=== PATIENT | male | born 1945 | race Two or more races ===

== ENCOUNTER → 2022-03-04 13:08 | Outpatient (BNV) | payer MEDICARE, MEDICAID, SELFPAY | PROVIDERS: PCP Nurse Practitioner; Visit Provider Internal Medicine | DX: C61 Malignant neoplasm of prostate (principal); C78.6 Secondary malignant neoplasm of retroperitoneum and peritoneum; D64.9 Anemia, unspecified | CPT/HCPCS: 99205; 99213; 99214; G2211 ==

== ENCOUNTER 2022-03-04 15:21 | Inpatient (IN) | payer MEDICARE, MEDICAID, SELFPAY ==
--- NOTE | 2022-03-04 | ECG_ITS ---
Test Reason : high potassium Blood Pressure : / mmHG Vent. Rate : 067 BPM Atrial Rate : 067 BPM P-R Int : 186 ms QRS Dur : 078 ms QT Int : 380 ms P-R-T Axes : 009 003 006 degrees QTc Int : 401 ms Normal sinus rhythm Cannot rule out Inferior infarct , age undetermined Abnormal ECG No previous ECGs available Referred By: Generic ED Physician Electronically Signed By:HILDA NEWMAN
--- NOTE | ~2022-03-04 | XR_ITS ---
EXAMINATION: XR CHEST CLINICAL INFORMATION: Shortness of breath COMPARISON: None TECHNIQUE: Frontal view of the chest was obtained. FINDINGS: No significant abnormality is noted involving the heart, lungs, mediastinum, bony thorax or soft tissues. XR/XR chest 1V IMPRESSION: Unremarkable examination.
--- NOTE | ~2022-03-04 | CT_ITS ---
EXAMINATION: CT ABDOMEN AND PELVIS WITHOUT CONTRAST CLINICAL INFORMATION: New acute kidney injury. History of prostate carcinoma. COMPARISON: None TECHNIQUE: Multidetector volumetric imaging was performed from the superior aspect of the liver through the pubic symphysis. Sagittal and coronal reformatted images were obtained on the technologist's workstation. This CT examination was performed using dose optimization techniques as appropriate, variously including the following: *Automated exposure control *Adjustment of mA and/or kV according to patient size (this includes techniques or standardized protocols for targeted exams where dose is matched to indication/reason for exam; i.e. extremities or head) *Use of iterative reconstruction technique DLP: 486 mGy-cm FINDINGS: LUNG BASES: The visualized lung bases are unremarkable aside from the presence of coronary artery calcifications. LIVER, GALLBLADDER, AND BILIARY TREE: The liver is normal in size, shape, and attenuation. No focal hepatic lesion or biliary ductal dilatation is present. The gallbladder is contracted but otherwise unremarkable with no evidence of radiopaque gallstones, gallbladder wall thickening, or obvious pericholecystic inflammatory changes. PANCREAS: Unremarkable. SPLEEN: Unremarkable. ADRENAL GLANDS: Unremarkable. KIDNEYS AND URETERS: There is a subtle nodularity to the kidneys along with perinephric stranding. No hydronephrosis is present. No significant discrete renal mass is seen. BLADDER: Unremarkable. GASTROINTESTINAL TRACT: Diverticular changes present in the colon without diverticulitis The small and large bowel are otherwise unremarkable. The appendix is unremarkable. ABDOMINAL WALL: No significant hernia is appreciated. Small left inguinal hernia contains only fat. LYMPH NODES: Extensive retroperitoneal lymphadenopathy is present with para-aortic nodes, retrocaval nodes, aortocaval nodes without significant adenopathy in the pelvis. Small inguinal nodes are seen. One of the largest nodes is left para-aortic measuring 3.6 x 2.9 x 6.4 cm VASCULAR: Calcific aorta iliofemoral femoral plaque without aneurysm. PELVIC VISCERA: There is BPH with a mildly prominent median lobe protruding into the bladder. OSSEOUS STRUCTURES: Degenerative changes present throughout the lumbar spine most marked from L2 through L5. Grade 1 anterolisthesis of L4 upon L5. No bony destructive lesions. CT/CT abdomen pelvis wo con IMPRESSION: 1. Extensive retroperitoneal lymphadenopathy suggesting a lymphoproliferative disorder. 2. No hydronephrosis is seen. Infiltrative diseases from such a disorder could be involving the kidneys. Such a diagnosis would be hard to make without IV contrast but obviously this cannot be used in this patient with HUSSAIN. The large left para-aortic node would be easily amenable to CT-guided biopsy. 3. Incidental note made of coronary calcifications, colonic diverticulosis, BPH and degenerative changes in the spine among others findings described above. Fleischner guidelines were followed.
[2022-03-04 15:42] VITALS: BP 133/60; PULSE 69; RESP 18; TEMP 36.8; O2SAT 99; BMI 24.3
[2022-03-04 16:01] LABS: MANUAL DIFF FLAG NO
[2022-03-04 16:02] LABS: Basophils Absolute Auto 0.1 X10*3/uL (0.0-0.2); Basophils Percent Auto 0.8 % (0-2); Eosinophils Absolute Auto 0.8 X10*3/uL (0.0-0.4); Eosinophils Percent Auto 10.6 % (0-4); Hematocrit 34.4 % (42.0-52.0); Hemoglobin 10.9 g/dl (14.0-18.0); Imm Gran Abs Auto 0.03 X10*3/uL (0.00-0.03); Imm Gran Pct Auto 0.4 % (0.0-0.4); Lymphocytes Absolute Auto 1.4 X10*3/uL (1.2-4.9); Lymphocytes Percent Auto 19.4 % (20-40); Mean Corpuscular HGB Conc 31.7 g/dl (31.0-36.0); Mean Corpuscular Hemoglobin 26.3 pg (27.0-33.0); Mean Corpuscular Volume 82.9 fL (80.0-98.0); Mean Platelet Volume 9.9 fL (9.4-12.4); Monocytes Absolute Auto 0.7 X10*3/uL (0.1-1.2); Monocytes Percent Auto 9.7 % (2-11); Neutrophils Absolute Auto 4.3 x10*3/uL (2.0-8.3); Neutrophils Percent Auto 59.1 % (45-73); Platelet Count 216 X10*3/uL (160-400); Red Blood Count 4.15 X10*6/uL (4.60-5.80); Red Cell Distribution Width 16.1 % (11.0-16.0); White Blood Count 7.3 X10*3/uL (4.8-10.8)
[2022-03-04 16:28] LABS: Anion Gap 17 (12-20); Blood Urea Nitrogen 43 mg/dL (9-16); Calcium 9.4 mg/dL (8.4-10.2); Carbon Dioxide 21 mmol/L (22-29); Chloride 110 mmol/L (96-108); Creatinine Clr Calc Pharmacy 29.8; Estimated Glomerular Filt Rate 33; Glucose Random 131 mg/dL (60-115); Potassium 6.7 mmol/L (3.3-5.1); Sodium 141 mmol/L (135-145)
--- NOTE | 2022-03-04 16:48 | ED_ITS ---
HPI - Recheck/Abnormal Lab/Rx General Chief Complaint: Recheck/Abnormal Lab/Rx Stated Complaint: abnormal labs Time Seen by Provider: 03/04/22 16:29 Source: patient and family (Daughter ) Mode of arrival: ambulatory Limitations: no limitations History of Present Illness HPI narrative: 76-year-old male past medical history significant for diabetes, hypertension, metastatic prostate cancer currently on daily bicalutamide 50 mg (Dx in November 2021 in [place]) presenting to the emergency department with concerns of high potassium based off of out patient labs done today by his oncologist and complaints of urinary hesitancy and tingling to bilateral upper extremities X a few weeks worsening. Patient and patients daughter tell me he has never had issues with his kidney or his potassium. Daughter tells me he is on medication for his urinary hesitancy which he has been taking per usual. Patient denies chest pain, shortness of breath, headache, vision changes, dizziness, nausea, vomiting, abdominal pain, fevers, chills. Related Data Home Medications Medication Instructions Recorded Confirmed aspirin 81 mg chewable tablet 1 tab PO DAILY 03/04/22 03/04/22 atorvastatin 40 mg tablet 1 tab PO BEDTIME 03/04/22 03/04/22 clopidogrel 75 mg tablet 1 tab PO DAILY 03/04/22 03/04/22 enalapril maleate 20 mg tablet 1 tab PO DAILY 03/04/22 03/04/22 gabapentin 300 mg capsule 1 cap PO TID PRN Pain 03/04/22 03/04/22 hydralazine 25 mg tablet 1 tab PO BID 03/04/22 03/04/22 insulin glargine 100 unit/mL 25 unit subcut BEDTIME 03/04/22 03/04/22 subcutaneous solution (Lantus U-100 Insulin) metformin 1,000 mg tablet 1 tab PO BIDWM 03/04/22 03/04/22 metoprolol tartrate 100 mg tablet 1 tab PO BID 03/04/22 03/04/22 nifedipine 30 mg tablet,extended 1 tab PO DAILY 03/04/22 03/04/22 release 24 hr pen needle, diabetic 31 gauge x 03/04/22 03/04/22 3/16 (Sure Comfort Pen Needle) spironolactone 25 mg tablet 1 tab PO DAILY 03/04/22 03/04/22 tamsulosin 0.4 mg capsule 1 cap PO DAILY 03/04/22 03/04/22 Previous Rx's Medication Instructions Recorded bicalutamide 50 mg tablet 50 mg PO DAILY #60 tabs 03/04/22 Allergies Allergy/AdvReac Type Severity Reaction Status Date / Time No Known Allergies Allergy Verified 03/04/22 15:41 Review of Systems Review of Systems: Constitutional : No Weight loss, No Fever, No Chills, No Fatigue, No Malaise ENT/Mouth : No sore throat, No Rhinorrhea Eyes: No Eye Pain, No Swelling, No Redness Cardiovascular : No Chest Pain, No SOB, No Dyspnea on Exertion, No Orthopnea, No Edema, No Palpitations Respiratory : No Cough, No Sputum, No Wheezing Gastrointestinal : No Nausea, No Vomiting, No Diarrhea, No Constipation, No abdominal Pain, No Hematochezia, No Melena Genitourinary : No Dysuria, No Urinary Frequency, No Hematuria, +urinary hesitance Musculoskeletal : No joint pain, No Myalgias, No Joint Swelling Skin : No Skin Lesions, No rash Neuro : No Weakness, No Numbness, No Dizziness, No Headache, + paresthesias All other systems reviewed and are negative Yes all other systems are reviewed and are negative [facility] Past Medical History Attestation statement: The following information was validated with the patient. Source: old records reviewed and nursing notes reviewed Medical History Diabetes mellitus, type II Essential hypertension History of amputation of left great toe Polyneuropathy Prostate CA Surgical History History of amputation of lesser toe of left foot Family History Family History Father Alcoholic Social History Social History Housing: House Alcohol intake: current Alcohol intake frequency: a few times a month Patient Tobacco Use Status: Former Tobacco user Use of substances other than those prescribed or required for medical reasons: No Advance Directives: No Advance Directives Information Provided: Yes service: No Current occupational status: retired Physical Exam Vital Signs: Vital Signs: Last Vital Signs Temp 97.9 F 03/04/22 16:52 Pulse 76 03/04/22 19:19 Resp 14 03/04/22 19:19 BP 118/62 03/04/22 19:19 Pulse Ox 99 03/04/22 19:19 O2 Del Method 03/04/22 19:19 BMI result Body Mass Index 24.3 VSS Appearance: Alert.? Oriented X3.? No acute distress.? Head: Normocephalic, atraumatic, no step-offs or deformities Eyes: Pupils equal, round and reactive to light.? ENT: Pharynx normal.? Neck: Normal inspection.? Neck supple.? CVS: Normal heart rate and rhythm.? Pulses normal.? Respiratory: No respiratory distress.? Breath sounds normal.? Abdomen: Soft and nontender , slightly distended Skin: Skin warm and dry.? Normal skin color.? Normal skin turgor.? Extremities: No lower extremity edema.? No calf ttp. 5/5 strength to bilateral upper and lower extremities Back: No midline tenderness, no C-spine tenderness, full range of motion, no CVA tenderness bilaterally Neuro: Oriented X 3.? No motor deficit.? No sensory deficit. CN 2-12 intact Course Reevaluation(s) Reevaluation #1: CBC appears to be around patient's baseline, chemistry within acute renal insufficiency (Bun 43, Creatinine 1.97), and hyperkalemia (6.7). I will give bicarb, D50, regular insulin and Lokelma to lower potassium. Due to this new onset acute renal insufficiency and patient's history of prostate cancer I do have concerns for obstructive uropathy therefore a CT of the abdomen and pelvis will be obtained. Time: 17:13 Reevaluation #2: CT of the abdomen and pelvis with extensive retroperitoneal lymphadenopathy, no hydronephrosis, coronary calcifications can colonic diverticulosis as well as BPH and degenerative changes in the spine. BMP with improvement. Patient will be admitted to the hospitalist team for further evaluation and treatment of hyperkalemia. Time: 20:36 MDM - Recheck/Abnormal Lab/Rx MDM Narrative Medical decision making narrative: 76-year-old male history of metastatic prostate cancer presenting with an abnormal potassium, paresthesias stopper extremities and urinary hesitancy times a few weeks Physical examination with a regular rate and rhythm, lungs clear, abdomen soft, nontender however slightly distended, neuro exam nonfocal. 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 Plan at this time is to repeat laboratory studies to rule out hemolysis a infante, obtain an EKG, chest x-ray, bladder scan, it CT of the abdomen and pelvis. Medical Records Attestation: I reviewed the patient's medical records. Lab Data Attestation: I reviewed the patient's lab results. Result diagrams: 03/04/22 15:53 03/04/22 19:40 Labs: Lab Results 03/04/22 03/04/22 03/04/22 Range/Units 15:53 15:53 19:40 WBC 7.3 (4.8-10.8) X10*3/uL RBC 4.15 L (4.60-5.80) X10*6/uL Hgb 10.9 L (14.0-18.0) g/dl Hct 34.4 L (42.0-52.0) % MCV 82.9 (80.0-98.0) fL MCH 26.3 L (27.0-33.0) pg MCHC 31.7 (31.0-36.0) g/dl RDW 16.1 H (11.0-16.0) % Plt Count 216 (160-400) X10*3/uL MPV 9.9 (9.4-12.4) fL Immature Gran % (Auto) 0.4 (0.0-0.4) % Neut % (Auto) 59.1 (45-73) % Lymph % (Auto) 19.4 L (20-40) % [place] % (Auto) 9.7 (2-11) % Eos % (Auto) 10.6 H (0-4) % Baso % (Auto) 0.8 (0-2) % Lymph # (Auto) 1.4 (1.2-4.9) X10*3/uL [place] # (Auto) 0.7 (0.1-1.2) X10*3/uL Eos # (Auto) 0.8 H (0.0-0.4) X10*3/uL Baso # (Auto) 0.1 (0.0-0.2) X10*3/uL Abs Immat Gran (auto) 0.03 (0.00-0.03) X10*3/uL Absolute Neuts (auto) 4.3 (2.0-8.3) x10*3/uL Absolute Nucleated RBC 0.000 (0.0-0.012) X10*3/uL Nucleated RBC % (auto) 0.0 (0.0-0.2) /100WBC Sodium 141 142 (135-145) mmol/L Potassium 6.7 H* 5.5 H (3.3-5.1) mmol/L Chloride 110 H 110 H (96-108) mmol/L Carbon Dioxide 21 L 21 L (22-29) mmol/L Anion Gap 17 17 (12-20) BUN 43 H 45 H (9-16) mg/dL Creatinine 1.97 H 1.85 H (0.5-1.4) mg/dL Estim Creat Clear Calc 29.8 31.8 Estimated GFR 33 36 Random Glucose 131 H 85 D (60-115) mg/dL Calcium 9.4 9.0 (8.4-10.2) mg/dL ECG Data Attestation: I personally reviewed and interpreted this ECG as follows: ECG interpretation date: 03/04/22 ECG interpretation time: 17:47 Prior ECG tracings: available for review Interpretation: Ventricular rate of 67, HI normal, QRS normal, QT/QTC normal. EKG with normal sinus rhythm, no ST elevations or inversions concerning for ischemia. Previous EKGs to compare with Critical Care Time Critical Care Time Critical Care Time: No Attestation: I attest to this time spent taking care of the patient, obtaining history, physical, reviewing labs, imaging, speaking to my attending Discharge Plan Discharge Clinical Impression: Acute hyperkalemia, HUSSAIN (acute kidney injury), Acute on chronic urinary retention Patient Disposition: Admitted As Inpatient Prescriptions: No Action nifedipine 30 mg tablet extended release 24hr 1 tab PO DAILY atorvastatin 40 mg tablet 1 tab PO BEDTIME metoprolol tartrate 100 mg tablet 1 tab PO BID enalapril maleate 20 mg tablet 1 tab PO DAILY hydralazine 25 mg tablet 1 tab PO BID clopidogrel 75 mg tablet 1 tab PO DAILY spironolactone 25 mg tablet 1 tab PO DAILY tamsulosin 0.4 mg capsule 1 cap PO DAILY metformin 1,000 mg tablet 1 tab PO BIDWM gabapentin 300 mg capsule 1 cap PO TID PRN (Reason: Pain) (DME) pen needle, diabetic [Sure Comfort Pen Needle] 31 gauge x 3/16 needle MISCELLANEOUS bicalutamide 50 mg Tablet 50 mg PO DAILY Qty: 60 3RF insulin glargine [Lantus U-100 Insulin] 100 unit/mL Solution 25 unit SUBCUT BEDTIME aspirin 81 mg tablet,chewable 1 tab PO DAILY
[2022-03-04 16:52] VITALS: BP 138/75; PULSE 72; RESP 15; TEMP 36.6; O2SAT 98
[2022-03-04] MEDS: Sodium Bicarbonate 8.4% 50 MEQ/50 ML SYRINGE IVPUSH (17:13)
[2022-03-04] MEDS: Sodium Zirconium Cyclosilicate 10 GM POWD.PACK PO (17:13)
[2022-03-04] MEDS: Insulin Regular, Human 100 UNIT/ML 3 ML VIAL 10 UNIT IVPUSH (17:13)
[2022-03-04] MEDS: Dextrose 50 % 25 GM/50 ML SYRINGE IVPUSH (17:13)
--- NOTE | 2022-03-04 17:31 | PC.NURSE ---
Medicated as charted for elevated k+, pt denies any associated sx. NSR on tele. Bladder scan 510, able to void 150ml. Denies pain or discomfort. VSS.
--- NOTE | 2022-03-04 18:23 | PHA.MEDREC ---
Pharmacy Consult ? Medication Reconciliation Pharmacy has completed the medication reconciliation. Per pt's daughter pt has not started tresiba has been taking lantus instead, also taking enalapril daily not bid
[2022-03-04 19:19] VITALS: BP 118/62; PULSE 76; RESP 14; O2SAT 99
[2022-03-04 20:03] LABS: Anion Gap 17 (12-20); Blood Urea Nitrogen 45 mg/dL (9-16); Carbon Dioxide 21 mmol/L (22-29); Chloride 110 mmol/L (96-108); Creatinine Clr Calc Pharmacy 31.8; Estimated Glomerular Filt Rate 36; Glucose Random 85 mg/dL (60-115); Potassium 5.5 mmol/L (3.3-5.1); Sodium 142 mmol/L (135-145)
[2022-03-04] MEDS: 0.9 % Sodium Chloride 1,000 ML 999 ML IV (20:17)
[2022-03-04 21:56] LABS: COVID-19 Test Negative (Negative)
--- NOTE | 2022-03-04 22:05 | PC.NURSE ---
Pt requested at home night meds. This RN reached out to hospitalist to order pt's home meds.
--- NOTE | 2022-03-04 22:17 | P.HPHOSP_ITS ---
History of Present Illness Date of Service: 03/04/22 Chief Complaint: abnormal labs Trin[place]-speaking only, history is obtained with the help of an official court interpreter this Is a 76-year-old male with past medical history of diabetes, HTN, prostate cancer currently undergoing chemotherapy who presents to the hospital with abnormal labs. 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 He was asked by his oncologist to present himself to the ED. Patient reports no chest pain, no palpitations, no dizziness, no headache, reports no change in appetite, no abdominal pain nausea or vomiting, no diarrhea constipation, no urinary symptoms except for chronic hesitancy that has been going on for months, no dysuria. He has chronic frequency that has not changed. No lower extremity edema. on arrival to the ED patient found to be hemodynamically stable no significant abnormal vitals labs are significant for potassium of 6.7, creatinine of 1.97 with a baseline around 1 from December 2021, abdomen pelvic CT shows extensive retroperitoneal lymphadenopathy suggesting a lymphoproliferative disorder, no hydronephrosis is seen. Infiltrative disease from such a disordered could be involving the kidneys patient given glucose, fluids, insulin, as well as Lokelma with improvement in his potassium, patient will be admitted for further management Review of Systems Review of Systems: Yes all other systems are reviewed and are negative [facility] Medical History Diabetes mellitus, type II Essential hypertension History of amputation of left great toe Polyneuropathy Prostate CA Family History Father Alcoholic Surgical History History of amputation of lesser toe of left foot Social History Housing: House Alcohol intake: current Alcohol intake frequency: a few times a month Patient Tobacco Use Status: Former Tobacco user Use of substances other than those prescribed or required for medical reasons: No Advance Directives: No Advance Directives Information Provided: Yes service: No Current occupational status: retired Meds Allergies Allergy/AdvReac Type Severity Reaction Status Date / Time No Known Allergies Allergy Verified 03/04/22 15:41 Active Medications: Current Medications Acetaminophen (Acetaminophen 325 Mg Tablet) 650 mg PO Q6H PRN PRN Reason: Pain, Mild (Pain Scale 1-3) Aspirin (Aspirin 81 Mg Tab.Chew) 81 mg PO DAILY [facility] Atorvastatin Calcium (Atorvastatin Calcium 40 Mg Tablet) 40 mg PO BEDTIME [facility] Bicalutamide (Bicalutamide 50 Mg Tablet) 50 mg PO DAILY [facility] Clopidogrel Bisulfate (Clopidogrel Bisulfate 75 Mg Tablet) 75 mg PO DAILY [facility] Dextrose (Dextrose 50 % 25 Gm/50 Ml Syringe) 25 gm IVPUSH Q15M PRN; Protocol PRN Reason: per Hypoglycemia Standing Ord. Docusate Sodium (Docusate Sodium 100 Mg Capsule) 100 mg PO DAILY PRN PRN Reason: Constipation Gabapentin (Gabapentin 300 Mg Capsule) 300 mg PO TID PRN PRN Reason: Pain, Severe (Pain Scale 7-10) Glucose (Glucose Gel 15 Gm Gel..Gram.) 15 gm PO Q15M PRN; Protocol PRN Reason: per Hypoglycemia Standing Ord. Heparin Sodium (Porcine) (Heparin Sodium,Porcine 5,000 Unit/Ml Vial) 5,000 unit SUBCUT Q12H [facility] Hydralazine HCl (Hydralazine Hcl 25 Mg Tablet) 25 mg PO BID [facility]; Protocol Lactated Ringer's (Lr) 1,000 mls @ 100 mls/hr IVCONT .Q10H [facility] Insulin Glargine (Insulin Glargine,Hum.Rec.Anlog 100 Unit/Ml 10 Ml Vial) 25 unit SUBCUT BEDTIME [facility] Insulin Human Lispro (Insulin Lispro 100 Unit/Ml 3 Ml Vial) 0 unit SUBCUT QIDACHS [facility]; Protocol Metoprolol Tartrate (Metoprolol Tartrate 100 Mg Tablet) 100 mg PO BID [facility]; Protocol Nifedipine (Nifedipine Er 30 Mg Tab.Er.24) 30 mg PO DAILY [facility]; Protocol Ondansetron HCl (Ondansetron Hcl 4 Mg/2 Ml Vial) 4 mg IVPUSH Q8H PRN PRN Reason: Nausea and Vomiting Pharmacy Consult (Consult Rx Perform Med Rec) 1 each MISCELLANE ONCE PRN PRN Reason: Consult order Tamsulosin HCl (Tamsulosin Hcl 0.4 Mg Capsule) 0.4 mg PO DAILY [facility] Home Medications Medication Instructions Recorded Confirmed Last Taken Type aspirin 81 mg chewable tablet 1 tab PO DAILY 03/04/22 03/04/22 03/04/22 History atorvastatin 40 mg tablet 1 tab PO BEDTIME 03/04/22 03/04/22 03/03/22 History clopidogrel 75 mg tablet 1 tab PO DAILY 03/04/22 03/04/22 03/04/22 History enalapril maleate 20 mg tablet 1 tab PO DAILY 03/04/22 03/04/22 03/04/22 History gabapentin 300 mg capsule 1 cap PO TID PRN Pain 03/04/22 03/04/22 03/04/22 History hydralazine 25 mg tablet 1 tab PO BID 03/04/22 03/04/22 03/04/22 History insulin glargine 100 unit/mL 25 unit subcut BEDTIME 03/04/22 03/04/22 03/03/22 History subcutaneous solution (Lantus U-100 Insulin) metformin 1,000 mg tablet 1 tab PO BIDWM 03/04/22 03/04/22 03/04/22 History metoprolol tartrate 100 mg tablet 1 tab PO BID 03/04/22 03/04/22 03/04/22 History nifedipine 30 mg tablet,extended 1 tab PO DAILY 03/04/22 03/04/22 03/04/22 History release 24 hr pen needle, diabetic 31 gauge x 03/04/22 03/04/22 Unknown History 10/01 (Sure Comfort Pen Needle) spironolactone 25 mg tablet 1 tab PO DAILY 03/04/22 03/04/22 03/04/22 History tamsulosin 0.4 mg capsule 1 cap PO DAILY 03/04/22 03/04/22 03/04/22 History Physical Exam Vital Signs and Narrative: Vital Signs: Last Vital Signs Temp 97.9 F 03/04/22 16:52 Pulse 76 03/04/22 19:19 Resp 14 03/04/22 19:19 BP 118/62 03/04/22 19:19 Pulse Ox 99 03/04/22 19:19 O2 Del Method 03/04/22 19:19 BMI result Body Mass Index 24.3 Const: General: cooperative and no acute distress [place] ation/consciousness: patient oriented x3 Eyes: General: appearance normal, both eyes and all related structures Resp: Effort & Inspection: normal respiratory effort Auscultation: clear to auscultation bilaterally Cardio: Rate: regular rate Rhythm: regular rhythm GI: Palpation (GI): Soft to palpation Auscultation: normal bowel sounds Skin: General skin exam: no rashes or lesions noted Neuro: General: patient oriented x3 Cognition (Neuro): normal cognition Extrem: General: Yes normal to inspection and Yes no pedal edema Results Labs CBC and Chem 7: 03/04/22 15:53 03/04/22 19:40 Labs: Laboratory Results - last 24 hr 03/04/22 03/04/22 03/04/22 15:53 15:53 19:40 MCV 82.9 MCH 26.3 L MCHC 31.7 RDW 16.1 H Plt Count 216 MPV 9.9 Immature Gran % (Auto) 0.4 Neut % (Auto) 59.1 Lymph % (Auto) 19.4 L [place] % (Auto) 9.7 Eos % (Auto) 10.6 H Baso % (Auto) 0.8 Lymph # (Auto) 1.4 [place] # (Auto) 0.7 Eos # (Auto) 0.8 H Baso # (Auto) 0.1 Abs Immat Gran (auto) 0.03 Absolute Neuts (auto) 4.3 Absolute Nucleated RBC 0.000 Nucleated RBC % (auto) 0.0 Anion Gap 17 17 Estim Creat Clear Calc 29.8 31.8 Estimated GFR 33 36 Random Glucose 131 H 85 D Calcium 9.4 9.0 COVID-19 (PATRICE) COVID-19 Clin Com 03/04/22 21:33 MCV MCH MCHC RDW Plt Count MPV Immature Gran % (Auto) Neut % (Auto) Lymph % (Auto) [place] % (Auto) Eos % (Auto) Baso % (Auto) Lymph # (Auto) [place] # (Auto) Eos # (Auto) Baso # (Auto) Abs Immat Gran (auto) Absolute Neuts (auto) Absolute Nucleated RBC Nucleated RBC % (auto) Anion Gap Estim Creat Clear Calc Estimated GFR Random Glucose Calcium COVID-19 (PATRICE) Negative COVID-19 Clin Com See Note Imaging Radiologist's Impressions: Impressions Chest X-Ray 03/04/22 17:42 IMPRESSION: Unremarkable examination. Abdomen/Pelvis CT 03/04/22 17:57 IMPRESSION: 1. Extensive retroperitoneal lymphadenopathy suggesting a lymphoproliferative disorder. 2. No hydronephrosis is seen. Infiltrative diseases from such a disorder could be involving the kidneys. Such a diagnosis would be hard to make without IV contrast but obviously this cannot be used in this patient with HUSSAIN. The large left para-aortic node would be easily amenable to CT-guided biopsy. 3. Incidental note made of coronary calcifications, colonic diverticulosis, BPH and degenerative changes in the spine among others findings described above. Fleischner guidelines were followed. Assessment and Plan (1) Acute hyperkalemia: Status: Acute (2) HUSSAIN (acute kidney injury): Status: Acute (3) Lymphoproliferative disorder: Status: Acute (4) Prostate cancer: Status: Acute Plan 76-year-old male with past medical history of prostate cancer presents to the hospital with abnormal labs found to have hyperkalemia as well as HUSSAIN # acute hyperkalemia - likely secondary to HUSSAIN - improved with glucose, insulin, Lokelma - no EKG changes, , shortened PA interval on no peaked T-waves - continue IV fluid - follow BMP closely - admit to telemetry # HUSSAIN - likely secondary to underlying lymphoproliferative disorder, no evidence of obstruction on CT abdomen, no Hydronephrosis - will start patient on fluid - follow BMP - will hold nephrotoxic medications # lymphoproliferative disorder - patient with history of prostate cancer, no known other cancers at this time? - consult Hematology-Oncology for further evaluation # diabetes - low-dose sliding scale insulin - continue home glargine - diabetic diet - POC q.i.d. achs # hypertension - stable - will hold antihypertensive at this time as they are nephrotoxic - resume wounds HUSSAIN results DVT prophylaxis: Heparin subQ given need for IV fluids and hyperkalemia patient will require minimal 2 night t hospitals admission for further management and monitoring Quality Stroke Does the patient have a stroke diagnosis?: No VTE Prior VTE?: No VTE Risk Level:: Medical - moderate - high VTE Device Contraindication: Treatment Not Indicated VTE Drug Contraindication: N/A - Med Ordered
[2022-03-04 22:25] LABS: Glucose, Whole Blood 129 mg/dL (60-115)
[2022-03-04 22:35] VITALS: BP 131/68; PULSE 75; RESP 14; O2SAT 97
[2022-03-04 22:35] LABS: Anion Gap 13 (12-20); Blood Urea Nitrogen 42 mg/dL (9-16); Calcium 8.6 mg/dL (8.4-10.2); Carbon Dioxide 22 mmol/L (22-29); Chloride 109 mmol/L (96-108); Creatinine Clr Calc Pharmacy 33.2; Estimated Glomerular Filt Rate 37; Glucose Random 163 mg/dL (60-115); Sodium 139 mmol/L (135-145)
[2022-03-04] MEDS: Insulin Glargine,Hum.rec.anlog 100 UNIT/ML 10 ML VIAL 25 UNIT SUBCUT (22:37)
[2022-03-04] MEDS: Heparin Sodium,Porcine 5,000 UNIT/ML VIAL 5000 UNIT SUBCUT (22:37)
[2022-03-04] MEDS: Metoprolol Tartrate 100 MG TABLET PO (22:38)
[2022-03-04] MEDS: Lactated Ringers 1,000 ML 100 ML IVCONT (22:38)
[2022-03-05 00:13] LABS: Appearance Urine Clear; Color Urine Yellow; Glucose Urine UA Negative (Negative); Leukocyte Esterase Urine Negative (Negative); Nitrite Urine Negative (Negative); PH 5.5 (5.0-8.0); Urine Blood Negative (Negative); Urine Ketones Negative (Negative); Urine Protein Negative (Neg-Trace)
[2022-03-05 04:19] VITALS: BP 125/68; PULSE 64; RESP 14; O2SAT 95
[2022-03-05 06:42] LABS: MANUAL DIFF FLAG NO
[2022-03-05 06:44] LABS: Basophils Percent Auto 0.7 % (0-2); Eosinophils Absolute Auto 0.7 X10*3/uL (0.0-0.4); Eosinophils Percent Auto 10.8 % (0-4); Hematocrit 32.6 % (42.0-52.0); Hemoglobin 10.6 g/dl (14.0-18.0); Imm Gran Abs Auto 0.01 X10*3/uL (0.00-0.03); Imm Gran Pct Auto 0.2 % (0.0-0.4); Lymphocytes Absolute Auto 1.4 X10*3/uL (1.2-4.9); Lymphocytes Percent Auto 22.3 % (20-40); Mean Corpuscular HGB Conc 32.5 g/dl (31.0-36.0); Mean Corpuscular Hemoglobin 26.6 pg (27.0-33.0); Mean Corpuscular Volume 81.9 fL (80.0-98.0); Monocytes Absolute Auto 0.7 X10*3/uL (0.1-1.2); Monocytes Percent Auto 10.7 % (2-11); Neutrophils Absolute Auto 3.4 x10*3/uL (2.0-8.3); Neutrophils Percent Auto 55.3 % (45-73); Platelet Count 200 X10*3/uL (160-400); Red Blood Count 3.98 X10*6/uL (4.60-5.80); Red Cell Distribution Width 15.9 % (11.0-16.0); White Blood Count 6.1 X10*3/uL (4.8-10.8)
[2022-03-05 06:57] LABS: Anion Gap 12 (12-20); Blood Urea Nitrogen 34 mg/dL (9-16); Calcium 8.9 mg/dL (8.4-10.2); Carbon Dioxide 23 mmol/L (22-29); Chloride 111 mmol/L (96-108); Estimated Glomerular Filt Rate 45; Glucose Random 66 mg/dL (60-115); Sodium 141 mmol/L (135-145)
[2022-03-05 07:05] VITALS: BP 134/63; PULSE 60; RESP 16; TEMP 36.6; O2SAT 98
[2022-03-05 07:11] LABS: Glucose, Whole Blood 55 mg/dL (60-115)
[2022-03-05 07:46] LABS: Glucose, Whole Blood 93 mg/dL (60-115)
[2022-03-05 08:20] LABS: Lactate Dehydrogenase 136 U/L (118-273); Uric Acid 8.5 mg/dL (3.4-7.0)
[2022-03-05] MEDS: Heparin Sodium,Porcine 5,000 UNIT/ML VIAL 5000 UNIT SUBCUT ×2 (08:34→21:28)
[2022-03-05] MEDS: Clopidogrel Bisulfate 75 MG TABLET PO (08:34)
[2022-03-05] MEDS: NIFEdipine ER 30 MG TAB.ER.24 PO (08:34)
[2022-03-05] MEDS: Tamsulosin HCL 0.4 MG CAPSULE PO (08:34)
[2022-03-05] MEDS: hydrALAZINE HCl 25 MG TABLET PO ×2 (08:35→21:26)
[2022-03-05] MEDS: Aspirin 81 MG TAB.CHEW PO (08:35)
[2022-03-05] MEDS: Metoprolol Tartrate 100 MG TABLET PO ×2 (08:35→21:26)
[2022-03-05] MEDS: Bicalutamide 50 MG TABLET PO (08:36)
[2022-03-05] MEDS: Lactated Ringers 1,000 ML 100 ML IVCONT (09:50)
--- NOTE | 2022-03-05 10:54 | P.PNIM_ITS ---
Subjective Subjective Date of Service: 03/05/22 Interval History: seen and examined this morning Follow-up for HUSSAIN, hyperkalemia. History obtained with the assistance of a mercury purifier denies abdominal pain, nausea, vomiting. Overall feeling well Review of Systems Review of Systems: Yes all other systems are reviewed and are negative Constitutional Constitutional: Denies chills and Denies fever(s) ENT Ears, Nose, Mouth, and Throat: Denies dizziness Cardiovascular Cardiovascular: Denies chest pain, Denies palpitations and Denies dyspnea Respiratory Respiratory: Denies cough and Denies dyspnea Gastrointestinal Gastrointestinal: Denies abdominal pain, Denies diarrhea, Denies nausea and Denies vomiting Neurologic Neurologic: Denies dizziness Endocrine Endocrine: Denies palpitations Physical Exam Vital Signs: Vital Signs: Last Vital Signs Temp 97.9 F 03/05/22 07:05 Pulse 60 03/05/22 07:05 Resp 16 03/05/22 07:05 BP 134/63 03/05/22 07:05 Pulse Ox 98 03/05/22 07:05 O2 Del Method 03/05/22 07:05 BMI result Body Mass Index 24.3 Const: General: cooperative, comfortable, no acute distress, alert and awake Nutritional Appearance: average body habitus Orientation/consciousness: patient oriented x3 Resp: Effort & Inspection: normal respiratory effort and able to speak in complete sentences Auscultation: clear to auscultation bilaterally Cardio: Rate: regular rate Heart sounds: S1 normal heart sound present and S2 normal heart sound present GI: Inspection: No distended Palpation (GI): Soft to palpation and nontender Neuro: General: patient oriented x3 and CN's II-XI intact bilaterally Extrem: General: Yes no pedal edema Objective Data Active Medications Acetaminophen (Acetaminophen 325 Mg Tablet) 650 mg PO Q6H PRN PRN Reason: Pain, Mild (Pain Scale 1-3) Aspirin (Aspirin 81 Mg Tab.Chew) 81 mg PO DAILY COUNTS INCLUDE 234 BEDS AT THE [facility] Last Admin: 03/05/22 08:35 Dose: 81 mg Documented By: JESSA Atorvastatin Calcium (Atorvastatin Calcium 40 Mg Tablet) 40 mg PO BEDTIME COUNTS INCLUDE 234 BEDS AT THE [facility] Bicalutamide (Bicalutamide 50 Mg Tablet) 50 mg PO DAILY COUNTS INCLUDE 234 BEDS AT THE [facility] Last Admin: 03/05/22 08:36 Dose: 50 mg Documented By: JESSA Clopidogrel Bisulfate (Clopidogrel Bisulfate 75 Mg Tablet) 75 mg PO DAILY COUNTS INCLUDE 234 BEDS AT THE [facility] Last Admin: 03/05/22 08:34 Dose: 75 mg Documented By: JESSA Dextrose (Dextrose 50 % 25 Gm/50 Ml Syringe) 25 gm IVPUSH Q15M PRN; Protocol PRN Reason: per Hypoglycemia Standing Ord. Docusate Sodium (Docusate Sodium 100 Mg Capsule) 100 mg PO DAILY PRN PRN Reason: Constipation Gabapentin (Gabapentin 300 Mg Capsule) 300 mg PO TID PRN PRN Reason: Pain, Severe (Pain Scale 7-10) Glucose (Glucose Gel 15 Gm Gel..Gram.) 15 gm PO Q15M PRN; Protocol PRN Reason: per Hypoglycemia Standing Ord. Heparin Sodium (Porcine) (Heparin Sodium,Porcine 5,000 Unit/Ml Vial) 5,000 unit SUBCUT Q12H COUNTS INCLUDE 234 BEDS AT THE [facility] Last Admin: 03/05/22 08:34 Dose: 5,000 unit Documented By: JESSA Hydralazine HCl (Hydralazine Hcl 25 Mg Tablet) 25 mg PO BID COUNTS INCLUDE 234 BEDS AT THE [facility]; Protocol Last Admin: 03/05/22 08:35 Dose: 25 mg Documented By: JESSA Lactated Ringer's (Lr) 1,000 mls @ 100 mls/hr IVCONT .Q10H COUNTS INCLUDE 234 BEDS AT THE [facility] Last Admin: 03/05/22 09:50 Dose: 100 mls/hr Documented By: JESSA Insulin Glargine (Insulin Glargine,Hum.Rec.Anlog 100 Unit/Ml 10 Ml Vial) 25 unit SUBCUT BEDTIME COUNTS INCLUDE 234 BEDS AT THE [facility] Last Admin: 03/04/22 22:37 Dose: 25 unit Documented By: BAO Insulin Human Lispro (Insulin Lispro 100 Unit/Ml 3 Ml Vial) 0 unit SUBCUT QIDACHS COUNTS INCLUDE 234 BEDS AT THE [facility]; Protocol Last Admin: 03/05/22 07:25 Dose: Not Given Documented By: JESSA Non-Admin Reason: No Insulin Coverage Metoprolol Tartrate (Metoprolol Tartrate 100 Mg Tablet) 100 mg PO BID COUNTS INCLUDE 234 BEDS AT THE [facility]; Protocol Last Admin: 03/05/22 08:35 Dose: 100 mg Documented By: JESSA Nifedipine (Nifedipine Er 30 Mg Tab.Er.24) 30 mg PO DAILY COUNTS INCLUDE 234 BEDS AT THE [facility]; Protocol Last Admin: 03/05/22 08:34 Dose: 30 mg Documented By: JESSA Ondansetron HCl (Ondansetron Hcl 4 Mg/2 Ml Vial) 4 mg IVPUSH Q8H PRN PRN Reason: Nausea and Vomiting Pharmacy Consult (Consult Rx Perform Med Rec) 1 each MISCELLANE ONCE PRN PRN Reason: Consult order Tamsulosin HCl (Tamsulosin Hcl 0.4 Mg Capsule) 0.4 mg PO DAILY TRIP Last Admin: 03/05/22 08:34 Dose: 0.4 mg Documented By: JESSA Labs CBC & Chem 7: 03/05/22 06:23 03/05/22 06:23 Labs: Laboratory Results - last 24 hr 03/04/22 03/04/22 03/04/22 15:53 15:53 19:40 MCV 82.9 MCH 26.3 L MCHC 31.7 RDW 16.1 H Plt Count 216 MPV 9.9 Immature Gran % (Auto) 0.4 Neut % (Auto) 59.1 Lymph % (Auto) 19.4 L [place] % (Auto) 9.7 Eos % (Auto) 10.6 H Baso % (Auto) 0.8 Lymph # (Auto) 1.4 [place] # (Auto) 0.7 Eos # (Auto) 0.8 H Baso # (Auto) 0.1 Abs Immat Gran (auto) 0.03 Absolute Neuts (auto) 4.3 Absolute Nucleated RBC 0.000 Nucleated RBC % (auto) 0.0 Anion Gap 17 17 Estim Creat Clear Calc 29.8 31.8 Estimated GFR 33 36 POC Glucose Random Glucose 131 H 85 D Uric Acid Calcium 9.4 9.0 Lactate Dehydrogenase Urine Color Urine Appearance Urine pH Ur Specific [place] Urine Protein Urine Glucose (UA) Urine Ketones Urine Blood Urine Nitrite Ur Leukocyte Esterase COVID-19 (PATRICE) COVID-19 Clin Com 03/04/22 03/04/22 03/04/22 21:33 22:08 22:22 MCV MCH MCHC RDW Plt Count MPV Immature Gran % (Auto) Neut % (Auto) Lymph % (Auto) [place] % (Auto) Eos % (Auto) Baso % (Auto) Lymph # (Auto) [place] # (Auto) Eos # (Auto) Baso # (Auto) Abs Immat Gran (auto) Absolute Neuts (auto) Absolute Nucleated RBC Nucleated RBC % (auto) Anion Gap 13 Estim Creat Clear Calc 33.2 Estimated GFR 37 POC Glucose 129 H Random Glucose 163 H D Uric Acid Calcium 8.6 Lactate Dehydrogenase Urine Color Urine Appearance Urine pH Ur Specific [place] Urine Protein Urine Glucose (UA) Urine Ketones Urine Blood Urine Nitrite Ur Leukocyte Esterase COVID-19 (PATRCIE) Negative [email or web address] Com See Note 03/04/22 03/05/22 03/05/22 23:59 06:23 06:23 MCV 81.9 MCH 26.6 L MCHC 32.5 RDW 15.9 Plt Count 200 MPV 10.0 Immature Gran % (Auto) 0.2 Neut % (Auto) 55.3 Lymph % (Auto) 22.3 [place] % (Auto) 10.7 Eos % (Auto) 10.8 H Baso % (Auto) 0.7 Lymph # (Auto) 1.4 [place] # (Auto) 0.7 Eos # (Auto) 0.7 H Baso # (Auto) 0.0 Abs Immat Gran (auto) 0.01 Absolute Neuts (auto) 3.4 Absolute Nucleated RBC 0.000 Nucleated RBC % (auto) 0.0 Anion Gap 12 Estim Creat Clear Calc 39.0 Estimated GFR 45 POC Glucose Random Glucose 66 D Uric Acid 8.5 H Calcium 8.9 Lactate Dehydrogenase 136 Urine Color Yellow Urine Appearance Clear Urine pH 5.5 Ur Specific [place] 1.010 Urine Protein Negative Urine Glucose (UA) Negative Urine Ketones Negative Urine Blood Negative Urine Nitrite Negative Ur Leukocyte Esterase Negative COVID-19 (PATRICE) [employer] 03/05/22 03/05/22 07:07 07:42 MCV MCH MCHC RDW Plt Count MPV Immature Gran % (Auto) Neut % (Auto) Lymph % (Auto) [place] % (Auto) Eos % (Auto) Baso % (Auto) Lymph # (Auto) [place] # (Auto) Eos # (Auto) Baso # (Auto) Abs Immat Gran (auto) Absolute Neuts (auto) Absolute Nucleated RBC Nucleated RBC % (auto) Anion Gap Estim Creat Clear Calc Estimated GFR POC Glucose 55 L* 93 Random Glucose Uric Acid Calcium Lactate Dehydrogenase Urine Color Urine Appearance Urine pH Ur Specific [place] Urine Protein Urine Glucose (UA) Urine Ketones Urine Blood Urine Nitrite Ur Leukocyte Esterase COVID-19 (PATRICE) COVID-19 [employer] Com Assessment and Plan (1) Prostate cancer: Status: Acute (2) HUSSAIN (acute kidney injury): Status: Acute Plan 76-year-old male with past medical history of prostate cancer presents to the hospital with abnormal labs found to have hyperkalemia as well as HUSSAIN # acute hyperkalemia likely secondary to HUSSAIN resolved with glucose, insulin, Lokelma no EKG changes - continue IV fluid - follow BMP closely - hold Aldactone, enalapril # HUSSAIN - likely secondary to underlying lymphoproliferative disorder, no evidence of obstruction on CT abdomen, no Hydronephrosis - continue IV fluid - follow BMP - will hold nephrotoxic medications - Aldactone, enalapril # lymphoproliferative disorder - patient with history of prostate cancer, no known other cancers at this time? - consult Hematology-Oncology for further evaluation # diabetes POC low this morning at 53, reports he is always low in the morning - low-dose sliding scale insulin - continue home glargine - diabetic diet - POC q.i.d. achs # hypertension - stable - hold Aldactone, enalapril -continue nifedipine, Lopressor - resume wounds HUSSAIN results DVT prophylaxis: Heparin subQ attending-Dr. Mayfield patient requires ongoing inpatient hospitalization due to HUSSAIN and need for IV fluid as well as oncology evaluation Quality Stroke Does the patient have a stroke diagnosis?: No VTE Prior VTE?: No VTE Risk Level:: Medical - moderate - high VTE Device Contraindication: Treatment Not Indicated VTE Drug Contraindication: N/A - Med Ordered
[2022-03-05 12:46] LABS: Appearance Urine Clear; Color Urine Colorless; Glucose Urine UA 250 mg/dL (Negative); Leukocyte Esterase Urine Negative (Negative); Nitrite Urine Negative (Negative); PH 5.5 (5.0-8.0); Specific Gravity - Urine <= 1.005 (1.005-1.025); Urine Blood Negative (Negative); Urine Ketones Negative (Negative); Urine Protein Negative (Neg-Trace)
[2022-03-05 12:59] LABS: Glucose, Whole Blood 96 mg/dL (60-115)
[2022-03-05 16:00] VITALS: BP 133/71; PULSE 66; RESP 16; TEMP 36.7; O2SAT 98
[2022-03-05 17:01] LABS: Glucose, Whole Blood 173 mg/dL (60-115)
[2022-03-05] MEDS: Insulin Lispro 100 UNIT/ML 3 ML VIAL SUBCUT ×2 (18:44→21:27)
--- NOTE | 2022-03-05 19:22 | PC.NURSE ---
THIS NURSE HAS NOW ASSUMED CARE OF THIS PT
[2022-03-05 20:00] VITALS: BP 154/71; PULSE 66; RESP 16; TEMP 36.6; O2SAT 99
--- NOTE | 2022-03-05 20:19 | PC.NURSE ---
pt placed into hospital bed
--- NOTE | 2022-03-05 20:24 | PC.NURSE ---
PATIENT WAS MOVED INTO A HOSPITAL BED.
[2022-03-05 20:32] LABS: Glucose, Whole Blood 167 mg/dL (60-115)
[2022-03-05] MEDS: Atorvastatin Calcium 40 MG TABLET PO (21:26)
[2022-03-05] MEDS: Insulin Glargine,Hum.rec.anlog 100 UNIT/ML 10 ML VIAL 25 UNIT SUBCUT (21:26)
--- NOTE | 2022-03-05 22:00 | PC.NURSE ---
offered pt HS snack and he declined
--- NOTE | 2022-03-05 22:16 | MHC.CM.PN ---
Attempted to meet with admitted patient for d/c planning. Pt is sound asleep. Did not rouse to knock or name. Will try to meet with pt when awake. CM to follow for d/c needs.
[2022-03-05] MEDS: 0.9 % Sodium Chloride 1,000 ML 50 ML IVCONT (23:46)
--- NOTE | 2022-03-05 23:47 | PC.NURSE ---
patient started on new order for IVFs, pt resting quietly, resp effort unlabored reg no use of accessory muscles present, pt has bed locked in lowest position, call light within reach, will continue to monitor pt
[2022-03-06 00:29] VITALS: BP 108/50; PULSE 66; RESP 16; O2SAT 97
--- NOTE | 2022-03-06 02:42 | PC.NURSE ---
Patient awoke, offered PO apple juice, pt drank PO with no issues. Will continue to monitor pt at this time
[2022-03-06 07:07] LABS: Glucose, Whole Blood 68 mg/dL (60-115)
--- NOTE | 2022-03-06 07:31 | PC.NURSE ---
Assumed care of pt at this time. Pt is A&Ox4, sitting at side of bed eating breakfast at this time. Call schmitz within reach. Will continue to monitor.
--- NOTE | 2022-03-06 08:00 | P.CNHO_ITS ---
Subjective - Subjective Primary Care Provider: Emma Sullivan HPI - Consult Narrative Narrative: Shaquille Caicedo is a 76 year old male Review of Systems - Neurologic Denies dizziness [facility] Medical History: Medical History (Last Reviewed 03/04/22 @ 22:56 by Jose Austin MD) Diabetes mellitus, type II Essential hypertension History of amputation of left great toe Polyneuropathy Prostate CA Family History: Family History (Last Reviewed 03/04/22 @ 22:56 by Jose Austin MD) Father Alcoholic Surgical History: Surgical History (Last Reviewed 03/04/22 @ 22:56 by Jose Austin MD) History of amputation of lesser toe of left foot Social History: Social History (Last Reviewed 03/04/22 @ 22:56 by Jose Austin MD) Living Situation History: Housing: House Tobacco History: Patient Tobacco Use Status: Former Tobacco user Substance Use History: Use of substances other than those prescribed or required for medical reasons : No Advance Directives: Advance Directives: No Advance Directives Information Provided: Yes Occupation Assessmet: service: No Current occupational status: retired Home Medications and Allergies Current Medications: Current Medications Acetaminophen (Acetaminophen 325 Mg Tablet) 650 mg PO Q6H PRN PRN Reason: Pain, Mild (Pain Scale 1-3) Aspirin (Aspirin 81 Mg Tab.Chew) 81 mg PO DAILY [facility] Last Admin: 03/05/22 08:35 Dose: 81 mg Atorvastatin Calcium (Atorvastatin Calcium 40 Mg Tablet) 40 mg PO BEDTIME [facility] Last Admin: 03/05/22 21:26 Dose: 40 mg Bicalutamide (Bicalutamide 50 Mg Tablet) 50 mg PO DAILY [facility] Last Admin: 03/05/22 08:36 Dose: 50 mg Clopidogrel Bisulfate (Clopidogrel Bisulfate 75 Mg Tablet) 75 mg PO DAILY [facility] Last Admin: 03/05/22 08:34 Dose: 75 mg Dextrose (Dextrose 50 % 25 Gm/50 Ml Syringe) 25 gm IVPUSH Q15M PRN; Protocol PRN Reason: per Hypoglycemia Standing Ord. Docusate Sodium (Docusate Sodium 100 Mg Capsule) 100 mg PO DAILY PRN PRN Reason: Constipation Gabapentin (Gabapentin 300 Mg Capsule) 300 mg PO TID PRN PRN Reason: Pain, Severe (Pain Scale 7-10) Glucose (Glucose Gel 15 Gm Gel..Gram.) 15 gm PO Q15M PRN; Protocol PRN Reason: per Hypoglycemia Standing Ord. Heparin Sodium (Porcine) (Heparin Sodium,Porcine 5,000 Unit/Ml Vial) 5,000 unit SUBCUT Q12H [facility] Last Admin: 03/05/22 21:28 Dose: 5,000 unit Hydralazine HCl (Hydralazine Hcl 25 Mg Tablet) 25 mg PO BID [facility]; Protocol Last Admin: 03/05/22 21:26 Dose: 25 mg Lactated Ringer's (Lr) 1,000 mls @ 100 mls/hr IVCONT .Q10H [facility] Last Admin: 03/06/22 07:30 Dose: Not Given Sodium Chloride (Ns) 1,000 mls @ 50 mls/hr IVCONT .Q20H [facility] Last Admin: 03/05/22 23:46 Dose: 50 mls/hr Insulin Glargine (Insulin Glargine,Hum.Rec.Anlog 100 Unit/Ml 10 Ml Vial) 25 unit SUBCUT BEDTIME [facility] Last Admin: 03/05/22 21:26 Dose: 25 unit Insulin Human Lispro (Insulin Lispro 100 Unit/Ml 3 Ml Vial) 0 unit SUBCUT QIDACHS [facility]; Protocol Last Admin: 03/06/22 07:30 Dose: Not Given Metoprolol Tartrate (Metoprolol Tartrate 100 Mg Tablet) 100 mg PO BID [facility]; Protocol Last Admin: 03/05/22 21:26 Dose: 100 mg Nifedipine (Nifedipine Er 30 Mg Tab.Er.24) 30 mg PO DAILY [facility]; Protocol Last Admin: 03/05/22 08:34 Dose: 30 mg Ondansetron HCl (Ondansetron Hcl 4 Mg/2 Ml Vial) 4 mg IVPUSH Q8H PRN PRN Reason: Nausea and Vomiting Pharmacy Consult (Consult Rx Perform Med Rec) 1 each MISCELLANE ONCE PRN PRN Reason: Consult order Tamsulosin HCl (Tamsulosin Hcl 0.4 Mg Capsule) 0.4 mg PO DAILY [facility] Last Admin: 03/05/22 08:34 Dose: 0.4 mg Home Medications Medication Instructions Recorded Confirmed Type aspirin 81 mg chewable tablet 1 tab PO DAILY 03/04/22 03/04/22 History atorvastatin 40 mg tablet 1 tab PO BEDTIME 03/04/22 03/04/22 History clopidogrel 75 mg tablet 1 tab PO DAILY 03/04/22 03/04/22 History enalapril maleate 20 mg tablet 1 tab PO DAILY 03/04/22 03/04/22 History gabapentin 300 mg capsule 1 cap PO TID PRN Pain 03/04/22 03/04/22 History hydralazine 25 mg tablet 1 tab PO BID 03/04/22 03/04/22 History insulin glargine 100 unit/mL 25 unit subcut BEDTIME 03/04/22 03/04/22 History subcutaneous solution (Lantus U-100 Insulin) metformin 1,000 mg tablet 1 tab PO BIDWM 03/04/22 03/04/22 History metoprolol tartrate 100 mg tablet 1 tab PO BID 03/04/22 03/04/22 History nifedipine 30 mg tablet,extended 1 tab PO DAILY 03/04/22 03/04/22 History release 24 hr pen needle, diabetic 31 gauge x 03/04/22 03/04/22 History 3/16 (Sure Comfort Pen Needle) spironolactone 25 mg tablet 1 tab PO DAILY 03/04/22 03/04/22 History tamsulosin 0.4 mg capsule 1 cap PO DAILY 03/04/22 03/04/22 History Allergies Allergy/AdvReac Type Severity Reaction Status Date / Time No Known Allergies Allergy Verified 03/04/22 15:41 Physical Exam Vital signs: Vital Signs Temp 97.8 F 03/05/22 20:00 Pulse 66 03/06/22 00:29 Resp 16 03/06/22 00:29 BP 108/50 L 03/06/22 00:29 Pulse Ox 97 03/06/22 00:29 O2 Del Method 03/06/22 00:29 Intake & Output 03/05/22 03/06/22 03/06/22 18:59 06:59 18:59 Intake Total 1000 / 2480 1480 / 2480 Output Total 400 / 1800 1400 / 1800 Balance 600 / 680 80 / 680 Urine Output (Average ml/kg/hr) 0.46 1.61 Intake: Intake, Oral Amount 480 / 480 Intake, IV Amount 1000 / 2000 1000 / 2000 Lactated Ringers 1,000 ml @ 100 1000 / 2000 1000 / 2000 mls/hr IVCONT .Q10H [facility] Rx#: [id number] Output: Output, Urine Amount 400 / 1800 1400 / 1800 Other: Dinner % Eaten 100% Urine Urinal Urinal Urine Color Yellow Weight 72.575 kg Hem/Onc Consult Result - Labs CBC & Chem 7: 03/05/22 06:23 03/05/22 06:23 Labs: Urine 03/05/22 Range/Units 12:29 Urine Color Colorless Urine Appearance Clear Urine pH 5.5 (5.0-8.0) Ur Specific [place] <= 1.005 (1.005-1.025) Urine Protein Negative (Neg-Trace) mg/dL Urine Glucose (UA) 250 H (Negative) mg/dL
[2022-03-06] MEDS: Clopidogrel Bisulfate 75 MG TABLET PO (08:47)
[2022-03-06] MEDS: NIFEdipine ER 30 MG TAB.ER.24 PO (08:47)
[2022-03-06] MEDS: Tamsulosin HCL 0.4 MG CAPSULE PO (08:47)
[2022-03-06] MEDS: Metoprolol Tartrate 100 MG TABLET PO (08:47)
[2022-03-06] MEDS: Heparin Sodium,Porcine 5,000 UNIT/ML VIAL 5000 UNIT SUBCUT (08:47)
[2022-03-06] MEDS: hydrALAZINE HCl 25 MG TABLET PO (08:47)
[2022-03-06] MEDS: Aspirin 81 MG TAB.CHEW PO (08:47)
[2022-03-06 08:49] VITALS: BP 144/74; PULSE 71; RESP 18; O2SAT 96
[2022-03-06 09:43] LABS: Anion Gap 12 (12-20); Blood Urea Nitrogen 21 mg/dL (9-16); Calcium 8.9 mg/dL (8.4-10.2); Carbon Dioxide 25 mmol/L (22-29); Chloride 107 mmol/L (96-108); Creatinine Clr Calc Pharmacy 39.2; Estimated Glomerular Filt Rate 45; Glucose Random 146 mg/dL (60-115); Potassium 5.1 mmol/L (3.3-5.1); Sodium 139 mmol/L (135-145)
--- NOTE | 2022-03-06 10:32 | P.DS_ITS ---
DS: Providers Provider Date of Service: 03/06/22 Date of admission: 03/04/22 21:51 Date of discharge: 03/06/22 Primary care physician: Emma Sullivan Consults: 03/04/22 21:49 Consult to Hematology / Oncology Routine Consulting Provider: Desire Sam Reason for consultation: lymphoproliferative disorder Has provider been notified: No Attending physician on discharge: Jose Alfredo Mayfield Discharging clinician: Delma Dale DS: Diagnosis Discharge Diagnosis (1) Prostate cancer: Status: Acute (2) HUSSAIN (acute kidney injury): Status: Acute (3) Acute hyperkalemia: Status: Acute (4) Lymphoproliferative disorder: Status: Acute DS: Summary Hospital Course Hospital Course: from H&P on day of admission Romanian-speaking only, history is obtained with the help of an graduate school dean ?this Is a 76-year-old male with past medical history of diabetes, HTN, prostate cancer currently undergoing chemotherapy who presents to the hospital with abnormal labs.? Patient reports that he was at his [facility] oncologist office, did routine labs which showed elevated potassium and kidney failure.? He was asked by his oncologist to present himself to the ED.? Patient reports no chest pain, no palpitations, no dizziness, no headache, reports no change in appetite, no abdominal pain nausea or vomiting, no diarrhea constipation, no urinary symptoms except for chronic hesitancy that has been going on for months, no dysuria.? He has chronic frequency that has not changed.? No lower extremity edema. ?on arrival to the ED patient found to be hemodynamically stable no significant abnormal vitals labs are significant for potassium of 6.7, creatinine of 1.97 with a baseline around 1 from December 2021, ?abdomen pelvic CT shows extensive retroperitoneal lymphadenopathy suggesting a lymphoproliferative disorder, no hydronephrosis is seen.? Infiltrative disease from such a disordered could be involving the kidneys ?patient given? glucose, fluids, insulin, as well as Lokelma with improvement in his potassium, patient will be admitted for further management final diagnoses: Hyperkalemia HUSSAIN Retroperitoneal lymphadenopathy prostate cancer acute kidney injury/ Hyperkalemia. Baseline creatinine documented in oncology notes was 1.1 in [place]. his creatinine on day of admission was 1.97. He was treated with IV fluid and spironolactone and enalapril were placed on hold. His creatinine decreased to 1.5. He was seen by Oncology due to retroperitoneal lymphadenopathy and concern over lymphoproliferative disorder. Dr. Sam recommended biopsy however patient prefers to have this done as an outpatient as he has a urology appointment scheduled for this afternoon. This was discussed with Dr. Sam who was in agreement with this plan. Basic metabolic profile should be repeated early next week. enalapril and spironolactone have been placed on hold until follow-up with PCP. Blood pressure has been controlled with his remaining antihypertensives. this plan was discussed with the patient and his daughter and they are both in agreement with above plan. Aspirin and plavix will be placed on hold in preparation for biopsy Time Spent with Patient Time attestation: Total time spent providing and/or coordinating discharge services: Discharge coordination time: Greater than 30 minutes Quality: Safe Use of Opioids Does Pt have an Active Cancer Diagnosis on the Problem List?: Yes Opioid Measure Date for [facility] Report: 02/04/22 Opioid Measure Time for [facility] Report: 16:10 Quality: Stroke Does the patient have a stroke diagnosis?: No Physical Exam Vital Signs: Vital Signs: Last Vital Signs Temp 97.8 F 03/05/22 20:00 Pulse 71 03/06/22 08:49 Resp 18 03/06/22 08:49 BP 144/74 H 03/06/22 08:49 Pulse Ox 96 03/06/22 08:49 O2 Del Method 03/06/22 08:49 BMI result Body Mass Index 24.3 Const: General: cooperative, comfortable, no acute distress, alert and awake Nutritional Appearance: average body habitus Orientation/consciousness: p atient oriented x3 Resp: Effort & Inspection: normal respiratory effort and able to speak in complete sentences Auscultation: clear to auscultation bilaterally Cardio: Rate: regular rate Heart sounds: S1 normal heart sound present and S2 normal heart sound present GI: Inspection: No distended Palpation (GI): Soft to palpation and nontender Neuro: General: patient oriented x3 and CN's II-XI intact bilaterally Extrem: General: Yes no pedal edema DS: Data Data Completed and Pending Labs on day of discharge: Laboratory Results - last 24 hr 03/05/22 03/05/22 03/05/22 12:29 12:56 16:56 Sodium Potassium Chloride Carbon Dioxide Anion Gap BUN Creatinine Estim Creat Clear Calc Estimated GFR POC Glucose 96 173 H Random Glucose Calcium Urine Color Colorless Urine Appearance Clear Urine pH 5.5 Ur Specific [place] <= 1.005 Urine Protein Negative Urine Glucose (UA) 250 H Urine Ketones Negative Urine Blood Negative Urine Nitrite Negative Ur Leukocyte Esterase Negative 03/05/22 03/06/22 03/06/22 20:24 06:59 09:09 Sodium 139 Potassium 5.1 Chloride 107 Carbon Dioxide 25 Anion Gap 12 BUN 21 H Creatinine 1.50 H Estim Creat Clear Calc 39.2 Estimated GFR 45 POC Glucose 167 H 68 Random Glucose 146 H D Calcium 8.9 Urine Color Urine Appearance Urine pH Ur Specific [place] Urine Protein Urine Glucose (UA) Urine Ketones Urine Blood Urine Nitrite Ur Leukocyte Esterase Discharge Plan Discharge Patient Disposition: Home, Self-Care Discharge Diagnosis: HUSSAIN hyperkalemia retroperitoneal lymphadenopathy Referrals: Emma Sullivan [Primary Care Provider] - 1 Week Desire Sam MD [Physician] - 1 Week Discharge Medications: Continued nifedipine 30 mg tablet extended release 24hr 1 tab PO DAILY atorvastatin 40 mg tablet 1 tab PO BEDTIME metoprolol tartrate 100 mg tablet 1 tab PO BID hydralazine 25 mg tablet 1 tab PO BID tamsulosin 0.4 mg capsule 1 cap PO DAILY metformin 1,000 mg tablet 1 tab PO BIDWM gabapentin 300 mg capsule 1 cap PO TID PRN (Reason: Pain) bicalutamide 50 mg Tablet 50 mg PO DAILY Qty: 60 3RF insulin glargine [Lantus U-100 Insulin] 100 unit/mL Solution 25 unit SUBCUT BEDTIME Held enalapril maleate 20 mg tablet 1 tab PO DAILY Hold Instructions: Call to follow up with PCP for blood pressure monitoring clopidogrel 75 mg tablet 1 tab PO DAILY Hold Instructions: hold until biopsy spironolactone 25 mg tablet 1 tab PO DAILY Hold Instructions: call to schedule follow up with PCP for blood pressure monitoring aspirin 81 mg tablet,chewable 1 tab PO DAILY Hold Instructions: hold until biopsy No Action (DME) pen needle, diabetic [Sure Comfort Pen Needle] 31 gauge x 3/16 needle MISCELLANEOUS Discharge Orders: Discharge Order (Routine); Ordered 03/06/22 Ordered By: Delma Dale Activity on Discharge: As tolerated Stand Alone Forms: Patient Portal Discharge page Other Ambulatory Orders: Basic Metabolic Panel (Routine) Timeframe: [id number] Facility: [facility] - Location: Laboratory Ordered By: Delma Dale Care Plan Goals: see below Health Concerns: elevated potassium levels Elevated kidney function levels enlarged lymph nodes in the abdomen Plan of Treatment: your potassium levels have improved back to normal range. Your kidney function is still elevated above your reported baseline. do not take spironolactone, enalapril until you follow-up with your primary care doctor do not take aspirin and plavix until biopsy Please call your primary care provider to schedule a follow-up appointment for close monitoring of your pressure call to schedule a follow-up appointment with Dr. Sam - you will need to have biopsy of enlarged lymph nodes scheduled as an outpatient as you opted not to have it done during your hospitalization have your kidney function repeated next week Assessment: see discharge summary Discharge Date/Time: 03/06/22 16:06
[2022-03-06] MEDS: Bicalutamide 50 MG TABLET PO (10:39)
--- NOTE | 2022-03-06 12:31 | PM.EVENT ---
Patient with probable metastatic prostate cancer. He was seen in oncology consultation he 03/04/2022. Plan was to proceed with PET-CT and start treatment for prostate cancer. He was referred to emergency department because of hyperkalemia and acute renal insufficiency. Imaging shows extensive retroperitoneal lymphadenopathy. PSA elevated at 122.1 NG/mL. He will need biopsy of retroperitoneal lymphadenopathy. This can be arranged as outpatient. He should stop taking aspirin and plavix. Thanks.
== END 2022-03-06 16:06 | disposition home or self-care (01) | DRG 683 ==
LOC: HO.ED 20:36 → HO.EDOVER 22:03
PROVIDERS: Internal Medicine; Physician Assistant; Admitting Provider Internal Medicine; Emergency Provider Emergency Medicine Emergency Medical Services; PCP Nurse Practitioner; Visit Provider Physician Assistant Medical
DX: N17.9 Acute kidney failure, unspecified (principal); D47.9 Neoplasm of uncertain behavior of lymphoid, hematopoietic and related tissue, unspecified; E11.42 Type 2 diabetes mellitus with diabetic polyneuropathy; C61 Malignant neoplasm of prostate; E87.5 Hyperkalemia; R33.9 Retention of urine, unspecified; I10 Essential (primary) hypertension; Z20.822 Contact with and (suspected) exposure to COVID-19; Z87.891 Personal history of nicotine dependence; Z79.02 Long term (current) use of antithrombotics/antiplatelets; Z79.82 Long term (current) use of aspirin; Z79.4 Long term (current) use of insulin; Z79.84 Long term (current) use of oral hypoglycemic drugs; Z79.899 Other long term (current) drug therapy
CPT/HCPCS: 36415; 71045; 74176; 80048; 81003; 82947; 83615; 84550; 85025; 87635; 93005; 96361; 96374; 96375; 99285

== ENCOUNTER 2022-03-18 23:14 | Emergency (ER) | payer MEDICARE, OTHER, MEDICAID, SELFPAY ==
[2022-03-18 23:41] VITALS: BP 188/82; PULSE 85; RESP 20; TEMP 37.7; O2SAT 97; BMI 25.1
--- NOTE | 2022-03-18 23:44 | ECG_ITS ---
Test Reason : WEAKNESS Blood Pressure : / mmHG Vent. Rate : 084 BPM Atrial Rate : 084 BPM P-R Int : 174 ms QRS Dur : 076 ms QT Int : 362 ms P-R-T Axes : 045 031 027 degrees QTc Int : 427 ms Normal sinus rhythm Normal ECG When compared with ECG of 04-MAR-2022 15:38, Minimal criteria for Inferior infarct are no longer Present Referred By: Generic ED Physician Electronically Signed By:HILDA NEWMAN
--- NOTE | 2022-03-19 00:38 | ED_ITS ---
HPI - General Adult General Chief complaint: Weakness Stated complaint: lethargic Time Seen by Provider: 03/19/22 00:30 Source: patient and family Mode of arrival: ambulatory Limitations: no limitations History of Present Illness HPI narrative: Patient comes to the emergency room complaining of chills that started couple of hours after receiving his for dose of COVID immunization. Patient denies any chest pain or shortness of breath, no fever, no body aches. Patient is currently undergoing cancer treatment for prostate cancer. Patient was recently discharged on 03/06/2020, patient was admitted with a diagnosis hyperkalemia, HUSSAIN, retroperitoneal lymphadenopathy and prostate cancer. Patient has currently been taken off his Plavix and aspirin since he has a prostate biopsy pending for tomorrow. Related Data Home Medications Medication Instructions Recorded Confirmed aspirin 81 mg chewable tablet 1 tab PO DAILY 03/04/22 03/04/22 atorvastatin 40 mg tablet 1 tab PO BEDTIME 03/04/22 03/04/22 clopidogrel 75 mg tablet 1 tab PO DAILY 03/04/22 03/04/22 enalapril maleate 20 mg tablet 1 tab PO DAILY 03/04/22 03/04/22 gabapentin 300 mg capsule 1 cap PO TID PRN Pain 03/04/22 03/04/22 hydralazine 25 mg tablet 1 tab PO BID 03/04/22 03/04/22 insulin glargine 100 unit/mL 25 unit subcut BEDTIME 03/04/22 03/04/22 subcutaneous solution (Lantus U-100 Insulin) metformin 1,000 mg tablet 1 tab PO BIDWM 03/04/22 03/04/22 metoprolol tartrate 100 mg tablet 1 tab PO BID 03/04/22 03/04/22 nifedipine 30 mg tablet,extended 1 tab PO DAILY 03/04/22 03/04/22 release 24 hr pen needle, diabetic 31 gauge x 03/04/22 03/04/22/16 (Sure Comfort Pen Needle) spironolactone 25 mg tablet 1 tab PO DAILY 03/04/22 03/04/22 tamsulosin 0.4 mg capsule 1 cap PO DAILY 03/04/22 03/04/22 Previous Rx's Medication Instructions Recorded bicalutamide 50 mg tablet 50 mg PO DAILY #60 tabs 03/04/22 acetaminophen 500 mg capsule 500 mg PO Q6H PRN fever or pain 03/19/22 #30 caps Allergies Allergy/AdvReac Type Severity Reaction Status Date / Time No Known Allergies Allergy Verified 03/18/22 23:40 Review of Systems Review of Systems: Constitutional : No Weight loss, No Fever, complaining of Chills, No Night Sweats, No Fatigue, No Malaise ENT/Mouth : No Hearing loss, No Ear Pain, No Nasal Congestion, No Sinus Pain, No Hoarseness, No sore throat, No Rhinorrhea, No Swallowing Difficulty Eyes: No Eye Pain, No Swelling, No Redness, No Foreign Body, No Discharge, No Vi colten Changes Cardiovascular : No Chest Pain, No SOB, No Dyspnea on Exertion, No Orthopnea, No Edema, No Palpitations Respiratory : No Cough, No Sputum, No Wheezing, No Smoke Exposure, No Dyspnea Gastrointestinal : No Nausea, No Vomiting, No Diarrhea, No Constipation, No abdominal Pain, No Hematochezia, No Melena Genitourinary : no irregular bleeding, No Dysuria, No Urinary Frequency, No Hematuria, No Urinary Incontinence, No Urgency, No Flank Pain, No Urinary Flow Changes, No Hesitancy Musculoskeletal : No joint pain, No Myalgias, No Joint Swelling Skin : No Skin Lesions, No rash Neuro : No Weakness, No Numbness, No Paresthesias, No Loss of Consciousness, No Dizziness, No Headache Psych : No Anxiety/Panic, No Depression, No SI/HI/AH/VH, No Social Issues, Heme/Lymph: No Bruising, No Bleeding,No Lymphadenopathy Endocrine : No Polyuria, No Polydipsia, No Temperature Intolerance [facility] Past Medical History Medical History Diabetes mellitus, type II Essential hypertension History of amputation of left great toe Polyneuropathy Prostate CA Surgical History History of amputation of lesser toe of left foot Family History Family History Father Alcoholic Social History Social History Housing: House Alcohol intake: current Alcohol intake frequency: a few times a month Patient Tobacco Use Status: Former Tobacco user Advance Directives: No Advance Directives Information Provided: Yes service: No Current occupational status: retired Physical Exam ED Vital Signs: Vital Signs - 24 hr 03/18/22 23:41 Temperature 99.9 F Pulse Rate 85 Respiratory Rate 20 Blood Pressure 188/82 H Pulse Oximetry 97 Oxygen Delivery Method Room Air BMI result Body Mass Index 25.1 Const Other: Appearance: Alert. Oriented X3. No acute distress. Eyes: Pupils equal, round and reactive to light. ENT: Pharynx normal. Neck: Normal inspection. Neck supple. No lymph nodes noted. No crepitus CVS: Normal heart rate and rhythm. Pulses normal. Normal S1 and S2 Respiratory: No respiratory distress. Breath sounds normal. No Wheezing. No rales Abdomen: Soft and nontender. No rigidity. No distention. Skin: Skin warm and dry. Normal skin color. Normal skin turgor. Extremities: No lower extremity edema. No Lacerations. No Rash Neuro: Oriented X 3. No motor deficit. No sensory deficit. Moving all extremities. No slurred speech. CN 2 through 12 grossly intact Psych: calm, cooperative, normal affect Course Course Course Narrative: Patient's symptoms are likely secondary to the COVID immunization. Patient has significant past medical history of prostate cancer and is being worked up by Oncology. We will go ahead and obtain basic labs. Patient received 1 dose of p.o. acetaminophen. Patient has no respiratory distress, oxygen saturation 97% on room air. Given the patient's comorbidities, patient would benefit from monoclonal antibody treatment. Referral has been sent to [facility]. Medical Decision Making Lab Data Result diagrams: 03/19/22 00:46 03/19/22 00:46 Labs: Lab Results 03/19/22 03/19/22 03/19/22 Range/Units 00:46 00:46 00:46 WBC 7.4 (4.8-10.8) X10*3/uL RBC 3.74 L (4.60-5.80) X10*6/uL Hgb 9.9 L (14.0-18.0) g/dl Hct 30.8 L (42.0-52.0) % MCV 82.4 (80.0-98.0) fL MCH 26.5 L (27.0-33.0) pg MCHC 32.1 (31.0-36.0) g/dl RDW 15.1 (11.0-16.0) % Plt Count 176 (160-400) X10*3/uL MPV 9.7 (9.4-12.4) fL Immature Gran % (Auto) 0.3 (0.0-0.4) % Neut % (Auto) 72.9 (45-73) % Lymph % (Auto) 4.7 L (20-40) % Mcdowell % (Auto) 14.9 H (2-11) % Eos % (Auto) 6.8 H (0-4) % Baso % (Auto) 0.4 (0-2) % Lymph # (Auto) 0.4 L (1.2-4.9) X10*3/uL Mcdowell # (Auto) 1.1 (0.1-1.2) X10*3/uL Eos # (Auto) 0.5 H (0.0-0.4) X10*3/uL Baso # (Auto) 0.0 (0.0-0.2) X10*3/uL Abs Immat Gran (auto) 0.02 (0.00-0.03) X10*3/uL Absolute Neuts (auto) 5.4 (2.0-8.3) x10*3/uL Absolute Nucleated RBC 0.000 (0.0-0.012) X10*3/uL Nucleated RBC % (auto) 0.0 (0.0-0.2) /100WBC Sodium 141 (135-145) mmol/L Potassium 4.7 (3.3-5.1) mmol/L Chloride 106 (96-108) mmol/L Carbon Dioxide 24 (22-29) mmol/L Anion Gap 16 (12-20) BUN 24 H (9-16) mg/dL Creatinine 1.43 H (0.5-1.4) mg/dL Estim Creat Clear Calc 41.1 Estimated GFR 48 Random Glucose 71 D (60-115) mg/dL Calcium 9.2 (8.4-10.2) mg/dL Total Bilirubin 0.3 (0.0-1.0) mg/dL AST 14 (5-37) U/L ALT 12 (0-40) U/L Alkaline Phosphatase 50 (39-117) U/L Total Protein 6.7 (6.5-8.0) g/dL Albumin 4.0 (3.5-5.0) g/dL Urine Color Urine Appearance Urine pH (5.0-9.0) Ur Specific [place] (1.005-1.025) Urine Protein (Neg-Trace) mg/dL Urine Glucose (UA) (Negative) mg/dL Urine Ketones (Negative) mg/dL Urine Blood (Negative) Urine Nitrite (Negative) Ur Leukocyte Esterase (Negative) COVID-19 (PATRICE) Positive A (Negative) COVID-19 Clin Com See Note 03/19/22 Range/Units 02:01 WBC (4.8-10.8) X10*3/uL RBC (4.60-5.80) X10*6/uL Hgb (14.0-18.0) g/dl Hct (42.0-52.0) % MCV (80.0-98.0) fL MCH (27.0-33.0) pg MCHC (31.0-36.0) g/dl RDW (11.0-16.0) % Plt Count (160-400) X10*3/uL MPV (9.4-12.4) fL Immature Gran % (Auto) (0.0-0.4) % Neut % (Auto) (45-73) % Lymph % (Auto) (20-40) % Mcdowell % (Auto) (2-11) % Eos % (Auto) (0-4) % Baso % (Auto) (0-2) % Lymph # (Auto) (1.2-4.9) X10*3/uL Mcdowell # (Auto) (0.1-1.2) X10*3/uL Eos # (Auto) (0.0-0.4) X10*3/uL Baso # (Auto) (0.0-0.2) X10*3/uL Abs Immat Gran (auto) (0.00-0.03) X10*3/uL Absolute Neuts (auto) (2.0-8.3) x10*3/uL Absolute Nucleated RBC (0.0-0.012) X10*3/uL Nucleated RBC % (auto) (0.0-0.2) /100WBC Sodium (135-145) mmol/L Potassium (3.3-5.1) mmol/L Chloride (96-108) mmol/L Carbon Dioxide (22-29) mmol/L Anion Gap (12-20) BUN (9-16) mg/dL Creatinine (0.5-1.4) mg/dL Estim Creat Clear Calc Estimated GFR Random Glucose (60-115) mg/dL Calcium (8.4-10.2) mg/dL Total Bilirubin (0.0-1.0) mg/dL AST (5-37) U/L ALT (0-40) U/L Alkaline Phosphatase (39-117) U/L Total Protein (6.5-8.0) g/dL Albumin (3.5-5.0) g/dL Urine Color Yellow Urine Appearance Clear Urine pH 6.0 (5.0-9.0) Ur Specific [place] 1.010 (1.005-1.025) Urine Protein Trace (Neg-Trace) mg/dL Urine Glucose (UA) Negative (Negative) mg/dL Urine Ketones Negative (Negative) mg/dL Urine Blood Negative (Negative) Urine Nitrite Negative (Negative) Ur Leukocyte Esterase Negative (Negative) COVID-19 (PATRICE) (Negative) COVID-19 Clin Com Discharge Plan Discharge Clinical Impression: Immunization reaction, COVID-19 Patient Disposition: Home, Self-Care Instructions: COVID-19 (Coronavirus Disease 2019) (ED) Additional Instructions: You will receive a phone call from [facility]. You have been referred to the monoclonal antibody treatment center. They will call you with your appointment date and time. Please follow-up with your primary care physician tomorrow. If you have any worsening or new symptoms, please return to the emergency room or call 911 Prescriptions: New acetaminophen 500 mg capsule 500 mg PO Q6H PRN (Reason: fever or pain) Qty: 30 0RF No Action nifedipine 30 mg tablet extended release 24hr 1 tab PO DAILY atorvastatin 40 mg tablet 1 tab PO BEDTIME metoprolol tartrate 100 mg tablet 1 tab PO BID enalapril maleate 20 mg tablet 1 tab PO DAILY Hold Instructions: Call to follow up with PCP for blood pressure monitoring hydralazine 25 mg tablet 1 tab PO BID clopidogrel 75 mg tablet 1 tab PO DAILY Hold Instructions: hold until biopsy spironolactone 25 mg tablet 1 tab PO DAILY Hold Instructions: call to schedule follow up with PCP for blood pressure monitoring tamsulosin 0.4 mg capsule 1 cap PO DAILY metformin 1,000 mg tablet 1 tab PO BIDWM gabapentin 300 mg capsule 1 cap PO TID PRN (Reason: Pain) (DME) pen needle, diabetic [Sure Comfort Pen Needle] 31 gauge x 3/16 needle MISCELLANEOUS bicalutamide 50 mg Tablet 50 mg PO DAILY Qty: 60 3RF insulin glargine [Lantus U-100 Insulin] 100 unit/mL Solution 25 unit SUBCUT BEDTIME aspirin 81 mg tablet,chewable 1 tab PO DAILY Hold Instructions: hold until biopsy
[2022-03-19 00:51] LABS: MANUAL DIFF FLAG NO
[2022-03-19 00:54] LABS: Basophils Percent Auto 0.4 % (0-2); Eosinophils Absolute Auto 0.5 X10*3/uL (0.0-0.4); Eosinophils Percent Auto 6.8 % (0-4); Hematocrit 30.8 % (42.0-52.0); Hemoglobin 9.9 g/dl (14.0-18.0); Imm Gran Abs Auto 0.02 X10*3/uL (0.00-0.03); Imm Gran Pct Auto 0.3 % (0.0-0.4); Lymphocytes Absolute Auto 0.4 X10*3/uL (1.2-4.9); Lymphocytes Percent Auto 4.7 % (20-40); Mean Corpuscular HGB Conc 32.1 g/dl (31.0-36.0); Mean Corpuscular Hemoglobin 26.5 pg (27.0-33.0); Mean Corpuscular Volume 82.4 fL (80.0-98.0); Mean Platelet Volume 9.7 fL (9.4-12.4); Monocytes Absolute Auto 1.1 X10*3/uL (0.1-1.2); Monocytes Percent Auto 14.9 % (2-11); Neutrophils Absolute Auto 5.4 x10*3/uL (2.0-8.3); Neutrophils Percent Auto 72.9 % (45-73); Platelet Count 176 X10*3/uL (160-400); Red Blood Count 3.74 X10*6/uL (4.60-5.80); Red Cell Distribution Width 15.1 % (11.0-16.0); White Blood Count 7.4 X10*3/uL (4.8-10.8)
[2022-03-19 01:01] LABS: COVID-19 Test Positive (Negative)
[2022-03-19 01:15] LABS: Alanine Aminotransferase 12 U/L (0-40); Alkaline Phosphatase 50 U/L (39-117); Anion Gap 16 (12-20); Aspartate Amino Transferase 14 U/L (5-37); Bilirubin Total 0.3 mg/dL (0.0-1.0); Blood Urea Nitrogen 24 mg/dL (9-16); Calcium 9.2 mg/dL (8.4-10.2); Carbon Dioxide 24 mmol/L (22-29); Chloride 106 mmol/L (96-108); Creatinine Clr Calc Pharmacy 41.1; Estimated Glomerular Filt Rate 48; Glucose Random 71 mg/dL (60-115); Potassium 4.7 mmol/L (3.3-5.1); Sodium 141 mmol/L (135-145); Total Protein 6.7 g/dL (6.5-8.0)
[2022-03-19] MEDS: Acetaminophen 325 MG TABLET 975 MG PO (01:21)
[2022-03-19 02:08] LABS: Appearance Urine Clear; Color Urine Yellow; Glucose Urine UA Negative (Negative); Leukocyte Esterase Urine Negative (Negative); Nitrite Urine Negative (Negative); Urine Blood Negative (Negative); Urine Ketones Negative (Negative); Urine Protein Trace mg/dL (Neg-Trace)
--- NOTE | 2022-03-19 02:27 | PC.NURSE ---
pt resting comfortably in stretcher without distress noted. pt relocated to ed bed 13 with call schmitz in reach. pt did not wake during this transition between 13H and 13. Rn will continue to monitor.
--- NOTE | 2022-03-19 02:30 | PC.NURSE ---
Addendum entered by Roopa Hartman 03/19/22 02:38: daughter returned to bedside, updated with disposition plan. Daughter educated that PT eval is not appropriate if the family is not looking for the pt to go to a skilled rehab and/or SNF. Daughter aware of and agreeable to plan Original Note: MD Faith to bedside for results and disposition. Pt aware of and agreeable to plan for dc home with referral to outpatient COVID clinic. RN to attempt to reach family regarding pending dc and transportation needs.
[2022-03-19 02:57] VITALS: BP 172/82; PULSE 88; RESP 20; TEMP 36.8; O2SAT 97
== END 2022-03-19 03:00 | disposition home or self-care (01) ==
PROVIDERS: Emergency Provider Emergency Medicine
DX: U07.1 COVID-19 (principal); Z87.891 Personal history of nicotine dependence; Z79.82 Long term (current) use of aspirin; Z79.899 Other long term (current) drug therapy
CPT/HCPCS: 36415; 80053; 81003; 85025; 87635; 93005; 99283; 99284

== ENCOUNTER 2022-03-31 11:23 | Outpatient (REF) | payer MEDICARE, MEDICAID, SELFPAY ==
--- NOTE | ~2022-03-31 | PE_ITS ---
EXAMINATION: NM FLUORINE-18 FDG PET/CT SCAN CLINICAL INDICATION: Initial treatment management. Prostate cancer with metastatic disease. PROCEDURE: 50 minutes following the intravenous administration of 13.2 mCi of fluorine 18 FDG, images from the base of the skull to the mid thighs were obtained using a combined PET/CT scanner with CT scan based attenuation correction. No intravenous contrast was administered. Transverse, coronal, sagittal, and volume reconstruction projections were obtained. The patient's blood glucose as determined by a finger stick was 191 mg/dL immediately prior to injection. This examination was performed using dose optimization techniques as appropriate, variously including the following: *Automated exposure control *Adjustment of mA and/or kV according to patient size (this includes techniques or standardized protocols for targeted exams where dose is matched to indication/reason for exam; i.e. extremities or head) *Use of iterative reconstruction technique DLP: 485 mGy-cm COMPARISON: CT abdomen/pelvis 03/04/2022. FINDINGS: There is altered biodistribution of the radiotracer with diffuse increased muscular activity and decreased uptake in the brain, liver and blood pool. This could altered evaluation of FDG-avid abnormalities. NECK AND VISUALIZED HEAD: Opacification of the left maxillary sinus with hyperattenuating debris, possibly representing dehydrated mucous secretions or fungal hyphae. Mild mucosal thickening of several ethmoid air cells. No FDG-avid cervical lymphadenopathy. THORAX: Lung: Evaluation of parenchymal details and pulmonary nodules is very limited due to respiratory motion. Accounting for these limitations, a few sub-4 mm pulmonary nodules are identified, for instance a sales representative advertising 4 mm nodule in the right upper lobe on image 193, series 2. These are too small to characterize by PET. No focal consolidation. No abnormal FDG uptake. Mediastinum: Cardiomegaly. Triple vessel coronary calcifications with atherosclerotic disease of the thoracic aorta which is of normal diameter. Mediastinal lymphadenopathy noted, for instance a 1.2 cm short axis aortopulmonary lymph node (2:192). The FDG uptake in these lymph nodes is equal to lesser than the blood pool. No abnormal FDG activity in the thyroid gland. Pericardium/Pleura: No pericardial effusion or pleural effusion. No abnormal FDG uptake. Chest Wall/Axilla: No FDG-avid lymphadenopathy. Symmetric gynecomastia. ABDOMEN AND PELVIS: Peritoneal Space: No abnormal FDG uptake. Liver, Gallbladder, Biliary Tree: No FDG-avid lesion. The liver is enlarged measuring 19 cm craniocaudally, but is otherwise normal in shape and attenuation. Normal appearance of the gallbladder. No biliary ductal dilatation. Pancreas: No abnormal FDG uptake. Spleen: No abnormal FDG activity. The spleen measures 10.4 cm craniocaudally. Adrenal Glands: No FDG-avid lesion. Kidneys and Ureters: No nephrolithiasis or hydronephrosis. No focal FDG-avid lesions. Bladder: Decompressed and suboptimally assessed. Physiologic excretory uptake limits evaluation of focal FDG-avid lesions. Gastrointestinal Tract: Nonspecific FDG uptake in the cecum, SUVmax 5.4 (160/267) with some equivocal wall thickening but no significant associated inflammatory changes. There is also focal increased FDG uptake in the sigmoid, SUVmax 3.6 (185/267) within a background of diverticulosis but with no significant inflammatory changes to suspect acute diverticulitis. No evidence of bowel obstruction. Abdominal Wall: No abnormal FDG uptake. Lymphovascular Structures: Retroperitoneal lymphadenopathy is similar to slightly decreased in size, for instance a 2 cm short axis left periaortic lymph node (2:118) previously 2.2 cm, and a 1.5 cm short axis retrocaval lymph node (2:125) previously 1.8 cm. The FDG uptake associated to this nodule is lesser than the mediastinal blood pool. No new lymphadenopathy. Pelvic Viscera: No abnormal FDG uptake. MUSCULOSKELETAL: Degenerative changes of the spine. Stable anterolisthesis of L4 on L5, No destructive FDG-avid lesions. Redemonstration of a few sclerotic lesions, for instance in the right ischium (102:139) and right lower sacrum (102:178), overall too small to characterize by PET. VASCULAR: Aortoiliac atherosclerosis. The abdominal aorta is of normal diameter. PET/PET CT fusion skull to thigh IMPRESSION: Mediastinal and retroperitoneal lymphadenopathy with FDG uptake similar to lesser than the blood pool; the retroperitoneal lymphadenopathy is slightly decreased in size when compared to 03/04/2022. It is important to note that the examination is limited due to altered biodistribution of the radiotracer with increased uptake in the skeletal musculature, and decreased physiologic uptake in areas such as the brain and blood pool. Therefore, accurate measurement of the FDG uptake associated with the lymphadenopathy and evaluation of FDG-avid metastatic disease is suboptimal, and if clinically deemed appropriate correlation with a PSMA could be obtained. The alteration of the biodistribution might be explained by patient's glucose levels and several medications such as insulin, correlate clinically. Sub-4 mm pulmonary nodules are too small to characterize by PET, recommend correlation with a diagnostic chest CT. Nonaggressive-appearing sclerotic bony lesions, favored to represent bone islands, although these are too small to characterize by PET. If indicated, correlation with a bone scan or PSMA could be obtained. Alternatively, this could be follow-up in subsequent examinations. Nonspecific hepatomegaly. Increased focal FDG uptake in the cecum and sigmoid colon, for which correlation with a colonoscopy is recommended if not already recently obtained.
== END 2022-03-31 11:24 | disposition home or self-care (01) ==
LOC: HO.PET 11:23
PROVIDERS: Visit Provider Internal Medicine
DX: Z13.89 Encounter for screening for other disorder (principal)

== ENCOUNTER 2022-04-07 11:55 | Day surgery (SDC) | payer OTHER, SELFPAY ==
[2022-04-07] VITALS (7 sets, daily range): BP systolic 108–162; BP diastolic 66–81; PULSE 56–60; RESP 17–20; TEMP 36.1–36.3; O2SAT 98–99; BMI 24.3
--- NOTE | ~2022-04-07 | CT_ITS ---
PROCEDURE: CT-GUIDED BIOPSY, ABDOMINAL MASS CLINICAL INFORMATION: Malignant neoplasm of prostate. Enlarged retroperitoneal lymph nodes. COMPARISON: CT abdomen 03/04/[address]/PET study 03/31/2022. TECHNIQUE: Following explaining CT fluoroscopy-guided left retroperitoneal lymph node biopsy procedure, benefits and risk, a written consent was obtained. Patient was placed prone and preliminary CT imaging was obtained. An optimal axial slice was selected by placing lead markers. The selected slice was marked on the skin and the area cleaned and draped in the usual sterile manner with 2% chlorhexidine solution. 1% lidocaine was injected at puncture site. A 20-gauge guide needle was advanced to the level of left retroperitoneal lymph node border and coaxially a 4-pass core biopsy of the lymph node was performed. Postprocedure, the guide needle was removed and complete hemostasis achieved at the puncture site. Sterile dressing applied at the puncture site. Patient tolerated the procedure extremely well. This CT examination was performed using dose optimization techniques as appropriate, variously including the following: *Automated exposure control *Adjustment of mA and/or kV according to patient size (this includes techniques or standardized protocols for targeted exams where dose is matched to indication/reason for exam; i.e. extremities or head) *Use of iterative reconstruction technique Conscious sedation was administered and patient monitored by IR nurse and performing radiologist for 30 minutes. DLP: 661 mGy-cm FINDINGS: On preliminary CT imaging, there is a moderate-sized left retroperitoneal lymph node. There are smaller shotty lymph nodes in the aortocaval region, as well. Approximately 4 core biopsies were performed through the largest left retroperitoneal lymph node adjacent to the left kidney. Preliminary results revealed lymph node material within. Definite results are pending. CT/CT biopsy abdomen percutaneous IMPRESSION: Successful CT fluoroscopy-guided left retroperitoneal lymph node biopsy performed without immediate complications.
[2022-04-07 13:19] LABS: Basophils Absolute Auto 0.1 X10*3/uL (0.0-0.2); Eosinophils Absolute Auto 0.5 X10*3/uL (0.0-0.4); Eosinophils Percent Auto 8.4 % (0-4); Hematocrit 30.3 % (42.0-52.0); Hemoglobin 9.8 g/dl (14.0-18.0); Imm Gran Abs Auto 0.02 X10*3/uL (0.00-0.03); Imm Gran Pct Auto 0.3 % (0.0-0.4); Lymphocytes Absolute Auto 1.3 X10*3/uL (1.2-4.9); MANUAL DIFF FLAG NO; Mean Corpuscular HGB Conc 32.3 g/dl (31.0-36.0); Mean Corpuscular Hemoglobin 26.5 pg (27.0-33.0); Mean Corpuscular Volume 81.9 fL (80.0-98.0); Mean Platelet Volume 9.9 fL (9.4-12.4); Monocytes Absolute Auto 0.6 X10*3/uL (0.1-1.2); Monocytes Percent Auto 10.8 % (2-11); Neutrophils Absolute Auto 3.5 x10*3/uL (2.0-8.3); Neutrophils Percent Auto 58.5 % (45-73); Platelet Count 187 X10*3/uL (160-400); Red Cell Distribution Width 14.6 % (11.0-16.0); White Blood Count 5.9 X10*3/uL (4.8-10.8)
[2022-04-07 13:25] LABS: Prothrombin Time 10.9 SEC (10.0-13.1)
[2022-04-07 13:28] LABS: Partial Thromboplastin Time 30.7 SEC (26.0-36.4)
[2022-04-07 14:12] LABS: Glucose, Whole Blood 61 mg/dL (60-115)
[2022-04-07 14:12] LABS: Glucose, Whole Blood 60 mg/dL (60-115)
[2022-04-07 14:27] LABS: Glucose, Whole Blood 90 mg/dL (60-115)
[2022-04-07 16:44] LABS: Glucose, Whole Blood 63 mg/dL (60-115)
[2022-04-07 17:52] LABS: Glucose, Whole Blood 99 mg/dL (60-115)
== END 2022-04-07 17:48 | disposition home or self-care (01) ==
PROVIDERS: Radiology Diagnostic Radiology; PCP Nurse Practitioner; Visit Provider Internal Medicine
DX: C61 Malignant neoplasm of prostate (principal); C78.6 Secondary malignant neoplasm of retroperitoneum and peritoneum; R59.0 Localized enlarged lymph nodes; E11.22 Type 2 diabetes mellitus with diabetic chronic kidney disease; I12.9 Hypertensive chronic kidney disease with stage 1 through stage 4 chronic kidney disease, or unspecified chronic kidney disease; N18.9 Chronic kidney disease, unspecified; G62.9 Polyneuropathy, unspecified; Z89.412 Acquired absence of left great toe; Z79.4 Long term (current) use of insulin; Z79.899 Other long term (current) drug therapy; Z87.891 Personal history of nicotine dependence
CPT/HCPCS: 36415; 49180; 77012; 82947; 85025; 85610; 85730; 88184; 88185; 88300; 88305; 88333; 88341; 88342; 88344; 88360; 99152; 99153; J2250; J3010

== ENCOUNTER 2022-04-10 10:18 | Day surgery (SDC) | payer OTHER, SELFPAY ==
[2022-04-07 11:43] VITALS: BMI 24.9
--- NOTE | 2022-04-09 09:59 | HO.ANESPROP2 ---
Documented by User: Fani Pedro NP 04/09/22 10:01 HPI - Anesthesia Eval Consult details Narrative: 76yo M for Upper Endoscopy and Colonoscopy [facility] Active Problems Active Problems: All Active Problems (Updated 04/09/22 @ 08:04 by Mary Maria RN) Prostate cancer (Acute) Acute hyperkalemia (Acute) HUSSAIN (acute kidney injury) (Acute) COVID-19 (Acute) Past Medical History Medical History Chronic kidney disease History of amputation of left great toe Polyneuropathy Essential hypertension Diabetes mellitus, type II Prostate CA Family History Family History Father Alcoholic Surgical History Surgical History Hx of colonoscopy Hx of amputation History of amputation of lesser toe of left foot Social History Household Members: Spouse Housing: House Do you presently have visiting nurse or other home services: No Alcohol intake: current Alcohol intake frequency: holidays/special occasions only Patient Tobacco Use Status: Former Tobacco user Advance Directives Date on File: 04/29/23 service: No Current occupational status: retired 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 Meds Allergies Allergy/AdvReac Type Severity Reaction Status Date / Time No Known Allergies Allergy Verified 04/13/23 12:34 Home Medications Medication Instructions Recorded Confirmed Last Taken Type gabapentin 300 mg capsule 1 cap PO TID Pain 03/04/22 04/29/23 03/04/22 History metformin 1,000 mg tablet 1 tab PO BIDWM 03/04/22 04/29/23 03/04/22 History metoprolol tartrate 100 mg tablet 1 tab PO BID 03/04/22 04/29/23 04/10/22 History pen needle, diabetic 31 gauge x 03/04/22 04/29/23 Unknown History 10/01 (Sure Comfort Pen Needle) tamsulosin 0.4 mg capsule 1 cap PO DAILY 03/04/22 04/29/23 03/04/22 History omeprazole 20 mg capsule,delayed 1 cap PO DAILY 05/19/22 04/29/23 Unknown History release hydralazine 50 mg tablet 50 mg PO BID 09/22/22 04/29/23 Unknown History abiraterone 250 mg tablet 1,000 mg PO DAILY@0600 04/29/23 04/29/23 Unknown History aspirin 81 mg chewable tablet 81 mg PO DAILY 04/29/23 04/29/23 Unknown History atorvastatin 40 mg tablet 40 mg PO QPM 04/29/23 04/29/23 Unknown History prednisone 5 mg tablet 5 mg PO DAILY 04/29/23 04/29/23 Unknown History rivaroxaban 2.5 mg tablet (Xarelto) 2.5 mg PO BID 04/29/23 04/29/23 Unknown History zolpidem 5 mg tablet 5 mg PO BEDTIME insomnia 04/29/23 04/29/23 Unknown History Exam Exam Date and Time: April 09, 2022 0959 Height,Weight and Vital Signs: Height 5 ft 8 in Weight 74.389 kg Pertinent Lab Results Pertinent Lab Results: Laboratory Tests 03/19/22 04/07/22 00:46 13:11 WBC 5.9 Hgb 9.8 L Hct 30.3 L Sodium 141 Potassium 4.7 Chloride 106 Carbon Dioxide 24 BUN 24 H Creatinine 1.43 H Narrative Narrative: EKG 02/2022 Vent. Rate : 084 BPM ? ? Atrial Rate : 084 BPM ?? P-R Int : 174 ms? QRS Dur : 076 ms ? ? QT Int : 362 ms ? ? ? P-R-T Axes : 045 031 027 degrees ?? QTc Int : 427 ms ? Normal sinus rhythm Normal ECG When compared with ECG of 04-MAR-2022 15:38, Minimal criteria for Inferior infarct are no longer Present Assessment and Plan Assessment Anesthesia Assessment: Chart Reviewed Documented by User: Luisito Chew MD 06/11/23 00:39 [facility] Past Medical History Medical History Chronic kidney disease History of amputation of left great toe Polyneuropathy Essential hypertension Diabetes mellitus, type II Prostate CA Family History Family History Father Alcoholic Family history of problems with anesthesia: No Surgical History Surgical History Hx of colonoscopy Hx of amputation History of amputation of lesser toe of left foot History of Problems with Anesthesia: No Social History Household Members: Spouse Housing: House Do you presently have visiting nurse or other home services: No Alcohol intake: current Alcohol intake frequency: holidays/special occasions only Patient Tobacco Use Status: Former Tobacco user Advance Directives Date on File: 04/29/23 service: No Current occupational status: retired 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 Meds Allergies Allergy/AdvReac Type Severity Reaction Status Date / Time No Known Allergies Allergy Verified 04/13/23 12:34 Home Medications Medication Instructions Recorded Confirmed Last Taken Type gabapentin 300 mg capsule 1 cap PO TID Pain 03/04/22 04/29/23 03/04/22 History metformin 1,000 mg tablet 1 tab PO BIDWM 03/04/22 04/29/23 03/04/22 History metoprolol tartrate 100 mg tablet 1 tab PO BID 03/04/22 04/29/23 04/10/22 History pen needle, diabetic 31 gauge x 03/04/22 04/29/23 Unknown History 3 (Sure Comfort Pen Needle) tamsulosin 0.4 mg capsule 1 cap PO DAILY 03/04/22 04/29/23 03/04/22 History omeprazole 20 mg capsule,delayed 1 cap PO DAILY 05/19/22 04/29/23 Unknown History release hydralazine 50 mg tablet 50 mg PO BID 09/22/22 04/29/23 Unknown History abiraterone 250 mg tablet 1,000 mg PO DAILY@0600 04/29/23 04/29/23 Unknown History aspirin 81 mg chewable tablet 81 mg PO DAILY 04/29/23 04/29/23 Unknown History atorvastatin 40 mg tablet 40 mg PO QPM 04/29/23 04/29/23 Unknown History prednisone 5 mg tablet 5 mg PO DAILY 04/29/23 04/29/23 Unknown History rivaroxaban 2.5 mg tablet (Xarelto) 2.5 mg PO BID 04/29/23 04/29/23 Unknown History zolpidem 5 mg tablet 5 mg PO BEDTIME insomnia 04/29/23 04/29/23 Unknown History Exam Airway Mallampati Class: II Loose/Missing/Broken Teeth: Yes (Poor dentition ) Assessment and Plan Assessment Anesthesia Assessment: Anesthesia Plan Discussed Final Anesthetic Review Family History of Problems with Anesthesia: No History of Problems with Anesthesia: No NPO: Yes ASA Class: III Final Preanesthetic Review: Meds/Allgs Chart Reviewed, Consent Obtained/Reviewed and Anes Risks/Benef Reviewed Patient Risk: Intermediate Procedure Risk: Intermediate Anesthetic Plan Anesthetic Plan: MAC: and Agree w/ Assess. and Plan Disposition: Standard PACU
[2022-04-10 10:58] VITALS: BP 159/76; PULSE 60; RESP 18; TEMP 36.5; O2SAT 99
[2022-04-10 11:10] LABS: Glucose, Whole Blood 77 mg/dL (60-115)
--- NOTE | 2022-04-10 11:29 | MHC.SHP ---
Pre-Procedural Eval Section A Date of Service: 04/10/22 The patient is an INPATIENT: No Changes since office visit: No Cold of Flu in the past 2 weeks, No New Medical Problems, No Changes in Medication and No Patient answered all questions The History & Physical has been completed within 30 days and I have reviewed it.: Yes Section B Chief Complaint: reflux,abnormal findings digestive Allergies: Allergies Allergy/AdvReac Type Severity Reaction Status Date / Time No Known Allergies Allergy Verified 03/18/22 23:40 Plan I have reviewed the history and physical and performed a pertinent physical examination on my patient. No changes have occurred unless specified.
[2022-04-10] MEDS: Lactated Ringers 1,000 ML 100 ML IVCONT (11:30)
--- NOTE | 2022-04-10 12:18 | PM.OP ---
Brief Operative Note Date of Service: 04/10/22 Pre-op diagnosis: abnl ct, gerd Post-op diagnosis: same Procedure: egd, colon Surgeon: Malik Marie Anesthesia: MAC Was an Water Resource Project Manager used for this Procedure?: No Estimated blood loss (mL): 2 Pathology: other Condition: stable Disposition: PACU
[2022-04-10 12:20] VITALS: BP 124/64; PULSE 68; RESP 16; TEMP 36.1; O2SAT 95
[2022-04-10 12:36] VITALS: BP 110/71; PULSE 63; RESP 17; TEMP 36.1; O2SAT 98
--- NOTE | 2022-04-11 00:15 | OP_ITS ---
SURGEON: Malik Marie MD INDICATIONS: 1. Abnormal CT scan of the colon. 2. Gastroesophageal reflux disease. PREOPERATIVE DIAGNOSIS: POSTOPERATIVE DIAGNOSIS: PROCEDURE PERFORMED: 1. Upper endoscopy with biopsy. 2. Colonoscopy to the cecum. ESTIMATED BLOOD LOSS: COMPLICATIONS: ANESTHESIA: Monitored anesthesia care. ASSISTANTS: SPECIMENS: DESCRIPTION OF PROCEDURE: History and physical performed. The risks and benefits of the procedure were explained to the patient. Informed consent was obtained. The patient was placed in the left lateral decubitus position. A digital rectal exam was performed prior to the colonoscopy. First, the Olympus video gastroscope was introduced into the esophagus, stomach, and duodenum. Examination was performed. The scope was removed. He was repositioned for colonoscopy. A digital rectal exam was performed as above. The Olympus pediatric video colonoscope was introduced into the rectum and advanced to the cecum with abdominal wall pressure to prevent looping in the sigmoid. The cecum was identified by transillumination, palpation, and identification of the ileocecal valve. Examination was performed. The scope was removed. He tolerated both procedures well and was returned to the recovery area in stable condition. The procedure was done on April 10, 2022. FINDINGS: Upper endoscopy: 1. Esophagus: The esophagus showed multiple whitish areas consistent with candidiasis. Biopsies were obtained at 30 cm. The EG junction was slightly irregular. This was biopsied. 2. Stomach: The stomach showed no evidence of masses. There was a single gastric antral ulcer measuring approximately 5 mm with no signs of recent bleeding. Biopsies were obtained from the mucosa around the ulcer, which was located on the lesser curvature approximately 4 cm before the pylorus. There were several other erosions, but no active bleeding. 3. Duodenum: The bulb and second portion were normal. Colonoscopy: The terminal ileum was not examined. Exam was limited by an extremely poor prep with a large amount of liquid and formed stool present throughout the colon. Breast exam was nondiagnostic for polyps. No mass, lesions were identified. Views in the entire colon were limited, and there was an extensive sigmoid diverticulosis. No large diverticulum was identified as described in the CT scan report because of retained stool. Retroflexed examination showed internal hemorrhoids. IMPRESSION: 1. Liz esophagitis. 2. Gastric ulcer. 3. Nondiagnostic colonoscopy. RECOMMENDATION: 1. Follow up biopsy results. 2. Consider repeat colonoscopy in the future with a two-day prep. Malik Marie MD BC/MODL / [id number]
== END 2022-04-10 13:30 | disposition home or self-care (01) ==
PROVIDERS: PCP Student in an Organized Health Care Education/Training Program; Visit Provider Internal Medicine Gastroenterology
PROC: (CPT 45378; principal; 2022-04-10 12:10)
DX: R93.3 Abnormal findings on diagnostic imaging of other parts of digestive tract (principal); K57.30 Diverticulosis of large intestine without perforation or abscess without bleeding; K64.8 Other hemorrhoids; K25.9 Gastric ulcer, unspecified as acute or chronic, without hemorrhage or perforation; K21.9 Gastro-esophageal reflux disease without esophagitis; B37.81 Candidal esophagitis; C61 Malignant neoplasm of prostate; E11.22 Type 2 diabetes mellitus with diabetic chronic kidney disease; I12.9 Hypertensive chronic kidney disease with stage 1 through stage 4 chronic kidney disease, or unspecified chronic kidney disease; N18.9 Chronic kidney disease, unspecified; Z79.4 Long term (current) use of insulin; Z79.82 Long term (current) use of aspirin; Z79.899 Other long term (current) drug therapy; Z87.891 Personal history of nicotine dependence; Z89.412 Acquired absence of left great toe; Z89.421 Acquired absence of other right toe(s)
CPT/HCPCS: 45378; 43239; 82947; 88305; 88342

== ENCOUNTER → 2022-04-14 12:48 | Outpatient (BNVA) | payer OTHER, SELFPAY | PROVIDERS: PCP Student in an Organized Health Care Education/Training Program; Visit Provider Orthopaedic Surgery | DX: M65.342 Trigger finger, left ring finger (principal); M65.341 Trigger finger, right ring finger; M72.0 Palmar fascial fibromatosis [Dupuytren]; R20.0 Anesthesia of skin | CPT/HCPCS: 99202; J1100 ==

== ENCOUNTER 2022-04-21 14:54 | Outpatient (REF) | payer OTHER, SELFPAY ==
--- NOTE | ~2022-04-21 | MM_ITS ---
EXAMINATION: BONE DENSITOMETRY CLINICAL INDICATION: Long-term use of medication. COMPARISON: None (current study represents initial baseline exam). TECHNIQUE: Using a [employer] DXA System (software version: 13.1) manufactured by [employer], dual-energy x-ray absorptiometry was performed of the lumbar spine and left hip. The images are of good technical quality. Summary results are attached. FINDINGS: AP SPINE L1-L2 (excluding L3 and L4): The data of L1-L4 has been changed to exclude the L3 and L4 vertebral bodies, because degenerative changes at these levels may cause overestimation of lumbar spine density. BMD 1.191 g/cm2, Z-score 0.7, T-score -0.1, normal. LEFT FEMUR, NECK: BMD 1.046 g/cm2, Z-score 1.4, T-score -0.2, normal. LEFT FEMUR, TOTAL: BMD 1.133 g/cm2, Z-score 1.4, T-score 0.2, normal. IDENTIFIED RISK FACTORS: Anticonvulsant, renal, secondary osteoporosis. HISTORY OF FRACTURE: None listed. MEDICATIONS: Vitamin D. MM/XR DEXA axial skeleton IMPRESSION: 1. DIAGNOSIS: Normal bone density based on the lowest T-score value of -0.2 in the femoral neck applying World Health Organization criteria. 2. 10-YEAR FRACTURE RISK PREDICTION, FRAX: According to the guidelines, FRAX calculation should only be performed on patients in the osteopenia bone density category. Therefore, FRAX was not performed on this patient. 3. Treatment Recommendations: NOF guidelines recommend consideration for treatment in postmenopausal women and men age 50 and older presenting with the following: -A hip or vertebral (clinical or morphometric) fracture. -T-score less than or equal to -2.5 at the femoral neck or spine after appropriate evaluation to exclude secondary causes. -Low bone mass at the hip or spine and a 10-year fracture probability by FRAX of greater than or equal to 3% for hip fracture or greater than or equal to 20% for major osteoporotic fracture based on the [place] adapted WHO algorithm. 4. Other Recommendations: All treatment decisions require clinical judgment and consideration of individual patient factors, including patient preferences, comorbidities, previous drug use, risk factors not captured in the FRAX model (e.g. frailty, falls, vitamin D deficiency, increased bone turnover, interval significant decline in bone density) and possible under or overestimation of fracture risk by FRAX. FUTURE SCAN RECOMMENDATION: People with diagnosed cases of osteoporosis or at high risk for fracture should have regular bone mineral density tests. For patients eligible for Medicare, routine testing is allowed once every 2 years. The testing frequency can be increased to one year for patients who have rapidly progressing disease, those who are receiving or discontinuing medical therapy to restore bone mass, or have additional risk factors.
== END 2022-04-21 14:55 | disposition home or self-care (01) ==
LOC: HO.MAMMO 14:54
PROVIDERS: PCP Internal Medicine Geriatric Medicine; Visit Provider Internal Medicine Geriatric Medicine
DX: Z13.820 Encounter for screening for osteoporosis (principal); Z79.818 Long term (current) use of other agents affecting estrogen receptors and estrogen levels; M85.80 Other specified disorders of bone density and structure, unspecified site; Z79.899 Other long term (current) drug therapy
CPT/HCPCS: 77080

== ENCOUNTER 2022-04-29 16:42 | Outpatient (REF) | payer OTHER, SELFPAY ==
--- NOTE | ~2022-04-29 | XR_ITS ---
EXAMINATION: XR FOOT, RIGHT XR ANKLE, RIGHT CLINICAL INFORMATION: Ankle edema. COMPARISON: None TECHNIQUE: Right ankle 2 views. Right foot 3 views. FINDINGS: RIGHT FOOT: There is partial amputation of distal phalanx 1st digit and the 2nd digit beyond the metacarpal. There is a sliver of original bone or hypertrophic bone along the distal aspect of 2nd metatarsal. Loss of 1st metatarsophalangeal joint space with exuberant osteophytosis are likely degenerative changes. No visible acute fracture, dislocation or subluxation seen. RIGHT ANKLE: The ankle mortise and subtalar joints are normal. There is bimalleolar soft tissue swelling. No visible acute fracture, dislocation or subluxation seen. There is moderate vascular calcification. No soft tissue edema. XR/XR ankle RT 2V IMPRESSION: 1. There is partial amputation of the distal phalanx beyond the proximal end 1st digit. No bony erosive changes seen to suspect any osteomyelitis. 2. There is amputation of 2nd digit beyond the metatarsal. No bony erosive changes seen to suspect osteomyelitis. 3. There is significant degenerative arthritic changes 1st MTP joint. No visible acute fracture or dislocation seen.
--- NOTE | ~2022-04-29 | XR_ITS ---
EXAMINATION: XR FOOT, RIGHT XR ANKLE, RIGHT CLINICAL INFORMATION: Ankle edema. COMPARISON: None TECHNIQUE: Right ankle 2 views. Right foot 3 views. FINDINGS: RIGHT FOOT: There is partial amputation of distal phalanx 1st digit and the 2nd digit beyond the metacarpal. There is a sliver of original bone or hypertrophic bone along the distal aspect of 2nd metatarsal. Loss of 1st metatarsophalangeal joint space with exuberant osteophytosis are likely degenerative changes. No visible acute fracture, dislocation or subluxation seen. RIGHT ANKLE: The ankle mortise and subtalar joints are normal. There is bimalleolar soft tissue swelling. No visible acute fracture, dislocation or subluxation seen. There is moderate vascular calcification. No soft tissue edema. XR/XR foot RT 2V IMPRESSION: 1. There is partial amputation of the distal phalanx beyond the proximal end 1st digit. No bony erosive changes seen to suspect any osteomyelitis. 2. There is amputation of 2nd digit beyond the metatarsal. No bony erosive changes seen to suspect osteomyelitis. 3. There is significant degenerative arthritic changes 1st MTP joint. No visible acute fracture or dislocation seen.
== END 2022-04-29 16:43 | disposition home or self-care (01) ==
LOC: HO.XRAY 16:42
PROVIDERS: Absent Provider Internal Medicine Geriatric Medicine; PCP Internal Medicine Geriatric Medicine; Visit Provider Emergency Medicine
DX: S99.911A Unspecified injury of right ankle, initial encounter (principal); E11.40 Type 2 diabetes mellitus with diabetic neuropathy, unspecified; R60.0 Localized edema; X58.XXXA Exposure to other specified factors, initial encounter; Y93.9 Activity, unspecified; Y92.9 Unspecified place or not applicable; Y99.9 Unspecified external cause status
CPT/HCPCS: 73600; 73620

== ENCOUNTER 2022-05-06 18:33 | Emergency (ER) | payer OTHER, SELFPAY ==
--- NOTE | ~2022-05-06 | US_ITS ---
EXAMINATION: US VENOUS ULTRASOUND WITH DOPPLER LOWER EXTREMITY, RIGHT CLINICAL INFORMATION: Swelling. COMPARISON: None TECHNIQUE: Ultrasound of the deep veins is performed from the hip to the calf with compression sonography and color and pulse Doppler assessment. Spectral analysis with color-flow imaging is performed. FINDINGS: There is normal venous compression and respiratory variation and augmented flow. The visualized common femoral vein, superficial femoral vein, profunda femoral vein, popliteal vein, and the trifurcation region shows no evidence of deep venous thrombosis. There is a 3.4 x 1.9 x 1.7 cm Sullivan's cyst. If the patient's symptoms persist, followup ultrasound in 5 days 7 days might be of value to exclude proximal propagation from a non-visualized calf vein. US/US venous duplex LE RT IMPRESSION: No DVT demonstrated in the right lower extremity. Incidental Sullivan's cyst measuring 3.4 cm.
[2022-05-06 19:10] VITALS: BP 136/68; PULSE 66; RESP 18; TEMP 36.1; O2SAT 97; BMI 25.5
[2022-05-06 19:46] LABS: Basophils Percent Auto 0.7 % (0-2); Eosinophils Absolute Auto 0.2 X10*3/uL (0.0-0.4); Eosinophils Percent Auto 2.9 % (0-4); Hematocrit 29.9 % (42.0-52.0); Hemoglobin 9.9 g/dl (14.0-18.0); Imm Gran Abs Auto 0.02 X10*3/uL (0.00-0.03); Imm Gran Pct Auto 0.3 % (0.0-0.4); Lymphocytes Absolute Auto 1.1 X10*3/uL (1.2-4.9); Lymphocytes Percent Auto 17.2 % (20-40); MANUAL DIFF FLAG SCAN; Mean Corpuscular HGB Conc 33.1 g/dl (31.0-36.0); Mean Corpuscular Hemoglobin 27.4 pg (27.0-33.0); Mean Corpuscular Volume 82.8 fL (80.0-98.0); Mean Platelet Volume 10.5 fL (9.4-12.4); Monocytes Absolute Auto 0.4 X10*3/uL (0.1-1.2); Neutrophils Absolute Auto 4.4 x10*3/uL (2.0-8.3); Neutrophils Percent Auto 71.9 % (45-73); Platelet Count 229 X10*3/uL (160-400); Red Blood Count 3.61 X10*6/uL (4.60-5.80); Red Cell Distribution Width 14.9 % (11.0-16.0); SCAN SMEAR FLAG 1; White Blood Count 6.2 X10*3/uL (4.8-10.8)
[2022-05-06 20:04] LABS: SLIDE REVIEW VERIFIED
[2022-05-06 20:05] LABS: Alanine Aminotransferase 18 U/L (0-40); Albumin Level 4.4 g/dL (3.5-5.0); Alkaline Phosphatase 62 U/L (39-117); Anion Gap 19 (12-20); Aspartate Amino Transferase 16 U/L (5-37); Bilirubin Total 0.4 mg/dL (0.0-1.0); Blood Urea Nitrogen 31 mg/dL (9-16); Calcium 9.8 mg/dL (8.4-10.2); Carbon Dioxide 25 mmol/L (22-29); Chloride 104 mmol/L (96-108); Creatinine Clr Calc Pharmacy 31.4; Estimated Glomerular Filt Rate 35; Glucose Random 189 mg/dL (60-115); Potassium 5.5 mmol/L (3.3-5.1); Sodium 142 mmol/L (135-145); Total Protein 7.6 g/dL (6.5-8.0)
[2022-05-06 20:09] LABS: B Type Natriuretic Peptide 145 pg/mL (<100)
[2022-05-07] VITALS: BP 163/78; PULSE 64; RESP 16; O2SAT 97
--- OUTSIDE RECORDS SUMMARY | 2022-05-07 00:25 | XMS_ITS ---
:1945 Author Organization [facility] Address [address] [place] [address] Care Team Providers Name Role Phone Malik Marie Jr Unavailable Unavailable PROBLEMS Type Condition ICD9-CM [id number] Onset Condition SNOMED Cod e Code Code Dates Status Problem Esophageal reflux K21.9 Active Problem Gastric ulcer K25.9 Active 868032 [address] scan, R93.3 Active 12 5563784 colon Problem Gastroesophageal K21.9 Active 235 282348 reflux disease, unspecified whether esophagitis present ALLERGIES No Known Allergies ENCOUNTERS Encounter Location Date Diagnosis [address] [facility] [address] [place] [id number] [facility] [address] [place] [address] [facility] [address] [place] [address] [facility] [address] [place] [address] [facility] Outpatient [address] [place] [address] Mar, Internal hemorr hoids K64.8 ; [place] [id number] Abnormal C T scan, colon R93.3 ; Liz esophagitis B37.81 ; Gastric ulcer K25.9 ; Other specifie d disease of esophagus K22.89 and Esophageal reflu x K21.[address] Mar, Abnormal CT scan, colon [facility] [address] [place], [place] R93.3 [address] [facility] [address] [facility] [address] [place] disease, u nspecified whether [id number] esophagitis pres ent K21.[address] scan, colon R93.3 IMMUNIZATIONS Vaccine Route Administration Date Status Influenza Unknown Mar 30, 2022 Administered SOCIAL HISTORY Qualifiers Date Never Smoker REASON FOR REFERRAL FUNCTIONAL STATUS PLAN OF CARE Activity Details Future Appointment Provider Name:Malik jacob Jr, 2022-08-13 01:55:00 PM, [address], [address] , [place], [address], Future/Pending Procedure UPPER GI ENDOSCOPY 20220330 Future/Pending Procedure COLONOSCOPY 20220330 VITAL SIGNS Weight 164 lbs 2022-03-30 Height 68 in 2022-03-30 BMI 24.93 kg/m2 2022-03-30 Temperature 97.3 degrees Fahrenheit 2022-03-30 Blood pressure systolic 000 mm Hg 2022-03-30 Blood pressure diastolic 00 mm Hg 2022-03-30 MEDICATIONS Medication Instructions Dosage Frequency Start End Duration Statu s Date Date Omeprazole 20 MG Orally Once a 1 capsule 24h Mar, day( s) Active day 30 minutes 2021 before morning meal Dulcolax (colon Orally two take at Mar, 1 day Activ e prep) 5 MG tablets twice a 3:00 p.m 2021 day for one day and 7:00p.m. Gabapentin 300 Orally Once a 1 capsule 24h 30 day(s) Active MG day Bicalutamide 50 Orally Once a 1 tablet 24h 30 day(s) Active MG day Lantus 100 as directed Active UNIT/ML metFORMIN HCl ER Orally Once a 1 tablet 24h 30 day(s ) Active 500 MG day with evening meal Hydralazine-HCTZ as directed Act yamila 25-25 MG MiraLax (colon Orally begin at mixed with Mar, 1 day Active prep) 17 5:00 p.m. the Gatorade or 2021 GM/SCOOP day before the Crystal procedure Light NIFEdipine ER 30 Orally Once a 1 tablet on 24h 30 da y(s) Active MG day an empty stomach Tamsulosin HCl as directed Activ e 0.4 MG Metoprolol Orally Once a 1 tablet 24h 30 day(s) Acti ve Succinate ER 100 day MG PROCEDURES Procedure Date Ordered Result Body Site PATIENT NOT ELIG D/T ACTIVE DX HTN Mar 30, 2022 Pt scrn tbco id as non user Mar 30, 2022 UPPER GI ENDOSCOPY, BIOPSY Apr 10, 2022 DOC MEDS VERIFIED W/PT OR RE Mar 30, 2022 DIAGNOSTIC COLONOSCOPY Apr 10, 2022 RESULTS Name Result Date Reference Range Glucose, Whole Blood 2022-04-10 Glucose, Whole Blood 77 60-115 Pathology 2022-04-10 REASON FOR VISIT gastric ulcer, ABNORMAL CT, rx change to caps, pathology, Dr. Flaco villafana pt treated, gerd,abn ct scan colon, bowel prep, Patient presents today for an abn ct scan, discuss colonoscopy Insurance Providers [facility] Patient Patient Patient Patient Patient Subscriber Subscriber Subscriber Group Insurance Plan Plan Plan Plan ID Relationship Address Phone Name Date of ID Name Date of No Type Insurance Insurance Insurance Coverage to Subscriber Address Phone Name Dates [employer] [phone] [employer] self [place]K [id number] [facility] [address] [facility] [place] [address] MEDICARE [phone] MEDICARE self MIK [id number] [place] [address] [place] [facility] [place] [address] MEDICAID [phone] MEDICAID self [place] [id number] [place] [address] [place] [address] [facility] [place] [address]
--- NOTE | 2022-05-07 00:56 | ED_ITS ---
HPI - Extremity Problem General Chief complaint: Extremity Injury, Lower Stated complaint: diabetic right leg pain Time Seen by Provider: 05/07/22 00:28 Source: patient Mode of arrival: ambulatory Limitations: no limitations History of Present Illness HPI Narrative: Patient 76 years old with history of diabetes, right foot surgery, prostate cancer comes with increased swelling of the right leg for last few weeks no shortness of breath no chest pain or palpitation patient ambulatory but lately less active than in the past Related Data Home Medications Medication Instructions Recorded Confirmed aspirin 81 mg chewable tablet 1 tab PO DAILY 03/04/22 04/17/22 atorvastatin 40 mg tablet 1 tab PO BEDTIME 03/04/22 04/17/22 clopidogrel 75 mg tablet 1 tab PO DAILY 03/04/22 04/17/22 enalapril maleate 20 mg tablet 1 tab PO DAILY 03/04/22 04/17/22 gabapentin 300 mg capsule 1 cap PO TID PRN Pain 03/04/22 04/17/22 hydralazine 25 mg tablet 1 tab PO BID 03/04/22 04/17/22 insulin glargine 100 unit/mL 25 unit subcut BEDTIME 03/04/22 04/17/22 subcutaneous solution (Lantus U-100 Insulin) metformin 1,000 mg tablet 1 tab PO BIDWM 03/04/22 04/17/22 metoprolol tartrate 100 mg tablet 1 tab PO BID 03/04/22 04/17/22 nifedipine 30 mg tablet,extended 1 tab PO DAILY 03/04/22 04/17/22 release 24 hr pen needle, diabetic 31 gauge x 03/04/22 04/17/22 3/16 (Sure Comfort Pen Needle) spironolactone 25 mg tablet 1 tab PO DAILY 03/04/22 04/17/22 tamsulosin 0.4 mg capsule 1 cap PO DAILY 03/04/22 04/17/22 diclofenac sodium 1 % topical gel 2 g topical BID 04/14/22 04/17/22 Previous Rx's Medication Instructions Recorded acetaminophen 500 mg capsule 500 mg PO Q6H PRN fever or pain 03/19/22 #30 caps abiraterone 250 mg tablet 1,000 mg PO DAILY #120 tabs 04/17/22 prednisone 5 mg tablet 5 mg PO DAILY #60 tabs 04/17/22 Allergies Allergy/AdvReac Type Severity Reaction Status Date / Time No Known Allergies Allergy Verified 04/14/22 12:56 Review of Systems Review of Systems: Yes all other systems are reviewed and are negative [facility] Past Medical History Medical History Chronic kidney disease Diabetes mellitus, type II Essential hypertension History of amputation of left great toe Polyneuropathy Prostate CA Surgical History History of amputation of lesser toe of left foot Hx of amputation Hx of colonoscopy Family History Family History Father Alcoholic Social History Social History Housing: House Alcohol intake: current Alcohol intake frequency: holidays/special occasions only Patient Tobacco Use Status: Former Tobacco user Advance Directives: No service: No Current occupational status: retired 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 Oriented X3. No acute distress. Eyes: PERRLA, No Nystagmus ENT: Pharynx normal. Oral Mucosa moist Neck: Normal inspection. Neck supple. CVS: Normal heart rate and rhythm. Pulses normal. Respiratory: No respiratory distress. Equal air entry bilateral, no wheezing/rales/rhonchi Abdomen: Soft and nontender. Bowel sounds are present, no mass palpable, no CVA tenderness Skin: Skin warm and dry. Normal skin color. Normal skin turgor. Extremities: Right leg edema3+. No calf tenderness Neuro: Oriented X 3. No motor deficit. 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 Result diagrams: 05/06/22 19:36 05/06/22 19:36 Labs: Lab Results 05/06/22 05/06/22 05/06/22 Range/Units 19:36 19:36 19:36 WBC 6.2 (4.8-10.8) X10*3/uL RBC 3.61 L (4.60-5.80) X10*6/uL Hgb 9.9 L (14.0-18.0) g/dl Hct 29.9 L (42.0-52.0) % MCV 82.8 (80.0-98.0) fL MCH 27.4 (27.0-33.0) pg MCHC 33.1 (31.0-36.0) g/dl RDW 14.9 (11.0-16.0) % Plt Count 229 (160-400) X10*3/uL MPV 10.5 (9.4-12.4) fL Immature Gran % (Auto) 0.3 (0.0-0.4) % Neut % (Auto) 71.9 (45-73) % Lymph % (Auto) 17.2 L (20-40) % Lamb % (Auto) 7.0 (2-11) % Eos % (Auto) 2.9 (0-4) % Baso % (Auto) 0.7 (0-2) % Lymph # (Auto) 1.1 L (1.2-4.9) X10*3/uL Lamb # (Auto) 0.4 (0.1-1.2) X10*3/uL Eos # (Auto) 0.2 (0.0-0.4) X10*3/uL Baso # (Auto) 0.0 (0.0-0.2) X10*3/uL Abs Immat Gran (auto) 0.02 (0.00-0.03) X10*3/uL Absolute Neuts (auto) 4.4 (2.0-8.3) x10*3/uL Absolute Nucleated RBC 0.000 (0.0-0.012) X10*3/uL Nucleated RBC % (auto) 0.0 (0.0-0.2) /100WBC Smear Tech's Comments VERIFIED Sodium 142 (135-145) mmol/L Potassium 5.5 H (3.3-5.1) mmol/L Chloride 104 (96-108) mmol/L Carbon Dioxide 25 (22-29) mmol/L Anion Gap 19 (12-20) BUN 31 H (9-16) mg/dL Creatinine 1.87 H (0.5-1.4) mg/dL Estim Creat Clear Calc 31.4 Estimated GFR 35 Random Glucose 189 H (60-115) mg/dL Calcium 9.8 (8.4-10.2) mg/dL Total Bilirubin 0.4 (0.0-1.0) mg/dL AST 16 (5-37) U/L ALT 18 (0-40) U/L Alkaline Phosphatase 62 (39-117) U/L B-Natriuretic Peptide 145 H (<100) pg/mL Total Protein 7.6 (6.5-8.0) g/dL Albumin 4.4 (3.5-5.0) g/dL Discharge Plan Discharge Clinical Impression: Edema of right lower leg, Sullivan's cyst of knee Patient Disposition: Home, Self-Care Instructions: Bakers Cyst (ED), Leg Edema (ED) Additional Instructions: No blood clot seen Keep right leg elevated Your Sullivan's cyst in right knee causing the swelling of the right leg Prescriptions: No Action nifedipine 30 mg tablet extended release 24hr 1 tab PO DAILY atorvastatin 40 mg tablet 1 tab PO BEDTIME metoprolol tartrate 100 mg tablet 1 tab PO BID enalapril maleate 20 mg tablet 1 tab PO DAILY Hold Instructions: Call to follow up with PCP for blood pressure monitoring hydralazine 25 mg tablet 1 tab PO BID clopidogrel 75 mg tablet 1 tab PO DAILY Hold Instructions: hold until biopsy spironolactone 25 mg tablet 1 tab PO DAILY Hold Instructions: call to schedule follow up with PCP for blood pressure m onitoring tamsulosin 0.4 mg capsule 1 cap PO DAILY metformin 1,000 mg tablet 1 tab PO BIDWM gabapentin 300 mg capsule 1 cap PO TID PRN (Reason: Pain) (DME) pen needle, diabetic [Sure Comfort Pen Needle] 31 gauge x 3/16 needle MISCELLANEOUS abiraterone 250 mg Tablet 1,000 mg PO DAILY Qty: 120 3RF Rx Instructions: must be taken on empty stomach, at least 1 hr before or 2 hrs after a meal/food prednisone 5 mg Tablet 5 mg PO DAILY Qty: 60 3RF insulin glargine [Lantus U-100 Insulin] 100 unit/mL Solution 25 unit SUBCUT BEDTIME aspirin 81 mg tablet,chewable 1 tab PO DAILY Hold Instructions: hold until biopsy acetaminophen 500 mg capsule 500 mg PO Q6H PRN (Reason: fever or pain) Qty: 30 0RF diclofenac sodium 1 % gel 2 g topical BID Interventions: ED Discharge Assessment Last Done: 05/07/22 03:55 Discharge Date/Time: 05/07/22 03:56
[2022-05-07] MEDS: Sodium Zirconium Cyclosilicate 10 GM POWD.PACK PO (01:20)
[2022-05-07] MEDS: Furosemide 20 MG/2 ML VIAL IVPUSH (02:01)
--- NOTE | 2022-05-07 02:03 | PC.NURSE ---
medicated per provider order - order changed from PO to IV lasix, no PO meds for 2hrs before or 2hrs after lokelma.
== END 2022-05-07 03:56 | disposition home or self-care (01) ==
PROVIDERS: Emergency Provider Internal Medicine; PCP Internal Medicine Geriatric Medicine
DX: R60.0 Localized edema (principal); M71.21 Synovial cyst of popliteal space [Baker], right knee; R06.02 Shortness of breath; Z87.891 Personal history of nicotine dependence; Z79.899 Other long term (current) drug therapy
CPT/HCPCS: 36415; 80053; 83880; 85025; 93971; 99283; 99284; J1940

== ENCOUNTER 2022-05-07 14:00 | Day surgery (SDC) | payer OTHER, SELFPAY ==
--- NOTE | 2022-05-07 10:47 | P.OP_ITS ---
Operative Note Operative Note Date of Service: 05/07/22 Narrative: Operative Note Preop diagnosis: 1. left ring finger Trigger finger Postop diagnosis: 1. left ring finger Trigger finger 2. Left ring finger palmar Dupuytren's cord passing directly over the A1 joe Procedure: 1. left ring finger A1 joe release 2. Excision of palmar Dupuytren's cord in line with the left ring finger Surgeon: Malina German MD Anesthesia: local block using 1% lidocaine with epinephrine Findings: No locking or catching after A1 joe release EBL: Less than 5 mL Tourniquet time: None Specimens: None Complications: None Disposition: Brought to recovery room in stable condition Plan: Follow-up for 10-14 days for wound check and suture removal Indications: The patient is 76 years old, with a left ring finger trigger finger that has been unresponsive to nonoperative management. The risks and benefits of operative treatment including but not limited to risk of damage to blood vessels, nerves, tendons, infection, persistent pain, persistent sy mptoms, recurrence or possible need for additional surgery were discussed with the patient and the patient wishes to proceed with surgery. Procedure: Once consent was obtained a local block was performed in the preop area using a combination of 1% lidocaine with epinephrine. The patient was then brought back to the operating suite and placed on the operative table in supine position. A tourniquet was applied to the proximal aspect of the left upper extremity and the limb was prepped and draped in a standard surgical fashion. Once assured that we had a good block, a 1.5 cm oblique incision was made centered over the A1 joe of the left ring finger . The incision was made through the skin to the subcutaneous tissues using a #15 blade. Careful dissection was made down to the level of the A1 joe using tenotomy scissors, with care being taken to protect the nearby neurovascular structures. there were 2 longitudinally oriented Dupuytren's cords passing directly superficial to the A1 joe of the patient's left ring finger. These were both excised using tenotomy scissors after they were isolated. I was then able to expose the A1 joe. A longitudinal incision was made in the A1 joe 1st using a #15 blade, then using tenotomy scissors under direct visualization. The A1 joe was noted to be thickened. Following our A1 joe release, we no longer saw any lo cking or catching of the digit with flexion and extension. Once satisfied with our A1 joe release the wound was copiously irrigated with normal saline and hemostasis was obtained with a brief period of local pressure. The skin edges were reapproximated with some 5.0 nylon suture material and a sterile dressing was applied. The patient appears to have tolerated the procedure well and with no complications. All digits were well vascularized at the conclusion of the case.
--- NOTE | 2022-05-07 14:42 | MHC.SHP ---
Pre-Procedural Eval Section A Date of Service: 05/07/22 The patient is an INPATIENT: No Changes since office visit: No Cold of Flu in the past 2 weeks, No New Medical Problems, No Changes in Medication and No Patient answered all questions The History & Physical has been completed within 30 days and I have reviewed it.: Yes Section B Chief Complaint: Trigger finger, left ring finger Allergies: Allergies Allergy/AdvReac Type Severity Reaction Status Date / Time No Known Allergies Allergy Verified 04/14/22 12:56 Plan I have reviewed the history and physical and performed a pertinent physical examination on my patient. No changes have occurred unless specified.
[2022-05-07 15:33] VITALS: BP 171/69; PULSE 67; RESP 16; TEMP 36.4; O2SAT 98
== END 2022-05-07 15:48 | disposition home or self-care (01) ==
PROVIDERS: PCP Student in an Organized Health Care Education/Training Program; Visit Provider Orthopaedic Surgery
PROC: (CPT 26055; principal; 2022-05-07 16:10)
DX: M65.342 Trigger finger, left ring finger (principal); M72.0 Palmar fascial fibromatosis [Dupuytren]; R20.0 Anesthesia of skin; E11.22 Type 2 diabetes mellitus with diabetic chronic kidney disease; I12.9 Hypertensive chronic kidney disease with stage 1 through stage 4 chronic kidney disease, or unspecified chronic kidney disease; N18.9 Chronic kidney disease, unspecified; C61 Malignant neoplasm of prostate; G62.9 Polyneuropathy, unspecified; Z79.4 Long term (current) use of insulin; Z79.899 Other long term (current) drug therapy; Z89.412 Acquired absence of left great toe; Z87.891 Personal history of nicotine dependence
CPT/HCPCS: 26055; J0171

== ENCOUNTER 2022-06-24 14:06 | Outpatient (REF) | payer OTHER, SELFPAY | END 2022-06-24 14:07 | disposition home or self-care (01) | LOC: HO.NEURO 14:06 | PROVIDERS: PCP Student in an Organized Health Care Education/Training Program; Visit Provider Orthopaedic Surgery | DX: R20.0 Anesthesia of skin (principal); R20.2 Paresthesia of skin | CPT/HCPCS: 95886; 95913 ==

== ENCOUNTER 2022-09-17 14:33 | Outpatient (REF) | payer OTHER, SELFPAY ==
[2022-09-17 15:02] LABS: MANUAL DIFF FLAG NO
[2022-09-17 15:38] LABS: Appearance Urine Clear; Color Urine Yellow; Glucose Urine UA Negative (Negative); Leukocyte Esterase Urine Negative (Negative); Nitrite Urine Negative (Negative); PH 5.5 (5.0-9.0); Specific Gravity - Urine 1.015 (1.005-1.025); UMIC TRIGGER UA YES; Urine Blood Negative (Negative); Urine Ketones Trace mg/dL (Negative); Urine Protein 100 (2+) mg/dL (Neg-Trace)
[2022-09-17 15:38] LABS: Basophils Percent Auto 0.4 % (0-2); Eosinophils Absolute Auto 0.3 X10*3/uL (0.0-0.4); Eosinophils Percent Auto 3.6 % (0-4); Hematocrit 32.9 % (42.0-52.0); Hemoglobin 10.7 g/dl (14.0-18.0); Imm Gran Abs Auto 0.02 X10*3/uL (0.00-0.03); Imm Gran Pct Auto 0.3 % (0.0-0.4); Lymphocytes Absolute Auto 0.8 X10*3/uL (1.2-4.9); Lymphocytes Percent Auto 10.3 % (20-40); Mean Corpuscular HGB Conc 32.5 g/dl (31.0-36.0); Mean Corpuscular Volume 83.1 fL (80.0-98.0); Mean Platelet Volume 10.8 fL (9.4-12.4); Monocytes Absolute Auto 0.6 X10*3/uL (0.1-1.2); Monocytes Percent Auto 7.2 % (2-11); Neutrophils Absolute Auto 6.1 x10*3/uL (2.0-8.3); Neutrophils Percent Auto 78.2 % (45-73); Platelet Count 216 X10*3/uL (160-400); Red Blood Count 3.96 X10*6/uL (4.60-5.80); Red Cell Distribution Width 13.5 % (11.0-16.0); White Blood Count 7.8 X10*3/uL (4.8-10.8)
[2022-09-17 15:59] LABS: Bacteria Urine None Seen (None Seen); Hyaline Casts Urine 0-2 /LPF (0-2); RBC Urine 0-2 /HPF (0-2); Squamous Epithelial Cell Urine 0-2 /HPF (0-2); WBC Urine 0-5 /HPF (0-5)
[2022-09-17 16:11] LABS: Albumin Level 4.2 g/dL (3.5-5.0); Anion Gap 15 (12-20); Blood Urea Nitrogen 24 mg/dL (9-16); Calcium 9.7 mg/dL (8.4-10.2); Carbon Dioxide 24 mmol/L (22-29); Chloride 103 mmol/L (96-108); Estimated Glomerular Filt Rate 51; Magnesium 1.6 mg/dL (1.6-2.6); Phosphorus 2.8 mg/dL (2.7-4.5); Potassium 4.4 mmol/L (3.3-5.1); Sodium 138 mmol/L (135-145)
[2022-09-17 16:18] LABS: Creatinine Urine 107.16 mg/dL; Total Protein Urine Random 161 mg/dL (<12)
[2022-09-17 16:27] LABS: Vitamin D 25-OH Total 32.6 ng/mL (>30)
[2022-09-17 16:34] LABS: Microalbum/Creatinine Ratio Ur 947.1 ug/mg cr
[2022-09-18 09:27] LABS: HBS Num1 0.08 mIU/mL (0-7.99); HBsAGNum1 0.29 S/CO (0.00-0.99); Hepatitis B Surface Antigen Negative (Negative); ~HepC Num1 0.15 S/CO (0.00-0.79); ~Hepatitis B Surface Antibody NONREACTIVE (Nonreactive); ~Hepatitis C Antibody Nonreactive (Nonreactive)
[2022-09-19 15:53] LABS: Anti Nuclear Antibody Screen NEGATIVE (NEGATIVE)
[2022-09-19 20:58] LABS: Complement C3 138 mg/dL (82-185)
[2022-09-20 08:09] LABS: Hepatitis B Core Antibody IgM NON-REACTIVE (NON-REACTIVE)
[2022-09-21 11:58] LABS: Calcium (PTHI) 9.7 mg/dL (8.6-10.3); PTHI 29 pg/mL (16-77)
[2022-09-21 23:33] LABS: Prot Elec - Albumin 4.3 g/dL (3.8-4.8); Prot Elec - Alpha1 0.3 g/dL (0.2-0.3); Prot Elec - Alpha2 0.9 g/dL (0.5-0.9); Prot Elec - Beta 1 0.5 g/dL (0.4-0.6); Prot Elec - Beta 2 0.4 g/dL (0.2-0.5); Prot Elec - Gamma 0.9 g/dL (0.8-1.7); Prot Elec - Total Protein 7.2 g/dL (6.1-8.1)
[2022-09-22 13:23] LABS: Kappa Light Chain, Free Serum 34.9 mg/L (3.3-19.4); Lambda Light Chain, Free Serum 26.9 mg/L (5.7-26.3)
== END 2022-09-17 14:34 | disposition home or self-care (01) ==
LOC: HO.LAB 14:33
PROVIDERS: PCP Internal Medicine Geriatric Medicine; Visit Provider Internal Medicine Nephrology
DX: N18.32 Chronic kidney disease, stage 3b (principal)
CPT/HCPCS: 36415; 80051; 81001; 82040; 82043; 82306; 82310; 82565; 83521; 83735; 83970; 84100; 84156; 84165; 84520; 85025; 86038; 86039; 86160; 86705; 86706; 86803; 87086; 87340

== ENCOUNTER → 2022-10-07 14:45 | Outpatient (BNVA) | payer OTHER, SELFPAY | PROVIDERS: PCP Internal Medicine Geriatric Medicine; Visit Provider Orthopaedic Surgery | DX: M65.342 Trigger finger, left ring finger (principal); M65.341 Trigger finger, right ring finger; M72.0 Palmar fascial fibromatosis [Dupuytren]; G56.03 Carpal tunnel syndrome, bilateral upper limbs; G56.23 Lesion of ulnar nerve, bilateral upper limbs | CPT/HCPCS: 99212 ==

== ENCOUNTER 2023-03-17 13:02 | Outpatient (REF) | payer OTHER, SELFPAY ==
[2023-03-17 17:34] LABS: Estimated Average Glucose 200 mg/dL; Hemoglobin A1c % 8.6 % (<6.0)
== END 2023-03-17 13:03 | disposition home or self-care (01) ==
LOC: HO.HHCL 13:02
PROVIDERS: Visit Provider Internal Medicine Geriatric Medicine
DX: E11.69 Type 2 diabetes mellitus with other specified complication (principal); Z79.4 Long term (current) use of insulin
CPT/HCPCS: 36415; 83036

== ENCOUNTER 2023-04-02 08:04 | Outpatient (RCR) | payer OTHER, SELFPAY | END 2023-05-14 14:44 | disposition home or self-care (01) | LOC: HO.WCC 08:04 | PROVIDERS: PCP Internal Medicine Geriatric Medicine; Visit Provider Physician Assistant | DX: E11.621 Type 2 diabetes mellitus with foot ulcer (principal); E11.51 Type 2 diabetes mellitus with diabetic peripheral angiopathy without gangrene; L97.522 Non-pressure chronic ulcer of other part of left foot with fat layer exposed; E11.40 Type 2 diabetes mellitus with diabetic neuropathy, unspecified; Z79.52 Long term (current) use of systemic steroids; Z79.4 Long term (current) use of insulin; Z85.46 Personal history of malignant neoplasm of prostate; Z89.412 Acquired absence of left great toe | CPT/HCPCS: 11042; 99213 ==

== ENCOUNTER 2023-04-08 08:39 | Outpatient (REF) | payer OTHER, SELFPAY ==
[2023-04-08 09:46] LABS: Blood Urea Nitrogen 18 mg/dL (9-16); Estimated Glomerular Filt Rate > 60
== END 2023-04-08 08:40 | disposition home or self-care (01) ==
LOC: HO.LAB 08:39
PROVIDERS: PCP Internal Medicine Geriatric Medicine; Visit Provider Radiology Vascular & Interventional Radiology
DX: R79.89 Other specified abnormal findings of blood chemistry (principal); R94.4 Abnormal results of kidney function studies
CPT/HCPCS: 36415; 82565; 84520

== ENCOUNTER 2023-04-13 12:14 | Outpatient (AMB) | payer OTHER, SELFPAY ==
--- NOTE | 2023-04-13 11:10 | MHC.OFFVIS ---
Intake Vital Signs 04/13/23 12:33 Height 5 ft 8 in Weight 164 lb BMI 24.9 Intake Visit Reasons: Pre-Op Right CTR and cub.release vs transposition Intake Note: Shaquille 77 yr old male presents today for his Pre op visit for his Right hand CTR and Cubital release. Patient current A1C is 8.6. Allergies No Known Allergies Allergy (Verified 04/13/23 12:34) HPI Pre-Op Right CTR and cub.release vs transposition HPI Details Shaquille is a 77 year old right hand dominant [place] speaking man who presents to discuss treatment for his right carpal & cubital tunnel syndrome. He has known left carpal & cubital tunnel syndrome. he is here today with his . He has dense numbness in all of his digits, R>L, along with weakness and muscle wasting. He has a Dupuytrens contracture of his right small finger. He has prostate cancer and receives oral chemotherapy medication every 6 months. He is a Diabetic, and his most recent HgA1c was 8.6% on 03/17/23. He had surgery yesterday, 04/12/23, to have a stent placed in his LLE to improve bloodflow to his foot. 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 Review of Systems Const All systems reviewed & are unremarkable except as noted in HPI and below Physical Exam Vital Signs: BMI result Body Mass Index 24.9 Const General: no acute distress and alert Orientation/consciousness: patient oriented x3 Neuro General: patient oriented x3 Extrem Other: Evaluation of Right Upper Extremity: The patient is alert, oriented, and in no acute distress Neuro: Reduced sensation to all digits bilaterally With some bilateral intrinsic wasting He cannot finger cross bilaterally Vascular: Cap refill brisk ROM: Can bring his fingers close to a fist and back into extension. He does have some stiffness in the PIP joints. Regarding the right hand: He no longer has locking and catching of the right ring finger and can bring his fingers close to a fist and back into extension. He does have a Dupuytren's cord extending from the palm to the small finger. Dupuytren's contracture of right small finger MCP 40/PIP 0 degrees Nerve Conduction Study: Severe bilateral Carpal tunnel syndrome Moderate bilateral Cubital tunnel syndrome 06/24/22 Dr. Juarez Psych Appearance: grossly normal Affect: normal affect Attitude: cooperative Assessment & Plan Assessment & Plan (1) Dupuytren's contracture of right hand: Code(s): M72.0 - Palmar fascial fibromatosis [Dupuytren] (2) Carpal tunnel syndrome on both sides: Code(s): G56.03 - Carpal tunnel syndrome, bilateral upper limbs (3) Cubital tunnel syndrome, bilateral: Code(s): G56.23 - Lesion of ulnar nerve, bilateral upper limbs Plan Assessment & Plan: 1. Right Carpal tunnel syndrome, severe 2. Right Cubital tunnel syndrome, moderate With some Intrinsic wasting 3. Left Carpal tunnel syndrome, severe 4. Left Cubital tunnel syndrome, moderate With some Intrinsic wasting I educated him about these conditions I discussed treatment options I recommend surgery, beginning with his right dominant hand. The patient is in agreement and would like to proceed. However he Diabetes is not well-controlled and his most recent HgA1c was 8.6% on 03/17/23 I discussed with the patient and his that it is very possible he would not get his sensation back as he may already have some permanent nerve damage, but surgery would help to preserve his current level of function He has known prostate cancer and is on oral chemotherapy medication that he receives every 6 months going to his He has some kidney issues, but is not on dialysis He will need PCP clearance prior to surgery His HgA1c needs to be <8.0% in order to proceed with surgery to manage the risk of infection. He will work on this and follow up in June after his next HgA1c test 5. Left ring finger trigger finger, S/P release & excision of palmar Dupuytren's cord in line with the ring finger DOS: 05/07/22 Resolved 6. Right ring finger trigger finger, S/P injection Date of Injection 04/14/22 Resolved 7. Right small finger Dupuytrens contracture, 40 MCP/0 PIP No intervention warranted at this time Scribed for Malina German MD by Davion Prescott, medical lab assistant, on 04/13/23 at 1:00 PM, EST. Coding Level of Care Code Est Pt Level 3 (46799) Diagnoses Dupuytren's contracture of right hand M72.0 Carpal tunnel syndrome on both sides G56.03 Cubital tunnel syndrome, bilateral G56.23
[2023-04-13 12:33] VITALS: BMI 24.9
== END 2023-04-13 13:07 | disposition home or self-care (01) ==
PROVIDERS: PCP Internal Medicine Geriatric Medicine; Visit Provider Orthopaedic Surgery
DX: M72.0 Palmar fascial fibromatosis [Dupuytren] (principal); G56.03 Carpal tunnel syndrome, bilateral upper limbs; G56.23 Lesion of ulnar nerve, bilateral upper limbs
CPT/HCPCS: 99024

== ENCOUNTER → 2023-04-13 12:14 | Outpatient (BNVA) | payer OTHER, SELFPAY | PROVIDERS: PCP Internal Medicine Geriatric Medicine; Visit Provider Orthopaedic Surgery ==

== ENCOUNTER 2023-04-20 11:53 | Outpatient (REF) | payer OTHER, SELFPAY ==
[2023-04-20 12:07] LABS: MANUAL DIFF FLAG NO
[2023-04-20 12:50] LABS: Basophils Percent Auto 0.5 % (0-2); Eosinophils Absolute Auto 0.3 X10*3/uL (0.0-0.4); Hematocrit 28.8 % (42.0-52.0); Hemoglobin 9.2 g/dl (14.0-18.0); Imm Gran Abs Auto 0.02 X10*3/uL (0.00-0.03); Imm Gran Pct Auto 0.3 % (0.0-0.4); Lymphocytes Absolute Auto 0.9 X10*3/uL (1.2-4.9); Lymphocytes Percent Auto 13.2 % (20-40); Mean Corpuscular HGB Conc 31.9 g/dl (31.0-36.0); Mean Corpuscular Hemoglobin 27.5 pg (27.0-33.0); Mean Corpuscular Volume 86.2 fL (80.0-98.0); Mean Platelet Volume 10.9 fL (9.4-12.4); Monocytes Absolute Auto 0.5 X10*3/uL (0.1-1.2); Monocytes Percent Auto 7.7 % (2-11); Neutrophils Absolute Auto 4.8 x10*3/uL (2.0-8.3); Neutrophils Percent Auto 74.3 % (45-73); Platelet Count 218 X10*3/uL (160-400); Red Blood Count 3.34 X10*6/uL (4.60-5.80); Red Cell Distribution Width 14.4 % (11.0-16.0); White Blood Count 6.5 X10*3/uL (4.8-10.8)
== END 2023-04-20 11:54 | disposition home or self-care (01) ==
LOC: HO.LAB 11:53
PROVIDERS: Visit Provider Radiology Vascular & Interventional Radiology
DX: R79.89 Other specified abnormal findings of blood chemistry (principal); R94.4 Abnormal results of kidney function studies
CPT/HCPCS: 36415; 85025

== ENCOUNTER 2023-04-26 13:54 | Outpatient (REF) | payer OTHER, SELFPAY ==
[2023-04-26 14:34] LABS: Anion Gap 19 (12-20); Blood Urea Nitrogen 27 mg/dL (9-16); Calcium 10.2 mg/dL (8.4-10.2); Carbon Dioxide 22 mmol/L (22-29); Chloride 103 mmol/L (96-108); Estimated Glomerular Filt Rate 54; Glucose Random 185 mg/dL (60-115); Potassium 4.9 mmol/L (3.3-5.1); Sodium 139 mmol/L (135-145)
== END 2023-04-26 13:55 | disposition home or self-care (01) ==
LOC: HO.LAB 13:54
PROVIDERS: PCP Internal Medicine Geriatric Medicine; Visit Provider Internal Medicine Geriatric Medicine
DX: E11.69 Type 2 diabetes mellitus with other specified complication (principal); I73.9 Peripheral vascular disease, unspecified; Z79.4 Long term (current) use of insulin; I10 Essential (primary) hypertension
CPT/HCPCS: 36415; 80048

== ENCOUNTER 2023-04-29 09:21 | Observation (INO) | payer OTHER, SELFPAY ==
[2023-04-29] VITALS (7 sets, daily range): BP systolic 121–179; BP diastolic 55–82; PULSE 71–79; RESP 14–28; TEMP 36.3–37.9; O2SAT 92–98; BMI 26.2; BMI 26.0
--- NOTE | 2023-04-29 | EEG_ITS ---
This is a 16-channel EEG with an EKG lead. The patient is reported awake during the tracing. Background EEG rhythm is low amplitude fast with no obvious asymmetry or paroxysmal tendency. Photic stimulation does not produce any significant abnormality. Hyperventilation is not performed. Cardiac lead does not reveal any significant abnormality. No sharp wave spikes or paroxysmal tendency noted. IMPRESSION: Unremarkable EEG. MD JUAN CARLOS Arango/BAILEE / [id number]
--- NOTE | ~2023-04-29 | CT_ITS ---
EXAMINATION: CT HEAD WITHOUT CONTRAST CLINICAL INFORMATION: Confusion. Syncope. COMPARISON: None available. TECHNIQUE: Contiguous axial imaging was performed from the skull base to vertex without intravenous administration of contrast. This CT examination was performed using dose optimization techniques as appropriate, variously including the following: *Automated exposure control *Adjustment of mA and/or kV according to patient size (this includes techniques or standardized protocols for targeted exams where dose is matched to indication/reason for exam; i.e. extremities or head) *Use of iterative reconstruction technique DLP: 764 mGy-cm FINDINGS: There is no evidence of acute intracranial hemorrhage or territorial infarction. No mass effect or midline shift is seen. No extra-axial fluid collections are identified. No hydrocephalus. The calvarium is intact. Complete opacification of the left maxillary sinus with mucosal thickening and calcified inspissated secretions with surrounding cortical thickening. Mucosal thickening of the left frontal sinus. Mucoperiosteal thickening of the ethmoid air cells. No sinus air-fluid levels. The mastoid air cells are clear. CT/CT head/brain wo IV con IMPRESSION: No acute intracranial pathology. Chronic severe right maxillary sinusitis.
--- NOTE | 2023-04-29 09:42 | ED.GENADULT ---
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 He was complaining of feeling weak, tired and not well. He was confused and yelling out oy oy oy. Daughter reports he went to bed in his usual state of health last night other than complaining he was cold. Daughter denies any witnessed seizure activity or syncopal episodes. 911 was called. POC 200s for EMS. He has no history of incontinence in the past per family. He is not very mobile due to multiple toe amputations in the past. When using nutrition manager patient reports that around 11pm last night he was cold. Sometime in the middle of the night he stooled and urinated on himself. He vomited and states that he passed out. Unknown how long he was unconscious for. This was not witnessed by family. MD complaint: confusion, incontinence of stool/urine/vomit Onset (ago): hour(s) Relieving factors: none Exacerbating factors: none Associated symptoms: confusion, fever/chills, loss of appetite, malaise, nausea/vomiting and weakness Treatments prior to arrival: none Related Data Home Medications Medication Instructions Recorded Confirmed atorvastatin 40 mg tablet 1 tab PO BEDTIME 03/04/22 03/30/23 gabapentin 300 mg capsule 1 cap PO TID PRN Pain 03/04/22 03/30/23 insulin glargine 100 unit/mL 25 unit subcut BEDTIME 03/04/22 03/30/23 subcutaneous solution (Lantus U-100 Insulin) metformin 1,000 mg tablet 1 tab PO BIDWM 03/04/22 03/30/23 metoprolol tartrate 100 mg tablet 1 tab PO BID 03/04/22 03/30/23 pen needle, diabetic 31 gauge x 03/04/22 03/30/23 3/16 (Sure Comfort Pen Needle) tamsulosin 0.4 mg capsule 1 cap PO DAILY 03/04/22 03/30/23 omeprazole 20 mg capsule,delayed 1 cap PO DAILY 05/19/22 03/30/23 release hydralazine 50 mg tablet 50 mg PO BID 09/22/22 03/30/23 Previous Rx's Medication Instructions Recorded acetaminophen 500 mg capsule 500 mg PO Q6H PRN fever or pain 03/19/22 #30 caps abiraterone 250 mg tablet 1,000 mg (4 x 250 mg) PO DAILY 04/27/23 #120 tabs Allergies Allergy/AdvReac Type Severity Reaction Status Date / Time No Known Allergies Allergy Verified 04/13/23 12:34 Review of Systems Review of Systems: Yes all other systems are reviewed and are negative [facility] Past Medical History Medical History Chronic kidney disease Diabetes mellitus, type II Essential hypertension History of amputation of left great toe Polyneuropathy Prostate CA Surgical History History of amputation of lesser toe of left foot Hx of amputation Hx of colonoscopy Family History Family History Father Alcoholic Social History Social History Housing: House Alcohol intake: current Alcohol intake frequency: holidays/special occasions only Patient Tobacco Use Status: Former Tobacco user Advance Directives: Yes Advance Directives Information Provided: No Advance Directives on File: No service: No Current occupational status: retired 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 Head: normocephalic, atraumatic. Eyes: Pupils equal, round and reactive to light. ENT: Pharynx normal. No tonsillar swelling or exudate. Neck: Normal inspection. Neck supple. CVS: Normal heart rate and rhythm. Pulses normal. Respiratory: No respiratory distress. Breath sounds normal. Abdomen: Soft and nontender. +BS x4 Skin: Skin warm and dry. Normal skin color. Normal skin turgor. No rashes. Extremities: No lower extremity edema, s/p multiple toe amputations, well healed. No joint swelling. Neuro/psych: Oriented X 3. equal and symmetrical strength throughout, bilateral LE barely able to lift off of the bed. CN II-XII intact. Normal speech, lethargic Medications Administered Discontinued Medications Generic Name Dose Route Start Last Admin Trade Name Freq PRN Reason Stop Dose Admin Sodium Chloride 1,000 mls @ 999 mls/hr 04/29/23 09:45 04/29/23 12:47 Ns IVCONT 04/29/23 10:45 Infused .Q1H1M TRIP Infusion Ondansetron HCl 4 mg 04/29/23 09:43 04/29/23 11:11 Ondansetron Hcl 4 Mg/2 Ml Vial IVPUSH 04/29/23 09:44 4 mg ONCE ONE Administration Medical Decision Making Medical Decision Making MDM Narrative: 77 y/o male wtih history of prostate cancer, diabetes, HTN who presents to the ER from home via EMS for evaluation after family found him around 4:30am covered in vomit, stool and urine. VSS on arrival to the ER. He is lethargic and somewhat confused. Labs showing no leukocytosis. Viral PCR negative. Upon re-evaluation patient is more alert but appears weak and still not at his baseline per family. Given the uncertainty of the events of this morning, unwitnessed possible syncopal episode with urinary, stool incontinence w/ large volume emesis, will plan to admit the patient to the hospital for further evaluation and treatmnet. patient and daughter Prabha updated on plan of care at the bedside. hospitalist accepts admit Differential Diagnosis Differential Diagnoses: The differential diagnosis associated with the presentation includes seizure, stroke, viral illness, dehydration, UGIB, syncope Admission/Observation Consideration of admission/observation: Escalation of care including admission/observation considered Consult Healthcare Provider Management of the patient was discussed with: Hospitalist Lab Data MDM Lab Attestation statement: I reviewed the patient's lab results. 04/29/23 10:09 04/29/23 10:09 Labs: Lab Results 04/29/23 04/29/23 04/29/23 Range/Units 10:06 10:09 10:17 WBC 10.2 (4.8-10.8) X10*3/uL RBC 3.54 L (4.60-5.80) X10*6/uL Hgb 9.8 L (14.0-18.0) g/dl Hct 29.7 L (42.0-52.0) % MCV 83.9 (80.0-98.0) fL MCH 27.7 (27.0-33.0) pg MCHC 33.0 (31.0-36.0) g/dl RDW 14.2 (11.0-16.0) % Plt Count 194 (160-400) X10*3/uL MPV 9.9 (9.4-12.4) fL Immature Gran % (Auto) 0.3 (0.0-0.4) % Neut % (Auto) 81.0 H (45-73) % Lymph % (Auto) 7.5 L (20-40) % [place] % (Auto) 10.0 (2-11) % Eos % (Auto) 0.9 (0-4) % Baso % (Auto) 0.3 (0-2) % Lymph # (Auto) 0.8 L (1.2-4.9) X10*3/uL [place] # (Auto) 1.0 (0.1-1.2) X10*3/uL Eos # (Auto) 0.1 (0.0-0.4) X10*3/uL Baso # (Auto) 0.0 (0.0-0.2) X10*3/uL Abs Immat Gran (auto) 0.03 (0.00-0.03) X10*3/uL Absolute Neuts (auto) 8.2 (2.0-8.3) x10*3/uL Absolute Nucleated RBC 0.000 (0.0-0.012) X10*3/uL Nucleated RBC % (auto) 0.0 (0.0-0.2) /100WBC Hold Purple Top VBG pH (7.32-7.43) VBG pCO2 mmHg VBG pO2 mmHg VBG HCO3 (22-26) mmol/L VBG O2 Saturation % VBG Base Excess mmol/L Sodium 137 (135-145) mmol/L Potassium 4.4 (3.3-5.1) mmol/L Chloride 100 (96-108) mmol/L Carbon Dioxide 28 (22-29) mmol/L Anion Gap 13 (12-20) BUN 25 H (9-16) mg/dL Creatinine 1.32 (0.5-1.4) mg/dL Estim Creat Clear Calc 40.9 Estimated GFR 52 Random Glucose 186 H (60-115) mg/dL Calcium 9.7 (8.4-10.2) mg/dL Magnesium 1.6 (1.6-2.6) mg/dL Total Bilirubin 0.5 (0.0-1.0) mg/dL Direct Bilirubin 0.2 (0.0-0.5) mg/dL AST 17 (5-37) U/L ALT 12 (0-40) U/L Alkaline Phosphatase 53 (39-117) U/L Ammonia (13-55) umol/L Troponin I High Sens 70.2 H (<3.5-35.0) ng/L Total Protein 6.6 (6.5-8.0) g/dL Albumin 3.8 (3.5-5.0) g/dL TSH 1.85 (0.32-4.0) uIU/mL Urine Color Urine Appearance Urine pH (5.0-9.0) Ur Specific [place] (1.005-1.025) Urine Protein (Neg-Trace) mg/dL Urine Glucose (UA) (Negative) mg/dL Urine Ketones (Negative) mg/dL Urine Blood (Negative) Urine Nitrite (Negative) Ur Leukocyte Esterase (Negative) Urine RBC (0-2) /HPF Urine WBC (0-5) /HPF Ur Squamous Epith Cells (0-2) /HPF Urine Bacteria (None Seen) Hyaline Casts (0-2) /LPF Influenza Type A (PCR) NEGATIVE (Negative) Influenza Type B (PCR) NEGATIVE (Negative) RSV RNA Qual (PCR) NEGATIVE (Negative) SARS-CoV-2 RNA (RT-PCR) NEGATIVE (Negative) 04/29/23 04/29/23 04/29/23 Range/Units 10:21 12:49 13:45 WBC (4.8-10.8) X10*3/uL RBC (4.60-5.80) X10*6/uL Hgb (14.0-18.0) g/dl Hct (42.0-52.0) % MCV (80.0-98.0) fL MCH (27.0-33.0) pg MCHC (31.0-36.0) g/dl RDW (11.0-16.0) % Plt Count (160-400) X10*3/uL MPV (9.4-12.4) fL Immature Gran % (Auto) (0.0-0.4) % Neut % (Auto) (45-73) % Lymph % (Auto) (20-40) % [place] % (Auto) (2-11) % Eos % (Auto) (0-4) % Baso % (Auto) (0-2) % Lymph # (Auto) (1.2-4.9) X10*3/uL [place] # (Auto) (0.1-1.2) X10*3/uL Eos # (Auto) (0.0-0.4) X10*3/uL Baso # (Auto) (0.0-0.2) X10*3/uL Abs Immat Gran (auto) (0.00-0.03) X10*3/uL Absolute Neuts (auto) (2.0-8.3) x10*3/uL Absolute Nucleated RBC (0.0-0.012) X10*3/uL Nucleated RBC % (auto) (0.0-0.2) /100WBC Hold Purple Top VBG pH 7.39 (7.32-7.43) VBG pCO2 51 mmHg VBG pO2 35 mmHg VBG HCO3 31 H (22-26) mmol/L VBG O2 Saturation 45.0 % VBG Base Excess 5.4 mmol/L Sodium (135-145) mmol/L Potassium (3.3-5.1) mmol/L Chloride (96-108) mmol/L Carbon Dioxide (22-29) mmol/L Anion Gap (12-20) BUN (9-16) mg/dL Creatinine (0.5-1.4) mg/dL Estim Creat Clear Calc Estimated GFR Random Glucose (60-115) mg/dL Calcium (8.4-10.2) mg/dL Magnesium (1.6-2.6) mg/dL Total Bilirubin (0.0-1.0) mg/dL Direct Bilirubin (0.0-0.5) mg/dL AST (5-37) U/L ALT (0-40) U/L Alkaline Phosphatase (39-117) U/L Ammonia 30 (13-55) umol/L Troponin I High Sens (<3.5-35.0) ng/L Total Protein (6.5-8.0) g/dL Albumin (3.5-5.0) g/dL TSH (0.32-4.0) uIU/mL Urine Color Yellow Urine Appearance Clear Urine pH 5.5 (5.0-9.0) Ur Specific [place] 1.010 (1.005-1.025) Urine Protein 100 (2+) H (Neg-Trace) mg/dL Urine Glucose (UA) Negative (Negative) mg/dL Urine Ketones Negative (Negative) mg/dL Urine Blood Negative (Negative) Urine Nitrite Negative (Negative) Ur Leukocyte Esterase Negative (Negative) Urine RBC 0-2 (0-2) /HPF Urine WBC 0-5 (0-5) /HPF Ur Squamous Epith Cells 0-2 (0-2) /HPF Urine Bacteria None Seen (None Seen) Hyaline Casts 0-2 (0-2) /LPF Influenza Type A (PCR) (Negative) Influenza Type B (PCR) (Negative) RSV RNA Qual (PCR) (Negative) SARS-CoV-2 RNA (RT-PCR) (Negative) 04/29/23 Range/Units Unknown WBC (4.8-10.8) X10*3/uL RBC (4.60-5.80) X10*6/uL Hgb (14.0-18.0) g/dl Hct (42.0-52.0) % MCV (80.0-98.0) fL MCH (27.0-33.0) pg MCHC (31.0-36.0) g/dl RDW (11.0-16.0) % Plt Count (160-400) X10*3/uL MPV (9.4-12.4) fL Immature Gran % (Auto) (0.0-0.4) % Neut % (Auto) (45-73) % Lymph % (Auto) (20-40) % [place] % (Auto) (2-11) % Eos % (Auto) (0-4) % Baso % (Auto) (0-2) % Lymph # (Auto) (1.2-4.9) X10*3/uL [place] # (Auto) (0.1-1.2) X10*3/uL Eos # (Auto) (0.0-0.4) X10*3/uL Baso # (Auto) (0.0-0.2) X10*3/uL Abs Immat Gran (auto) (0.00-0.03) X10*3/uL Absolute Neuts (auto) (2.0-8.3) x10*3/uL Absolute Nucleated RBC (0.0-0.012) X10*3/uL Nucleated RBC % (auto) (0.0-0.2) /100WBC Hold Purple Top SEE NOTE VBG pH (7.32-7.43) VBG pCO2 mmHg VBG pO2 mmHg VBG HCO3 (22-26) mmol/L VBG O2 Saturation % VBG Base Excess mmol/L Sodium (135-145) mmol/L Potassium (3.3-5.1) mmol/L Chloride (96-108) mmol/L Carbon Dioxide (22-29) mmol/L Anion Gap (12-20) BUN (9-16) mg/dL Creatinine (0.5-1.4) mg/dL Estim Creat Clear Calc Estimated GFR Random Glucose (60-115) mg/dL Calcium (8.4-10.2) mg/dL Magnesium (1.6-2.6) mg/dL Total Bilirubin (0.0-1.0) mg/dL Direct Bilirubin (0.0-0.5) mg/dL AST (5-37) U/L ALT (0-40) U/L Alkaline Phosphatase (39-117) U/L Ammonia (13-55) umol/L Troponin I High Sens (<3.5-35.0) ng/L Total Protein (6.5-8.0) g/dL Albumin (3.5-5.0) g/dL TSH (0.32-4.0) uIU/mL Urine Color Urine Appearance Urine pH (5.0-9.0) Ur Specific [place] (1.005-1.025) Urine Protein (Neg-Trace) mg/dL Urine Glucose (UA) (Negative) mg/dL Urine Ketones (Negative) mg/dL Urine Blood (Negative) Urine Nitrite (Negative) Ur Leukocyte Esterase (Negative) Urine RBC (0-2) /HPF Urine WBC (0-5) /HPF Ur Squamous Epith Cells (0-2) /HPF Urine Bacteria (None Seen) Hyaline Casts (0-2) /LPF Influenza Type A (PCR) (Negative) Influenza Type B (PCR) (Negative) RSV RNA Qual (PCR) (Negative) SARS-CoV-2 RNA (RT-PCR) (Negative) ABG Data ABG Results: Attestation ABG: I personally reviewed and interpreted this ABG as follows: Interpretation: compensated respiratory acidosis Independent Interpretation I performed an independent interpretation of an: EKG and CT Scan Interpretation: ekg w/ normal sinus rhythm, HR 76 bpm, normal CT interval and QTc, No ST segment elevations or depressions ct head without acute bleed or edema Radiology Impression Discussion of test interpretation with radiology: I have reviewed the radiologist's reading. Radiologist Impression: EXAMINATION: CT HEAD WITHOUT CONTRAST CLINICAL INFORMATION: Confusion. Syncope. COMPARISON: None available. TECHNIQUE: Contiguous axial imaging was performed from the skull base to vertex without intravenous administration of contrast. This CT examination was performed using dose optimization techniques as appropriate, variously including the following: *Automated exposure control *Adjustment of mA and/or kV according to patient size (this includes techniques or standardized protocols for targeted exams where dose is matched to indication/reason for exam; i.e. extremities or head) *Use of iterative reconstruction technique DLP: 764 mGy-cm FINDINGS: There is no evidence of acute intracranial hemorrhage or territorial infarction. No mass effect or midline shift is seen. No extra-axial fluid collections are identified. No hydrocephalus. The calvarium is intact. Complete opacification of the left maxillary sinus with mucosal thickening and calcified inspissated secretions with surrounding cortical thickening. Mucosal thickening of the left frontal sinus. Mucoperiosteal thickening of the ethmoid air cells. No sinus air-fluid levels. The mastoid air cells are clear. CT/CT head/brain wo IV con IMPRESSION: No acute intracranial pathology. Chronic severe right maxillary sinusitis. Independent Historian Clinical information obtained from an independent historian. History obtained from or confirmed by: EMS and Other (daughter prabha) External Record Review External record reviewed: Office record, Outpatient record and Prior outpatient labs Prescription Management I considered prescription management with: Antibiotic Chronic Conditions Patient?s care impacted by: Diabetes Critical Care Time Critical Care Time Critical Care Time: Yes Total Critical Care Time: 42 Attestation: I have personally provided critical care time exclusive of time spent on separately billable procedures. Time includes review of lab data, radiology results, discussion with consultants, and monitoring for potential decompensation. Intervention performed as documented. Discharge Plan Discharge Clinical Impression: Encephalopathy Vomiting Qualifiers: Vomiting type: unspecified Nausea presence: with nausea Qualified Code(s): R11.2 - Nausea with vomiting, unspecified Diarrhea Qualifiers: Diarrhea type: unspecified type Qualified Code(s): R19.7 - Diarrhea, unspecified Patient Disposition: Admitted As Inpatient
--- NOTE | 2023-04-29 09:43 | ECG_ITS ---
Test Reason : n/v Blood Pressure : / mmHG Vent. Rate : 076 BPM Atrial Rate : 076 BPM P-R Int : 156 ms QRS Dur : 094 ms QT Int : 402 ms P-R-T Axes : 022 -02 007 degrees QTc Int : 452 ms Sinus rhythm with Premature atrial complexes Moderate voltage criteria for LVH, may be normal variant ( R in aVL , Fabricio product ) Inferior infarct , age undetermined Nonspecific T wave abnormality Lateral leads Abnormal ECG When compared with ECG of 18-MAR-2022 23:40, Premature atrial complexes are now Present Inferior infarct is now Present Nonspecific T wave abnormality now evident in Lateral leads Referred By: Brooke Kapoor Electronically Signed By:ELOISA AGRAWAL MD
[2023-04-29 10:14] LABS: MANUAL DIFF FLAG NO
[2023-04-29 10:18] LABS: Basophils Percent Auto 0.3 % (0-2); Eosinophils Absolute Auto 0.1 X10*3/uL (0.0-0.4); Eosinophils Percent Auto 0.9 % (0-4); Hematocrit 29.7 % (42.0-52.0); Hemoglobin 9.8 g/dl (14.0-18.0); Imm Gran Abs Auto 0.03 X10*3/uL (0.00-0.03); Imm Gran Pct Auto 0.3 % (0.0-0.4); Lymphocytes Absolute Auto 0.8 X10*3/uL (1.2-4.9); Lymphocytes Percent Auto 7.5 % (20-40); Mean Corpuscular Hemoglobin 27.7 pg (27.0-33.0); Mean Corpuscular Volume 83.9 fL (80.0-98.0); Mean Platelet Volume 9.9 fL (9.4-12.4); Neutrophils Absolute Auto 8.2 x10*3/uL (2.0-8.3); Platelet Count 194 X10*3/uL (160-400); Red Blood Count 3.54 X10*6/uL (4.60-5.80); Red Cell Distribution Width 14.2 % (11.0-16.0); White Blood Count 10.2 X10*3/uL (4.8-10.8)
[2023-04-29 10:27] LABS: VBG Base Excess 5.4 mmol/L; VBG HCO3 31 mmol/L (22-26); VBG pCO2 51 mmHg; VBG pH 7.39 (7.32-7.43); VBG pO2 35 mmHg
[2023-04-29 10:32] LABS: Alanine Aminotransferase 12 U/L (0-40); Albumin Level 3.8 g/dL (3.5-5.0); Alkaline Phosphatase 53 U/L (39-117); Anion Gap 13 (12-20); Aspartate Amino Transferase 17 U/L (5-37); Bilirubin Direct 0.2 mg/dL (0.0-0.5); Bilirubin Total 0.5 mg/dL (0.0-1.0); Blood Urea Nitrogen 25 mg/dL (9-16); Calcium 9.7 mg/dL (8.4-10.2); Carbon Dioxide 28 mmol/L (22-29); Chloride 100 mmol/L (96-108); Creatinine Clr Calc Pharmacy 40.9; Estimated Glomerular Filt Rate 52; Glucose Random 186 mg/dL (60-115); Magnesium 1.6 mg/dL (1.6-2.6); Potassium 4.4 mmol/L (3.3-5.1); Sodium 137 mmol/L (135-145); Total Protein 6.6 g/dL (6.5-8.0)
[2023-04-29 10:40] LABS: Troponin-I High Sensitivity 70.2 ng/L (<3.5-35.0)
[2023-04-29 11:02] LABS: TSH reflex Free T4 1.85 uIU/mL (0.32-4.0)
[2023-04-29] MEDS: 0.9 % Sodium Chloride 1,000 ML 999 ML IVCONT (11:09)
[2023-04-29] MEDS: ondansetron HCL 4 MG/2 ML VIAL IVPUSH (11:11)
[2023-04-29 11:16] LABS: Influenza A PCR NEGATIVE (Negative); Influenza B PCR NEGATIVE (Negative); Resp Syncy Virus RNA Qual PCR NEGATIVE (Negative); SARS COV2 PCR INHOUSE NEGATIVE (Negative)
[2023-04-29 12:10] LABS: Venous Blood Gas Refer to POC result
[2023-04-29 13:23] LABS: Ammonia 30 umol/L (13-55)
[2023-04-29 13:53] LABS: Appearance Urine Clear; Color Urine Yellow; Glucose Urine UA Negative (Negative); Leukocyte Esterase Urine Negative (Negative); Nitrite Urine Negative (Negative); PH 5.5 (5.0-9.0); UMIC TRIGGER UACC YES; Urine Blood Negative (Negative); Urine Ketones Negative (Negative); Urine Protein 100 (2+) mg/dL (Neg-Trace)
[2023-04-29 13:55] LABS: Bacteria Urine None Seen (None Seen); Hyaline Casts Urine 0-2 /LPF (0-2); RBC Urine 0-2 /HPF (0-2); Squamous Epithelial Cell Urine 0-2 /HPF (0-2); WBC Urine 0-5 /HPF (0-5)
--- NOTE | 2023-04-29 15:09 | PM.IMHP ---
History of Present Illness Date of Service: 04/29/23 Chief Complaint: loc 77M PMH metastatic prostate cancer, diabetes, hypertension, peripheral vascular disease presented with loss of consciousness. Patient states that he was having chills and generally feeling unwell evening prior to presentation. Then he does not remember what happened, lost consciousness, awoke covered in vomit and incontinent. He states he was on the ground forward to 5 hours until he was able to reach his cellphone. Imaging mostly unremarkable. Review of Systems Review of Systems: Yes all other systems are reviewed and are negative [facility] Medical History Chronic kidney disease History of amputation of left great toe Polyneuropathy Essential hypertension Diabetes mellitus, type II Prostate CA Family History Father Alcoholic Surgical History Hx of colonoscopy Hx of amputation History of amputation of lesser toe of left foot Social History Housing: House Alcohol intake: current Alcohol intake frequency: holidays/special occasions only Patient Tobacco Use Status: Former Tobacco user Smoked in Last 30 Days: No Use of substances other than those prescribed or required for medical reasons: No Advance Directives: Yes Advance Directives Information Provided: No Advance Directives on File: No Nutrition Risks: No Nutritional Risk service: No Current occupational status: retired 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 Glucose (Glucose Gel 15 Gm Gel..Gram.) 15 gm PO Q15M PRN; Protocol PRN Reason: per Hypoglycemia Standing Ord. Insulin Human Lispro (Insulin Lispro 100 Unit/Ml 3 Ml Vial) 0 unit SUBCUT QIDACHS [facility]; Protocol Home Medications Medication Instructions Recorded Confirmed Last Taken Type gabapentin 300 mg capsule 1 cap PO TID Pain 03/04/22 04/29/23 03/04/22 History insulin glargine 100 unit/mL 22 unit subcut BEDTIME 03/04/22 04/29/23 03/03/22 History subcutaneous solution (Lantus U-100 Insulin) metformin 1,000 mg tablet 1 tab PO BIDWM 03/04/22 04/29/23 03/04/22 History metoprolol tartrate 100 mg tablet 1 tab PO BID 03/04/22 04/29/23 04/10/22 History pen needle, diabetic 31 gauge x 03/04/22 04/29/23 Unknown History 10/01 (Sure Comfort Pen Needle) tamsulosin 0.4 mg capsule 1 cap PO DAILY 03/04/22 04/29/23 03/04/22 History omeprazole 20 mg capsule,delayed 1 cap PO DAILY 05/19/22 04/29/23 Unknown History release hydralazine 50 mg tablet 50 mg PO BID 09/22/22 04/29/23 Unknown History abiraterone 250 mg tablet 1,000 mg PO DAILY@0600 04/29/23 04/29/23 Unknown History aspirin 81 mg chewable tablet 81 mg PO DAILY 04/29/23 04/29/23 Unknown History atorvastatin 40 mg tablet 40 mg PO QPM 04/29/23 04/29/23 Unknown History prednisone 5 mg tablet 5 mg PO DAILY 04/29/23 04/29/23 Unknown History rivaroxaban 2.5 mg tablet (Xarelto) 2.5 mg PO BID 04/29/23 04/29/23 Unknown History zolpidem 5 mg tablet 5 mg PO BEDTIME insomnia 04/29/23 04/29/23 Unknown History Physical Exam Vital Signs and Narrative: Vital Signs: Last Vital Signs Temp 97.4 F 04/29/23 09:32 Pulse 75 04/29/23 13:49 Resp 14 04/29/23 13:49 BP 141/68 H 04/29/23 13:49 Pulse Ox 92 04/29/23 13:49 O2 Del Method Room Air 04/29/23 13:49 BMI result Body Mass Index 26.2 Results Labs 04/29/23 10:09 04/29/23 10:09 Labs: Laboratory Results - last 24 hr 04/29/23 04/29/23 04/29/23 10:06 10:09 10:17 MCV 83.9 MCH 27.7 MCHC 33.0 RDW 14.2 Plt Count 194 MPV 9.9 Immature Gran % (Auto) 0.3 Neut % (Auto) 81.0 H Lymph % (Auto) 7.5 L [place] % (Auto) 10.0 Eos % (Auto) 0.9 Baso % (Auto) 0.3 Lymph # (Auto) 0.8 L [place] # (Auto) 1.0 Eos # (Auto) 0.1 Baso # (Auto) 0.0 Abs Immat Gran (auto) 0.03 Absolute Neuts (auto) 8.2 Absolute Nucleated RBC 0.000 Nucleated RBC % (auto) 0.0 Hold Purple Top VBG pH VBG pCO2 VBG pO2 VBG HCO3 VBG O2 Saturation VBG Base Excess Anion Gap 13 Estim Creat Clear Calc 40.9 Estimated GFR 52 Random Glucose 186 H Calcium 9.7 Magnesium 1.6 Total Bilirubin 0.5 Direct Bilirubin 0.2 AST 17 ALT 12 Alkaline Phosphatase 53 Ammonia Total Protein 6.6 Albumin 3.8 TSH 1.85 Urine Color Urine Appearance Urine pH Ur Specific [place] Urine Protein Urine Glucose (UA) Urine Ketones Urine Blood Urine Nitrite Ur Leukocyte Esterase Urine RBC Urine WBC Ur Squamous Epith Cells Urine Bacteria Hyaline Casts Influenza Type A (PCR) NEGATIVE Influenza Type B (PCR) NEGATIVE RSV RNA Qual (PCR) NEGATIVE SARS-CoV-2 RNA (RT-PCR) NEGATIVE 04/29/23 04/29/23 04/29/23 10:21 12:49 13:45 MCV MCH MCHC RDW Plt Count MPV Immature Gran % (Auto) Neut % (Auto) Lymph % (Auto) [place] % (Auto) Eos % (Auto) Baso % (Auto) Lymph # (Auto) [place] # (Auto) Eos # (Auto) Baso # (Auto) Abs Immat Gran (auto) Absolute Neuts (auto) Absolute Nucleated RBC Nucleated RBC % (auto) Hold Purple Top VBG pH 7.39 VBG pCO2 51 VBG pO2 35 VBG HCO3 31 H VBG O2 Saturation 45.0 VBG Base Excess 5.4 Anion Gap Estim Creat Clear Calc Estimated GFR Random Glucose Calcium Magnesium Total Bilirubin Direct Bilirubin AST ALT Alkaline Phosphatase Ammonia 30 Total Protein Albumin TSH Urine Color Yellow Urine Appearance Clear Urine pH 5.5 Ur Specific [place] 1.010 Urine Protein 100 (2+) H Urine Glucose (UA) Negative Urine Ketones Negative Urine Blood Negative Urine Nitrite Negative Ur Leukocyte Esterase Negative Urine RBC 0-2 Urine WBC 0-5 Ur Squamous Epith Cells 0-2 Urine Bacteria None Seen Hyaline Casts 0-2 Influenza Type A (PCR) Influenza Type B (PCR) RSV RNA Qual (PCR) SARS-CoV-2 RNA (RT-PCR) 04/29/23 Unknown MCV MCH MCHC RDW Plt Count MPV Immature Gran % (Auto) Neut % (Auto) Lymph % (Auto) [place] % (Auto) Eos % (Auto) Baso % (Auto) Lymph # (Auto) [place] # (Auto) Eos # (Auto) Baso # (Auto) Abs Immat Gran (auto) Absolute Neuts (auto) Absolute Nucleated RBC Nucleated RBC % (auto) Hold Purple Top SEE NOTE VBG pH VBG pCO2 VBG pO2 VBG HCO3 VBG O2 Saturation VBG Base Excess Anion Gap Estim Creat Clear Calc Estimated GFR Random Glucose Calcium Magnesium Total Bilirubin Direct Bilirubin AST ALT Alkaline Phosphatase Ammonia Total Protein Albumin TSH Urine Color Urine Appearance Urine pH Ur Specific [place] Urine Protein Urine Glucose (UA) Urine Ketones Urine Blood Urine Nitrite Ur Leukocyte Esterase Urine RBC Urine WBC Ur Squamous Epith Cells Urine Bacteria Hyaline Casts Influenza Type A (PCR) Influenza Type B (PCR) RSV RNA Qual (PCR) SARS-CoV-2 RNA (RT-PCR) Imaging Radiologist's Impressions: Impressions Head CT 04/29/23 10:42 IMPRESSION: No acute intracranial pathology. Chronic severe right maxillary sinusitis. Assessment and Plan (1) Diarrhea: Qualifiers: Diarrhea type: unspecified type Qualified Code(s): R19.7 - Diarrhea, unspecified Status: Acute Plan 77M PMH metastatic prostate cancer, diabetes, hypertension, peripheral vascular disease presented with loss of consciousness. Loss of consciousness Differential includes vasovagal syncope in the setting of vomiting, seizure, cardiac arrhythmia Monitor on telemetry IV fluids Eeg Neuro eval Peripheral vascular disease asa, xarelto, statin Diabetes Insulin Hypertension hydralazine, lopressor Metastatic prostate CA abiraterone DVT prophylaxis-on Xarelto DNR/DNI Time Spent With Patient Time: Total time managing care of this patient today ____ minutes. Quality Stroke Does the patient have a stroke diagnosis?: No VTE Prior VTE?: No VTE Risk Level:: Medical - moderate - high VTE Device Contraindication: Treatment Not Indicated VTE Drug Contraindication: N/A - Med Ordered
[2023-04-29] MEDS: 0.9 % Sodium Chloride 1,000 ML 75 ML IVCONT (15:48)
--- NOTE | 2023-04-29 15:52 | PHA.MEDREC ---
Pharmacy Consult ? Medication Reconciliation Pharmacy has completed the medication reconciliation. Patient daugther reported patient has no start Novolog, losartan or the increase dose of atorvastatin. Report they will not be starting it until the end of the month. Cailin Peralta, PharmD
[2023-04-29 16:15] LABS: Troponin-I High Sensitivity 55.8 ng/L (<3.5-35.0)
[2023-04-29 17:43] LABS: Glucose, Whole Blood 265 mg/dL (60-115)
[2023-04-29] MEDS: Insulin Lispro 100 UNIT/ML 3 ML VIAL SUBCUT ×2 (18:09→22:11)
--- NOTE | 2023-04-29 19:18 | PC.NURSE ---
called for reports ,nurse will call back when available
[2023-04-29 19:50] LABS: Glucose, Whole Blood 218 mg/dL (60-115)
[2023-04-29] MEDS: Insulin Glargine,Hum.rec.anlog 100 UNIT/ML 10 ML VIAL 22 UNIT SUBCUT (22:10)
[2023-04-29] MEDS: Zolpidem Tartrate 5 MG TABLET PO (22:12)
[2023-04-29] MEDS: hydrALAZINE HCl 50 MG TABLET PO (22:12)
[2023-04-29] MEDS: Gabapentin 300 MG CAPSULE PO (22:12)
[2023-04-29] MEDS: Metoprolol Tartrate 100 MG TABLET PO (22:12)
[2023-04-29] MEDS: Atorvastatin Calcium 40 MG TABLET PO (22:12)
[2023-04-29] MEDS: Rivaroxaban 10 MG TABLET 2.5 MG PO (23:33)
[2023-04-29] MEDS: 0.9 % Sodium Chloride Flush 3 ML SYRINGE IVFLUSH (23:51)
[2023-04-30] VITALS (8 sets, daily range): BP systolic 119–200; BP diastolic 61–91; PULSE 69–80; RESP 15–20; TEMP 36.2–37.1; O2SAT 94–99
[2023-04-30] MEDS: ABIRATERONE 250 MG 1000 EACH PO (05:56)
[2023-04-30] MEDS: Omeprazole 20 MG CAPSULE.DR PO (05:57)
[2023-04-30 06:56] LABS: Hematocrit 27.6 % (42.0-52.0); Hemoglobin 8.9 g/dl (14.0-18.0); Mean Corpuscular HGB Conc 32.2 g/dl (31.0-36.0); Mean Corpuscular Hemoglobin 27.6 pg (27.0-33.0); Mean Corpuscular Volume 85.4 fL (80.0-98.0); Mean Platelet Volume 10.3 fL (9.4-12.4); Platelet Count 172 X10*3/uL (160-400); Red Blood Count 3.23 X10*6/uL (4.60-5.80); Red Cell Distribution Width 14.2 % (11.0-16.0); White Blood Count 6.3 X10*3/uL (4.8-10.8)
[2023-04-30 07:39] LABS: Anion Gap 13 (12-20); Blood Urea Nitrogen 17 mg/dL (9-16); Carbon Dioxide 26 mmol/L (22-29); Chloride 106 mmol/L (96-108); Creatinine Clr Calc Pharmacy 62.9; Estimated Glomerular Filt Rate > 60; Glucose Fasting 48 mg/dL (60-99); Potassium 3.5 mmol/L (3.3-5.1); Sodium 141 mmol/L (135-145)
[2023-04-30 07:46] LABS: Glucose, Whole Blood 60 mg/dL (60-115)
[2023-04-30] MEDS: hydrALAZINE HCl 50 MG TABLET PO ×2 (08:32→19:52)
[2023-04-30] MEDS: Gabapentin 300 MG CAPSULE PO ×3 (08:32→19:52)
[2023-04-30] MEDS: Aspirin 81 MG TAB.CHEW PO (08:32)
[2023-04-30] MEDS: Tamsulosin HCL 0.4 MG CAPSULE PO (08:32)
[2023-04-30] MEDS: predniSONE 5 MG TABLET PO (08:32)
[2023-04-30] MEDS: Metoprolol Tartrate 100 MG TABLET PO ×2 (08:32→19:52)
[2023-04-30] MEDS: Rivaroxaban 10 MG TABLET 2.5 MG PO ×2 (08:32→19:52)
[2023-04-30] MEDS: 0.9 % Sodium Chloride 1,000 ML 75 ML IVCONT (08:33)
[2023-04-30 08:41] LABS: Glucose, Whole Blood 86 mg/dL (60-115)
--- NOTE | 2023-04-30 09:56 | MHC.CM.PN ---
Addendum entered by Cheyenne Payan RN 04/30/23 15:23: Per [facility] patient is AFC level 1, [facility] [place]. Addendum entered by Cheyenne Payan RN 04/30/23 11:50: Correction: PT services will be provided by [facility]. Confirmed with Aileen Transitions Coordinator. 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 [facility] DELIVERED. PATIENT FROM HOME WITH DAUGHTER AN ([phone]), WHO IS ALSO TELEVISION ENGINEERING TEACHER PAID THROUGH [facility]. USES ONE CRUTCH FOR STABILITY WHILE AMBULATING, PREFERS THIS OVER A CANE OR A WALKER. ASSISTED PATIENT IN FILLING OUT HCP. PATIENT NAMED DTR AN FIRST AGENT AND DTR LOLA SECOND AGENT. PCP: GUILLERMINA GU DP: PT IS RECOMMENDING HOME PT, REFERRAL TO [facility], DAUGHTER ABLE TO TRANSPORT HOME.
--- NOTE | 2023-04-30 10:36 | P.CNNE_ITS ---
History of Present Illness Data of Consult Service Date: 04/30/23 Primary Care Provider: Renny Johnston MD [facility] Reason for consult: Syncope 77 years old man who came to hospital after losing consciousness for hours for no obvious reason. He was unable to explain what happened. He was not known to have seizure disorder. There was no obvious metabolic abnormality to explain this. He complain of having chills and weakness the night before. He was not drinking alcohol. Review of Systems 2 Review of Systems: Was having chills and weakness the night before PMFSH Past Medical History Medical History Chronic kidney disease History of amputation of left great toe Polyneuropathy Essential hypertension Diabetes mellitus, type II Prostate CA Family History Family History Father Alcoholic Surgical History Surgical History Hx of colonoscopy Hx of amputation History of amputation of lesser toe of left foot Social History Social History Household Members: Spouse Housing: House Do you presently have visiting nurse or other home services: No Alcohol intake: current Alcohol intake frequency: holidays/special occasions only Patient Tobacco Use Status: Former Tobacco user Advance Directives Date on File: 04/29/23 service: No Current occupational status: retired 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 Gabapentin (Gabapentin 300 Mg Capsule) 300 mg PO TID [facility] Last Admin: 04/30/23 08:32 Dose: 300 mg Glucose (Glucose Gel 15 Gm Gel..Gram.) 15 gm PO Q15M PRN; Protocol PRN Reason: per Hypoglycemia Standing Ord. Hydralazine HCl (Hydralazine Hcl 50 Mg Tablet) 50 mg PO BID [facility]; Protocol Last Admin: 04/30/23 08:32 Dose: 50 mg Sodium Chloride (Ns) 1,000 mls @ 75 mls/hr IVCONT .[id number] [facility] Last Admin: 04/30/23 08:33 Dose: 75 mls/hr Insulin Glargine (Insulin Glargine,Hum.Rec.Anlog 100 Unit/Ml 10 Ml Vial) 10 unit SUBCUT BEDTIME [facility] Insulin Human Lispro (Insulin Lispro 100 Unit/Ml 3 Ml Vial) 0 unit SUBCUT QIDACHS [facility]; Protocol Last Admin: 04/30/23 07:47 Dose: Not Given Metoprolol Tartrate (Metoprolol Tartrate 100 Mg Tablet) 100 mg PO BID [facility]; Protocol Last Admin: 04/30/23 08:32 Dose: 100 mg Pt Own (Abiraterone (250 Mg Tablet)) 1,000 mg PO DAILY@0600 [facility] Last Admin: 04/30/23 05:56 Dose: 1,000 mg Omeprazole (Omeprazole 20 Mg Capsule.Dr) 20 mg PO DAILY@0630 [facility] Last Admin: 04/30/23 05:57 Dose: 20 mg Prednisone (Prednisone 5 Mg Tablet) 5 mg PO DAILY [facility] Last Admin: 04/30/23 08:32 Dose: 5 mg Rivaroxaban (Rivaroxaban 10 Mg Tablet) 2.5 mg PO BID [facility] Last Admin: 04/30/23 08:32 Dose: 2.5 mg Sodium Chloride (0.9 % Sodium Chloride Flush 3 Ml Syringe) 3 ml IVFLUSH QSHIFT [facility] Last Admin: 04/30/23 08:36 Dose: Not Given Tamsulosin HCl (Tamsulosin Hcl 0.4 Mg Capsule) 0.4 mg PO DAILY [facility] Last Admin: 04/30/23 08:32 Dose: 0.4 mg Zolpidem Tartrate (Zolpidem Tartrate 5 Mg Tablet) 5 mg PO BEDTIME [facility] Last Admin: 04/29/23 22:12 Dose: 5 mg Home Medications Medication Instructions Recorded Confirmed Last Taken Type gabapentin 300 mg capsule 1 cap PO TID Pain 03/04/22 04/29/23 03/04/22 History insulin glargine 100 unit/mL 22 unit subcut BEDTIME 03/04/22 04/29/23 03/03/22 History subcutaneous solution (Lantus U-100 Insulin) metformin 1,000 mg tablet 1 tab PO BIDWM 03/04/22 04/29/23 03/04/22 History metoprolol tartrate 100 mg tablet 1 tab PO BID 03/04/22 04/29/23 04/10/22 History pen needle, diabetic 31 gauge x 03/04/22 04/29/23 Unknown History 3/16 (Sure Comfort Pen Needle) tamsulosin 0.4 mg capsule 1 cap PO DAILY 03/04/22 04/29/23 03/04/22 History omeprazole 20 mg capsule,delayed 1 cap PO DAILY 05/19/22 04/29/23 Unknown History release hydralazine 50 mg tablet 50 mg PO BID 09/22/22 04/29/23 Unknown History abiraterone 250 mg tablet 1,000 mg PO DAILY@0600 04/29/23 04/29/23 Unknown History aspirin 81 mg chewable tablet 81 mg PO DAILY 04/29/23 04/29/23 Unknown History atorvastatin 40 mg tablet 40 mg PO QPM 04/29/23 04/29/23 Unknown History prednisone 5 mg tablet 5 mg PO DAILY 04/29/23 04/29/23 Unknown History rivaroxaban 2.5 mg tablet (Xarelto) 2.5 mg PO BID 04/29/23 04/29/23 Unknown History zolpidem 5 mg tablet 5 mg PO BEDTIME insomnia 04/29/23 04/29/23 Unknown History Physical Exam 2 Vital Signs: Vital Signs: Last Vital Signs Temp 97.5 F 04/30/23 08:00 Pulse 74 04/30/23 08:15 Resp 20 04/30/23 08:00 BP 190/91 H 04/30/23 08:00 Pulse Ox 99 04/30/23 08:15 O2 Del Method Room Air 04/30/23 08:00 O2 Flow Rate 2 04/30/23 04:00 BMI result Body Mass Index 26.0 Neuro: Other: He is alert and awake with normal spontaneity of speech fluency comprehension and affect. He is following commands. Affect is normal. Face is symmetrical. Visual [place] are full. There is no focal weakness. Deep tendon reflexes are trace to absent with flat plantars. Speech is normal. Results Labs 04/30/23 06:19 04/30/23 06:19 Labs: Short CBC 04/30/23 Range/Units 06:19 WBC 6.3 (4.8-10.8) X10*3/uL Hgb 8.9 L (14.0-18.0) g/dl Hct 27.6 L (42.0-52.0) % Plt Count 172 (160-400) X10*3/uL BMP 04/30/23 06:19 Sodium 141 Potassium 3.5 D Chloride 106 Carbon Dioxide 26 BUN 17 H Creatinine 0.92 Calcium 9.0 D Urine 04/29/23 Range/Units 13:45 Urine Color Yellow Urine Appearance Clear Urine pH 5.5 (5.0-9.0) Ur Specific [place] 1.010 (1.005-1.025) Urine Protein 100 (2+) H (Neg-Trace) mg/dL Urine Glucose (UA) Negative (Negative) mg/dL Head CT revealed mild generalized cerebral atrophy and mild microvascular ischemic changes with no obvious acute lesion. Assessment and Plan (1) Seizure: Status: Acute If the account of his description is correct, more likely explanation is a seizure. He might have a mechanical fall but that would result in significant contusion or some kind of physical injury. There was no obvious metabolic or toxic etiology to explain this loss of consciousness. Hypoglycemia is another possibility but if that was the cause, it is difficult to explain why he came out affect. I recommend EEG monitoring to rule out seizure disorder and he should be advised to avoid driving. Time Spent With Patient Time: Total time managing care of this patient today ____ minutes. Procedures Date of Service Date of Service: 04/30/23
--- NOTE | 2023-04-30 11:25 | P.PNIM_ITS ---
Subjective Subjective Date of Service: 04/30/23 Interval History: feeling better Physical Exam 2 Vital Signs: Vital Signs: Last Vital Signs Temp 97.5 F 04/30/23 08:00 Pulse 74 04/30/23 08:15 Resp 20 04/30/23 08:00 BP 190/91 H 04/30/23 08:00 Pulse Ox 99 04/30/23 08:15 O2 Del Method Room Air 04/30/23 08:00 O2 Flow Rate 2 04/30/23 04:00 BMI result Body Mass Index 26.0 General: AO X 3, no acute distress Resp: CTA bilateral, no accessory muscles used CVS: S1,S2,RRR GI: soft, non tender, non distended Neuro: motor grossly intact, alert Psych: appropriate affect, appropriate insight Objective Data Active Medications Aspirin (Aspirin 81 Mg Tab.Chew) 81 mg PO DAILY [facility] Last Admin: 04/30/23 08:32 Dose: 81 mg Documented By: JANES Atorvastatin Calcium (Atorvastatin Calcium 40 Mg Tablet) 40 mg PO BEDTIME [facility] Last Admin: 04/29/23 22:12 Dose: 40 mg Documented By: LAURA Dextrose (Dextrose 50 % 25 Gm/50 Ml Syringe) 25 gm IVPUSH Q15M PRN; Protocol PRN Reason: per Hypoglycemia Standing Ord. Gabapentin (Gabapentin 300 Mg Capsule) 300 mg PO TID [facility] Last Admin: 04/30/23 08:32 Dose: 300 mg Documented By: JANES Glucose (Glucose Gel 15 Gm Gel..Gram.) 15 gm PO Q15M PRN; Protocol PRN Reason: per Hypoglycemia Standing Ord. Hydralazine HCl (Hydralazine Hcl 50 Mg Tablet) 50 mg PO BID [facility]; Protocol Last Admin: 04/30/23 08:32 Dose: 50 mg Documented By: JANES Sodium Chloride (Ns) 1,000 mls @ 75 mls/hr IVCONT .[id number] [facility] Last Admin: 04/30/23 08:33 Dose: 75 mls/hr Documented By: JANES Insulin Glargine (Insulin Glargine,Hum.Rec.Anlog 100 Unit/Ml 10 Ml Vial) 10 unit SUBCUT BEDTIME [facility] Insulin Human Lispro (Insulin Lispro 100 Unit/Ml 3 Ml Vial) 0 unit SUBCUT QIDACHS [facility]; Protocol Last Admin: 04/30/23 07:47 Dose: Not Given Documented By: JANES Non-Admin Reason: No Insulin Coverage Metoprolol Tartrate (Metoprolol Tartrate 100 Mg Tablet) 100 mg PO BID [facility]; Protocol Last Admin: 04/30/23 08:32 Dose: 100 mg Documented By: JANES Pt Own (Abiraterone (250 Mg Tablet)) 1,000 mg PO DAILY@0600 [facility] Last Admin: 04/30/23 05:56 Dose: 1,000 mg Documented By: LAURA Omeprazole (Omeprazole 20 Mg Capsule.) 20 mg PO DAILY@0630 [facility] Last Admin: 04/30/23 05:57 Dose: 20 mg Documented By: LAURA Prednisone (Prednisone 5 Mg Tablet) 5 mg PO DAILY [facility] Last Admin: 04/30/23 08:32 Dose: 5 mg Documented By: JANES Rivaroxaban (Rivaroxaban 10 Mg Tablet) 2.5 mg PO BID [facility] Last Admin: 04/30/23 08:32 Dose: 2.5 mg Documented By: JANES Sodium Chloride (0.9 % Sodium Chloride Flush 3 Ml Syringe) 3 ml IVFLUSH QSHIFT [facility] Last Admin: 04/30/23 08:36 Dose: Not Given Documented By: JANES Non-Admin Reason: IV Running Tamsulosin HCl (Tamsulosin Hcl 0.4 Mg Capsule) 0.4 mg PO DAILY [facility] Last Admin: 04/30/23 08:32 Dose: 0.4 mg Documented By: JANES Zolpidem Tartrate (Zolpidem Tartrate 5 Mg Tablet) 5 mg PO BEDTIME [facility] Last Admin: 04/29/23 22:12 Dose: 5 mg Documented By: LAURA Labs 04/30/23 06:19 04/30/23 06:19 Labs: Laboratory Results - last 24 hr 04/29/23 04/29/23 04/29/23 12:49 13:45 17:36 MCV MCH MCHC RDW Plt Count MPV Absolute Nucleated RBC Nucleated RBC % (auto) Hold Purple Top Anion Gap Estim Creat Clear Calc Estimated GFR POC Glucose 265 H Fasting Glucose Calcium Ammonia 30 Urine Color Yellow Urine Appearance Clear Urine pH 5.5 Ur Specific [place] 1.010 Urine Protein 100 (2+) H Urine Glucose (UA) Negative Urine Ketones Negative Urine Blood Negative Urine Nitrite Negative Ur Leukocyte Esterase Negative Urine RBC 0-2 Urine WBC 0-5 Ur Squamous Epith Cells 0-2 Urine Bacteria None Seen Hyaline Casts 0-2 04/29/23 04/29/23 04/30/23 19:45 Unknown 06:19 MCV 85.4 MCH 27.6 MCHC 32.2 RDW 14.2 Plt Count 172 MPV 10.3 Absolute Nucleated RBC 0.000 Nucleated RBC % (auto) 0.0 Hold Purple Top SEE NOTE Anion Gap 13 Estim Creat Clear Calc 62.9 Estimated GFR > 60 POC Glucose 218 H Fasting Glucose 48 L* Calcium 9.0 D Ammonia Urine Color Urine Appearance Urine pH Ur Specific [place] Urine Protein Urine Glucose (UA) Urine Ketones Urine Blood Urine Nitrite Ur Leukocyte Esterase Urine RBC Urine WBC Ur Squamous Epith Cells Urine Bacteria Hyaline Casts 04/30/23 04/30/23 07:41 08:01 MCV MCH MCHC RDW Plt Count MPV Absolute Nucleated RBC Nucleated RBC % (auto) Hold Purple Top Anion Gap Estim Creat Clear Calc Estimated GFR POC Glucose 60 86 Fasting Glucose Calcium Ammonia Urine Color Urine Appearance Urine pH Ur Specific [place] Urine Protein Urine Glucose (UA) Urine Ketones Urine Blood Urine Nitrite Ur Leukocyte Esterase Urine RBC Urine WBC Ur Squamous Epith Cells Urine Bacteria Hyaline Casts Assessment and Plan (1) Seizure: Status: Acute Plan 77M PMH metastatic prostate cancer, diabetes, hypertension, peripheral vascular disease presented with loss of consciousness. Loss of consciousness neuro appreciated seizure vs hypoglycemia follow up EEG Peripheral vascular disease asa, xarelto, statin Diabetes with hypoglycemia glargine decreased to 10units from 22units, monitor Hypertension hydralazine, lopressor Metastatic prostate CA abiraterone DVT prophylaxis-on Xarelto reason for continued hospitalization:awaiting eeg and montiroing glucose Time Spent With Patient Time: Total time managing care of this patient today ____ minutes. Quality Stroke Does the patient have a stroke diagnosis?: No VTE Prior VTE?: No VTE Risk Level:: Medical - moderate - high VTE Device Contraindication: Treatment Not Indicated VTE Drug Contraindication: N/A - Med Ordered
[2023-04-30 12:29] LABS: Glucose, Whole Blood 249 mg/dL (60-115)
[2023-04-30] MEDS: Insulin Lispro 100 UNIT/ML 3 ML VIAL SUBCUT ×3 (12:32→19:50)
[2023-04-30 16:17] LABS: Glucose, Whole Blood 198 mg/dL (60-115)
[2023-04-30] MEDS: 0.9 % Sodium Chloride Flush 3 ML SYRINGE IVFLUSH (16:26)
[2023-04-30 19:48] LABS: Glucose, Whole Blood 197 mg/dL (60-115)
[2023-04-30] MEDS: Insulin Glargine,Hum.rec.anlog 100 UNIT/ML 10 ML VIAL 10 UNIT SUBCUT (19:50)
[2023-04-30] MEDS: Zolpidem Tartrate 5 MG TABLET PO (19:52)
[2023-04-30] MEDS: Atorvastatin Calcium 40 MG TABLET PO (19:52)
[2023-04-30] MEDS: hydrALAZINE HCl 20 MG/ML VIAL 10 MG IVPUSH (23:49)
[2023-05-01 00:27] VITALS: BP 140/78
[2023-05-01] MEDS: 0.9 % Sodium Chloride 1,000 ML 75 ML IVCONT (02:23)
[2023-05-01 03:26] VITALS: BP 187/86; PULSE 69; RESP 18; TEMP 36.9; O2SAT 94
[2023-05-01] MEDS: Omeprazole 20 MG CAPSULE.DR PO (05:05)
[2023-05-01 07:41] VITALS: BP 136/89; PULSE 72; RESP 20; TEMP 37.2; O2SAT 96
[2023-05-01 08:01] LABS: Glucose, Whole Blood 157 mg/dL (60-115)
[2023-05-01] MEDS: Aspirin 81 MG TAB.CHEW PO (08:26)
[2023-05-01] MEDS: Gabapentin 300 MG CAPSULE PO (08:26)
[2023-05-01] MEDS: Metoprolol Tartrate 100 MG TABLET PO (08:27)
[2023-05-01] MEDS: Rivaroxaban 10 MG TABLET 2.5 MG PO (08:27)
[2023-05-01] MEDS: hydrALAZINE HCl 50 MG TABLET PO (08:27)
[2023-05-01] MEDS: Tamsulosin HCL 0.4 MG CAPSULE PO (08:27)
[2023-05-01] MEDS: predniSONE 5 MG TABLET PO (08:27)
[2023-05-01] MEDS: 0.9 % Sodium Chloride Flush 3 ML SYRINGE IVFLUSH (08:28)
[2023-05-01] MEDS: Insulin Lispro 100 UNIT/ML 3 ML VIAL SUBCUT ×2 (08:28→12:00)
[2023-05-01 11:07] VITALS: BP 149/75; PULSE 70; RESP 18; TEMP 36.4; O2SAT 97
[2023-05-01] MEDS: ABIRATERONE 250 MG 1000 EACH PO (11:07)
--- NOTE | 2023-05-01 11:36 | PM.DS ---
DS: Providers Provider Date of Service: 05/01/23 Date of admission: 04/29/23 15:07 Primary care physician: Renny Johnston MD Consults: 04/29/23 15:07 Consult to Neurology Routine Consulting Provider: [facility] Reason for consultation: loc, incontinence DS: Diagnosis Discharge Diagnosis (1) Seizure: Status: Acute DS: Summary Hospital Course Hospital Course: from initial hpi: 77M PMH metastatic prostate cancer, diabetes, hypertension, peripheral vascular disease presented with loss of consciousness. Patient states that he was having chills and generally feeling unwell evening prior to presentation. Then he does not remember what happened, lost consciousness, awoke covered in vomit and incontinent. He states he was on the ground forward to 5 hours until he was able to reach his cellphone. Imaging mostly unremarkable. hospital course: Patient was admitted for loss of consciousness. Had no events on telemetry. EEG was unremarkable. He did have a hypoglycemic event as possible etiology. Glargine has been decreased from 22 units to 10 you for peripheral vascular disease he was continued on aspirin, Xarelto, statin. For diabetes he was continued on insulin with glargine adjusted as mentioned for hypertension was continued on hydralazine and Lopressor. For metastatic prostate cancer was continued on abiterone. Patient is feeling better will be discharged home. Time Spent with Patient Time attestation: Total time managing care of this patient today ____ minutes. Discharge coordination time: Greater than 30 minutes Quality: Safe Use of Opioids Does Pt have an Active Cancer Diagnosis on the Problem List?: No Quality: Stroke Does the patient have a stroke diagnosis?: No Physical Exam Vital Signs: Vital Signs: Last Vital Signs Temp 97.6 F 05/01/23 11:07 Pulse 70 05/01/23 11:07 Resp 18 05/01/23 11:07 BP 149/75 H 05/01/23 11:07 Pulse Ox 97 05/01/23 11:07 O2 Del Method Room Air 05/01/23 11:07 O2 Flow Rate 2 04/30/23 04:00 BMI result Body Mass Index 26.0 General: AO X 3, no acute distress Resp: CTA bilateral, no accessory muscles used CVS: S1,S2,RRR GI: soft, non tender, non distended Neuro: motor grossly intact, alert Psych: appropriate affect, appropriate insight DS: Data Data Completed and Pending Labs on day of discharge: Laboratory Results - last 24 hr 04/30/23 04/30/23 04/30/23 12:26 16:04 19:35 POC Glucose 249 H 198 H 197 H 05/01/23 07:47 POC Glucose 157 H Discharge Plan Discharge Anticipated Discharge Date/Time: 05/01/23 11:33 Patient Disposition: Home, Self-Care Discharge Diagnosis: hypoglycemia, syncope Referrals: Name,MD Renny [Primary Care Provider] - 1 Week Discharge Medications: Continued metoprolol tartrate 100 mg tablet 1 tab PO BID tamsulosin 0.4 mg capsule 1 cap PO DAILY metformin 1,000 mg tablet 1 tab PO BIDWM gabapentin 300 mg capsule 1 cap PO TID (DME) pen needle, diabetic [Sure Comfort Pen Needle] 31 gauge x 3/16 needle MISCELLANEOUS omeprazole 20 mg capsule,delayed release(DR/EC) 1 cap PO DAILY hydralazine 50 mg Tablet 50 mg PO BID acetaminophen 500 mg capsule 500 mg PO Q6H PRN (Reason: fever or pain) Qty: 30 0RF prednisone 5 mg tablet 5 mg PO DAILY zolpidem 5 mg tablet 5 mg PO BEDTIME abiraterone 250 mg tablet 1,000 mg PO DAILY@0600 Xarelto 2.5 mg tablet 2.5 mg PO BID atorvastatin 40 mg tablet 40 mg PO QPM aspirin 81 mg Tablet,Chewable 81 mg PO DAILY Changed insulin glargine [Lantus U-100 Insulin] 100 unit/mL Solution 10 unit SUBCUT BEDTIME Qty: 10 0RF Discharge Orders: Discharge Order (Routine); Ordered 05/01/23 Ordered By: Reynaldo Gongora Diet: Advance to usual diet Activity on Discharge: As tolerated Stand Alone Forms: Patient Portal Discharge page Care Plan Goals: recovery Health Concerns: hypoglecmyai Plan of Treatment: decrease glragine Assessment: see above
[2023-05-01 11:53] LABS: Glucose, Whole Blood 194 mg/dL (60-115)
--- NOTE | 2023-05-01 13:16 | MHC.CM.PN ---
Addendum entered by Cheyenne Antonio 05/01/23 14:24: Pts daughter Kasey picked up pt and transported him home. Original Note: Pt is medically cleared for D/C home w/ home PT from [facility] and family support. This CM called and left a message for pts daughter/HCP Kasey, and also called and spoke with pts other daughter/alternate HCP Nery who stated she would call Kasey about picking their dad up.
== END 2023-05-01 14:16 | disposition home or self-care (01) ==
LOC: HO.ED 14:32 → HO.EDOVER 15:14 → HO.IMC 19:00
PROVIDERS: Physician Assistant; Admitting Provider Internal Medicine; Emergency Provider Emergency Medicine; PCP Internal Medicine Geriatric Medicine; Visit Provider Internal Medicine
DX: E11.649 Type 2 diabetes mellitus with hypoglycemia without coma (principal); R55 Syncope and collapse; C61 Malignant neoplasm of prostate; R11.10 Vomiting, unspecified; R19.7 Diarrhea, unspecified; R15.9 Full incontinence of feces; R32 Unspecified urinary incontinence; I12.9 Hypertensive chronic kidney disease with stage 1 through stage 4 chronic kidney disease, or unspecified chronic kidney disease; E11.22 Type 2 diabetes mellitus with diabetic chronic kidney disease; N18.9 Chronic kidney disease, unspecified; G93.40 Encephalopathy, unspecified; R11.2 Nausea with vomiting, unspecified; I73.9 Peripheral vascular disease, unspecified; Z85.46 Personal history of malignant neoplasm of prostate; Z20.828 Contact with and (suspected) exposure to other viral communicable diseases; Z79.4 Long term (current) use of insulin
CPT/HCPCS: 0241U; 36415; 70450; 80048; 80076; 81001; 82140; 82803; 82947; 83735; 84443; 84484; 85025; 85027; 93005; 95816; 96361; 96372; 96374; 96375; 97162; 99222; 99285; J2405

== ENCOUNTER → 2023-04-29 15:07 | Outpatient (BNV) | payer OTHER, SELFPAY | PROVIDERS: Admitting Provider Internal Medicine; Emergency Provider Emergency Medicine; PCP Internal Medicine Geriatric Medicine; Visit Provider Internal Medicine | DX: R19.7 Diarrhea, unspecified (principal) | CPT/HCPCS: 99223; 99232; 99239 ==

== ENCOUNTER 2023-09-15 13:10 | Outpatient (AMB) | payer OTHER, SELFPAY ==
--- NOTE | 2023-09-15 13:20 | A.OFFVIS_ITS ---
Intake Intake Visit Reasons: OV-Follow up CTS/cubital tunnel,A1C Intake Note: Shaquille 78 yr old male presents today for his Follow up visit for his CTS/cubital tunnel. Pt states he is still in pain and has swelling as well. States he has not had his A1C done yet and isnt seeing his primary care until October. Allergies No Known Allergies Allergy (Verified 09/15/23 13:21) HPI OV-Follow up CTS/cubital tunnel,A1C HPI Details Shaquille is a 78 year old right hand dominant [place] speaking man who presents to discuss treatment for his right carpal & cubital tunnel syndrome. He has known left carpal & cubital tunnel syndrome. he is here today with his . He has dense numbness in all of his digits, R>L, along with weakness and muscle wasting. Surgery was discussed at his last appointment but his HgA1c was 8.6% on 03/17/23. He says he has an appointment with his PCP sometime in October and does not have an updated number yet. He has a Dupuytrens contracture of his right small finger. He has prostate cancer and receives oral chemotherapy medication every 6 months. [facility] Medical History Chronic kidney disease History of amputation of left great toe Polyneuropathy Essential hypertension Diabetes mellitus, type II Prostate CA Surgical History Hx of colonoscopy Hx of amputation History of amputation of lesser toe of left foot Family History Father Alcoholic Social History Household Members: Spouse Housing: House Do you presently have visiting nurse or other home services: No Alcohol intake: current Alcohol intake frequency: holidays/special occasions only Patient Tobacco Use Status: Former Tobacco user Advance Directives Date on File: 04/29/23 service: No Current occupational status: retired 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 He does have some stiffness in the PIP joints. Regarding the right hand: He no longer has locking and catching of the right ring finger and can bring his fingers close to a fist and back into extension. He does have a Dupuytren's cord extending from the palm to the small finger. Dupuytren's contracture of right small finger MCP 40/PIP 0 degrees Nerve Conduction Study: Severe bilateral Carpal tunnel syndrome Moderate bilateral Cubital tunnel syndrome 06/24/22 Dr. Juarez Psych Appearance: grossly normal Affect: normal affect Attitude: cooperative Assessment & Plan Assessment & Plan (1) Dupuytren's contracture of right hand: Code(s): M72.0 - Palmar fascial fibromatosis [Dupuytren] (2) Carpal tunnel syndrome on both sides: Code(s): G56.03 - Carpal tunnel syndrome, bilateral upper limbs (3) Cubital tunnel syndrome, bilateral: Code(s): G56.23 - Lesion of ulnar nerve, bilateral upper limbs Plan Assessment & Plan: 1. Right Carpal tunnel syndrome, severe 2. Right Cubital tunnel syndrome, moderate With some Intrinsic wasting 3. Left Carpal tunnel syndrome, severe 4. Left Cubital tunnel syndrome, moderate With some Intrinsic wasting I educated him about these conditions I discussed treatment options I recommend surgery, beginning with his right dominant hand. The patient is in agreement and would like to proceed. However he Diabetes is not well-controlled and his most recent HgA1c was 8.6% on 03/17/23. He does not have an updated A1c and is not scheduled to see his PCP for an annual physical until sometime in October. His says she will speak with his PCP and try to have this tested earlier. I discussed with the patient and his that it is very possible he would not get his sensation back as he may already have some permanent nerve damage, but surgery would help to preserve his current level of function He has known prostate cancer and is on oral chemotherapy medication that he receives every 6 months going to his . We should consider finding out from his oncologist whether we need to time the surgery around his chemotherapy medications. He has some kidney issues, but is not on dialysis He will need PCP clearance prior to surgery His HgA1c needs to be <8.0% in order to proceed with surgery to manage the risk of infection. He will work on this and follow up when his updated HgA1c is within range 5. Left ring finger trigger finger, S/P release & excision of palmar Dupuytren's cord in line with the ring finger DOS: 05/07/22 Resolved 6. Right ring finger trigger finger, S/P injection Date of Injection 04/14/22 Resolved 7. Right small finger Dupuytrens contracture, 40 MCP/0 PIP No intervention warranted at this time Scribed for Malina German MD by Davion Prescott, diploma medical assistant, on 09/15/23 at 1:30 PM, EST. Coding Level of Care Code Est Pt Level 3 (29164) Diagnoses Dupuytren's contracture of right hand M72.0 Carpal tunnel syndrome on both sides G56.03 Cubital tunnel syndrome, bilateral G56.23
== END 2023-09-15 13:45 | disposition home or self-care (01) ==
PROVIDERS: PCP Internal Medicine Geriatric Medicine; Visit Provider Orthopaedic Surgery
DX: G56.03 Carpal tunnel syndrome, bilateral upper limbs (principal); M72.0 Palmar fascial fibromatosis [Dupuytren]; G56.23 Lesion of ulnar nerve, bilateral upper limbs; E11.69 Type 2 diabetes mellitus with other specified complication; C61 Malignant neoplasm of prostate
CPT/HCPCS: 99214

== ENCOUNTER → 2023-09-15 13:10 | Outpatient (BNVA) | payer OTHER, SELFPAY | PROVIDERS: PCP Internal Medicine Geriatric Medicine; Visit Provider Orthopaedic Surgery | DX: G56.03 Carpal tunnel syndrome, bilateral upper limbs (principal); G56.23 Lesion of ulnar nerve, bilateral upper limbs; M72.0 Palmar fascial fibromatosis [Dupuytren] | CPT/HCPCS: 99212 ==

== ENCOUNTER 2023-09-21 12:10 | Outpatient (REF) | payer OTHER, SELFPAY ==
[2023-09-21 15:42] LABS: Estimated Average Glucose 206 mg/dL; Hemoglobin A1c % 8.8 % (<6.0)
== END 2023-09-21 12:11 | disposition home or self-care (01) ==
LOC: HO.HHCL 12:10
PROVIDERS: Visit Provider Internal Medicine Geriatric Medicine
DX: E11.42 Type 2 diabetes mellitus with diabetic polyneuropathy (principal)
CPT/HCPCS: 36415; 83036

== ENCOUNTER 2023-09-23 12:39 | Outpatient (RCR) | payer OTHER, SELFPAY | END 2023-12-16 12:41 | disposition home or self-care (01) | LOC: HO.WCC 12:39 | PROVIDERS: PCP Internal Medicine Geriatric Medicine; Visit Provider Surgery | DX: E11.621 Type 2 diabetes mellitus with foot ulcer (principal); L97.522 Non-pressure chronic ulcer of other part of left foot with fat layer exposed; Z79.4 Long term (current) use of insulin; Z79.84 Long term (current) use of oral hypoglycemic drugs; Z79.52 Long term (current) use of systemic steroids; Z79.899 Other long term (current) drug therapy; Z87.891 Personal history of nicotine dependence | CPT/HCPCS: 11042; 11043; 99212 ==

== ENCOUNTER 2024-01-19 12:33 | Outpatient (AMB) | payer OTHER, SELFPAY ==
[2024-01-19 12:47] VITALS: BMI 24.5
--- NOTE | 2024-01-19 12:47 | A.OFFVIS_ITS ---
Vital Signs 01/19/24 12:47 Height 5 ft 8 in Weight 161 lb BMI 24.5 Intake Visit Reasons: Preop RT CTR/cubital 01/31/24 AR Intake Note: Shaquille 78 yr old male presents today for his Pre op visit for his right hand CTR and cubital release schedule for 01/31/[address] German. Consent reviewed and signed. Allergies No Known Allergies Allergy (Verified 01/19/24 12:48) HPI HPI Preop RT CTR/cubital 01/31/24 AR: Details: Shaquille is a 78 year old right hand dominant Citizen Of [place] speaking man who returns to discuss treatment for his right carpal & cubital tunnel syndrome. He has known left carpal & cubital tunnel syndrome. He is here today with his . He has dense numbness in all of his digits, R>L, along with weakness and muscle wasting. Surgery was discussed at his last appointment but his HgA1c was 8.6% on 03/17/23. His most recent HgA1c was 7.1% on 12/29/23. He is scheduled to move to [place] sometime in March. He has a Dupuytrens contracture of his right small finger. He has prostate cancer and receives oral chemotherapy medication every 6 months. [facility] Medical History Chronic kidney disease Polyneuropathy Essential hypertension Diabetes mellitus, type II Prostate CA Surgical History Hx of colonoscopy Hx of amputation History of amputation of lesser toe of left foot Family History Father Alcoholic Social History Household Members: Spouse Housing: House Do you presently have visiting nurse or other home services: No Alcohol intake: current Alcohol intake frequency: holidays/special occasions only Patient Tobacco Use Status: Former Tobacco user Advance Directives Date on File: 04/29/23 service: No Current occupational status: retired 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 He does have some stiffness in the PIP joints. Regarding the right hand: He no longer has locking and catching of the right ring finger and can bring his fingers close to a fist and back into extension. He does have a Dupuytren's cord extending from the palm to the small finger. Dupuytren's contracture of right small finger MCP 40/PIP 0 degrees Nerve Conduction Study: Severe bilateral Carpal tunnel syndrome Moderate bilateral Cubital tunnel syndrome 06/24/22 Dr. Juarez Psych Appearance: grossly normal Affect: normal affect Attitude: cooperative Assessment & Plan Assessment & Plan (1) Carpal tunnel syndrome on both sides: Code(s): G56.03 - Carpal tunnel syndrome, bilateral upper limbs Category: Medical (2) Cubital tunnel syndrome, bilateral: Code(s): G56.23 - Lesion of ulnar nerve, bilateral upper limbs Category: Medical (3) Dupuytren's contracture of right hand: Code(s): M72.0 - Palmar fascial fibromatosis [Dupuytren] Category: Medical Plan Assessment & Plan: 1. Right Carpal tunnel syndrome, severe 2. Right Cubital tunnel syndrome, moderate With dense numbness to all digits & some Intrinsic wasting 3. Left Carpal tunnel syndrome, severe 4. Left Cubital tunnel syndrome, moderate With dense numbness to all digits & some Intrinsic wasting I educated him about these conditions I discussed treatment options I recommend surgery, beginning with his right dominant hand. He is currently scheduled for a right carpal & cubital tunnel release on 01/31/24, and a left carpal & cubital tunnel release on 02/28/24. He is not able to safely have his left side surgery 4 weeks after his right side, and requires at a minimum 6-8 weeks after his first surgery to consider the second. I had a long talk with the patient and his family about this. He is supposed to move to [place] in March I discussed with the patient and his that it is very possible he would not get his sensation back as he may already have some permanent nerve damage, but surgery would help to preserve his current level of function The risks and benefits of operative treatment were discussed with the patient and the patient wishes to proceed with surgery. These risks include, but are not limited to risk of damage to blood vessels, nerves, tendons, infection, recurrence, incomplete relief of preoperative symptoms, persistent pain, possible need for further surgery and the risks associated with regional blocks and anesthesia. The plan is to take the patient to the operating room sometime on 01/31/24 for the following procedures: 1. Right cubital tunnel release, under general 2. Right carpal tunnel release, under general He has known prostate cancer and is on oral chemotherapy medication that he receives every 6 months going to his . They have spoken with his Oncologist and he does not need to stop or delay his medication for surgery. He has some kidney issues, but is not on dialysis He is on Xarelto and knows to stop his medication 3 days prior to surgery and resume 2 days following surgery He says his most recent HgA1c was 7.1% on 12/29/23 5. Left ring finger trigger finger, S/P release & excision of palmar Dupuytren's cord in line with the ring finger DOS: 05/07/22 Resolved 6. Right ring finger trigger finger, S/P injection Date of Injection 04/14/22 Resolved 7. Right small finger Dupuytrens contracture, 40 MCP/0 PIP No intervention warranted at this time Scribed for Malina German MD by Davion Prescott, ophthalmic medical technologist, on 01/19/24 at 1:15 PM, EST. Coding Level of Care Code Est Pt Level 4 (16126) Diagnoses Carpal tunnel syndrome on both sides G56.03 Cubital tunnel syndrome, bilateral G56.23 Dupuytren's contracture of right hand M72.0
== END 2024-01-19 13:30 | disposition home or self-care (01) ==
PROVIDERS: PCP Internal Medicine Geriatric Medicine; Visit Provider Orthopaedic Surgery
DX: G56.03 Carpal tunnel syndrome, bilateral upper limbs (principal); G56.23 Lesion of ulnar nerve, bilateral upper limbs; M72.0 Palmar fascial fibromatosis [Dupuytren]
CPT/HCPCS: 99214

== ENCOUNTER → 2024-01-19 12:33 | Outpatient (BNVA) | payer OTHER, SELFPAY | PROVIDERS: PCP Internal Medicine Geriatric Medicine; Visit Provider Orthopaedic Surgery | DX: Z01.818 Encounter for other preprocedural examination (principal); G56.03 Carpal tunnel syndrome, bilateral upper limbs; G56.23 Lesion of ulnar nerve, bilateral upper limbs | CPT/HCPCS: 99212 ==

== ENCOUNTER 2024-01-28 12:14 | Outpatient (REF) | payer OTHER, SELFPAY ==
[2024-01-28 13:10] LABS: MANUAL DIFF FLAG NO
[2024-01-28 13:20] LABS: Basophils Absolute Auto 0.1 X10*3/uL (0.0-0.2); Basophils Percent Auto 0.8 % (0-2); Eosinophils Absolute Auto 0.4 X10*3/uL (0.0-0.4); Eosinophils Percent Auto 6.1 % (0-4); Hematocrit 32.2 % (42.0-52.0); Hemoglobin 10.3 g/dl (14.0-18.0); Imm Gran Abs Auto 0.07 X10*3/uL (0.00-0.03); Imm Gran Pct Auto 1.1 % (0.0-0.4); Lymphocytes Absolute Auto 1.5 X10*3/uL (1.2-4.9); Lymphocytes Percent Auto 23.6 % (20-40); Mean Corpuscular Hemoglobin 27.2 pg (27.0-33.0); Mean Corpuscular Volume 85.2 fL (80.0-98.0); Mean Platelet Volume 10.7 fL (9.4-12.4); Monocytes Absolute Auto 0.7 X10*3/uL (0.1-1.2); Monocytes Percent Auto 10.1 % (2-11); Neutrophils Absolute Auto 3.8 x10*3/uL (2.0-8.3); Neutrophils Percent Auto 58.3 % (45-73); Platelet Count 211 X10*3/uL (160-400); Red Blood Count 3.78 X10*6/uL (4.60-5.80); Red Cell Distribution Width 15.1 % (11.0-16.0); White Blood Count 6.5 X10*3/uL (4.8-10.8)
[2024-01-28 13:41] LABS: Anion Gap 11 (12-20); Blood Urea Nitrogen 19 mg/dL (9-16); Calcium 9.8 mg/dL (8.4-10.2); Carbon Dioxide 30 mmol/L (22-29); Chloride 104 mmol/L (96-108); Estimated Glomerular Filt Rate 52; Glucose Random 157 mg/dL (60-115); Potassium 3.8 mmol/L (3.3-5.1); Sodium 141 mmol/L (135-145)
== END 2024-01-28 12:15 | disposition home or self-care (01) ==
LOC: HO.HHCL 12:14
PROVIDERS: Visit Provider Nurse Practitioner Family
DX: Z01.818 Encounter for other preprocedural examination (principal); C61 Malignant neoplasm of prostate; E11.69 Type 2 diabetes mellitus with other specified complication; Z79.4 Long term (current) use of insulin
CPT/HCPCS: 36415; 80048; 85025

== ENCOUNTER 2024-01-28 12:23 | Outpatient (REF) | payer OTHER, SELFPAY ==
[2024-01-28 13:37] LABS: Alanine Aminotransferase 14 U/L (0-40); Alkaline Phosphatase 42 U/L (39-117); Aspartate Amino Transferase 16 U/L (5-37); Bilirubin Direct 0.1 mg/dL (0.0-0.5); Bilirubin Total 0.4 mg/dL (0.0-1.0); Cholesterol 133 mg/dL (<200); HDL Cholesterol 35 mg/dL (>40); LDL Cholesterol Calculated 61 mg/dL (<100); Total Protein 6.6 g/dL (6.5-8.0); Triglycerides 188 mg/dL (<150)
[2024-01-28 14:22] LABS: Vitamin B12 207 pg/mL (200-900)
[2024-01-28 14:38] LABS: Prostate Specific Antigen 0.32 ng/mL (<0.05-4.0)
== END 2024-01-28 12:24 | disposition home or self-care (01) ==
LOC: HO.HHCL 12:23
PROVIDERS: Visit Provider Internal Medicine Geriatric Medicine
DX: Z01.818 Encounter for other preprocedural examination (principal); E11.69 Type 2 diabetes mellitus with other specified complication; C61 Malignant neoplasm of prostate; Z79.4 Long term (current) use of insulin; Z12.5 Encounter for screening for malignant neoplasm of prostate
CPT/HCPCS: 36415; 80061; 80076; 82607; 84153

== ENCOUNTER → 2024-01-31 11:40 | Day surgery (SDC) | payer OTHER, SELFPAY ==
[2024-01-27 12:25] VITALS: BMI 24.5
--- NOTE | 2024-01-28 12:04 | P.CONAN_ITS ---
Documented by User: Fani Pedro NP 01/28/24 13:49 HPI - Anesthesia Eval Consult details Narrative: 78yo M for Right Cubital Tunnel Release, Carpal Tunnel Release Medical optimization appointment 01/28/24 at [facility] - note pending Xarelto for PVD Prednisone daily (taken with oral chemo for prostate CA) [facility] Active Problems Active Problems: All Active Problems Seizure (Acute) Diarrhea (Acute) Vomiting (Acute) Encephalopathy (Acute) Cubital tunnel syndrome, bilateral (Acute) Carpal tunnel syndrome on both sides (Acute) Bilateral hand numbness (Acute) Dupuytren's contracture of right hand (Acute) Trigger finger, right ring finger (Acute) Trigger finger, left ring finger (Acute) COVID-19 (Acute) HUSSAIN (acute kidney injury) (Acute) Acute hyperkalemia (Acute) Prostate cancer (Chronic) Past Medical History Medical History Chronic kidney disease Polyneuropathy Essential hypertension Diabetes mellitus, type II Prostate CA Family History Family History Father Alcoholic Family history of problems with anesthesia: No Surgical History Surgical History Hx of colonoscopy Hx of amputation History of amputation of lesser toe of left foot History of amputation of left great toe History of Problems with Anesthesia: No Social History Social History Household Members: Spouse Housing: House Do you presently have visiting nurse or other home services: No Alcohol intake: current Alcohol intake frequency: does not drink Patient Tobacco Use Status: Former Tobacco user Second Hand Smoke Exposure: No Use of substances other than those prescribed or required for medical reasons: No Are you DNR?: No Advance Directives: No Advance Directives Information Provided: Yes Advance Directives on File: No Advance Directives Date on File: 04/29/23 service: No Current occupational status: retired 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 Meds Allergies Allergy/AdvReac Type Severity Reaction Status Date / Time No Known Allergies Allergy Verified 01/28/24 13:40 Home Medications ?Medication ?Instructions ?Recorded ?Confirmed ?Last Taken ?Type gabapentin 300 mg capsule 1 cap PO TID Pain 03/04/22 01/28/24 03/04/22 History metformin 1,000 mg tablet 1 tab PO BIDWM 03/04/22 01/28/24 03/04/22 History metoprolol tartrate 100 mg tablet 1 tab PO BID 03/04/22 01/28/24 01/31/24 History pen needle, diabetic 31 gauge x 03/04/22 01/28/24 Unknown History 10/01 (Sure Comfort Pen Needle) tamsulosin 0.4 mg capsule 1 cap PO DAILY 03/04/22 01/28/24 03/04/22 History omeprazole 20 mg capsule,delayed 1 cap PO DAILY 05/19/22 01/28/24 01/31/24 History release hydralazine 50 mg tablet 25 mg PO BID 09/22/22 01/28/24 01/31/24 History aspirin 81 mg chewable tablet 81 mg PO DAILY 04/29/23 01/28/24 Unknown History atorvastatin 40 mg tablet 80 mg PO QPM 04/29/23 01/28/24 Unknown History zolpidem 5 mg tablet 5 mg PO BEDTIME insomnia 04/29/23 01/28/24 Unknown History insulin aspart U-100 100 unit/mL 5 unit subcut BID 10/29/23 01/28/24 Unknown History (3 mL) subcutaneous pen (Novolog FlexPen U-100 Insulin aspart) rivaroxaban 2.5 mg tablet (Xarelto) 2.5 mg PO BID 10/29/23 01/28/24 01/27/24 History Exam Height,Weight and Vital Signs: Height 5 ft 8 in Weight 73.028 kg Pertinent Lab Results Pertinent Lab Results: Laboratory Tests 10/29/23 11:22 WBC 5.9 Hgb 11.1 L Hct 34.3 L Plt Count 222 Sodium 142 Potassium 4.4 Chloride 104 Carbon Dioxide 32 H BUN 13 Creatinine 1.27 Narrative Narrative: EKG 04/2023 Vent. Rate : 076 BPM Atrial Rate : 076 BPM P-R Int : 156 ms QRS Dur : 094 ms QT Int : 402 ms P-R-T Axes : 022 -02 007 degrees QTc Int : 452 ms Sinus rhythm with Premature atrial complexes Moderate voltage criteria for LVH, may be normal variant ( R in aVL , Fabricio product ) Inferior infarct , age undetermined Nonspecific T wave abnormality Lateral leads Abnormal ECG When compared with ECG of 18-MAR-2022 23:40, Premature atrial complexes are now Present Inferior infarct is now Present Nonspecific T wave abnormality now evident in Lateral leads Assessment and Plan Assessment Anesthesia Assessment: Chart Reviewed Final Anesthetic Review Family History of Problems with Anesthesia: No History of Problems with Anesthesia: No Documented by User: Renée Rodriguez MD 01/31/24 14:44 PMFSH Past Medical History Medical History Chronic kidney disease Polyneuropathy Essential hypertension Diabetes mellitus, type II Prostate CA Family History Family History Father Alcoholic Surgical History Surgical History Hx of colonoscopy Hx of amputation History of amputation of lesser toe of left foot History of amputation of left great toe Social History Social History Household Members: Spouse Housing: House Do you presently have visiting nurse or other home services: No Alcohol intake: current Alcohol intake frequency: does not drink Patient Tobacco Use Status: Former Tobacco user Second Hand Smoke Exposure: No Use of substances other than those prescribed or required for medical reasons: No Are you DNR?: No Advance Directives: No Advance Directives Information Provided: Yes Advance Directives on File: No Advance Directives Date on File: 04/29/23 service: No Current occupational status: retired 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 Meds Allergies Allergy/AdvReac Type Severity Reaction Status Date / Time No Known Allergies Allergy Verified 01/28/24 13:40 Home Medications ?Medication ?Instructions ?Recorded ?Confirmed ?Last Taken ?Type gabapentin 300 mg capsule 1 cap PO TID Pain 03/04/22 01/28/24 03/04/22 History metformin 1,000 mg tablet 1 tab PO BIDWM 03/04/22 01/28/24 03/04/22 History metoprolol tartrate 100 mg tablet 1 tab PO BID 03/04/22 01/28/24 01/31/24 History pen needle, diabetic 31 gauge x 03/04/22 01/28/24 Unknown History 10/01 (Sure Comfort Pen Needle) tamsulosin 0.4 mg capsule 1 cap PO DAILY 03/04/22 01/28/24 03/04/22 History omeprazole 20 mg capsule,delayed 1 cap PO DAILY 05/19/22 01/28/24 01/31/24 History release hydralazine 50 mg tablet 25 mg PO BID 09/22/22 01/28/24 01/31/24 History aspirin 81 mg chewable tablet 81 mg PO DAILY 04/29/23 01/28/24 Unknown History atorvastatin 40 mg tablet 80 mg PO QPM 04/29/23 01/28/24 Unknown History zolpidem 5 mg tablet 5 mg PO BEDTIME insomnia 04/29/23 01/28/24 Unknown History insulin aspart U-100 100 unit/mL 5 unit subcut BID 10/29/23 01/28/24 Unknown History (3 mL) subcutaneous pen (Novolog FlexPen U-100 Insulin aspart) rivaroxaban 2.5 mg tablet (Xarelto) 2.5 mg PO BID 10/29/23 01/28/24 01/27/24 History Exam Airway Mallampati Class: II TM Dist: >3cm Neck ROM: Limited Heart: rrr Lungs: cta Assessment and Plan Assessment Anesthesia Assessment: Anesthesia Plan Discussed (pt with very high B.P , uncont rolled pre op, pt was told to stop losartan pre op as is the norm.not sure if he had good control with meds.) Final Anesthetic Review NPO: Yes ASA Class: III (currently patient did not take losartan as instructed and multiple B.P readings consistently systolic around 220-230 and diastolic [id number]) Final Preanesthetic Review: Meds/Allgs Chart Reviewed and Anes Risks/Benef Reviewed Anesthetic Plan Disposition: Standard PACU (will transfer to ER, for b.p control prior to discharge.)
[2024-01-31 12:05] LABS: Glucose, Whole Blood 118 mg/dL (60-115)
[2024-01-31 12:20] VITALS: BP 209/91; PULSE 64; RESP 16; TEMP 36.3; O2SAT 96
[2024-01-31 15:05] VITALS: BP 227/104; PULSE 72
--- NOTE | 2024-01-31 15:29 | PC.NURSE ---
Addendum entered by Christie Trimble 01/31/24 15:33: Sent to ED from preop at 1510. Original Note: Patient in preop, sent to ED for hypertension. Patients daughter at bedside and made aware. Patient resting comfortably in bed, asymptomatic. MD to MD report by anesthesia Dr. Rodriguez. This nurse brought patient via stretcher to ER with radio operator assist, on monitor. Patient tolerated transfer with no issues. Patient settled in ER bed 6, nurse Michelle Fuentes. Bedside report completed.
[2024-02-24 11:06] VITALS: BMI 24.2
== END ==
PROVIDERS: PCP Internal Medicine Geriatric Medicine; Visit Provider Orthopaedic Surgery
DX: G56.01 Carpal tunnel syndrome, right upper limb (principal); Z53.09 Procedure and treatment not carried out because of other contraindication; I10 Essential (primary) hypertension; E11.9 Type 2 diabetes mellitus without complications
CPT/HCPCS: 82947; J2250; J2704; J3010

== ENCOUNTER 2024-01-31 15:11 | Emergency (ER) | payer OTHER, SELFPAY ==
[2024-01-31 15:16] VITALS: BP 261/106; PULSE 70; RESP 16; TEMP 36.8; O2SAT 97; BMI 24.4
--- NOTE | 2024-01-31 15:19 | PC.NURSE ---
Pt. arrives to ED from Short Stay. He is on the environmental monitoring specialist at this time.
--- NOTE | 2024-01-31 15:55 | ED.GENADULT ---
HPI - General Adult General Chief complaint: General Medical Stated complaint: hypertension from pacu Time Seen by Provider: 01/31/24 15:55 Source: patient Mode of arrival: ambulatory Limitations: no limitations History of Present Illness HPI narrative: 78-year-old male was here to get cubital tunnel release in the ER was told to hold his medications last night arrived with elevated blood pressure of to 0 7 and 227 systolic they called down to have patient sent here patient remains asymptomatic denies chest pain cough fever nausea vomiting diarrhea Related Data Home Medications ?Medication ?Instructions ?Recorded ?Confirmed gabapentin 300 mg capsule 1 cap PO TID Pain 03/04/22 01/28/24 metformin 1,000 mg tablet 1 tab PO BIDWM 03/04/22 01/28/24 metoprolol tartrate 100 mg tablet 1 tab PO BID 03/04/22 01/28/24 pen needle, diabetic 31 gauge x 03/04/22 01/28/24/ (Sure Comfort Pen Needle) tamsulosin 0.4 mg capsule 1 cap PO DAILY 03/04/22 01/28/24 omeprazole 20 mg capsule,delayed 1 cap PO DAILY 05/19/22 01/28/24 release hydralazine 50 mg tablet 25 mg PO BID 09/22/22 01/28/24 aspirin 81 mg chewable tablet 81 mg PO DAILY 04/29/23 01/28/24 atorvastatin 40 mg tablet 80 mg PO QPM 04/29/23 01/28/24 zolpidem 5 mg tablet 5 mg PO BEDTIME insomnia 04/29/23 01/28/24 insulin aspart U-100 100 unit/mL 5 unit subcut BID 10/29/23 01/28/24 (3 mL) subcutaneous pen (Novolog FlexPen U-100 Insulin aspart) rivaroxaban 2.5 mg tablet (Xarelto) 2.5 mg PO BID 10/29/23 01/28/24 Previous Rx's ?Medication ?Instructions ?Recorded acetaminophen 500 mg capsule 500 mg PO Q6H PRN fever or pain 03/19/22 #30 caps insulin glargine 100 unit/mL 10 unit (0.1 mL) subcut BEDTIME 05/01/23 subcutaneous solution (Lantus #10 mL U-100 Insulin) prednisone 5 mg tablet 5 mg PO DIRECTED #60 tabs 09/06/23 abiraterone 250 mg tablet 1,000 mg (4 x 250 mg) PO 01/21/24 DAILY@0600 #90 tabs Allergies Allergy/AdvReac Type Severity Reaction Status Date / Time No Known Allergies Allergy Verified 01/31/24 15:18 Review of Systems Review of Systems: Review of systems: General: Patient denies any fever chills recent illness or falls Musculoskeletal: Denies back pain or body aches or other injuries HEENT: denies headache, runny nose, ear pain Respiratory: denies shortness of breath, cough Cardiovascular: no chest pain or palpitations : denies dysuria, frequency Abdomen: no nausea vomiting denies abdominal pain Extremities: no swelling, no pain Skin: no diaphoresis Yes all other systems are reviewed and are negative [facility] Past Medical History Medical History Chronic kidney disease Polyneuropathy Essential hypertension Diabetes mellitus, type II Prostate CA Surgical History Hx of colonoscopy Hx of amputation History of amputation of lesser toe of left foot History of amputation of left great toe Family History Family History Father Alcoholic Social History Social History Household Members: Spouse Housing: House Do you presently have visiting nurse or other home services: No Alcohol intake: current Alcohol intake frequency: does not drink Patient Tobacco Use Status: Former Tobacco user Second Hand Smoke Exposure: No Advance Directives: Yes Advance Directives on File: Yes Advance Directives Date on File: 04/29/23 Do you have a plan to hurt others: No Plan service: No Current occupational status: retired 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 Patient is alert and oriented to person place and time. Patient has no dysphagia or dysarthia, denies good vision in all four vision [place] no nystagmus on exam, good strength to upper and lower extremities with normal reflexes to brachioradialis, wrist, patella and achilles. Negative romberg, good finger to nose and heel to infante. General: Well-appearing well-nourished in no signs of distress HEENT: Normocephalic atraumatic Neck: No signs of JVD, no masses no tenderness or lymphadenopathy Cardiovascular: Regular rate and rhythm Respiratory: Clear to auscultation bilaterally Abdomen: Soft nontender no masses Extremities: Normal pedal pulses no signs of edema Skin: Dry warm no rashes Back: No tenderness full ROM Medical Decision Making Medical Decision Making [facility] Narrative: Patient is completely asymptomatic as I told the surgeon who called to send the patient down here patient if he is asymptomatic does not require any further testing he had normal labs 2 days ago and still has no symptoms he did not take his morning dose of medications I think he is safe to go home patient is okay with this plan. Differential Diagnosis Differential Diagnoses: The differential diagnosis associated with the presentation includes Asymptomatic hypertension Discharge Plan Discharge Clinical Impression: Asymptomatic hypertension Patient Disposition: Home, Self-Care Instructions: Chronic Hypertension (DC) Additional Instructions: You were seen today in the emergency department for high blood pressure. Your sent by her surgeon to evaluated you have no symptoms if you have chest pain shortness breath or any other concerns please return to emergency department. Please call follow up with her doctor. Prescriptions: No Action prednisone 5 mg Tablet 5 mg PO DIRECTED Qty: 60 3RF Rx Instructions: see taper instructions metoprolol tartrate 100 mg tablet 1 tab PO BID tamsulosin 0.4 mg capsule 1 cap PO DAILY metformin 1,000 mg tablet 1 tab PO BIDWM gabapentin 300 mg capsule 1 cap PO TID (DME) pen needle, diabetic [Sure Comfort Pen Needle] 31 gauge x 3/16 needle MISCELLANEOUS omeprazole 20 mg capsule,delayed release(DR/EC) 1 cap PO DAILY hydralazine 50 mg Tablet 25 mg PO BID insulin aspart U-100 [Novolog FlexPen U-100 Insulin] 100 unit/mL (3 mL) insulin pen 5 unit subcut BID Xarelto 2.5 mg tablet 2.5 mg PO BID abiraterone 250 mg tablet 1,000 mg PO DAILY@0600 Qty: 90 0RF acetaminophen 500 mg capsule 500 mg PO Q6H PRN (Reason: fever or pain) Qty: 30 0RF zolpidem 5 mg tablet 5 mg PO BEDTIME atorvastatin 40 mg tablet 80 mg PO QPM aspirin 81 mg Tablet,Chewable 81 mg PO DAILY insulin glargine [Lantus U-100 Insulin] 100 unit/mL Solution 10 unit SUBCUT BEDTIME Qty: 10 0RF Print Language: Kinyarwanda
[2024-01-31 16:42] VITALS: BP 264/124; PULSE 77; RESP 14; TEMP 36.8; O2SAT 99
== END 2024-01-31 16:51 | disposition home or self-care (01) ==
PROVIDERS: Emergency Provider Student in an Organized Health Care Education/Training Program
DX: I10 Essential (primary) hypertension (principal); Z79.899 Other long term (current) drug therapy
CPT/HCPCS: 99282

== ENCOUNTER 2024-02-23 10:52 | Outpatient (AMB) | payer OTHER, SELFPAY ==
--- NOTE | 2024-02-23 10:53 | MHC.OFFVIS ---
Vital Signs 02/23/24 11:02 Height 5 ft 8 in Weight 160 lb BMI 24.3 Intake Visit Reasons: Preop - RT CTR/cubital 02/28/24 AR Intake Note: Shaqulile 78 yr old male presents today with his daughter for a Pre op visit for right hand CTR and cubital release schedule for 02/28/[address] German. Consent previously reviewed and signed. Accompanied by: Daughter Allergies No Known Allergies Allergy (Verified 02/23/24 10:59) HPI HPI Preop - RT CTR/cubital 02/28/24 AR: Details: Shaquille is a 78 year old right hand dominant Gibraltarian speaking man who returns to discuss treatment for his right carpal & cubital tunnel syndrome. He has known leftcarpal & cubital tunnel syndrome, and was scheduled for right-side surgery on 01/31/24 for this, but the procedure was cancelled and the patient was sent tot he ED due to HTN. He is here today with his daughter. He has dense numbness in all of his digits, R>L, along with weakness and muscle wasting. His most recent HgA1c was 7.1% on 12/29/23. His says his HTN medication was changed to better controll his blood pressure. He is scheduled to move to [place] sometime in March. He has a Dupuytrens contracture of his right small finger. He has prostate cancer and receives oral chemotherapy medication every 6 months. [facility] Medical History Chronic kidney disease Polyneuropathy Essential hypertension Diabetes mellitus, type II Prostate CA Surgical History Hx of colonoscopy Hx of amputation History of amputation of lesser toe of left foot History of amputation of left great toe Family History Father Alcoholic Social History Household Members: Spouse Housing: House Do you presently have visiting nurse or other home services: No Alcohol intake: current Alcohol intake frequency: does not drink Patient Tobacco Use Status: Former Tobacco user Second Hand Smoke Exposure: No Advance Directives Date on File: 04/29/23 service: No Current occupational status: retired 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 He does have some stiffness in the PIP joints. Regarding the right hand: He no longer has locking and catching of the right ring finger and can bring his fingers close to a fist and back into extension. He does have a Dupuytren's cord extending from the palm to the small finger. Dupuytren's contracture of right small finger MCP 40/PIP 0 degrees Nerve Conduction Study: Severe bilateral Carpal tunnel syndrome Moderate bilateral Cubital tunnel syndrome 06/24/22 Dr. Juarez Psych Appearance: grossly normal Affect: normal affect Attitude: cooperative Assessment & Plan Assessment & Plan (1) Carpal tunnel syndrome on both sides: Code(s): G56.03 - Carpal tunnel syndrome, bilateral upper limbs Category: Medical (2) Cubital tunnel syndrome, bilateral: Code(s): G56.23 - Lesion of ulnar nerve, bilateral upper limbs Category: Medical (3) Dupuytren's contracture of right hand: Code(s): M72.0 - Palmar fascial fibromatosis [Dupuytren] Category: Medical Plan Assessment & Plan: 1. Right Carpal tunnel syndrome, severe 2. Right Cubital tunnel syndrome, moderate With dense numbness to all digits & some Intrinsic wasting 3. Left Carpal tunnel syndrome, severe 4. Left Cubital tunnel syndrome, moderate With dense numbness to all digits & some Intrinsic wasting I educated him about these conditions I discussed treatment options I recommend surgery, the patient would now like to have his left hand treated first This was initially scheduled for 01/31/24 but was cancelled same day due to HTN. I explained that he requires at a minimum 8 weeks after his first surgery to consider the second. I had a long talk with the patient and his family about this. He is supposed to move to [place] in March, though this was not mentioned today. I discussed with the patient and his daughter that it is very possible he would not get his sensation back as he may already have some permanent nerve damage, but surgery would help to preserve his current level of function The risks and benefits of operative treatment were discussed with the patient and the patient wishes to proceed with surgery. These risks include, but are not limited to risk of damage to blood vessels, nerves, tendons, infection, recurrence, incomplete relief of preoperative symptoms, persistent pain, possible need for further surgery and the risks associated with regional blocks and anesthesia. The plan is to take the patient to the operating room sometime on 02/28/24 for the following procedures: 1. Left cubital tunnel release, under general 2. Left carpal tunnel release, under general He has known prostate cancer and is on oral chemotherapy medication that he receives every 6 months going to his . They have spoken with his Oncologist and he does not need to stop or delay his medication for surgery. He has some kidney issues, but is not on dialysis He is on Xarelto and knows to stop his medication 3 days prior to surgery and resume 2 days following surgery He says his most recent HgA1c was 7.1% on 12/29/23 5. Left ring finger trigger finger, S/P release & excision of palmar Dupuytren's cord in line with the ring finger DOS: 05/07/22 Resolved 6. Right ring finger trigger finger, S/P injection Date of Injection 04/14/22 Resolved 7. Right small finger Dupuytrens contracture, 40 MCP/0 PIP No intervention warranted at this time Scribed for Malina German MD by Davion Prescott, medical director/head team physician, on 02/23/24 at 11:05 AM, EST. Coding Level of Care Code Est Pt Level 4 (78135) Diagnoses Carpal tunnel syndrome on both sides G56.03 Cubital tunnel syndrome, bilateral G56.23 Dupuytren's contracture of right hand M72.0
[2024-02-23 11:02] VITALS: BMI 24.3
== END 2024-02-23 11:23 | disposition home or self-care (01) ==
PROVIDERS: Visit Provider Orthopaedic Surgery
DX: G56.03 Carpal tunnel syndrome, bilateral upper limbs (principal); G56.23 Lesion of ulnar nerve, bilateral upper limbs; M72.0 Palmar fascial fibromatosis [Dupuytren]
CPT/HCPCS: 99024

== ENCOUNTER → 2024-02-23 10:52 | Outpatient (BNVA) | payer OTHER, SELFPAY | PROVIDERS: Visit Provider Orthopaedic Surgery | DX: G56.03 Carpal tunnel syndrome, bilateral upper limbs (principal); G56.23 Lesion of ulnar nerve, bilateral upper limbs; M72.0 Palmar fascial fibromatosis [Dupuytren] | CPT/HCPCS: 99212 ==

== ENCOUNTER 2024-02-28 06:31 | Day surgery (SDC) | payer OTHER, SELFPAY ==
--- NOTE | 2024-02-25 09:43 | HO.ANESPROP2 ---
Documented by User: Fani Pedro NP 02/25/24 10:15 HPI - Anesthesia Eval Consult details Narrative: 78yo M for Left Cubital Tunnel Release, Carpal Tunnel Release Medically optimized per PCP Kelsea for artherosclerosis PMFSH Active Problems Active Problems: All Active Problems Seizure (Acute) Diarrhea (Acute) Vomiting (Acute) Encephalopathy (Acute) Cubital tunnel syndrome, bilateral (Acute) Carpal tunnel syndrome on both sides (Acute) Bilateral hand numbness (Acute) Dupuytren's contracture of right hand (Acute) Trigger finger, right ring finger (Acute) Trigger finger, left ring finger (Acute) COVID-19 (Acute) HUSSAIN (acute kidney injury) (Acute) Acute hyperkalemia (Acute) Prostate cancer (Chronic) Past Medical History Medical History History of atherosclerosis Chronic kidney disease Polyneuropathy Essential hypertension Diabetes mellitus, type II Prostate CA Family History Family History Father Alcoholic Family history of problems with anesthesia: No Surgical History Surgical History Hx of colonoscopy Hx of amputation History of amputation of lesser toe of left foot History of amputation of left great toe History of Problems with Anesthesia: No Social History Social History Household Members: Spouse Housing: House Do you presently have visiting nurse or other home services: No Alcohol intake: current Alcohol intake frequency: does not drink Patient Tobacco Use Status: Former Tobacco user Second Hand Smoke Exposure: No Use of substances other than those prescribed or required for medical reasons: No Are you DNR?: No Advance Directives: No Advance Directives Information Provided: Yes Advance Directives Date on File: 04/29/23 service: No Current occupational status: retired 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 Meds Allergies Allergy/AdvReac Type Severity Reaction Status Date / Time No Known Allergies Allergy Verified 02/28/24 07:45 Home Medications ?Medication ?Instructions ?Recorded ?Confirmed ?Last Taken ?Type gabapentin 300 mg capsule 1 cap PO TID Pain 03/04/22 02/28/24 02/27/24 History metformin 1,000 mg tablet 1 tab PO BIDWM 03/04/22 02/28/24 02/27/24 History metoprolol tartrate 100 mg tablet 1 tab PO BID 03/04/22 02/28/24 02/28/24 History pen needle, diabetic 31 gauge x 03/04/22 01/28/24 Unknown History 3/ (Sure Comfort Pen Needle) tamsulosin 0.4 mg capsule 1 cap PO DAILY 03/04/22 02/28/24 02/27/24 History omeprazole 20 mg capsule,delayed 1 cap PO DAILY 05/19/22 02/28/24 02/28/24 History release aspirin 81 mg chewable tablet 81 mg PO DAILY 04/29/23 02/28/24 02/23/24 History atorvastatin 40 mg tablet 80 mg PO QPM 04/29/23 02/28/24 02/27/24 History zolpidem 5 mg tablet 5 mg PO BEDTIME insomnia 04/29/23 02/28/24 02/27/24 History insulin aspart U-100 100 unit/mL 5 unit subcut BID 10/29/23 01/28/24 Unknown History (3 mL) subcutaneous pen (Novolog FlexPen U-100 Insulin aspart) rivaroxaban 2.5 mg tablet (Xarelto) 2.5 mg PO BID 10/29/23 02/28/24 02/23/24 History hydralazine 50 mg tablet 100 mg PO BID 02/23/24 02/28/24 02/27/24 History Exam Pertinent Lab Results Pertinent Lab Results: CBC and BMP 01/2024 WNL Narrative Narrative: EKG per clearance note: NSR @ 61, Q waves on lead III not changed from baseline Assessment and Plan Assessment Anesthesia Assessment: Chart Reviewed Final Anesthetic Review Family History of Problems with Anesthesia: No History of Problems with Anesthesia: No Documented by User: Yolanda Rae MD 02/28/24 08:54 PMFSH Active Problems Active Problems: All Active Problems Seizure (Acute)- patient denies Diarrhea (Acute) Vomiting (Acute) Encephalopathy (Acute) Cubital tunnel syndrome, bilateral (Acute) Carpal tunnel syndrome on both sides (Acute) Bilateral hand numbness (Acute) Dupuytren's contracture of right hand (Acute) Trigger finger, right ring finger (Acute) Trigger finger, left ring finger (Acute) COVID-19 (Acute) HUSSAIN (acute kidney injury) (Acute) Acute hyperkalemia (Acute) Prostate cancer (Chronic) Uncontrolled HTN. Procedure cancelled a few weeks ago secondary to sane. BP meds recently adjusted. Did not take hydrallazine this morning. BP settled post receiving po hydrallazine 100mg( morning dose) here. Initial BP 221/100. Last BP 166/66 Past Medical History Medical History History of atherosclerosis Chronic kidney disease Polyneuropathy Essential hypertension Diabetes mellitus, type II Prostate CA Family History Family History Father Alcoholic Family history of problems with anesthesia: No Surgical History Surgical History Hx of colonoscopy Hx of amputation History of amputation of lesser toe of left foot History of amputation of left great toe History of Problems with Anesthesia: No Social History Social History Household Members: Spouse Housing: House Do you presently have visiting nurse or other home services: No Alcohol intake: current Alcohol intake frequency: does not drink Patient Tobacco Use Status: Former Tobacco user Second Hand Smoke Exposure: No Use of substances other than those prescribed or required for medical reasons: No Are you DNR?: No Advance Directives: No Advance Directives Information Provided: Yes Advance Directives Date on File: 04/29/23 service: No Current occupational status: retired 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 Meds Allergies Allergy/AdvReac Type Severity Reaction Status Date / Time No Known Allergies Allergy Verified 02/28/24 07:45 Home Medications ?Medication ?Instructions ?Recorded ?Confirmed ?Last Taken ?Type gabapentin 300 mg capsule 1 cap PO TID Pain 03/04/22 02/28/24 02/27/24 History metformin 1,000 mg tablet 1 tab PO BIDWM 03/04/22 02/28/24 02/27/24 History metoprolol tartrate 100 mg tablet 1 tab PO BID 03/04/22 02/28/24 02/28/24 History pen needle, diabetic 31 gauge x 03/04/22 01/28/24 Unknown History 10/01 (Sure Comfort Pen Needle) tamsulosin 0.4 mg capsule 1 cap PO DAILY 03/04/22 02/28/24 02/27/24 History omeprazole 20 mg capsule,delayed 1 cap PO DAILY 05/19/22 02/28/24 02/28/24 History release aspirin 81 mg chewable tablet 81 mg PO DAILY 04/29/23 02/28/24 02/23/24 History atorvastatin 40 mg tablet 80 mg PO QPM 04/29/23 02/28/24 02/27/24 History zolpidem 5 mg tablet 5 mg PO BEDTIME insomnia 04/29/23 02/28/24 02/27/24 History insulin aspart U-100 100 unit/mL 5 unit subcut BID 10/29/23 01/28/24 Unknown History (3 mL) subcutaneous pen (Novolog FlexPen U-100 Insulin aspart) rivaroxaban 2.5 mg tablet (Xarelto) 2.5 mg PO BID 10/29/23 02/28/24 02/23/24 History hydralazine 50 mg tablet 100 mg PO BID 02/23/24 02/28/24 02/27/24 History Exam Height,Weight and Vital Signs: Height 5 ft 8 in Weight 72.575 kg Vital Signs Temp Pulse Resp BP Pulse Ox O2 Del Method 02/28/24 08:06 59 16 189/74 H 02/28/24 07:32 221/89 H 02/28/24 07:20 221/89 H 02/28/24 07:05 227/96 H 02/28/24 07:00 229/95 H 02/28/24 06:55 97.1 F 55 16 221/100 H 99 Room Air Pertinent Lab Results Pertinent Lab Results: CBC and BMP 01/2024 WNL Lab Results 02/28/24 Range/Units 07:24 POC Glucose 116 H (60-115) mg/dL Airway Mallampati Class: II TM Dist: >3cm Neck ROM: Full Loose/Missing/Broken Teeth: Yes (Missing some teeth back. Denies broken or loose teeth ) Heart: RRR Lungs: CTAB Assessment and Plan Assessment Anesthesia Assessment: Anesthesia Plan Discussed and Chart Reviewed Final Anesthetic Review Family History of Problems with Anesthesia: No History of Problems with Anesthesia: No NPO: Yes ASA Class: III Final Preanesthetic Review: No Changes in Pt Med Stat, Meds/Allgs Chart Reviewed, Consent Obtained/Reviewed and Anes Risks/Benef Reviewed Patient Risk: Intermediate Procedure Risk: Low Assessment/Block/Sedation in SS: Assess/Block/Sedation-SS Anesthetic Plan Anesthetic Plan: GA Disposition: Standard PACU
[2024-02-28] VITALS (17 sets, daily range): BP systolic 139–229; BP diastolic 53–100; PULSE 55–78; RESP 14–19; TEMP 36.2–36.8; O2SAT 90–99; BMI 24.3
[2024-02-28] MEDS: Lactated Ringers 1,000 ML 100 ML IVCONT (07:20)
[2024-02-28 07:29] LABS: Glucose, Whole Blood 116 mg/dL (60-115)
[2024-02-28] MEDS: hydrALAZINE HCl 50 MG TABLET 100 MG PO (07:32)
--- NOTE | 2024-02-28 07:34 | PC.NURSE ---
Pt noted to be Hypertensive on arrival; see flow sheets. Pt reports took home dose of Metoprolol and Omeprazole this AM. Confirmed pt did not take Hydralazine this AM with daughter Kasey who also confirmed new dosing of 100mg BID. Per Dr Constantin gonzalez to give home dose of hydralazine.
--- NOTE | 2024-02-28 08:53 | P.OP_ITS ---
Operative Note Operative Note Date of Service: 02/28/24 Narrative: Operative Note Narrative: Preop diagnosis: 1. Left Cubital tunnel syndrome 2. Left carpal tunnel syndrome Postop diagnosis: Same Procedure: 1. Left Cubital Tunnel Release 2. Left carpal tunnel release Surgeon: Malina German MD Water Resources Program Director: None Anesthesia: General Anesthesia Findings: Thickening and fibrosis about the ulnar nerve at the cubital tunnel Implants: none Tourniquet time: 49 minutes EBL: 5.0 ml Specimen: none Drains: None Complications: None Disposition: Brought to the recovery room in stable condition Plan: Follow-up in 10-14 days for wound check, and suture removal Indications: The patient is 78 years old with left cubital tunnel syndrome and left carpal tunnel syndrome . The risks and benefits of operative treatment, including but not limited to risk of damage to blood vessels, nerves, tendons, infection, recurrence, persistent pain or numbness, incomplete resolution of preoperative symptoms, or need for further surgery were discussed with the patient and they wished to proceed with surgery. Procedure: Once consent was obtained patient was brought back to the operating suite and placed in the operating table in a supine position. Perioperative antibiotics and anesthesia was administered by the anesthesia team. The limb was prepped and draped in a standard surgical fashion, and a sterile tourniquet applied to the proximal aspect of the left upper extremity. The limb was elevated exsanguinated with Esmarch bandage and the tourniquet inflated to 250 mm of mercury for a total tourniquet time of 49 minutes. Once assured that we had a good block, a 2.0 cm longitudinal incision was made centered over the left carpal tunnel. The incision was made through the skin to the subcutaneous tissues using a #15 blade. Dissection was made down to the level of the transverse carpal ligament with care being taken to protect the palmar cutaneous nerve. Once the transverse carpal ligament was clearly visualized, a longitudinal incision was made in the transverse carpal ligament 1st using a #15 blade, then using tenotomy scissors under direct visualization. Care was taken to look for and protect the motor branch of the median nerve when seen in this area. Once satisfied with our carpal tunnel release the wound was irrigated with normal saline. A 6 cm gently curved but longitudinally oriented incision was made centered over the cubital tunnel of the left upper extremity. Incision was made through the skin to the subcutaneous tissues using a # 15 Blade. I then dissected down to the level of the medial epicondyle and the cubital tunnel using tenotomy scissors. Care was taken to protect the medial antebrachial cutaneous nerve. The ulnar nerve was identified just posterior to the medial intermuscular septum. The ulnar nerve was released in a proximal to distal direction using tenotomy in iris scissors while directly visualizing and protecting the ulnar nerve. Thickening and fibrosis was appreciated about the ulnar nerve as it passed through the cubital tunnel. The ulnar nerve was assessed as I passed the elbow through full flexion and extension and was found to remain stable within its groove. At this point the tourniquet was deflated and hemostasis obtained with a brief period of local pressure and bipolar electrocautery. The wound was copiously irrigated with normal saline. The subcutaneous layer was closed with 4-0 Vicryl suture, and the skin edges were reapproximated with 5-0 nylon suture. The wound was infiltrated with some 0.25% plain Marcaine for postop pain control and sterile dressings and a posterior splint was applied. The patient appears to have tolerated the procedure well and with no complications. All digits were well vascularized at the conclusion of the case.
--- NOTE | 2024-02-28 08:53 | MHC.SHP ---
Pre-Procedural Eval Section A - 24 Hr Update-Section A only Date of Service: 02/28/24 The patient is an INPATIENT: No Changes since office visit: No Cold of Flu in the past 2 weeks, No New Medical Problems, No Changes in Medication and No Patient answered all questions The patient has been examined within 24 hours of the surgical procedure. The History & Physical has been completed within 30 days and I have reviewed it.: Yes Section B - Complete if H&P > 30 days Chief Complaint: lesion of ulnar nerve,carpal tunnel syndrome Allergies: Allergies Allergy/AdvReac Type Severity Reaction Status Date / Time No Known Allergies Allergy Verified 02/28/24 07:45 Plan I have reviewed the history and physical and performed a pertinent physical examination on my patient. No changes have occurred unless specified. Time Spent With Patient Time: Total time managing care of this patient today ____ minutes.
[2024-02-28 11:19] LABS: Glucose, Whole Blood 177 mg/dL (60-115)
== END 2024-02-28 13:15 | disposition home or self-care (01) ==
PROVIDERS: PCP Internal Medicine Geriatric Medicine; Visit Provider Orthopaedic Surgery
PROC: (CPT 64718; principal; 2024-02-28 08:30)
PROC: (CPT 64721; 2024-02-28 08:30)
DX: G56.02 Carpal tunnel syndrome, left upper limb (principal); G56.22 Lesion of ulnar nerve, left upper limb; M72.0 Palmar fascial fibromatosis [Dupuytren]; R20.0 Anesthesia of skin; E11.22 Type 2 diabetes mellitus with diabetic chronic kidney disease; I12.9 Hypertensive chronic kidney disease with stage 1 through stage 4 chronic kidney disease, or unspecified chronic kidney disease; N18.9 Chronic kidney disease, unspecified; I70.90 Unspecified atherosclerosis; G62.9 Polyneuropathy, unspecified; C61 Malignant neoplasm of prostate; Z79.818 Long term (current) use of other agents affecting estrogen receptors and estrogen levels; Z79.52 Long term (current) use of systemic steroids; Z79.82 Long term (current) use of aspirin; Z79.01 Long term (current) use of anticoagulants; Z79.4 Long term (current) use of insulin; Z79.84 Long term (current) use of oral hypoglycemic drugs; Z79.899 Other long term (current) drug therapy; Z87.891 Personal history of nicotine dependence; Z89.412 Acquired absence of left great toe; Z89.422 Acquired absence of other left toe(s); Z89.421 Acquired absence of other right toe(s)
CPT/HCPCS: 64721; 64718; 82947; A4649; J0131; J0690; J2250; J2405; J2704; J3010

== ENCOUNTER → 2024-02-28 06:31 | Outpatient (BNV) | payer OTHER, SELFPAY | PROVIDERS: PCP Internal Medicine Geriatric Medicine; Visit Provider Orthopaedic Surgery | DX: G56.02 Carpal tunnel syndrome, left upper limb (principal); G56.22 Lesion of ulnar nerve, left upper limb | CPT/HCPCS: 64718; 64721 ==

== ENCOUNTER 2024-03-02 11:45 | Emergency (ER) | payer OTHER, SELFPAY ==
--- NOTE | ~2024-03-02 | CT_ITS ---
EXAMINATION: CT CHEST, ABDOMEN, AND PELVIS WITH CONTRAST CLINICAL INFORMATION: Status post fall with lower chest and upper abdomen pain, rule out splenic laceration COMPARISON: CT abdomen from 03/04/2022 TECHNIQUE: Multidetector volumetric CT imaging of the chest, abdomen, and pelvis was obtained after the administration of 85 mL of Omnipaque 350 intravenous contrast without immediate adverse reactions. Axial MIP volume rendering provided. Sagittal and coronal reformatted images were obtained. This CT examination was performed using dose optimization techniques as appropriate, variously including the following: *Automated exposure control *Adjustment of mA and/or kV according to patient size (this includes techniques or standardized protocols for targeted exams where dose is matched to indication/reason for exam; i.e. extremities or head) *Use of iterative reconstruction technique DLP: 188 mGy-cm FINDINGS: LUNGS: The lungs are clear with no evidence of inflammation or nodules. MEDIASTINUM: The mediastinum appears unremarkable. CORONARY ARTERY CALCIFICATION: Moderate. PLEURA: There is no pleural effusion. No pleural mass or thickening. AXILLA: No lymphadenopathy by size criteria. LIVER, GALLBLADDER, AND BILIARY TREE: The liver appears unremarkable in size, shape, and attenuation. No focal hepatic lesion or biliary ductal dilatation is appreciated. Unremarkable appearance of the gallbladder. PANCREAS: Unremarkable SPLEEN: Unremarkable ADRENAL GLANDS: Unremarkable KIDNEYS AND URETERS: There is perinephric stranding seen on the right more than on the left with small cortical cysts and irregularity of both kidneys but no evidence of posttraumatic abnormalities. BLADDER: Unremarkable GASTROINTESTINAL TRACT: There are changes of colonic diverticulosis more prominent in the sigmoid colon no evidence of diverticulitis, colitis. Appendix is not seen. Small bowel loops are not dilated. There is small hiatal hernia. Stomach is decompressed. ABDOMINAL WALL: No significant hernia is appreciated. LYMPH NODES: No evidence of adenopathy by size criteria. VASCULAR: Unremarkable. PELVIC VISCERA: Unremarkable OSSEOUS STRUCTURES: There is no evidence of fractures. There are multilevel more prominent in lumbar spine at the level of L4-L5 with grade 1 anterior listhesis there is no compression deformities. CT/CT abdomen pelvis w IV con IMPRESSION: 1. No evidence of posttraumatic abnormalities. 2. Diverticulosis without diverticulitis. 3. Small hiatal hernia. 4. 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
[2024-03-02 11:47] VITALS: BP 152/73; PULSE 66; O2SAT 95
[2024-03-02 12:12] VITALS: BP 159/71; PULSE 61; RESP 12; TEMP 37.1; O2SAT 93; O2SAT 94; BMI 26.6
--- NOTE | 2024-03-02 12:54 | ED_ITS ---
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 Turner Chapman HPI Narrative: 78-year-old male right carpal tunnel repair on 02/28/2024 (3 days prior), prostate cancer, diabetes, HTN who presents to the ER from home via EMS for evaluation for evaluation of fall in his bathroom. Information comes from the patient and from his daughter. His daughter states that the patient has been having difficulty with his balance and she attributes this to amputations of his great toe and right 2nd toe. The patient states that he has been feeling fine since the surgical procedure. He has been eating and drinking without any difficulty. He states that he was in his bathroom, lost balance and then fell he was bath tub. Patient was currently complaining of left-sided lower chest and left upper abdominal pain. He states that the pain is worse with movement and with breathing. He denies feeling short of breath. States the pain is 8/10 at its worst. The patient denied any head injury or loss of consciousness. He denies neck pain or weakness in his extremities. He states he did not hit his left elbow arm from the fall. Related Data Home Medications ?Medication ?Instructions ?Recorded ?Confirmed gabapentin 300 mg capsule 1 cap PO TID Pain 03/04/22 02/28/24 metformin 1,000 mg tablet 1 tab PO BIDWM 03/04/22 02/28/24 metoprolol tartrate 100 mg tablet 1 tab PO BID 03/04/22 02/28/24 pen needle, diabetic 31 gauge x 03/04/22 01/28/24 3/16 (Sure Comfort Pen Needle) tamsulosin 0.4 mg capsule 1 cap PO DAILY 03/04/22 02/28/24 omeprazole 20 mg capsule,delayed 1 cap PO DAILY 05/19/22 02/28/24 release aspirin 81 mg chewable tablet 81 mg PO DAILY 04/29/23 02/28/24 atorvastatin 40 mg tablet 80 mg PO QPM 04/29/23 02/28/24 zolpidem 5 mg tablet 5 mg PO BEDTIME insomnia 04/29/23 02/28/24 insulin aspart U-100 100 unit/mL 5 unit subcut BID 10/29/23 01/28/24 (3 mL) subcutaneous pen (Novolog FlexPen U-100 Insulin aspart) rivaroxaban 2.5 mg tablet (Xarelto) 2.5 mg PO BID 10/29/23 02/28/24 hydralazine 50 mg tablet 100 mg PO BID 02/23/24 02/28/24 Previous Rx's ?Medication ?Instructions ?Recorded acetaminophen 500 mg capsule 500 mg PO Q6H PRN fever or pain 03/19/22 #30 caps insulin glargine 100 unit/mL 10 unit (0.1 mL) subcut BEDTIME 05/01/23 subcutaneous solution (Lantus #10 mL U-100 Insulin) prednisone 5 mg tablet 5 mg PO DIRECTED #60 tabs 09/06/23 abiraterone 250 mg tablet 1,000 mg (4 x 250 mg) PO 02/18/24 DAILY@0600 #90 tabs hydrocodone 5 mg-acetaminophen 325 1 tab PO Q4-6H PRN pain #15 tabs 02/28/24 mg tablet Allergies Allergy/AdvReac Type Severity Reaction Status Date / Time No Known Allergies Allergy Verified 03/02/24 12:18 Review of Systems 2 Review of Systems: Yes all other systems are reviewed and are negative [facility] Past Medical History [facility] Narrative: Social history: Patient lives at home with his daughter. He denies tobacco, alcohol and drug use. Medical History History of atherosclerosis Chronic kidney disease Polyneuropathy Essential hypertension Diabetes mellitus, type II Prostate CA Surgical History Hx of colonoscopy Hx of amputation History of amputation of lesser toe of left foot History of amputation of left great toe Family History Family History Father Alcoholic Social History Social History Household Members: Spouse Housing: House Do you presently have visiting nurse or other home services: No Alcohol intake: current Alcohol intake frequency: does not drink Patient Tobacco Use Status: Former Tobacco user Smoked in Last 30 Days: No Second Hand Smoke Exposure: No Use of substances other than those prescribed or required for medical reasons: No Advance Directives: Yes Advance Directives on File: Yes Advance Directives Date on File: 04/29/23 Do you have a plan to hurt others: No Plan service: No Current occupational status: retired 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 Exam: General: Awake, alert in no distress, patient answers all questions appropriately and does not appear to be in distress Head: Normocephalic, atraumatic EENT: PERRL, Lids normal, sclera normal, conjunctiva normal, nose normal , ears normal, throat without erythema or exudates Neck: Supple, no adenopathy, no neck or C-spine tenderness. Lung: breath sounds symmetric, no wheezing, rales or rhonchi Chest: symmetric movement, tenderness palpation over the left lateral rib cage with no ecchymosis or crepitus noted Heart: regular rate and rhythm, normal S1, S2 no murmurs or rubs Abdomen: soft, moderate left upper quadrant tenderness, nondistended, normal bowel sounds Back: no vertebral tenderness, no CVAT Extremities: Patient has left elbow and wrist have surgical dressings in place which were not taken down, has no tenderness palpation over these areas, he was able to his fingers on both hands without any difficulty and he has no numbness or weakness. Neuro: Awake, alert, oriented, normal speech, cranial nerves intact, moves all extremities symmetrically Psych: Pleasant, cooperative Medications Administered Discontinued Medications Generic Name Dose Route Start Last Admin Trade Name Héctor PRN Reason Stop Dose Admin Iohexol 100 ml 03/02/24 15:01 03/02/24 15:01 Iohexol 350 Mg/Ml 100 Ml Infus..Btl IV 03/02/24 15:02 85 ml ONCE ONE Administration Morphine Sulfate 4 mg 03/02/24 12:50 03/02/24 13:37 Morphine Sulfate 4 Mg/Ml Cartridge IVPUSH 03/02/24 12:51 4 mg ONCE STA Administration Protocol Medical Decision Making Medical Decision Making [facility] Narrative: 78-year-old [place] [facility] [place] prior), prostate cancer, diabetes, HTN who presents to the ER from home via EMS for evaluation for evaluation of fall in his bathroom. Patient has been having issues with his balance he states that he lost his balance. He has had no concerning symptoms since his carpal tunnel surgery 3 days prior, he has been eating and drinking, he has had no fever, chills, chest pain lightheadedness or dizziness. Patient denied any head injury and he denies neck pain. Exam did reveal left lower anterior lateral chest wall pain and left upper quadrant tenderness. Psych exam was otherwise unremarkable. Patient's pain is 8/10 in his worse with breathing and with movement. Differential diagnosis: ?Includes but is not limited to closed head injury, intracranial bleed, neck contusion/sprain, cervical spine fracture, rib fractures, rib contusions, abdominal injury, splenic injury, anemia, electrolyte abnormalities Course: 16:13 My interpretation patient's laboratory evaluation is as follows: WBC was normal 8000. Chronic normocytic anemia with an H&H of 10.3 and 30.2. Platelet count was normal. PTT was normal. Glucose elevated 206. Urinalysis was negative. Lab Data [facility] Lab Attestation statement: I reviewed the patient's lab results. 03/02/24 13:08 03/02/24 13:08 Labs: Lab Results 03/02/24 03/02/24 03/02/24 Range/Units 13:08 15:04 15:35 WBC 8.0 (4.8-10.8) X10*3/uL RBC 3.57 L (4.60-5.80) X10*6/uL Hgb 10.3 L (14.0-18.0) g/dl Hct 30.2 L (42.0-52.0) % MCV 84.6 (80.0-98.0) fL MCH 28.9 (27.0-33.0) pg MCHC 34.1 (31.0-36.0) g/dl RDW 14.1 (11.0-16.0) % Plt Count 167 (160-400) X10*3/uL MPV 11.4 (9.4-12.4) fL Immature Gran % (Auto) 0.8 H (0.0-0.4) % Neut % (Auto) 79.1 H (45-73) % Lymph % (Auto) 10.3 L (20-40) % Perkins % (Auto) 6.8 (2-11) % Eos % (Auto) 2.4 (0-4) % Baso % (Auto) 0.6 (0-2) % Lymph # (Auto) 0.8 L (1.2-4.9) X10*3/uL Perkins # (Auto) 0.5 (0.1-1.2) X10*3/uL Eos # (Auto) 0.2 (0.0-0.4) X10*3/uL Baso # (Auto) 0.1 (0.0-0.2) X10*3/uL Abs Immat Gran (auto) 0.06 H (0.00-0.03) X10*3/uL Absolute Neuts (auto) 6.3 (2.0-8.3) x10*3/uL Absolute Nucleated RBC 0.000 (0.0-0.012) X10*3/uL Nucleated RBC % (auto) 0.0 (0.0-0.2) /100WBC APTT 30.1 (26.0-36.8) SEC Sodium 136 (135-145) mmol/L Potassium 4.7 D (3.3-5.1) mmol/L Chloride 103 (96-108) mmol/L Carbon Dioxide 24 (22-29) mmol/L Anion Gap 14 (12-20) BUN 17 H (9-16) mg/dL Creatinine 1.12 (0.5-1.4) mg/dL Estim Creat Clear Calc 50.8 Estimated GFR > 60 Random Glucose 206 H (60-115) mg/dL Calcium 9.3 (8.4-10.2) mg/dL Magnesium 1.8 (1.6-2.6) mg/dL Total Bilirubin 0.3 (0.0-1.0) mg/dL AST 15 (5-37) U/L ALT 12 (0-40) U/L Alkaline Phosphatase 48 (39-117) U/L Total Protein 6.0 L (6.5-8.0) g/dL Albumin 3.6 (3.5-5.0) g/dL Lipase 24 (8-78) U/L Urine Color Yellow Urine Appearance Clear Urine pH 8.0 (5.0-9.0) Ur Specific Ramer 1.015 (1.005-1.025) Urine Protein Trace (Neg-Trace) mg/dL Urine Glucose (UA) Negative (Negative) mg/dL Urine Ketones Negative (Negative) mg/dL Urine Blood Negative (Negative) Urine Nitrite Negative (Negative) Ur Leukocyte Esterase Negative (Negative) Radiology Impression Discussion of test interpretation with radiology: I have reviewed the radiologist's reading. Radiologist Impression: CT chest w IV con IMPRESSION: 1. No evidence of posttraumatic abnormalities. 2. Diverticulosis without diverticulitis. 3. Small hiatal hernia. 4. 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 Discharge Plan Discharge Clinical Impression: Fall, Chest wall contusion, Abdominal wall contusion Patient Disposition: Home, Self-Care Instructions: Rib Contusion (ED), Contusion in Adults (ED) Additional Instructions: Your blood work was unremarkable. The CT scan of your chest and abdomen with IV contrast did not reveal any rib fractures or any significant abnormalities in your belly to explain your pain. Your pain is consistent with a bruise/contusion to your ribs and your belly wall. Apply ice to the areas that hurt for 15 minutes 4 to 6 times a day for the next 2-3 days to help reduce the pain and swelling. Take Tylenol 325 mg pills, 2 pills every 6 hours as needed for pain and for pain not relieved by these medications you can take your Tylenol (acetaminophen) with hydrocodone. You need to make sure that you do not take the Tylenol with hydrocodone at the same time that you take your regular Tylenol pills, you need to spread these out by 6 hours. Follow-up with your doctor in 2 days. Please return to the emergency department if your symptoms get worse or if you develop any symptoms that are concerning to you. Prescriptions: No Action prednisone 5 mg Tablet 5 mg PO DIRECTED Qty: 60 3RF Rx Instructions: see taper instructions metoprolol tartrate 100 mg tablet 1 tab PO BID tamsulosin 0.4 mg capsule 1 cap PO DAILY metformin 1,000 mg tablet 1 tab PO BIDWM gabapentin 300 mg capsule 1 cap PO TID (DME) pen needle, diabetic [Sure Comfort Pen Needle] 31 gauge x 3/16 needle MISCELLANEOUS omeprazole 20 mg capsule,delayed release(DR/EC) 1 cap PO DAILY insulin aspart U-100 [Novolog FlexPen U-100 Insulin] 100 unit/mL (3 mL) insulin pen 5 unit subcut BID Xarelto 2.5 mg tablet 2.5 mg PO BID abiraterone 250 mg tablet 1,000 mg PO DAILY@0600 Qty: 90 0RF hydralazine 50 mg tablet 100 mg PO BID acetaminophen 500 mg capsule 500 mg PO Q6H PRN (Reason: fever or pain) Qty: 30 0RF zolpidem 5 mg tablet 5 mg PO BEDTIME atorvastatin 40 mg tablet 80 mg PO QPM aspirin 81 mg Tablet,Chewable 81 mg PO DAILY insulin glargine [Lantus U-100 Insulin] 100 unit/mL Solution 10 unit SUBCUT BEDTIME Qty: 10 0RF hydrocodone-acetaminophen 5-325 mg tablet 1 tab PO Q4-6H PRN (Reason: pain) Qty: 15 0RF Rx Instructions: Partial Fill upon patient request. Print Language: Cypriot
[2024-03-02 13:32] LABS: MANUAL DIFF FLAG NO
[2024-03-02 13:37] VITALS: RESP 20
[2024-03-02] MEDS: Morphine Sulfate 4 MG/ML CARTRIDGE IVPUSH (13:37)
[2024-03-02 13:50] LABS: Alanine Aminotransferase 12 U/L (0-40); Albumin Level 3.6 g/dL (3.5-5.0); Alkaline Phosphatase 48 U/L (39-117); Anion Gap 14 (12-20); Aspartate Amino Transferase 15 U/L (5-37); Basophils Absolute Auto 0.1 X10*3/uL (0.0-0.2); Basophils Percent Auto 0.6 % (0-2); Bilirubin Total 0.3 mg/dL (0.0-1.0); Blood Urea Nitrogen 17 mg/dL (9-16); Calcium 9.3 mg/dL (8.4-10.2); Carbon Dioxide 24 mmol/L (22-29); Chloride 103 mmol/L (96-108); Creatinine Clr Calc Pharmacy 50.8; Eosinophils Absolute Auto 0.2 X10*3/uL (0.0-0.4); Eosinophils Percent Auto 2.4 % (0-4); Estimated Glomerular Filt Rate > 60; Glucose Random 206 mg/dL (60-115); Hematocrit 30.2 % (42.0-52.0); Hemoglobin 10.3 g/dl (14.0-18.0); Imm Gran Abs Auto 0.06 X10*3/uL (0.00-0.03); Imm Gran Pct Auto 0.8 % (0.0-0.4); Lipase 24 U/L (8-78); Lymphocytes Absolute Auto 0.8 X10*3/uL (1.2-4.9); Lymphocytes Percent Auto 10.3 % (20-40); Magnesium 1.8 mg/dL (1.6-2.6); Mean Corpuscular HGB Conc 34.1 g/dl (31.0-36.0); Mean Corpuscular Hemoglobin 28.9 pg (27.0-33.0); Mean Corpuscular Volume 84.6 fL (80.0-98.0); Mean Platelet Volume 11.4 fL (9.4-12.4); Monocytes Absolute Auto 0.5 X10*3/uL (0.1-1.2); Monocytes Percent Auto 6.8 % (2-11); Neutrophils Absolute Auto 6.3 x10*3/uL (2.0-8.3); Neutrophils Percent Auto 79.1 % (45-73); Platelet Count 167 X10*3/uL (160-400); Potassium 4.7 mmol/L (3.3-5.1); Red Blood Count 3.57 X10*6/uL (4.60-5.80); Red Cell Distribution Width 14.1 % (11.0-16.0); Sodium 136 mmol/L (135-145)
[2024-03-02 14:00] VITALS: BP 185/83; PULSE 65; RESP 16; TEMP 37; O2SAT 95
[2024-03-02] MEDS: iohexoL 350 MG/ML 100 ML INFUS..BTL IV (15:01)
[2024-03-02 15:17] LABS: Partial Thromboplastin Time 30.1 SEC (26.0-36.8)
[2024-03-02 15:42] LABS: Appearance Urine Clear; Color Urine Yellow; Glucose Urine UA Negative (Negative); Leukocyte Esterase Urine Negative (Negative); Nitrite Urine Negative (Negative); Specific Gravity - Urine 1.015 (1.005-1.025); Urine Blood Negative (Negative); Urine Ketones Negative (Negative); Urine Protein Trace mg/dL (Neg-Trace)
[2024-03-02 16:00] VITALS: BP 178/80; PULSE 60; RESP 17; TEMP 37.1; O2SAT 95
[2024-03-02 17:23] VITALS: BP 178/80; PULSE 60; RESP 17; TEMP 37.1; O2SAT 95
== END 2024-03-02 17:23 | disposition home or self-care (01) ==
PROVIDERS: Emergency Provider Emergency Medicine Emergency Medical Services; PCP Internal Medicine Geriatric Medicine
DX: S20.212A Contusion of left front wall of thorax, initial encounter (principal); S30.1XXA Contusion of abdominal wall, initial encounter; R10.2 Pelvic and perineal pain; I10 Essential (primary) hypertension; W19.XXXA Unspecified fall, initial encounter; Y93.89 Activity, other specified; Y92.89 Other specified places as the place of occurrence of the external cause; Y99.8 Other external cause status; Z79.899 Other long term (current) drug therapy
CPT/HCPCS: 36415; 71260; 74177; 80053; 81003; 83690; 83735; 85025; 85730; 96374; 99284; J2270; Q9967

== ENCOUNTER 2024-03-14 13:42 | Outpatient (REF) | payer OTHER, SELFPAY ==
[2024-03-14 14:29] LABS: MANUAL DIFF FLAG NO
[2024-03-14 15:10] LABS: Basophils Percent Auto 0.6 % (0-2); Eosinophils Absolute Auto 0.4 X10*3/uL (0.0-0.4); Eosinophils Percent Auto 5.3 % (0-4); Hematocrit 31.7 % (42.0-52.0); Hemoglobin 10.2 g/dl (14.0-18.0); Imm Gran Abs Auto 0.03 X10*3/uL (0.00-0.03); Imm Gran Pct Auto 0.5 % (0.0-0.4); Lymphocytes Percent Auto 14.9 % (20-40); Mean Corpuscular HGB Conc 32.2 g/dl (31.0-36.0); Mean Corpuscular Hemoglobin 27.9 pg (27.0-33.0); Mean Corpuscular Volume 86.6 fL (80.0-98.0); Mean Platelet Volume 10.6 fL (9.4-12.4); Monocytes Absolute Auto 0.7 X10*3/uL (0.1-1.2); Neutrophils Absolute Auto 4.5 x10*3/uL (2.0-8.3); Neutrophils Percent Auto 68.7 % (45-73); Platelet Count 246 X10*3/uL (160-400); Red Blood Count 3.66 X10*6/uL (4.60-5.80); Red Cell Distribution Width 14.1 % (11.0-16.0); White Blood Count 6.6 X10*3/uL (4.8-10.8)
[2024-03-14 15:30] LABS: Alanine Aminotransferase 18 U/L (0-40); Alkaline Phosphatase 59 U/L (39-117); Aspartate Amino Transferase 15 U/L (5-37); Bilirubin Direct 0.1 mg/dL (0.0-0.5); Bilirubin Total 0.4 mg/dL (0.0-1.0); Total Protein 6.8 g/dL (6.5-8.0)
[2024-03-14 15:32] LABS: Anion Gap 14 (12-20); Blood Urea Nitrogen 22 mg/dL (9-16); Calcium 9.9 mg/dL (8.4-10.2); Carbon Dioxide 25 mmol/L (22-29); Chloride 104 mmol/L (96-108); Estimated Glomerular Filt Rate > 60; Magnesium 1.9 mg/dL (1.6-2.6); Phosphorus 3.4 mg/dL (2.7-4.5); Potassium 4.4 mmol/L (3.3-5.1); Sodium 139 mmol/L (135-145)
[2024-03-14 15:37] LABS: Parathyroid Hormone Intact 77.3 pg/mL (8.7-77.1)
[2024-03-14 15:49] LABS: Vitamin D 25-OH Total 45.3 ng/mL (>30)
[2024-03-14 15:51] LABS: Prostate Specific Antigen 0.29 ng/mL (<0.05-4.0)
[2024-03-14 15:58] LABS: Vitamin B12 254 pg/mL (200-900)
[2024-03-21 12:49] LABS: Testosterone, Total 1 ng/dL (250-1100)
== END 2024-03-14 13:43 | disposition home or self-care (01) ==
LOC: HO.LAB 13:42
PROVIDERS: Absent Provider Internal Medicine Nephrology; PCP Internal Medicine Geriatric Medicine; Referring Provider Internal Medicine Geriatric Medicine; Visit Provider Physician Assistant
DX: E11.22 Type 2 diabetes mellitus with diabetic chronic kidney disease (principal); N18.31 Chronic kidney disease, stage 3a; Z12.5 Encounter for screening for malignant neoplasm of prostate; Z79.4 Long term (current) use of insulin; C61 Malignant neoplasm of prostate; G56.03 Carpal tunnel syndrome, bilateral upper limbs; G56.23 Lesion of ulnar nerve, bilateral upper limbs; M72.0 Palmar fascial fibromatosis [Dupuytren]
CPT/HCPCS: 36415; 80051; 80076; 82306; 82310; 82565; 82607; 83735; 83970; 84100; 84153; 84403; 84520; 85025; 99212

== ENCOUNTER 2024-03-14 14:36 | Outpatient (AMB) | payer OTHER, SELFPAY ==
--- NOTE | 2024-03-14 14:38 | A.OFFVIS_ITS ---
Intake Visit Reasons: PO LT CTR/cubital 02/28/24 AR Intake Note: Shaquille is a 78 yo male who presents today post-operatively s/p left CTR and cubital tunnel release done 02/28/[address] German. Patient reports minimal numbness and tingling. Denies locking on fingers. Stitches removed in office and steri strips applied. Allergies No Known Allergies Allergy (Verified 03/14/24 14:39) HPI HPI PO LT CTR/cubital 02/28/24 AR: Details: Shaquille is a 78 year old right hand dominant Malay speaking man who returns S/P left carpal & cubital tunnel release, DOS: 02/28/24 He has known right carpal & cubital tunnel syndrome, and was scheduled for right-side surgery on 01/31/24 for this, but the procedure was cancelled and the patient was sent tot he ED due to HTN. He is here today with his daughter. He says he is doing well . He still has dense numbness in his left hand, but he says his nighttime symptoms have improved. He is happy with the results of his surgery. His daughter says his hold this position is changed and he is much happier person now. He has dense numbness in all of his digits of his right hand, R>L, along with weakness and muscle wasting. He is scheduled to move to [place] sometime in March. He has a Dupuytrens contracture of his right small finger. He has prostate cancer and receives oral chemotherapy medication every 6 months. [facility] Medical History History of atherosclerosis Chronic kidney disease Polyneuropathy Essential hypertension Diabetes mellitus, type II Prostate CA Surgical History Hx of colonoscopy Hx of amputation History of amputation of lesser toe of left foot History of amputation of left great toe Family History Father Alcoholic Social History Household Members: Spouse Housing: House Do you presently have visiting nurse or other home services: No Alcohol intake: current Alcohol intake frequency: does not drink Patient Tobacco Use Status: Former Tobacco user Second Hand Smoke Exposure: No Advance Directives Date on File: 04/29/23 service: No Current occupational status: retired 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 Sutures removed and Steri-Strips applied Can bring his fingers close to a fist and back into extension. He does have some stiffness in the PIP joints. Dense numbness in all digits . With some bilateral intrinsic wasting He cannot finger cross bilaterally Cap refill is brisk Nerve Conduction Study: Severe bilateral Carpal tunnel syndrome Moderate bilateral Cubital tunnel syndrome 06/24/22 Dr. Juarez Psych Appearance: grossly normal Affect: normal affect Attitude: cooperative Assessment & Plan Assessment & Plan (1) Carpal tunnel syndrome on both sides: Code(s): G56.03 - Carpal tunnel syndrome, bilateral upper limbs Category: Medical (2) Cubital tunnel syndrome, bilateral: Code(s): G56.23 - Lesion of ulnar nerve, bilateral upper limbs Category: Medical (3) Dupuytren's contracture of right hand: Code(s): M72.0 - Palmar fascial fibromatosis [Dupuytren] Category: Medical Plan Assessment & Plan: 1. Left Carpal tunnel syndrome, status post release 2. Left Cubital tunnel syndrome, status post release Date of surgery 02/28/2024 Pre-operatively with dense numbness to all digits & some Intrinsic wasting Still with dense numbness, but significant improvement in overall comfort at nighttime symptoms. The patient appears to be doing well post-operatively I educated him about the post-operative course I explained the signs and symptoms of infection, if the patient develops any new or worsening erythema, drainage, pain, or warmth they should contact the clinic or attend the ED. I discussed activity modifications, he is to lift nothing heavier than a cellphone for the next two weeks He will perform gentle ROM exercises at home He should avoid any underwater activities for the next 5 days He should gently massage about the incision site to reduce the risk of hypersensitivity He can follow up prn 3. Right Carpal tunnel syndrome, severe 4. Right Cubital tunnel syndrome, moderate With dense numbness to all digits & some Intrinsic wasting 5. Left ring finger trigger finger, S/P release & excision of palmar Dupuytren's cord in line with the ring finger DOS: 05/07/22 Resolved 6. Right ring finger trigger finger, S/P injection Date of Injection 04/14/22 Resolved 7. Right small finger Dupuytrens contracture, 40 MCP/0 PIP No intervention warranted at this time Scribed for Malina German MD by Davion Prescott medical claims representative, on 03/14/24 at 3:05 PM, EST. Scribe Plan - Not visible on output: Scribed for Malina German MD by Davion Prescott medical claims representative, on [ ] at [ ], EST. Coding Level of Care Code Global (45837) Diagnoses Carpal tunnel syndrome on both sides G56.03 Cubital tunnel syndrome, bilateral G56.23 Dupuytren's contracture of right hand M72.0
== END 2024-03-14 15:15 | disposition home or self-care (01) ==
PROVIDERS: Visit Provider Orthopaedic Surgery
DX: G56.03 Carpal tunnel syndrome, bilateral upper limbs (principal); G56.23 Lesion of ulnar nerve, bilateral upper limbs; M72.0 Palmar fascial fibromatosis [Dupuytren]
CPT/HCPCS: 99024

== ENCOUNTER 2024-03-15 09:06 | Outpatient (REF) | payer OTHER, SELFPAY ==
[2024-03-15 11:50] LABS: Cholesterol 126 mg/dL (<200); HDL Cholesterol 36 mg/dL (>40); LDL Cholesterol Calculated 63 mg/dL (<100); Triglycerides 139 mg/dL (<150)
== END 2024-03-15 09:07 | disposition home or self-care (01) ==
LOC: HO.HHCL 09:06
PROVIDERS: Visit Provider Internal Medicine Geriatric Medicine
DX: Z13.89 Encounter for screening for other disorder (principal)
CPT/HCPCS: 36415; 80061

== ENCOUNTER 2024-03-15 14:05 | Outpatient (REF) | payer OTHER, SELFPAY ==
[2024-03-15 14:13] LABS: Appearance Urine Clear; Color Urine Yellow; Glucose Urine UA Negative (Negative); Leukocyte Esterase Urine Negative (Negative); Nitrite Urine Negative (Negative); PH 6.5 (5.0-9.0); UMIC TRIGGER UA YES; Urine Blood Negative (Negative); Urine Ketones Negative (Negative); Urine Protein 30 (1+) mg/dL (Neg-Trace)
[2024-03-15 14:20] LABS: Bacteria Urine None Seen (None Seen); Hyaline Casts Urine 0-2 /LPF (0-2); RBC Urine 0-2 /HPF (0-2); Squamous Epithelial Cell Urine 0-2 /HPF (0-2); WBC Urine 0-5 /HPF (0-5)
[2024-03-15 14:54] LABS: Creatinine Urine 40.87 mg/dL; Microalbum/Creatinine Ratio Ur 601.9 ug/mg cr (<30); Protein/Creatinine Ratio, Ur 0.98 (<0.2); Total Protein Urine Random 40 mg/dL (<12)
== END 2024-03-15 14:06 | disposition home or self-care (01) ==
LOC: HO.LAB 14:05
PROVIDERS: Visit Provider Physician Assistant
DX: E11.22 Type 2 diabetes mellitus with diabetic chronic kidney disease (principal); N18.31 Chronic kidney disease, stage 3a
CPT/HCPCS: 36415; 80061; 81001; 82043; 82570; 84156

== ENCOUNTER 2025-03-26 13:12 | Inpatient (IN) | payer MEDICARE, MEDICAID, SELFPAY ==
[2025-03-26] VITALS (7 sets, daily range): BP systolic 155–206; BP diastolic 60–90; PULSE 63–66; RESP 13–20; TEMP 36.7–36.9; O2SAT 94–99; BMI 23.6; BMI 24.3
--- NOTE | ~2025-03-26 | XR_ITS ---
EXAMINATION: XR FOOT 3 OR MORE VIEWS LEFT HISTORY: gangrenous toes COMPARISON: There are no prior studies available for comparison. FINDINGS: Three views of the left foot are submitted. The bones are osteopenic. The patient is status post amputation of the great toe at the level of the base of the proximal phalanx. There is an erosion involving the lateral aspect of the head of the 5th metatarsal. There may also be focal demineralization of the proximal phalanx of the 5th toe. Osteomyelitis is not excluded. There is no fracture or dislocation. 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 There are vascular calcifications. XR/XR foot LT min 3V IMPRESSION: Erosion involving the lateral aspect of the head of the 5th metatarsal. Focal demineralization of the proximal phalanx of the 5th toe. Osteomyelitis is not excluded. Further evaluation with MRI is suggested. Electronically signed by: Rambo Silva MD 03/26/2025 02:06 PM EDT
--- NOTE | ~2025-03-26 | US_ITS ---
CLINICAL HISTORY: Nonhealing foot ulcer --- Additional Notes or Special Instructions: Please do bilateral art US with limited RY. If indicated Arterial duplex ultrasound bilateral lower extremity Comparison: None provided Findings: Continuous, pulsatile flow with normal waveforms from common femoral through the posterior tibial and dorsalis pedis arteries. Increased peak systolic velocity within the right posterior tibial artery measuring 238 cm/sec as well as decreased ankle brachial index of 0.47 concerning for hemodynamically significant stenosis. Remainder of the peak systolic velocities and ankle-brachial indices are normal bilaterally. Questionable bypass graft seen at left common femoral artery to distal femoral artery which is difficult to follow however, appears to be patent. 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 Questionable bypass graft left common femoral artery to distal superficial femoral artery which appears to be patent. This document has been electronically signed by: Jeramy Roland MD on 03/27/2025 21:46:41
--- NOTE | 2025-03-26 13:31 | ED.GENADULT ---
HPI - General Adult General Chief complaint: Extremity Injury, Lower Stated complaint: gangrene toes, weakness Time Seen by Provider: 03/26/25 14:05 History of Present Illness ED Provider: SALVADOR Riley HPI narrative: 79 year old Malay-speaking male who is accompanied by his daughter with medical history of insulin-dependent T2DM, CKD, HTN, neuropathy, amputation of left great toe (2019), presents to the ED due to persistent pain of the 5th metatarsal on the left foot. Patient has been living in [place] since May of 2024, and returned to [place] yesterday for medical treatment. Patient states he has been in and out of the hospital since February in [place] due to an ulcer that developed on the bottom of the right foot that progressed into an ulcer of the 5th metatarsal. The daughter states the patient was being treated for dry gangrene, they were unhappy with his medical care in [place] so brought him back here for treatment. MD complaint: ulceration of L 5th metatarsal Related Data Home Medications ?Medication ?Instructions ?Recorded ?Confirmed gabapentin 300 mg capsule 300 mg PO TID Pain 03/04/22 03/26/25 metoprolol tartrate 100 mg tablet 1 tab PO BID 03/04/22 03/26/25 pen needle, diabetic 31 gauge x 03/04/22 01/28/2410/01 (Sure Comfort Pen Needle) tamsulosin 0.4 mg capsule 1 cap PO DAILY 03/04/22 03/26/25 aspirin 81 mg chewable tablet 81 mg PO BEDTIME 04/29/23 03/26/25 atorvastatin 40 mg tablet 80 mg PO BEDTIME 04/29/23 03/26/25 insulin aspart U-100 100 unit/mL 6 unit subcut TIDAC 10/29/23 03/26/25 (3 mL) subcutaneous pen (Novolog FlexPen U-100 Insulin aspart) rivaroxaban 2.5 mg tablet (Xarelto) 2.5 mg PO BID 10/29/23 03/26/25 hydralazine 50 mg tablet 100 mg PO BID 02/23/24 03/26/25 insulin glargine 100 unit/mL 14 unit subcut BEDTIME 05/02/24 03/26/25 subcutaneous solution (Lantus U-100 Insulin) abiraterone 250 mg tablet 1,000 mg PO DAILY 03/26/25 03/26/25 doxazosin 8 mg tablet 8 mg PO BID 03/26/25 03/26/25 furosemide 20 mg tablet (Lasix) 20 mg PO Q48H 03/26/25 03/26/25 leuprolide acetate (6 month) 45 mg 45 mg subcut [id number] 03/26/25 03/26/25 (6 month) subcutaneous syringe (Eligard) losartan 25 mg tablet 25 mg PO DAILY 03/26/25 03/26/25 prednisone 5 mg tablet 5 mg PO DAILY 03/26/25 03/26/25 sertraline 25 mg tablet 25 mg PO DAILY 03/26/25 03/26/25 Allergies Allergy/AdvReac Type Severity Reaction Status Date / Time No Known Allergies Allergy Verified 03/26/25 13:32 Review of Systems Review of Systems: CONST: Negative for fever, body aches and chills. HENT: Negative for neck pain/stiffness, headache, congestion, sore throat, swelling. EYES: Negative for discharge/pain or vision changes. RESP: Negative for cough/hemoptysis and shortness of breath. CV: Negative chest pain, difficulty breathing, palpitations. ABD: Negative pain, nausea, vomiting. : Negative increase frequency, dysuria, blood in urine or stool. MUSC: Negative for muscle aches, edema. SKIN: Negative rash, lesions/sores. POS ulcer of L 5th toe NEURO: Negative headache, dizziness, weakness. Yes all other systems are reviewed and are negative PMFSH Past Medical History Medical History (Updated 03/26/25 @ 17:13 by Bibi Thurman NP) Dry gangrene History of atherosclerosis Chronic kidney disease Polyneuropathy Essential hypertension Diabetes mellitus, type II Prostate CA Surgical History (Updated 03/26/25 @ 16:53 by Bibi Thurman NP) S/P vascular bypass Hx of colonoscopy Hx of amputation History of amputation of lesser toe of left foot History of amputation of left great toe Family History Family History Father Alcoholic Social History Social History Household Members: Spouse Housing: House Do you presently have visiting nurse or other home services: No Unable to assess alcohol history related to: Unknown Alcohol intake: former Patient Tobacco Use Status: Former Tobacco user Smoked in Last 30 Days: No Second Hand Smoke Exposure: No Use of substances other than those prescribed or required for medical reasons: No Advance Directives: Yes Advance Directives on File: Yes Advance Directives Date on File: 04/29/23 service: No Current occupational status: retired 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 HEENT: ?[place], AT. MMM. EOMI, clear conjunctiva, oropharynx clear. NECK: ?Supple without lymphadenopathy.? No stiffness or restricted ROM. HEART:? Normal rate and regular rhythm, normal S1/S2, no m/r/g LUNGS:? CTAB, moving air well. No crackles or wheezes are heard. ABDOMEN: ?Soft, nontender, nondistended with good bowel sounds heard. BACK: No CVAT, no obvious deformity. EXTREMITIES: ?Without cyanosis, clubbing or edema. R 5th metatarsal is black, without exudates or drainage, faint DP pulses B/L. See photos NEUROLOGICAL: ?Grossly nonfocal. Alert and oriented, moving all 4 extremities. Skin: ?Warm and dry without any rash. Course Course Course Narrative: Rapid medical examination performed in triage by Angelica Cerna PA-C. Patient is an 79 year old assigned male at presenting to the emergency department with left foot pain and toes. Patient's family states that the patient is here from [place] to live and has worsening toes that are nearly hanging off from infection. Detailed physical exam and review of systems are deferred to the manager intermediate. Labs and imaging ordered. Patient placed back in the waiting room pending room availability and results. Medications Administered Generic Name Dose Route Start Last Admin Trade Name Freq PRN Reason Stop Dose Admin Sodium Chloride 3 ml 03/26/25 16:00 03/26/25 17:10 0.9 % Sodium Chloride Flush 3 Ml Syringe IVFLUSH Not Given QSHIFT TRIP Discontinued Medications Generic Name Dose Route Start Last Admin Trade Name Freq PRN Reason Stop Dose Admin Hydralazine HCl 5 mg 03/26/25 16:49 03/26/25 17:05 Hydralazine Hcl 20 Mg/Ml Vial IVPUSH 03/26/25 16:50 5 mg ONCE ONE Administration Protocol Sodium Chloride 1,000 mls @ 999 mls/hr 03/26/25 14:50 03/26/25 17:09 Ns IV 03/26/25 15:50 Infused .Q1H1M ONE Infusion Cefepime HCl 2 gm in 50 mls @ 100 mls/hr 03/26/25 15:19 03/26/25 17:09 Maxipime IV 03/26/25 15:48 Infused ONCE ONE Infusion Vancomycin HCl 1,500 mg/ 500 mls @ 333.333 mls/hr 03/26/25 15:30 03/26/25 17:05 Sodium Chloride IV 03/26/25 16:59 333.33 mls/hr ONCE ONE Administration Medical Decision Making Medical Decision Making MDM Narrative: Shaquille Caicedo ED bed 7, 79 year old male with medical history of insulin-dependent T2DM, CKD, HTN, neuropathy, amputation of left great toe (2018) presents to the ED due to persistent pain of the 5th metatarsal on the left foot. Patient has been living in [place] since May of 2024. Patient returned to [place] yesterday due to ulceration on the left foot. Patient states he has been in and out of the hospital since February due to this ulcerations that keeps growing on the left foot. The daughter states the patient had dry gangrene they were unhappy with his medical care in [place] so brought him back here for treatment. VS on initial observation-BP 155/70, pulse rate of 63, respiratory rate of 16, afebrile with oral temp of 98.1?, O2 saturation 98% on room air. Physical exam of extremities reveals a surgically absent 1st metatarsal on the left side, with a necrotic 5th metatarsal, DP pulses are faint bilaterally Plan: labs, XR L foot Course 15:18- Labs without leukocytosis/leukopenia, H&H stable however mildly decreased with a hemoglobin of 9.3 and hematocrit of 28.7, creatinine elevated at 1.42, random serum glucose of 247 XR L foot reveals erosion involving the lateral aspect of the head of the 5th metatarsal, with focal demineralization of the proximal phalanx of the 5th toe, osteomyelitis is not excluded and further evaluation of MRSA suggested. At 3:18 p.m. on 03/26/2025 I suspected infection and medicated patient with IV fluids, weight based vancomycin, and 2 g of cefepime to cover for osteomyelitis. The patient does not meet sepsis criteria at this time. I reached out to hospitalist SALVADOR Soto who will admit patient to medicine for further evaluation of the 5th metatarsal with MRI. Differential Diagnosis Differential Diagnoses: The differential diagnosis associated with the presentation includes Necrotizing fasciitis Abscess Osteomyelitis Gangrene Admission/Observation Consideration of admission/observation: Escalation of care including admission/observation considered Consult Healthcare Provider Management of the patient was discussed with: Hospitalist (SALVADOR Soto) Lab Data MDM Lab Attestation statement: I reviewed the patient's lab results. 03/26/25 14:11 03/26/25 14:12 Labs: Lab Results 03/26/25 03/26/25 03/26/25 Range/Units 14:11 14:12 15:02 WBC 7.0 (4.8-10.8) X10*3/uL RBC 3.50 L (4.60-5.80) X10*6/uL Hgb 9.3 L (14.0-18.0) g/dl Hct 28.7 L (42.0-52.0) % MCV 82.0 (80.0-98.0) fL MCH 26.6 L (27.0-33.0) pg MCHC 32.4 (31.0-36.0) g/dl RDW 15.4 (11.0-16.0) % Plt Count 205 (160-400) X10*3/uL MPV 9.9 (9.4-12.4) fL Immature Gran % (Auto) 0.1 (0.0-0.4) % Neut % (Auto) 80.9 H (45-73) % Lymph % (Auto) 9.7 L (20-40) % [place] % (Auto) 6.0 (2-11) % Eos % (Auto) 2.9 (0-4) % Baso % (Auto) 0.4 (0-2) % Lymph # (Auto) 0.7 L (1.2-4.9) X10*3/uL [place] # (Auto) 0.4 (0.1-1.2) X10*3/uL Eos # (Auto) 0.2 (0.0-0.4) X10*3/uL Baso # (Auto) 0.0 (0.0-0.2) X10*3/uL Abs Immat Gran (auto) 0.01 (0.00-0.03) X10*3/uL Absolute Neuts (auto) 5.6 (2.0-8.3) x10*3/uL Absolute Nucleated RBC 0.000 (0.0-0.012) X10*3/uL Nucleated RBC % (auto) 0.0 (0.0-0.2) /100WBC ESR 53 H (0-15) MM/HR Sodium 139 (135-145) mmol/L Potassium 4.8 (3.3-5.1) mmol/L Chloride 106 (96-108) mmol/L Carbon Dioxide 27 (22-29) mmol/L Anion Gap 11 L (12-20) BUN 24 H (9-16) mg/dL Creatinine 1.42 H (0.5-1.4) mg/dL Estim Creat Clear Calc 39.4 Estimated GFR 48 Random Glucose 247 H (60-115) mg/dL Lactic Acid 1.5 (0.5-2.0) mmol/L Calcium 9.3 D (8.4-10.2) mg/dL Total Bilirubin 0.3 (0.0-1.0) mg/dL AST 13 (5-37) U/L ALT 7 (0-40) U/L Alkaline Phosphatase 76 (39-117) U/L C-Reactive Protein 0.22 (< or = 0.50) mg/dL Total Protein 6.8 (6.5-8.0) g/dL Albumin 3.7 (3.5-5.0) g/dL Independent Interpretation I performed an independent interpretation of an: Plain X-Ray Interpretation: I independently interpreted the x-ray of the left foot which shows demineralization of the 5th metatarsal possible osteomyelitis, I agree with the radiologist's interpretation Radiology Impression Discussion of test interpretation with radiology: I have reviewed the radiologist's reading. Radiologist Impression: XR L foot FINDINGS: Three views of the left foot are submitted. The bones are osteopenic. The patient is status post amputation of the great toe at the level of the base of the proximal phalanx. There is an erosion involving the lateral aspect of the head of the 5th metatarsal. There may also be focal demineralization of the proximal phalanx of the 5th toe. Osteomyelitis is not excluded. There is no fracture or dislocation. 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 There are vascular calcifications. XR/XR foot LT min 3V IMPRESSION: Erosion involving the lateral aspect of the head of the 5th metatarsal. Focal demineralization of the proximal phalanx of the 5th toe. Osteomyelitis is not excluded. Further evaluation with MRI is suggested. Electronically signed by: Rambo Silva MD 03/26/2025 02:06 PM EDT Dictated By: Rambo Silva MD Signed By: <Electronically signed by Rambo Silva MD in OV> 03/26/25 1406 Independent Historian Clinical information obtained from an independent historian. History obtained from or confirmed by: Other (Two daughters at bedside corroborating history) External Record Review External record reviewed: Inpatient record, Office record and Outpatient record Chronic Conditions Patient?s care impacted by: Diabetes and Hypertension Discharge Plan Discharge Clinical Impression: Ulcer of toe Patient Disposition: Admitted As Inpatient
[2025-03-26 14:18] LABS: MANUAL DIFF FLAG NO
[2025-03-26 14:20] LABS: Hematocrit 28.7 % (42.0-52.0); Hemoglobin 9.3 g/dl (14.0-18.0); Imm Gran Abs Auto 0.01 X10*3/uL (0.00-0.03); Imm Gran Pct Auto 0.1 % (0.0-0.4); Lymphocytes Absolute Auto 0.7 X10*3/uL (1.2-4.9); Mean Corpuscular HGB Conc 32.4 g/dl (31.0-36.0); Mean Corpuscular Hemoglobin 26.6 pg (27.0-33.0); Mean Corpuscular Volume 82.0 fL (80.0-98.0); NRBC Abs Auto 0.000 X10*3/uL (0.0-0.012); NRBC Pct Auto 0.0 /100WBC (0.0-0.2); Platelet Count 205 X10*3/uL (160-400); Red Blood Count 3.50 X10*6/uL (4.60-5.80); White Blood Count 7.0 X10*3/uL (4.8-10.8)
[2025-03-26 14:38] LABS: Alanine Aminotransferase 7 U/L (0-40); Albumin Level 3.7 g/dL (3.5-5.0); Alkaline Phosphatase 76 U/L (39-117); Anion Gap 11 (12-20); Aspartate Amino Transferase 13 U/L (5-37); Blood Urea Nitrogen 24 mg/dL (9-16); Calcium 9.3 mg/dL (8.4-10.2); Carbon Dioxide 27 mmol/L (22-29); Chloride 106 mmol/L (96-108); Creatinine Clr Calc Pharmacy 39.4; Estimated Glomerular Filt Rate 48; Potassium 4.8 mmol/L (3.3-5.1); Sodium 139 mmol/L (135-145); Total Protein 6.8 g/dL (6.5-8.0)
--- NOTE | 2025-03-26 15:18 | PC.NURSE ---
Dressing taken down from R foot; surgically removed great toe noted and 5th toe blackened; pt reports 5/10 pain to the foot; declines pain meds at this time; pt's BP >200 systolic; family states this is normal for him ; pt A+Ox3, afebrile at this time; IVF's and antibiotics begun per orders; pt to be admitted
[2025-03-26] MEDS: cefEPime HCl/D5W 2 GM/50 ML PIGGYBACK IV (16:08)
--- NOTE | 2025-03-26 16:44 | PHA.MEDREC ---
Addendum entered by Paulina Forrest [facility] 03/26/25 17:01: Reviewed by [facility] Addendum entered by Savannah Swanson 03/26/25 16:50: Daughter confirmed Lantus 14 units at bedtime and Novolog Flex pen 6 units TID. Original Note: Pharmacy Consult ? Medication Reconciliation Pharmacy has completed the medication reconciliation. Spoke to patients daughter at bedside to confirm med list. Daughter had a list of patient medications with her. daughter state patient has been in [place] and fill his medications there. Daughter confirm patient is on Chemo medications Abiraterone 1,000mg (4x 250 mg) every morning to be taken with Prednisone 5 mg 2 hours after breakfast and Eligord every 6 months , last dose was in December or January 2025. Patient had all his morning medications to day.
--- NOTE | 2025-03-26 16:46 | P.HPHOSP_ITS ---
History of Present Illness Date of Service: 03/26/25 Chief Complaint: Foot wound 79-year-old Korean-speaking male presenting to the ER with complaints of worsening left foot ulcer. Patient has a history of peripheral vascular disease with recent bypass to left lower extremity about 1 month ago in [place]. Patient has had a wound to the left foot where it has been debrided and cleaned up but now appears to be gangrenous, dry most injury to small toe to left foot. Patient denies pain, fever, nausea, vomiting, diarrhea. His daughter brought him from [place] because she did not agree with the health care in [place]. Patient lives alone in [place] also an reports that he is independent. Foot x-ray in the ER showing erosion involving the lateral aspect of the head of the 5th metatarsal with demineralization of the proximal phalanx of the 5th toe, osteomyelitis not excluded., creatinine 1.42, glucose 2 for 7 and daughter also reports that his blood sugar and blood pressure are extremely out of control. Daughter reports that his systolic blood pressures can run in the 200s. He was started on cefepime in the ER was given 1 L of IV fluid. Plan will be to admit patient for further management and treatment of dry gangrene to left lower extremity. Review of Systems 2 Review of Systems: Denies any recent fever chills or decrease in appetite respiratory denies any shortness of breath or cough cardiovascular denies chest pain gastrointestinal denies any dysphagia abdominal pain nausea vomiting or diarrhea genitourinary denies any dysuria frequency or hematuria musculoskeletal denies any joint pain or swelling neuropsych denies any weakness or seizures all other systems reviewed are negative [facility] Medical History (Updated 03/26/25 @ 17:13 by Bibi Thurman NP) Dry gangrene History of atherosclerosis Chronic kidney disease Polyneuropathy Essential hypertension Diabetes mellitus, type II Prostate CA Family History Father Alcoholic Surgical History (Updated 03/26/25 @ 16:53 by Bibi Thurman NP) S/P vascular bypass Hx of colonoscopy Hx of amputation History of amputation of lesser toe of left foot History of amputation of left great toe Social History Household Members: Spouse Housing: House Do you presently have visiting nurse or other home services: No Unable to assess alcohol history related to: Unknown Alcohol intake: former Patient Tobacco Use Status: Former Tobacco user Smoked in Last 30 Days: No Second Hand Smoke Exposure: No Use of substances other than those prescribed or required for medical reasons: No Advance Directives: Yes Advance Directives on File: Yes Advance Directives Date on File: 04/29/23 service: No Current occupational status: retired 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 Meds Allergies Allergy/AdvReac Type Severity Reaction Status Date / Time No Known Allergies Allergy Verified 03/26/25 13:32 Active Medications: Current Medications Acetaminophen (Acetaminophen 325 Mg Tablet) 650 mg PO Q6H PRN PRN Reason: Pain, Mild 1-3,fever,headache Calcium Carbonate (Calcium Carbonate 750 Mg Tab.Chew) 750 mg PO Q4H PRN PRN Reason: Heartburn Vancomycin HCl 1,500 mg/ (Sodium Chloride) 500 mls @ 333.333 mls/hr IV ONCE ONE Stop: 03/26/25 16:59 Magnesium Hydroxide (Milk Of Magnesia 30 Ml Oral.Susp) 30 ml PO DAILY PRN PRN Reason: Constipation Melatonin (Melatonin 3 Mg Tablet) 6 mg PO BEDTIME PRN PRN Reason: Insomnia Ondansetron HCl (Ondansetron Hcl 4 Mg/2 Ml Vial) 4 mg IVPUSH Q8H PRN PRN Reason: Nausea and Vomiting Sodium Chloride (0.9 % Sodium Chloride Flush 3 Ml Syringe) 3 [facility] Medications ?Medication ?Instructions ?Recorded ?Confirmed ?Last Taken ?Type gabapentin 300 mg capsule 300 mg PO TID Pain 03/04/22 03/26/25 03/26/25 History metoprolol tartrate 100 mg tablet 1 tab PO BID 2 03/26/25 03/26/25 History pen needle, diabetic 31 gauge x 03/04/22 01/28/24 Unk nown History 10/01 (Sure Comfort Pen Needle) tamsulosin 0.4 mg capsule 1 cap PO DAILY 03/04/2203/1203/26/25 History aspirin 81 mg chewable tablet 81 mg PO BEDTIME 3 03/26/25 03/25/25 History atorvastatin 40 mg tablet 80 mg PO BEDTIME 04/29/2303/25/25 History insulin aspart U-100 100 unit/mL 6 unit subcut TIDAC 0 10/29/23 03/26/25 03/26/25 History (3 mL) subcutaneous pen (Novolog FlexPen U-100 Insulin aspart) rivaroxaban 2.5 mg tablet (Xarelto) 2.5 mg PO BID 10/1703/26/25 03/26/25 History hydralazine 50 mg tablet 100 mg PO BID 02/23/2403/2603/26/25 History insulin glargine 100 unit/mL 14 unit subcut BEDTIME 03/26/25 03/25/25 History subcutaneous solution (Lantus U-100 Insulin) abiraterone 250 mg tablet 1,000 mg PO DAILY 03/26/25 0 03/26/25 03/26/25 History doxazosin 8 mg tablet 8 mg PO BID 03/26/25 5 03/26/25 History furosemide 20 mg tablet (Lasix) 20 mg PO Q48H 03/26/25 03/26/25 03/26/25 History leuprolide acetate (6 month) 45 mg 45 mg subcut Q6MONT HS 03/26/25 03/26/25 Unknown History (6 month) subcutaneous syringe (Eligard) losartan 25 mg tablet 25 mg PO DAILY 03/26/2503/1203/26/25 History prednisone 5 mg tablet 5 mg PO DAILY 03/26/2503/2603/26/25 History sertraline 25 mg tablet 25 mg PO DAILY 03/26/2503/1203/26/25 History Physical Exam 2 Vital Signs and Narrative: Vital Signs: Last Vital Signs Temp 98.0 F 03/26/25 14:12 Pulse 63 03/26/25 14:12 Resp 15 03/26/25 14:12 BP 206/90 H 03/26/25 14:12 Pulse Ox 99 03/26/25 14:12 O2 Del Method Room Air 03/26/25 14:12 BMI result Body Mass Index 23.6 Appearing in no acute distress head is normocephalic atraumatic eyes pupils are PERRLA sclera is anicteric mouth throat mucous membranes are intact and moist neck is supple no lymphadenopathy, no JVD noted lung sounds are clear to auscultation heart regular rate rhythm, clear S1, S2 positive bowel sounds, abdomen is soft, nontender neuro patient is alert x3, no focal deficits Dry gangrene to left lateral area of left foot and 5th toe Results Labs 03/26/25 14:11 03/26/25 14:12 Labs: Laboratory Results - last 24 hr 03/26/25 03/26/25 03/26/25 14:11 14:12 15:02 MCV 82.0 MCH 26.6 L MCHC 32.4 RDW 15.4 Plt Count 205 MPV 9.9 Immature Gran % (Auto) 0.1 Neut % (Auto) 80.9 H Lymph % (Auto) 9.7 L [place] % (Auto) 6.0 Eos % (Auto) 2.9 Baso % (Auto) 0.4 Lymph # (Auto) 0.7 L [place] # (Auto) 0.4 Eos # (Auto) 0.2 Baso # (Auto) 0.0 Abs Immat Gran (auto) 0.01 Absolute Neuts (auto) 5.6 Absolute Nucleated RBC 0.000 Nucleated RBC % (auto) 0.0 ESR 53 H Anion Gap 11 L Estim Creat Clear Calc 39.4 Estimated GFR 48 Random Glucose 247 H Lactic Acid 1.5 Calcium 9.3 D Total Bilirubin 0.3 AST 13 ALT 7 Alkaline Phosphatase 76 C-Reactive Protein 0.22 Total Protein 6.8 Albumin 3.7 Imaging Radiologist's Impressions: Impressions Foot X-Ray 03/26/25 13:48 IMPRESSION: Erosion involving the lateral aspect of the head of the 5th metatarsal. Focal demineralization of the proximal phalanx of the 5th toe. Osteomyelitis is not excluded. Further evaluation with MRI is suggested. Electronically signed by: Rambo Silva MD 03/26/2025 02:06 PM EDT Assessment and Plan (1) Dry gangrene: Status: Acute Plan 79-year-old man admitted for dry gangrene to left lateral foot including 5th toe Dry gangrene with probable osteomyelitis Vancomycin for now Looks like amputation will be needed Vascular surgery consult Pain management Uncontrolled hypertension Patient on furosemide, hydralazine 100 mg b.i.d. losartan 25 mg daily, metoprolol 1 tab b.i.d. We will adjust medications for better blood pressure control Diabetes mellitus type 2, uncontrolled Sliding scale, ADA diet Check A1c in the morning Lantus 14 units at bedtime Peripheral vascular disease Recent bypass graft to left lower extremity On aspirin and Xarelto, we will hold for now in light of possible surgical procedure History of prostate cancer Hold Eligard for now DVT prophylaxis with pneumatic compression boots in light of possible surgical procedure Full code Quality Stroke Does the patient have a stroke diagnosis?: No VTE Prior VTE?: No VTE Risk Level:: Medical - moderate - high VTE Device Contraindication: N/A - Device Ordered VTE Drug Contraindication: Treatment Not Indicated
--- OUTSIDE RECORDS SUMMARY | 2025-03-26 16:54 | XMS_ITS | Encounter Summary ---
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 Name Role Phone Unavailable Primary Care Provider Unavailabl e Reason for Visit * Reason Onset Date Comments Durable Medical Equipment 11/19/2022 Encounter Details Date Type Department Care Team ([facility] st Contact Info) Description 11/19/2022 Telephone [facility] MEDICINE [address] [place] [address] Name, MD Renny [address] [place] [address] Durable Medical Equipment Social History Tobacco Use Types Packs/Day Years Used Date Smoking Tobacco: Never Smokeless Tobacco: Never Sex and Gender Information Value Date Recorded Sex Assigned at Male 05/18/2022 10:40 AM EDT Legal Sex Male 10:40 AM EDT Gender Identity Male 05/18/2022 10:40 AM EDT Sexual Orientation Straight 12/09/2022 1: 52 PM EDT documented as of this encounter Miscellaneous Notes * Telephone Encounter - Tali Sinha - 12/09/2022 12:14 PM EDT Tc from pts daughter Kasey regarding message below. Please contact daughter at [phone] * Telephone Encounter - Kelli Rhodes - 11/30/2022 2:36 PM EDT Script for diabetic socks generated for signature * Telephone Encounter - Raya Bird - 11/23/2022 8:28 AM EDT Tc from Myrna at [facility] requesting a new script for diabetic socks. * Telephone Encounter - Kelli Rhodes - 11/20/2022 9:37 AM EDT Script for toe filler generated for providers signature * Telephone Encounter - Lisa Presley - 11/19/2022 3:54 PM EDT Tc from rashid from [facility] requesting a toe filler . documented in this encounter Plan of Treatment Not on file documented as of this encounter Visit Diagnoses Not on filedocumented in this encounter
--- OUTSIDE RECORDS SUMMARY | 2025-03-26 16:54 | XMS_ITS | Encounter Summary ---
Author Organization [employer] Address [address] [facility] [address] [place] [address] Care Team Providers Care Epic Cadence Specialists Name Role Phone Unavailable Primary Care Provider Unavailabl e Encounter Details Date Type Department Care Team ([facility] st Contact Info) Description 08/11/2023 Abstract [facility] MEDICINE [address] [place] [address] Name, MD Renny [address] [place] [address] Social History Tobacco Use Types Packs/Day Years Used Date Smoking Tobacco: Never Smokeless Tobacco: Never Alcohol Use Standard Drinks/Week Comments Never 0 (1 standard drink = 0.6 oz pur e alcohol) Depression Answer Date Recorded Patient Health Questionnaire-9 Score 0 12/16/2022 Housing Stability Answer Date Recorded What is your housing situation today? I have antoniary herman 05/02/[address] you li ve. Do you have problems with any of the following? None of the above 05/02/2023 Food Insecurity Answer Date Recorded Within the past 12 months, y ou worried that your food would run out before you got money to buy more: Never True 05/02/2023 Within the past 12 months,th e food you bought just didn't last and you didn't have enough money to get more: Never True Transportation Answer Date Recorded In the past 12 months, has l ack of transportation kept you from medical appts, meetings, work or from getting things needed for daily living? No 05/02/2023 Utilities Answer Date Recorded In the past 12 months, has t he electric, gas, oil or water company threatened to shut off services in your home? No 05/02/2023 Depression Answer Date Recorded Patient Health Questionnaire-2 Score 0 12/16/2022 Sex and Gender Information Value Date Recorded Sex Assigned at Male 05/18/2022 10:40 AM EDT Legal Sex Male 10:40 AM EDT Gender Identity Male 05/18/2022 10:40 AM EDT Sexual Orientation Straight 12/09/2022 1: 52 PM EDT documented as of this encounter Plan of Treatment Not on file documented as of this encounter Visit Diagnoses Not on filedocumented in this encounter Additional Health Concerns Assessment Noted Time PHQ-9 Depression Total Score: 0 12/17/19 23 4:13 PM EDT documented as of this encounter
--- OUTSIDE RECORDS SUMMARY | 2025-03-26 16:54 | XMS_ITS | Encounter Summary ---
Author Organization [employer] Address [address] [facility] [address] [place] [address] Care Team Providers Care Rn Plasma Center Name Role Phone Unavailable Primary Care Provider Unavailabl e Reason for Visit * Reason Onset Date Comments Pre-op Exam 01/27/2024 Encounter Details Date Type Department Care Team ([facility] Contact Info) Description 01/27/2024 Telephone [facility] MEDICINE [address] [place] [address] Name, MD Renny [address] [place] [address] Pre-op Exam Social History Tobacco Use Types Packs/Day Years Used Date Smoking Tobacco: Never Smokeless Tobacco: Never Alcohol Use Standard Drinks/Week Comments Never 0 (1 standard drink = 0.6 oz pur e alcohol) Depression Answer Date Recorded Patient Health Questionnaire-9 Score 0 12/16/2022 Housing Stability Answer Date Recorded What is your housing situation today? I have antonia herman 05/02/[address] you [...] encounter Miscellaneous Notes * Telephone Encounter - Corinne Beaver RN - 01/28/2024 1:32 PM EDT Incoming TC from Oksana at [facility] requesting status update on pre-op paperwork, stated it needs to be sent by the end of today because surgery is on Wednesday. Notified provider. * Telephone Encounter - Shane Hirsch RN - 01/27/2024 3:26 PM EDT Noted. * Telephone Encounter - Pavan Mosher - 01/27/2024 1:35 PM EDT Agreed to pre-op on 01/28/24 with [facility] [place] Date of Surgery: 01/30 Surgical procedure being done: Carpel & cubical tunnel release Type of anesthesia: General Lab needed: yes EKG: yes Surgeon's name: Dr. Malina Weir Facility name: [facility]geon's office number: [phone] Surgeon's office fax number: [phone] Contact name (person you spoke with): Oksana Last office note from surgeon requested: Will be Faxed * Telephone Encounter - Brando Read - 01/27/2024 12:15 PM EDT Date of Surgery: 01/30 Surgical procedure being done: Carpel & cubical tunnel release Type of anesthesia: General Lab needed: yes EKG: yes Surgeon's name: Dr. Malina Weir Facility name: [facility] Surgeon's office number: [phone] Surgeon's office fax number: [phone] Contact name (person you spoke with): Oksana Last office note from surgeon requested: Will be Faxed documented in this encounter Plan of Treatment Not on file documented as of this encounter Goals Goal Patient Goal Type Associated Problems Recent Progress Patient-Stated? Author Record your blood pressure once per day Blood Pressure No Puia, Jory, PharmD Blood Pressure < 140/90 Blood Pressure 187/90(2023 11:14 AM EDT) No Puia, Jory, PharmD Hemoglobin A1c < 7.5 Result Component 7.1( 1:49 PM EDT) No Puia, Jory, PharmD Record your blood sugar as directed Result Component No Puia, Jory, PharmD documented as of this encounter Visit Diagnoses Not on filedocumented in this encounter Additional Health Concerns Assessment Noted Time PHQ-9 Depression Total Score: 0 12/17/19 23 4:13 PM EDT documented as of this encounter
--- OUTSIDE RECORDS SUMMARY | 2025-03-26 16:54 | XMS_ITS | Encounter Summary ---
Author Organization [employer] Address [address] [place] [address] [address] [place] [address] Care Team Providers Care Surgical Scheduler Name Role Phone Unavailable Primary Care Provider Unavailabl e Reason for Visit * Reason Comments Med Refill Encounter Details Date Type Department Care Team ([facility] st Contact Info) Description 02/09/2023 Refill [facility] MEDICINE [address] [place] [address] Name, MD Renny [address] [place] [address] Insomnia, unspecified type Social History Tobacco Use Types Packs/Day Years Used Date Smoking Tobacco: Never Smokeless Tobacco: Never Alcohol Use Standard Drinks/Week Comments Never 0 (1 standard drink = 0.6 oz pur e alcohol) Depression Answer Date Recorded Patient Health Questionnaire-9 Score 0 12/16/2022 Depression Answer Date Recorded Patient Health Questionnaire-2 [...] documented as of this encounter Visit Diagnoses Diagnosis Insomnia, unspecified type documented in this encounter Additional Health Concerns Assessment Noted Time PHQ-9 Depression Total Score: 0 12/17/19 4:13 PM EDT documented as of this encounter
--- OUTSIDE RECORDS SUMMARY | 2025-03-26 16:55 | XMS_ITS | Encounter Summary ---
Author Organization [employer] Address [address] [facility] 7 [place] [address] Care Team Providers Care Production Zone Leader Name Role Phone Unavailable Primary Care Provider Unavailabl e Reason for Visit * Reason Comments Med Refill Encounter Details Date Type Department Care Team ([facility] st Contact Info) Description 10/18/2024 Refill [facility] MEDICINE [address] [place] [address] Name, MD Renny [address] [place] [address] Social History Tobacco Use Types Packs/Day Years Used Date Smoking Tobacco: Never Smokeless Tobacco: Never Alcohol Use Standard Drinks/Week Comments Never 0 (1 standard drink = 0.6 oz pur e alcohol) Alcohol Answer Date Recorded Frequency of Alcohol Consumption Not on file 02/08/2024 Average Number of Drinks Not on file 024 Frequency of Binge Drinking Not on file 01/17 Score 0 02/08/2024 Depression Answer Date Recorded Patient Health Questionnaire-9 Score 19 02/08/2024 Patient Health Questionnaire-9 Score 19 02/08/2024 Last PHQ-9: Questionnaire Data Not on file 0 02/08/2024 Housing Stability Answer Date Recorded What is your housing situation today? I have antonia herman 02/08/[address] you li ve. Do you have problems with any of the following? None of the above 02/08/2024 Food Insecurity Answer Date Recorded Within the past 12 months, y ou worried that your food would run out before you got money to buy more: Never True 02/08/2024 Within the past 12 months,th e food you bought just didn't last and you didn't have enough money to get more: Never True Transportation Answer Date Recorded In the past 12 months, has l ack of transportation kept you from medical appts, meetings, work or from getting things needed for daily living? No 02/08/2024 Utilities Answer Date Recorded In the past 12 months, has t he electric, gas, oil or water company threatened to shut off services in your home? No 02/08/2024 Depression Answer Date Recorded Patient Health Questionnaire-2 Score 6 02/08/2024 Internet Access Answer Date Recorded Internet Access Q1 No 03/17/2024 Internet Access Q2 I do not want or need it 02/18 Sex and Gender Information Value Date Recorded [...] Assessment Noted Time PHQ-9 Depression Total Score: 19 024 1:07 PM EDT documented as of this encounter
--- OUTSIDE RECORDS SUMMARY | 2025-03-26 16:55 | XMS_ITS | Encounter Summary ---
Author Organization [employer] Address [address] [facility] 7 [place] [address] Care Team Providers Care Top Trimmer Name Role Phone Unavailable Primary Care Provider Unavailabl e Reason for Visit * Reason Comments Med Refill Encounter Details Date Type Department Care Team ([facility] st Contact Info) Description 10/16/2024 Refill [facility] MEDICINE [address] [place] [address] Name, MD Renny [address] [place] [address] Type 2 diabetes mellitus with other specified complication, with long-term current use of insulin ([facility]) Social History Tobacco Use Types Packs/Day Years [...] as of this encounter Visit Diagnoses Diagnosis Type 2 diabetes mellitus with other specified complication, with long-term current use of insulin ([facility]) documented in this encounter Additional Health Concerns Assessment Noted Time PHQ-9 Depression Total Score: 19 024 1:07 PM EDT documented as of this encounter
--- OUTSIDE RECORDS SUMMARY | 2025-03-26 16:55 | XMS_ITS | Encounter Summary ---
Author Organization [employer] Address [address] [facility] 7 [place] [address] Care Team Providers Care Independent Beauty Consultant Name Role Phone Unavailable Primary Care Provider Unavailabl e Reason for Visit * Reason Comments Med Refill Encounter Details Date Type Department Care Team ([facility] st Contact Info) Description 10/17/2024 Refill [facility] MEDICINE [address] [place] [address] Name, MD Renny [address] [place] [address] Type 2 diabetes mellitus with other specified complication, with long-term current use of insulin ([facility]) Social History Tobacco Use Types Packs/Day Years [...] Pressure 187/90(2023 11:14 AM EDT) No Puia, Joyr, PharmD Hemoglobin A1c < 7.5 Result Component 7.1( 1:49 PM EDT) No Puia, Jory, PharmD Record your blood sugar as directed Result Component No Puia, Jory, PharmD documented as of this encounter Visit Diagnoses Diagnosis Type 2 diabetes mellitus with other specified complication, with long-term current use of insulin ([facility]) documented in this encounter Additional Health Concerns Assessment Noted Time PHQ-9 Depression Total Score: 19 024 1:07 PM EDT documented as of this encounter
--- OUTSIDE RECORDS SUMMARY | 2025-03-26 16:55 | XMS_ITS | Encounter Summary ---
Author Organization [employer] Address [address] [facility] 7 [place] [address] Care Team Providers Care Central Supply Manager Name Role Phone Unavailable Primary Care Provider Unavailabl e Reason for Visit * Reason Onset Date Comments Results 05/04/2023 Encounter Details Date Type Department Care Team ([facility] Contact Info) Description 05/04/2023 Telephone [facility] MEDICINE [address] [place] [address] Name, MD Renny [address] [place] [address] Results Social History Tobacco Use Types Packs/Day Years [...] encounter Miscellaneous Notes * Telephone Encounter - Shane Hirsch RN - 05/07/2023 10:14 AM EDT T/C to pt. For below message, pt. Schedule for HDF on 05/17/2023. Pt.'s daughter verbally agreed and understood. Advised to go to nearest ED in case of any new or worsening symptoms. * Telephone Encounter - Sandee Lenz - 05/04/2023 9:59 AM EDT Tc from daughter requesting a call back on regards results on labs done on [facility] in 04/23/2023, 04/26/2023 & 04/29/2023. Belgian Speaker. documented in this encounter Plan of Treatment Not on file documented as of this encounter Visit Diagnoses Not on filedocumented in this encounter Additional Health Concerns Assessment Noted Time PHQ-9 Depression Total Score: 0 12/17/19 23 4:13 PM EDT documented as of this encounter
--- OUTSIDE RECORDS SUMMARY | 2025-03-26 16:55 | XMS_ITS | Clinical Summary ---
Author Organization [facility] Address [address] [address] Phone Care Team Providers Care Laceworker Name Role Phone Name, Renny SWAN Primary Care Provider [phone] Allergies No known active allergies Medications zolpidem (AMBIEN) 5 MG tablet Take 5 mg by mouth at night if needed 3 Active tamsulosin (FLOMAX) 0.4 MG 24 hr capsule TAKE 1 CAPSULE BY MOUTH EVERY MORNING 30 MINUTES AFTER BREAKFAST 3 Active predniSONE 5 MG tablet Take 5 mg by mouth 1 (one) time each day 3 Active omeprazole (PriLOSEC) [address] capsule TAKE 1 CAPSULE BY MOUTH EVERY MORNING 30 MINUTES BEFORE A MEAL 3 Active metoprolol tartrate (LOPRESSOR) 100 MG tablet TAKE 1 TABLET BY MOUTH TWICE DAILY IN THE MORNING AND IN THE EVENING WITH MEALS 3 Active metFORMIN (GLUCOPHAGE) 1000 MG tablet TAKE 1 TABLET BY MOUTH TWICE DAILY IN THE MORNING AND IN THE EVENING WITH MEALS 3 Active TRUEplus Lancets 33G misc TEST BLOOD SUGAR THREE TIMES DAILY 3 Active Lantus SoloStar 100 UNIT/ML injection 18 Units 3 Active gabapentin (NEURONTIN) 300 MG capsule TAKE 1 CAPSULE BY MOUTH THREE TIMES DAILY IN THE MORNING, AT NOON, AND AT BEDTIME 3 Active atorvastatin (LIPITOR) 40 MG tablet Take 40 mg by mouth at bed time 3 Active abiraterone (ZYTIGA) 250 MG chemo tablet 3 Active Trulicity 0.75 MG/0.5ML solution pen-injector INJECT ONE PEN (=0.75MG) SUBCUTANEOUSLY ONCE A WEEK DIRECTED 3 Active hydrALAZINE 25 MG tablet TAKE 2 TABLETS BY MOUTH TWICE DAILY IN THE MORNING AND EVENING 120 tablet 4 Active Rivaroxaban (Xarelto) 2.5 MG tablet Take by mouth Active Active Problems Problem Noted Date Diagnosed Date Proteinuria 05/18/2024 Stage 3a chronic kidney disease 11/05/2022 Cancer 09/17/2022 Chronic kidney disease 09/17/2022 Type 2 diabetes mellitus without complication Essential (primary) hypertension 09/17/2022 Stage 3b chronic kidney disease 09/17/2022 Type 2 diabetes mellitus wit h diabetic chronic kidney disease 09/17/2022 Polyneuropathy due to type 2 diabetes mellitus 1 09/07/2021 Peripheral vascular disease 07/07/2022 Imaging of gastrointestinal tract abnormal 07/07 Malignant neoplasm of prostate 02/27/2022 Bilateral acquired trigger finger of ring finger s 02/27/2022 History of amputation of left great toe 02/28/20 22 Encounters Date Type Department Care Team Description 02/21/2025 Telephone [facility] [address] [place] [address] [address] [place] [address] Esther Douglas MA from Last 3 Months Immunizations Immunization Administration Dates Next Due Influenza, Unspecified 04/23/2023,04/15/2022 Pneumococcal Conjugate Pcv 20 04/29/2022 Shingrix 12/15/2022,10/13/2022 Tdap 09/28/2022 Social History Tobacco Use Types Packs/Day Years Used Date Smoking Tobacco: Never Tobacco Cessation:Counseling Given: Not Answered Alcohol Use Standard Drinks/Week Comments Not Currently 0 (1 standard drink = 0.6 oz pur e alcohol) Sex and Gender Information Value Date Recorded Sex Assigned at Not on file Legal Sex Male 7:58 AM EST Gender Identity Not on file Sexual Orientation Not on file Last Filed Vital Signs Vital Sign Reading Time Taken Comments Blood Pressure 130/70 05/18/2024 1:12 PM EDT Pulse 60 05/18/2024 1:12 PM EDT Temperature - - Respiratory Rate - - Oxygen Saturation 98% 05/18/2024 1:12 PM EDT Inhaled Oxygen Concentration - - Weight 78.6 kg (173 lb 3.2 oz) 09/17/2022 1:52 P M EST Height 172.7 cm (5' 8 ) 09/17/2022 1:52 PM EST Body Mass Index 26.33 09/17/2022 1:52 PM EST Plan of Treatment Health Maintenance Due Date Last Done Comments Diabetes: Ophthalmology Exam 09/17/2022 Diabetes: Pedal Pulse Checked 09/17/2022 Diabetes: Sensory Foot Exam 09/17/2022 Diabetes: Visual Foot Exam 09/17/2022 Diabetes: Hemoglobin A1C 06/29/20242 024, 12/29/2023, 03/17/2023, Additional history exists Influenza Vaccine (#1) 2025 , 04/23/2023, 04/15/2022 Pneumococcal Vaccine: 50+ Years Completed 04/29/2022 Hepatitis B Vaccine Aged Out No longe r eligible based on patient's age to complete this topic Insurance Medicaid [place] Member Subscriber Plan / Payer (Ef fective 2024-Present) Name:Shaquille Rhodes Jr Relation to Subscriber:Self Name:Shaquille Rhodes Jr Payer ID:Not on file Group ID:Not on file Type:Not on file Address: [address] [place] [address] Care Teams Laceworker Relationship Specialty Start Date End Date Name, MD Renny [address] [place] [id number] PCP - General Internal Medicine 05/18/24
--- OUTSIDE RECORDS SUMMARY | 2025-03-26 16:55 | XMS_ITS | Clinical Summary ---
Author Organization [employer] Address [address] [facility] [address] [place] [address] Care Team Providers Care Search Engine Optimizer Name Role Phone Unavailable Primary Care Provider Unavailabl e Allergies No known active allergies Medications predniSONE (Deltasone) 5 MG tablet Take 1 tablet by mouth 1 (one) time each day. 2 Active omeprazole (PriLOSEC) [address] capsule Take 1 capsule by mouth before breakfast. 2 Active abiraterone (Zytiga) 250 MG chemo tablet Take 4 tablets by mouth 1 (one) time each day. Dose as per oncology 2 Active leuprolide, 1-month, (Eligard) 7.5 MG injection Administered by urology once every 6 months. Dose not specified in consult. Active Xarelto 2.5 MG tablet TAKE 1 TABLET BY MOUTH TWICE DAILY IN THE MORNING AND IN THE EVENING 3 Active Continuous Blood Gluc Digital Printer (FreeStyle Grace 2 [place]) device Use as directed 1 each 3 Active glucagon (Baqsimi One Pack) 3 MG/DOSE nasal powderIndicatio ns:Hypoglycemia Administer 3 mg into affected nostril(s) 1 (one) time if needed for low blood sugar. 1 each 1 3 Active triamcinolone (Kenalog) 0.1 % cream Apply topically at bedtime. Mix with CeraVe cream as directed and use after bath or shower. 80 g 2 3 Active Diclofenac Sodium 1 % gelIndications: Type 2 diabetes mellitus with other specified complication, with long-term current use of insulin ([facility]) APPLY 2 GRAMS TOPICALLY TO AFFECTED AREA(S) TWICE DAILY 100 g 3 4 Active TRUEplus Lancets 33G miscIndications :Insomnia, unspecified type TEST BLOOD SUGAR THREE TIMES DAILY 100 each 11 4 Active sildenafil (Viagra) 50 MG tablet Take 1 tablet (50 mg) by mouth if needed each day for erectile dysfunction. 10 tablet 4 Active Continuous Glucose Sensor (FreeStyle Grace 2 Sensor) miscIndications :Type 2 diabetes mellitus with other specified complication, with long-term current use of insulin (CMS/HCC) Apply 1 sensor as directed every 14 days for CGM. 2 each 11 4 Active hydrALAZINE (Apresoline) 100 MG tablet Take 1 tablet (100 mg) by mouth 2 times daily. 60 tablet 11 4 Active aspirin 81 MG EC tabletIndicatio ns:Type 2 diabetes mellitus with other specified complication, with long-term current use of insulin ([facility]) Take 1 tablet (81 mg) by mouth at bedtime. 30 tablet 11 4 03/30/20 25 Active glucose blood (FreeStyle [place] Test) test stripIndication s:Type 2 diabetes mellitus with other specified complication, with long-term current use of insulin ([facility]) Use to test blood sugar up to 4 times daily, as directed 100 each 4 Active insulin aspart (NovoLOG FLEXPEN) 100 UNIT/ML penIndications: Type 2 diabetes mellitus with other specified complication, with long-term current use of insulin ([facility]) Inject 6 Units under the skin before breakfast, before lunch, and before evening meal. 15 mL 2 4 Active insulin glargine (Lantus SoloStar) 100 UNIT/ML penIndications: Type 2 diabetes mellitus with other specified complication, with long-term current use of insulin ([facility]) Inject 14 Units under the skin Once per day. 15 mL 5 4 Active metoprolol tartrate (Lopressor) 100 MG tablet TAKE 1 TABLET BY MOUTH TWICE DAILY IN THE MORNING AND IN THE EVENING WITH MEALS 180 tablet 3 4 Active metFORMIN (Glucophage) 1000 MG tablet TAKE 1 TABLET BY MOUTH TWICE DAILY IN THE MORNING AND IN THE EVENING WITH MEALS 180 tablet 3 4 Active atorvastatin (Lipitor) 80 MG tablet TAKE 1 TABLET BY MOUTH EVERY EVENING 30 tablet 11 4 Active losartan (Cozaar) 25 MG tablet TAKE 1 TABLET BY MOUTH EVERY MORNING 30 tablet 11 4 Active gabapentin (Neurontin) 300 MG capsule TAKE 1 CAPSULE BY MOUTH TWICE DAILY IN THE MORNING AND AT BEDTIME 60 capsule 5 4 Active Alcohol Swabs (Alcohol Prep) 70 % pads USE FOUR TIMES DAILY DIRECTED 100 each 11 4 Active tamsulosin (Flomax) 0.4 MG 24 hr capsule TAKE 2 CAPSULES BY MOUTH ONCE DAILY IN THE MORNING 60 capsule 3 4 Active Pentips Generic Pen Rawlings 32G X 4 MM misc USE DIRECTED FOUR TIMES DAILY 100 each 5 4 Active sertraline (Zoloft) 25 MG tablet TAKE 1 TABLET BY MOUTH EVERY DAY 30 tablet 2 4 Active zolpidem (Ambien) 10 MG tablet TAKE 1 TABLET BY MOUTH AT BEDTIME NEEDED FOR SLEEP 30 tablet 5 Active Active Problems Problem Noted Date Diagnosed Date PDR (proliferative diabetic retinopathy) 024 Missing teeth, acquired 10/08/2023 Dental plaque 10/08/2023 Generalized gingival recession 10/08/2023 Stage 3 chronic kidney disease 09/17/2022 Essential (primary) hypertension 09/17/2022 Type 2 diabetes mellitus wit h diabetic chronic kidney disease 09/17/2022 Polyneuropathy due to type 2 diabetes mellitus 1 09/07/2021 Peripheral vascular disease 07/07/2022 Malignant tumor of prostate 02/27/2022 History of amputation of left great toe 02/28/20 Acquired trigger finger of both ring fingers 06/2022 Resolved Problems Problem Noted Date Diagnosed Date Resolved Date Cancer 09/17/2022 02/11/2024 Chronic kidney disease 09/17/202202/10 Type 2 diabetes mellitus without complication 09/18/19 23 02/11/[address] scan, colon 07/07/2022 07/2 12/2023 Imaging of gastrointestinal tract abnormal 07/07/2022 02/11/2024 Type 2 diabetes mellitus 02/27/2022 Essential hypertension 02/27/202202/10 Malignant neoplasm of prostate 02/27/2022 02/11/2024 Immunizations Immunization Administration Dates Next Due Influenza High-dose Quadrivalent Preservative Fr ee 04/23/2023,04/15/2022 Influenza, High Dose Seasonal, Preservative Free 03/30/2024 Pneumococcal Conjugate PCV 20 04/29/2022 RSV Bivalent 12/29/2023 Tdap 09/28/2022 Zoster, Recombinant 12/15/2022,10/13/2022 Social History Tobacco Use Types Packs/Day Years Used Date Smoking Tobacco: Never Smokeless Tobacco: Never Tobacco Cessation:Counseling Given: Not Answered Alcohol Use Standard Drinks/Week Comments Never 0 [...] Orientation Straight 12/09/2022 1: 52 PM EDT Last Filed Vital Signs Vital Sign Reading Time Taken Comments Blood Pressure 187/90 05/16/2024 11:14 AM EDT Pulse 63 05/16/2024 11:14 AM EDT Temperature 36.6 C (97.9 F) 02/11/2024 11:05 AM EDT Respiratory Rate 12 05/16/2024 11:1 4 AM EDT Oxygen Saturation 98% 05/16/2024 11: 14 AM EDT Inhaled Oxygen Concentration - - Weight 74.8 kg (164 lb 12.8 oz) 11:14 AM EDT Height 172.7 cm (5' 8 ) 05/16/2024 11:1 4 AM EDT Body Mass Index 25.06 05/16/2024 11:14 AM EDT Plan of Treatment Health Maintenance Due Date Last Done Comments Alcohol/Substance Use Screening 1957 Dental Prophylaxis 04/10/2024 10/08/2023, 12/15/2022 Diabetes: Hemoglobin A1C 06/29/2024 , 12/29/2023, 09/21/2023, Additional history exists Depression Monitoring 08/10/2024 02/08/2024, Dental Oral Exam 09/07/2024 03/06/2024, 05/25/2023 Diabetes: Foot Exam 11/01/2024 11/02/2023, 11/02/2023, 11/02/2023, Additional history exists Eye Exam 12/06/2024 12/07/2023 SDOH Screening 02/07/2025 02/08/2024 Dental X-Ray: Bitewings 03/07/2025 03/06/2024, 12/09 Lipid Panel 03/15/2025 03/15/2024, 01/16, 03/11/2022 COVID-19 Vaccine ( season) 2025 03/18/2022, 07/30/2021, 10/24/2020, Additional history exists Influenza Vaccine (#1) 2025 , 04/23/2023, 04/15/2022 Tobacco Screening 05/16/2025 05/16/2024 Dental X-Ray: Full Mouth 12/10/2025 12/09/2022 DTaP/Tdap/Td Vaccines (2 - Td or Tdap) 09/28/2032 09/28/2022 Pneumococcal Vaccine: 50+ Years Completed 04/29/2022 Zoster Vaccines Completed 12/15/2022, 10/13/2022 RSV Patients and Patients Aged 60 years or older Completed 12/29/2023 HIB Vaccines Aged Out No longer eligi ble based on patient's age to complete this topic HPV Vaccines Aged Out No longer eligi ble based on patient's age to complete this topic Hepatitis A Vaccines Aged Out No long er eligible based on patient's age to complete this topic Hepatitis B Vaccines Aged Out No long er eligible based on patient's age to complete this topic IPV Vaccines Aged Out No longer eligi ble based on patient's age to complete this topic Meningococcal B Vaccine Aged Out No l onger eligible based on patient's age to complete this topic Meningococcal Vaccine Aged Out No codie crystal eligible based on patient's age to complete this topic RSV under 20 months Aged Out No longe r eligible based on patient's age to complete this topic Rotavirus Vaccines Aged Out No longer eligible based on patient's age to complete this topic Goals Goal Patient Goal Type Associated Problems [...] directed Result Component No Puia, Jory, PharmD Procedures Procedure Name Priority Date/Time Associated Diagnosis Comments POCT GLYCATED HEMOGLOBIN, TOTAL Routine 03/30/2024 1:49 PM EDT Type 2 diabetes mellitus with other specified complication, with long-term current use of insulin ([facility]) LIPID PANEL, STANDARD Routine 03/15/2024 9:08 AM EDT BITEWING - SINGLE RADIOGRAPHIC IMAGE Routine 03/06/2024 1:30 PM EDT Encounter for dental examination Teeth missing PERIODIC ORAL EVALUATION - ESTABLISHED PATIENT Routine 03/06/2024 1:30 PM EDT Encounter for dental examination Teeth missing HM DIABETES EYE EXAM Routine 12/07/2023 PROPHYLAXIS - ADULT Routine 10/08/2023 1 :00 PM EDT Dental plaque INTRAORAL - COMPLETE SERIES OF RADIOGRAPHIC IMAGES Routine 12/09/2022 1:00 PM EDT Encounter for dental examination from Last 3 Months or Most Recently Relevant to Health Maintenance Results * (ABNORMAL) POCT HGB A1C (03/30/2024 1:49 PM EDT) Hemoglobin A1C 7.1(A) 4.0 - 6.0 % QC Media Lot # [id number] Blood 03/30/2024 1:49 PM EDT us Renny Name POINT OF CARE TEST ENTER/EDIT OR DERABLES Final Result * (ABNORMAL) Lipid Panel, Standard (03/15/2024 9:08 AM EDT) Triglycerides 139 <150 mg/dL [facility] Comment:Desirable Triglyceri de: less than 150 mg/dLBorderline High Triglyceride 150-199 mg/dLHigh Triglyceride: 200-499 mg/dLVery High Triglyceride: greater than or equal to 5OO mg/dL Cholesterol 126 <200 mg/dL [facility] Comment:Desirable Cholestero l: less than 200 mg/dLBorderline High Cholesterol: 200-239 mg/dLHigh Cholesterol: greater than 239 mg/dL LDL Cholesterol Calculated 63 <100 mg/dL [facility] Comment:Desirable LDL: less than 100 mg/dLNear Optimal/Above Optimal LDL: 110- 129 mg/dLBorderline High LDL: 130-159 mg/dLHigh LDL: 160-189 mg/dLVery High LDL: greater than or equal to 190 mg/dL HDL Cholesterol 36(L) >40 mg/dL [facility] Comment:Desirable HDL: great er than 40 mg/dL Note: This HDL assay may give artificially low results in patients with liver disease. 03/15/2024 9:08 AM EDT 03/15/2024 11:13 AM EDT us Renny Johnston MD LAB BLOOD ORDERABLES Final Resul t [facility] [address] [place] [address] [phone] * Diabetes Eye Exam (12/07/2023) [facility] Signature Eye Exam Normal Normal us Renny Johnston MD HEALTH MAINTENANCE Final Result from Last 3 Months or Most Recently Relevant to Health Maintenance Insurance [facility] [employer] (O D-SNP) KATIE FISHER [id number] [facility]
[2025-03-26 17:53] LABS: Glucose, Whole Blood 293 mg/dL (60-115)
[2025-03-26 21:05] LABS: Glucose, Whole Blood 264 mg/dL (60-115)
[2025-03-26] MEDS: Insulin Glargine,Hum.rec.anlog 100 UNIT/ML 10 ML VIAL 14 UNIT SUBCUT (21:22)
[2025-03-27 03:40] VITALS: BP 159/40; PULSE 82; RESP 19; TEMP 36.7; O2SAT 95
[2025-03-27 06:04] LABS: Hematocrit 27.0 % (42.0-52.0); Hemoglobin 9.0 g/dl (14.0-18.0); Mean Corpuscular HGB Conc 33.3 g/dl (31.0-36.0); Mean Corpuscular Hemoglobin 26.7 pg (27.0-33.0); Mean Corpuscular Volume 80.1 fL (80.0-98.0); NRBC Abs Auto 0.000 X10*3/uL (0.0-0.012); NRBC Pct Auto 0.0 /100WBC (0.0-0.2); Platelet Count 208 X10*3/uL (160-400); Red Blood Count 3.37 X10*6/uL (4.60-5.80); White Blood Count 6.5 X10*3/uL (4.8-10.8)
[2025-03-27 06:14] LABS: Hemoglobin A1C 177.4670 umol/L; Total Hemoglobin (HGBA1C) 2350.2763 umol/L
[2025-03-27 06:22] LABS: Anion Gap 12 (12-20); Blood Urea Nitrogen 26 mg/dL (9-16); Calcium 8.9 mg/dL (8.4-10.2); Carbon Dioxide 26 mmol/L (22-29); Chloride 107 mmol/L (96-108); Creatinine Clr Calc Pharmacy 35.4; Estimated Glomerular Filt Rate 42; Iron 54 mcg/dL (45-160); Percent Iron Saturation 29 % (15-50); Potassium 3.8 mmol/L (3.3-5.1); Sodium 141 mmol/L (135-145); Total Iron Binding Capacity 186 mcg/dL (228-428); Unsaturated Iron Binding 132 ug/dL
[2025-03-27 07:59] VITALS: BP 155/70; PULSE 73; RESP 16; TEMP 36.2; O2SAT 97
[2025-03-27 08:01] LABS: Glucose, Whole Blood 147 mg/dL (60-115)
[2025-03-27] MEDS: 0.9 % Sodium Chloride Flush 3 ML SYRINGE IVFLUSH ×3 (09:10→22:06)
--- NOTE | 2025-03-27 10:48 | MHC.CM.PN ---
Addendum entered by Alysha Camarillo 03/27/25 12:18: PT HAS [facility] INSURANCE, WILL SEND OUT REFERRALS TO CONTRACTED CENTERS ONCE PT HAS EVALUATED. Original Note: CM SPOKE WITH PT'S DAUGHTER LOLA. PER DAUGHTER, PT LIVES WITH HER AND USES A WALKER FOR MOBILITY. PT IS IN FROM [place] AND HAS NO [place] INSURANCE OR PCP. PT'S DAUGHTER IS ASSISTING WITH TRYING TO GET THE INSURANCE CHANGED BUT MAY NOT BE APPLICABLE UNTIL 04/18, [facility] UPDATED AND WILL REACH OUT TO DAUGHTER FOR MORE INFORMATION. [facility] WAS PROVIDED TO PT FOR PCP. + HCP ON FILE. DP: HOME WITH FAMILY SUPPORT? WILL NEED INSURANCE CONVERTED NO REHAB IS CONTRACTED WITH [facility] INSURANCE. DAUGHTER WILL TRANSPORT. CM WILL CONTINUE TO FOLLOW FOR ANY CHANGE TO DC PLAN/NEEDS.
[2025-03-27 11:40] LABS: Glucose, Whole Blood 224 mg/dL (60-115)
--- NOTE | 2025-03-27 14:32 | P.PNIM_ITS ---
Subjective Subjective Date of Service: 03/27/25 Review of Systems Follow up Left foot wound, dry gangrene no pain or discomfort Physical Exam 2 Exam: Exam: Appearing in no acute distress lung sounds are clear to auscultation heart regular rate rhythm, clear S1, S2 positive bowel sounds, abdomen is soft, nontender neuro patient is alert x3, no focal deficits Vital Signs: Vital Signs: Last Vital Signs Temp 97.2 F 03/27/25 07:59 Pulse 73 03/27/25 07:59 Resp 16 03/27/25 07:59 BP 155/70 H 03/27/25 07:59 Pulse Ox 97 03/27/25 07:59 O2 Del Method Room Air 03/27/25 07:59 BMI result Body Mass Index 24.3 Objective Data Active Medications Acetaminophen (Acetaminophen 325 Mg Tablet) 650 mg PO Q6H PRN PRN Reason: Pain, Mild 1-3,fever,headache Last Admin: 03/27/25 09:22 Dose: 650 mg Documented By: SEALM Amlodipine Besylate (Amlodipine Besylate 10 Mg Tablet) 10 mg PO DAILY [facility]; Protocol Aspirin (Aspirin 81 Mg Tab.Chew) 81 mg PO BEDTIME [facility] Last Admin: 03/26/25 21:24 Dose: 81 mg Documented By: ROLO Calcium Carbonate (Calcium Carbonate 750 Mg Tab.Chew) 750 mg PO Q4H PRN PRN Reason: Heartburn Dextrose (Dextrose 50 % 25 Gm/50 Ml Syringe) 25 gm IVPUSH Q15M PRN; Protocol PRN Reason: per Hypoglycemia Standing Ord. Doxazosin Mesylate (Doxazosin Mesylate 2 Mg Tablet) 8 mg PO BID [facility]; Protocol Last Admin: 03/27/25 09:09 Dose: 8 mg Documented By: SELAM Furosemide (Furosemide 20 Mg Tablet) 20 mg PO Q48H [facility]; Protocol Last Admin: 03/26/25 18:45 Dose: 20 mg Documented By: DORA Gabapentin (Gabapentin 300 Mg Capsule) 300 mg PO TID [facility]IP Last Admin: 03/27/25 09:10 Dose: 300 mg Documented By: SELAM Glucose (Glucose Gel 15 Gm Gel..Gram.) 15 gm PO Q15M PRN; Protocol PRN Reason: per Hypoglycemia Standing Ord. Hydralazine HCl (Hydralazine Hcl 50 Mg Tablet) 50 mg PO TID [facility]; Protocol Last Admin: 03/27/25 09:09 Dose: 50 mg Documented By: SELAM Hydralazine HCl (Hydralazine Hcl 20 Mg/Ml Vial) 5 mg IVPUSH Q6H PRN; Protocol PRN Reason: SBP>180 Insulin Glargine (Insulin Glargine,Hum.Rec.Anlog 100 Unit/Ml 10 Ml Vial) 14 unit SUBCUT BEDTIME [facility] Last Admin: 03/26/25 21:22 Dose: 14 unit Documented By: ROLO Insulin Human Lispro (Insulin Lispro 100 Unit/Ml 3 Ml Vial) 0 unit SUBCUT QIDACHS [facility]; Protocol Last Admin: 03/27/25 12:09 Dose: 4 unit Documented By: SELAM Magnesium Hydroxide (Milk Of Magnesia 30 Ml Oral.Susp) 30 ml PO DAILY PRN PRN Reason: Constipation Melatonin (Melatonin 3 Mg Tablet) 6 mg PO BEDTIME PRN PRN Reason: Insomnia Last Admin: 03/26/25 21:20 Dose: 6 mg Documented By: ROLO Metoprolol Tartrate (Metoprolol Tartrate 100 Mg Tablet) 100 mg PO BID [facility]; Protocol Last Admin: 03/27/25 09:10 Dose: 100 mg Documented By: SELAM Ondansetron HCl (Ondansetron Hcl 4 Mg/2 Ml Vial) 4 mg IVPUSH Q8H PRN PRN Reason: Nausea and Vomiting Sertraline HCl (Sertraline Hcl 25 Mg Tablet) 25 mg PO DAILY [facility] Last Admin: 03/27/25 09:09 Dose: 25 mg Documented By: SELAM Sodium Chloride (0.9 % Sodium Chloride Flush 3 Ml Syringe) [facility] Last Admin: 03/27/25 09:10 Dose: 3 ml Documented By: SELAM Tamsulosin HCl (Tamsulosin Hcl 0.4 Mg Capsule) 0.4 mg PO DAILY [facility] Last Admin: 03/27/25 09:09 Dose: 0.4 mg Documented By: SELAM Labs 03/27/25 05:30 03/27/25 05:30 Labs: Laboratory Results - last 24 hr 03/26/25 03/26/25 03/26/25 14:11 14:12 15:02 MCV MCH MCHC RDW Plt Count MPV Absolute Nucleated RBC Nucleated RBC % (auto) ESR 53 H Anion Gap 11 L Estim Creat Clear Calc 39.4 Estimated GFR 48 POC Glucose Random Glucose 247 H Estimat Average Glucose Hemoglobin A1c % Lactic Acid 1.5 Calcium 9.3 D Iron TIBC % Saturation Unsat Iron Binding Total Bilirubin 0.3 AST 13 ALT 7 Alkaline Phosphatase 76 C-Reactive Protein 0.22 Total Protein 6.8 Albumin 3.7 03/26/25 03/26/25 03/27/25 17:50 21:01 05:30 MCV 80.1 MCH 26.7 L MCHC 33.3 RDW 15.5 Plt Count 208 MPV 10.4 Absolute Nucleated RBC 0.000 Nucleated RBC % (auto) 0.0 ESR Anion Gap 12 Estim Creat Clear Calc 35.4 Estimated GFR 42 POC Glucose 293 H 264 H Random Glucose 147 H Estimat Average Glucose 214 Hemoglobin A1c % 9.1 H Lactic Acid Calcium 8.9 Iron 54 TIBC 186 L % Saturation 29 Unsat Iron Binding 132 Total Bilirubin AST ALT Alkaline Phosphatase C-Reactive Protein Total Protein Albumin 03/27/25 03/27/25 07:56 11:23 MCV MCH MCHC RDW Plt Count MPV Absolute Nucleated RBC Nucleated RBC % (auto) ESR Anion Gap Estim Creat Clear Calc Estimated GFR POC Glucose 147 H 224 H Random Glucose Estimat Average Glucose Hemoglobin A1c % Lactic Acid Calcium Iron TIBC % Saturation Unsat Iron Binding Total Bilirubin AST ALT Alkaline Phosphatase C-Reactive Protein Total Protein Albumin Assessment and Plan (1) Dry gangrene: Status: Acute Plan 79-year-old man admitted for dry gangrene to left lateral foot including 5th toe Dry gangrene with probable osteomyelitis continue Vancomycin for now Looks like amputation will be needed Vascular surgery consult> ordered arterial duplex bilat LE Pain management Uncontrolled hypertension stopped losartan added amlodipine 10 mg daily, continue furosemide, hydralazine 100 mg b.i.d, metoprolol 1 tab b.i.d. Diabetes mellitus type 2, uncontrolled Sliding scale, ADA diet Check A1c in the morning Lantus 14 units at bedtime Peripheral vascular disease Recent bypass graft to left lower extremity On aspirin and Xarelto, we will hold for now in light of possible surgical procedure History of prostate cancer Hold Eligard for now DVT prophylaxis with pneumatic compression boots in light of possible surgical procedure Full code Quality Stroke Does the patient have a stroke diagnosis?: No VTE Prior VTE?: No VTE Risk Level:: Medical - moderate - high VTE Device Contraindication: N/A - Device Ordered VTE Drug Contraindication: Treatment Not Indicated
[2025-03-27 15:34] VITALS: BP 117/58; PULSE 63; RESP 20; TEMP 36.6; O2SAT 94
[2025-03-27 16:12] LABS: Glucose, Whole Blood 127 mg/dL (60-115)
--- NOTE | 2025-03-27 16:29 | P.CDIM_ITS ---
PROVIDER RESPONSE TEXT: To clarify, the appropriate diagnosis supported by the clinical indicators: Acute on chronic QUERY TEXT: PHYSICIAN'S DOCUMENTATION REQUEST Date of Query: 03/27/2025 01:08 PM EDT Patient Name: Shaquille Escobedo Admit Date: 03/26/2025 Dear Bibi Thurman PHOTORADIO OPERATOR, A review of the medical record indicates additional documentation may be needed. Please review below and update the documentation accordingly. Clinical Indicators: left foot ulcer, gangrene PMH DM2 probable osteomyelitis IV Vancomycin Clarify which of the following accurately represents the acuity of the Osteomyelitis. Possible options might include: Acute Acute on chronic Compensated Chronic stable condition Remission Other (explain) Clinically unable to determine (explain) Thank you, Chrissy Garcia RN Use of terms such as suspected, likely, concern for, or probable (associated with a specific diagnosis that is being evaluated, monitored, or treated as if it exists) are acceptable and can be coded in the inpatient setting, when documented at the time of discharge. Please use your independent medical judgment in providing your response. THIS QUERY IS PART OF THE PERMANENT MEDICAL RECORD
[2025-03-27 20:35] VITALS: BP 161/70; PULSE 66; RESP 17; TEMP 36.1; O2SAT 95
[2025-03-27 20:58] LABS: Glucose, Whole Blood 226 mg/dL (60-115)
[2025-03-27] MEDS: Insulin Glargine,Hum.rec.anlog 100 UNIT/ML 10 ML VIAL 20 UNIT SUBCUT (22:05)
[2025-03-28 03:33] VITALS: BP 149/68; PULSE 58; RESP 18; TEMP 36.2; O2SAT 95
[2025-03-28 07:40] VITALS: BP 176/83; PULSE 61; RESP 16; TEMP 36.2; O2SAT 95
[2025-03-28 07:51] LABS: Glucose, Whole Blood 104 mg/dL (60-115)
[2025-03-28] MEDS: 0.9 % Sodium Chloride Flush 3 ML SYRINGE IVFLUSH ×2 (07:59→19:40)
--- NOTE | 2025-03-28 09:17 | HO.PM.IMPN ---
Subjective Subjective Date of Service: 03/28/25 Review of Systems Follow up Left foot wound, dry gangrene no pain or discomfort Physical Exam Exam: Exam: Appearing in no acute distress lung sounds are clear to auscultation heart regular rate rhythm, clear S1, S2 positive bowel sounds, abdomen is soft, nontender neuro patient is alert x3, no focal deficits Dry gangrene to left lateral foot and 5th toe Vital Signs: Vital Signs: Last Vital Signs Temp 97.2 F 03/28/25 07:40 Pulse 61 03/28/25 07:40 Resp 16 03/28/25 07:40 BP 176/83 H 03/28/25 07:40 Pulse Ox 95 03/28/25 07:40 O2 Del Method Room Air 03/28/25 07:40 BMI result Body Mass Index 24.3 Objective Data Active Medications Acetaminophen (Acetaminophen 325 Mg Tablet) 650 mg PO Q6H PRN PRN Reason: Pain, Mild 1-3,fever,headache Last Admin: 03/27/25 17:52 Dose: 650 mg Documented By: LAURA Amlodipine Besylate (Amlodipine Besylate 10 Mg Tablet) 10 mg PO DAILY [facility]; Protocol Last Admin: 03/28/25 07:55 Dose: 10 mg Documented By: RICHIE Aspirin (Aspirin 81 Mg Tab.Chew) 81 mg PO BEDTIME [facility] Last Admin: 03/27/25 22:04 Dose: 81 mg Documented By: PARIS Calcium Carbonate (Calcium Carbonate 750 Mg Tab.Chew) 750 mg PO Q4H PRN PRN Reason: Heartburn Dextrose (Dextrose 50 % 25 Gm/50 Ml Syringe) 25 gm IVPUSH Q15M PRN; Protocol PRN Reason: per Hypoglycemia Standing Ord. Doxazosin Mesylate (Doxazosin Mesylate 2 Mg Tablet) 8 mg PO BID [facility]; Protocol Last Admin: 03/28/25 07:55 Dose: 8 mg Documented By: RICHIE Furosemide (Furosemide 20 Mg Tablet) 20 mg PO Q48H [facility]; Protocol Last Admin: 03/26/25 18:45 Dose: 20 mg Documented By: DORA Gabapentin (Gabapentin 300 Mg Capsule) 300 mg PO TID [facility] Last Admin: 03/28/25 07:55 Dose: 300 mg Documented By: RICHIE Glucose (Glucose Gel 15 Gm Gel..Gram.) 15 gm PO Q15M PRN; Protocol PRN Reason: per Hypoglycemia Standing Ord. Hydralazine HCl (Hydralazine Hcl 50 Mg Tablet) 50 mg PO TID [facility]; Protocol Last Admin: 03/28/25 07:55 Dose: 50 mg Documented By: RICHIE Hydralazine HCl (Hydralazine Hcl 20 Mg/Ml Vial) 5 mg IVPUSH Q6H PRN; Protocol PRN Reason: SBP>180 Insulin Glargine (Insulin Glargine,Hum.Rec.Anlog 100 Unit/Ml 10 Ml Vial) 20 unit SUBCUT BEDTIME [facility] Last Admin: 03/27/25 22:05 Dose: 20 unit Documented By: PARIS Insulin Human Lispro (Insulin Lispro 100 Unit/Ml 3 Ml Vial) 0 unit SUBCUT QIDACHS [facility]; Protocol Last Admin: 03/28/25 07:47 Dose: Not Given Documented By: RICHIE Non-Admin Reason: No Insulin Coverage Magnesium Hydroxide (Milk Of Magnesia 30 Ml Oral.Susp) 30 ml PO DAILY PRN PRN Reason: Constipation Melatonin (Melatonin 3 Mg Tablet) 6 mg PO BEDTIME PRN PRN Reason: Insomnia Last Admin: 03/27/25 22:04 Dose: 6 mg Documented By: PARIS Metoprolol Tartrate (Metoprolol Tartrate 100 Mg Tablet) 100 mg PO BID [facility]; Protocol Last Admin: 03/28/25 07:55 Dose: 100 mg Documented By: RICHIE Ondansetron HCl (Ondansetron Hcl 4 Mg/2 Ml Vial) 4 mg IVPUSH Q8H PRN PRN Reason: Nausea and Vomiting Sertraline HCl (Sertraline Hcl 25 Mg Tablet) 25 mg PO DAILY [facility] Last Admin: 03/28/25 07:55 Dose: 25 mg Documented By: RICHIE Sodium Chloride (0.9 % Sodium Chloride Flush 3 Ml Syringe) [facility] Last Admin: 03/28/25 07:59 Dose: 3 ml Documented By: RICHIE Tamsulosin HCl (Tamsulosin Hcl 0.4 Mg Capsule) 0.4 mg PO DAILY [facility] Last Admin: 03/28/25 07:54 Dose: 0.4 mg Documented By: RICHIE Labs 03/27/25 05:30 03/27/25 05:30 Labs: Laboratory Results - last 24 hr 03/27/25 03/27/25 03/27/25 11:23 16:09 20:49 POC Glucose 224 H 127 H 226 H 03/28/25 07:46 POC Glucose 104 Microbiology Microbiology Results: Microbiology 03/26/25 15:02 Blood Culture - Preliminary Blood - Venous No growth after 24 hours. 03/26/25 15:02 Blood Culture - Preliminary Blood - Venous No growth after 24 hours. 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 bypass graft to LCFA, treat with oral abx o/p Plan will be to follow up with vascular o/p for angio prior to any amputation Pain management Uncontrolled hypertension stopped losartan added amlodipine 10 mg daily, continue furosemide, hydralazine 50 mg QID metoprolol 100mg b.i.d. Mild HUSSAIN on ckd 3 losartan stopped monitor Diabetes mellitus type 2, uncontrolled Sliding scale, ADA diet A1C 9.1 Lantus 20 units at bedtime Peripheral vascular disease ? Recent bypass graft to left lower extremity in [place] On aspirin, statin and Xarelto History of prostate cancer Hold Eligard for now DVT prophylaxis Eliquis Full code Quality Stroke Does the patient have a stroke diagnosis?: No VTE Prior VTE?: No VTE Risk Level:: Medical - moderate - high VTE Device Contraindication: N/A - Device Ordered VTE Drug Contraindication: Treatment Not Indicated
[2025-03-28 09:57] VITALS: BP 159/71
--- NOTE | 2025-03-28 10:13 | PM.CNGS ---
History of Present Illness Consult details Consult date: 03/28/25 Reason for consult: wound care Narrative: Very complex 79-year-old gentleman presents for evaluation for nonhealing left lateral toe ulcer. He has had prior history of uncontrolled diabetes and has had toe amputations including left great toe amputation in the past in [place]. Extremely poor historian unable to get a true history but states some sort of vascular intervention or bypass was done in [place] a proximally month ago. He has had noninvasive arterial testing and now presents to us for vascular evaluation. Review of Systems Review of Systems: Yes all other systems are reviewed and are negative Constitutional: Constitutional: Reports no additional constitutional complaints ENT: Reports Normal hearing present Cardiovascular: Cardiovascular: Denies chest pain, Denies chest pain at rest, Denies chest pain with activity and Denies pedal edema Respiratory: Respiratory: Denies cough Gastrointestinal: Gastrointestinal: Denies abdominal pain Musculoskeletal: Musculoskeletal: Denies abnormal gait, Denies muscle cramps and Denies radiating pain into limb Integumentary/Breasts: Skin/Breast: Denies skin ulcer and Denies wounds Neurologic: Reports Normal hearing present and Denies abnormal gait Psychiatric: Psychiatric: Reports no additional psychiatric complaints PMFSH Past Medical History Medical History (Updated 03/28/25 @ 10:15 by Paul Harrison MD) Dry gangrene History of atherosclerosis Chronic kidney disease Polyneuropathy Essential hypertension Diabetes mellitus, type II Prostate CA Family History Family History Father Alcoholic Surgical History Surgical History S/P vascular bypass Hx of colonoscopy Hx of amputation History of amputation of lesser toe of left foot History of amputation of left great toe Social History Social History Household Members: None Housing: Other Housing Other:: just arrived from [place] Do you presently have visiting nurse or other home services: No Unable to assess alcohol history related to: Unknown Alcohol intake: former Patient Tobacco Use Status: Former Tobacco user Second Hand Smoke Exposure: No Advance Directives Date on File: 04/29/23 service: No Current occupational status: retired 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 Meds Allergies Allergy/AdvReac Type Severity Reaction Status Date / Time No Known Allergies Allergy Verified 03/26/25 13:32 Active Medications: Current Medications Acetaminophen (Acetaminophen 325 Mg Tablet) 650 mg PO Q6H PRN PRN Reason: Pain, Mild 1-3,fever,headache Last Admin: 03/27/25 17:52 Dose: 650 mg Amlodipine Besylate (Amlodipine Besylate 10 Mg Tablet) 10 mg PO DAILY [facility]; Protocol Last Admin: 03/28/25 07:55 Dose: 10 mg Aspirin (Aspirin 81 Mg Tab.Chew) 81 mg PO BEDTIME [facility] Last Admin: 03/27/25 22:04 Dose: 81 mg Atorvastatin Calcium (Atorvastatin Calcium 80 Mg Tablet) 80 mg PO BEDTIME [facility] Calcium Carbonate (Calcium Carbonate 750 Mg Tab.Chew) 750 mg PO Q4H PRN PRN Reason: Heartburn Dextrose (Dextrose 50 % 25 Gm/50 Ml Syringe) 25 gm IVPUSH Q15M PRN; Protocol PRN Reason: per Hypoglycemia Standing Ord. Doxazosin Mesylate (Doxazosin Mesylate 2 Mg Tablet) 8 mg PO BID [facility]; Protocol Last Admin: 03/28/25 07:55 Dose: 8 mg Furosemide (Furosemide 20 Mg Tablet) 20 mg PO Q48H [facility]; Protocol Last Admin: 03/26/25 18:45 Dose: 20 mg Gabapentin (Gabapentin 300 Mg Capsule) 300 mg PO TID [facility] Last Admin: 03/28/25 07:55 Dose: 300 mg Glucose (Glucose Gel 15 Gm Gel..Gram.) 15 gm PO Q15M PRN; Protocol PRN Reason: per Hypoglycemia Standing Ord. Hydralazine HCl (Hydralazine Hcl 20 Mg/Ml Vial) 5 mg IVPUSH Q6H PRN; Protocol PRN Reason: SBP>180 Hydralazine HCl (Hydralazine Hcl 50 Mg Tablet) 50 mg PO QID [facility]; Protocol Insulin Glargine (Insulin Glargine,Hum.Rec.Anlog 100 Unit/Ml 10 Ml Vial) 20 unit SUBCUT BEDTIME [facility] Last Admin: 03/27/25 22:05 Dose: 20 unit Insulin Human Lispro (Insulin Lispro 100 Unit/Ml 3 Ml Vial) 0 unit SUBCUT QIDACHS [facility]; Protocol Last Admin: 03/28/25 07:47 Dose: Not Given Magnesium Hydroxide (Milk Of Magnesia 30 Ml Oral.Susp) 30 ml PO DAILY PRN PRN Reason: Constipation Melatonin (Melatonin 3 Mg Tablet) 6 mg PO BEDTIME PRN PRN Reason: Insomnia Last Admin: 03/27/25 22:04 Dose: 6 mg Metoprolol Tartrate (Metoprolol Tartrate 100 Mg Tablet) 100 mg PO BID [facility]; Protocol Last Admin: 03/28/25 07:55 Dose: 100 mg Ondansetron HCl (Ondansetron Hcl 4 Mg/2 Ml Vial) 4 mg IVPUSH Q8H PRN PRN Reason: Nausea and Vomiting Rivaroxaban (Rivaroxaban 2.5 Mg Tablet) 2.5 mg PO BID [facility] Sertraline HCl (Sertraline Hcl 25 Mg Tablet) 25 mg PO DAILY [facility] Last Admin: 03/28/25 07:55 Dose: 25 mg Sodium Chloride (0.9 % Sodium Chloride Flush 3 Ml Syringe) 3 ml IVFLUSH QSHIFT [facility] Last Admin: 03/28/25 07:59 Dose: 3 ml Tamsulosin HCl (Tamsulosin Hcl 0.4 Mg Capsule) 0.4 mg PO DAILY [facility] Last Admin: 03/28/25 07:54 Dose: 0.4 mg Home Medications ?Medication ?Instructions ?Recorded ?Confirmed ?Last Taken ?Type gabapentin 300 mg capsule 300 mg PO TID Pain 03/04/22 03/26/25 03/26/25 History metoprolol tartrate 100 mg tablet 1 tab PO BID 03/04/22 03/26/25 03/26/25 History pen needle, diabetic 31 gauge x 03/04/22 01/28/24 Unknown History 10/01 (Sure Comfort Pen Needle) tamsulosin 0.4 mg capsule 1 cap PO DAILY 03/04/22 03/26/25 03/26/25 History aspirin 81 mg chewable tablet 81 mg PO BEDTIME 04/29/23 03/26/25 03/25/25 History atorvastatin 40 mg tablet 80 mg PO BEDTIME 04/29/23 03/26/25 03/25/25 History insulin aspart U-100 100 unit/mL 6 unit subcut TIDAC 10/29/23 03/26/25 03/26/25 History (3 mL) subcutaneous pen (Novolog FlexPen U-100 Insulin aspart) rivaroxaban 2.5 mg tablet (Xarelto) 2.5 mg PO BID 10/29/23 03/26/25 03/26/25 History hydralazine 50 mg tablet 100 mg PO BID 02/23/24 03/26/25 03/26/25 History insulin glargine 100 unit/mL 14 unit subcut BEDTIME 05/02/24 03/26/25 03/25/25 History subcutaneous solution (Lantus U-100 Insulin) abiraterone 250 mg tablet 1,000 mg PO DAILY 03/26/25 03/26/25 03/26/25 History doxazosin 8 mg tablet 8 mg PO BID 03/26/25 03/26/25 03/26/25 History furosemide 20 mg tablet (Lasix) 20 mg PO Q48H 03/26/25 03/26/25 03/26/25 History leuprolide acetate (6 month) 45 mg 45 mg subcut [id number] 03/26/25 03/26/25 Unknown History (6 month) subcutaneous syringe (Eligard) losartan 25 mg tablet 25 mg PO DAILY 03/26/25 03/26/25 03/26/25 History prednisone 5 mg tablet 5 mg PO DAILY 03/26/25 03/26/25 03/26/25 History sertraline 25 mg tablet 25 mg PO DAILY 03/26/25 03/26/25 03/26/25 History Physical Exam Vital Signs: Vital Signs: Last Vital Signs Temp 97.2 F 03/28/25 07:40 Pulse 61 03/28/25 07:40 Resp 16 03/28/25 07:40 BP 159/71 H 03/28/25 09:57 Pulse Ox 95 03/28/25 07:40 O2 Del Method Room Air 03/28/25 07:40 BMI result Body Mass Index 24.3 Const: General: cooperative, healthy appearing and comfortable Orientation/consciousness: oriented to person, oriented to place and oriented to time HEENT: Head: Yes normal to inspection Neck: Neck: Yes normal visual inspection Carotids: no bruits Chest: Chest palpation & inspection: normal inspection of the chest Resp: Effort & Inspection: normal respiratory effort and able to speak in complete sentences Auscultation: clear to auscultation bilaterally, no crackles, no rales, no rhonchi and no wheezes Cardio: Rate: regular rate Rhythm: regular rhythm Heart sounds: S1 normal heart sound present and S2 normal heart sound present Bruits: no carotid bruits Peripheral pulses: Peripheral pulses 2+ throughout GI: Inspection: Yes normal to inspection Skin: Other: Left lateral toe dry gangrene nonviable. No evidence of infection or erythema. Wounds: no wounds Hair: normal Neuro: General: oriented to person, oriented to place and oriented to time Cranial nerves: Yes CN's II-XII intact bilaterally and Yes Normal hearing present Cognition (Neuro): normal cognition Motor exam (neuro): 5/5 motor strength present throughout Extrem: Other: venous exam: No significant superficial varicosities or spider telangiectasias, minimal edema General: No clubbing, No cyanosis and No edema Psych: Appearance: grossly normal Mental Status: mental status grossly normal Speech and movement: Normal speech and movement present Results Labs 03/27/25 05:30 03/27/25 05:30 Labs: Abnormal lab results 03/27/25 03/27/25 03/27/25 Range/Units 11:23 16:09 20:49 POC Glucose 224 H 127 H 226 H (60-115) mg/dL All other labs normal. Imaging Additional studies: Noninvasive testing concerning for tibial disease. Written report and images were reviewed. Assessment and Plan (1) PAD (peripheral artery disease): Status: Acute Plan In short patient has left lateral foot gangrene. He does have tibial disease. At the current time it does appear to be stable noninfected. He does have an element of acute kidney injury and would like his GFR to improve. This all appears to be chronic in nature. There is no evidence of acute infection. This can be handled as an outpatient. Stable from my perspective for discharge. We can set him up for an angiogram and subsequent amputation as an outpatient. Thank you for allowing us to assist in his care. Procedures Date of Service Date of Service: 03/28/25
[2025-03-28 11:21] LABS: Glucose, Whole Blood 165 mg/dL (60-115)
[2025-03-28] MEDS: Milk of Magnesia 30 ML ORAL.SUSP PO (14:09)
--- NOTE | 2025-03-28 15:08 | MHC.CM.PN ---
P.Elder. HAS RECOMMENDED [facility], [facility] AND TRYING TO VERIFY HIS P.R. INSURANCE TO SEE IF THEY ARE CONTRACTED. CM AWAITING DECISION.
[2025-03-28 15:52] VITALS: BP 139/64; PULSE 64; RESP 16; TEMP 36.8; O2SAT 94
[2025-03-28 16:28] LABS: Glucose, Whole Blood 172 mg/dL (60-115)
[2025-03-28 17:45] LABS: Appearance Urine Clear; Glucose Urine UA Negative (Negative); PH 5.5 (5.0-9.0); Specific Gravity - Urine 1.020 (1.005-1.025); UMIC TRIGGER UA YES
[2025-03-28 18:05] LABS: Protein/Creatinine Ratio, Ur 0.57 (<0.2); Total Protein Urine Random 69 mg/dL (<12)
[2025-03-28 19:41] VITALS: BP 135/63; PULSE 66; RESP 18; TEMP 36.9; O2SAT 97
[2025-03-28 20:20] LABS: Glucose, Whole Blood 118 mg/dL (60-115)
[2025-03-28] MEDS: Insulin Glargine,Hum.rec.anlog 100 UNIT/ML 10 ML VIAL 20 UNIT SUBCUT (20:29)
[2025-03-29 03:10] VITALS: BP 152/67; PULSE 55; RESP 16; TEMP 36; O2SAT 95
[2025-03-29 07:09] VITALS: BP 157/73; PULSE 55; RESP 14; TEMP 37; O2SAT 91
[2025-03-29 07:21] LABS: Glucose, Whole Blood 104 mg/dL (60-115)
[2025-03-29] MEDS: 0.9 % Sodium Chloride Flush 3 ML SYRINGE IVFLUSH ×2 (08:17→15:26)
[2025-03-29 11:30] LABS: Glucose, Whole Blood 216 mg/dL (60-115)
[2025-03-29 12:13] LABS: Hematocrit 28.5 % (42.0-52.0); Hemoglobin 9.2 g/dl (14.0-18.0); Mean Corpuscular HGB Conc 32.3 g/dl (31.0-36.0); Mean Corpuscular Hemoglobin 26.4 pg (27.0-33.0); Mean Corpuscular Volume 81.7 fL (80.0-98.0); NRBC Abs Auto 0.000 X10*3/uL (0.0-0.012); NRBC Pct Auto 0.0 /100WBC (0.0-0.2); Platelet Count 212 X10*3/uL (160-400); Red Blood Count 3.49 X10*6/uL (4.60-5.80); White Blood Count 6.4 X10*3/uL (4.8-10.8)
[2025-03-29 12:30] LABS: Anion Gap 12 (12-20); Blood Urea Nitrogen 33 mg/dL (9-16); Calcium 8.8 mg/dL (8.4-10.2); Carbon Dioxide 28 mmol/L (22-29); Chloride 102 mmol/L (96-108); Creatinine Clr Calc Pharmacy 40.9; Estimated Glomerular Filt Rate 50; Potassium 4.1 mmol/L (3.3-5.1); Sodium 138 mmol/L (135-145)
[2025-03-29] MEDS: ABIRATERONE 250 MG 1000 EACH PO (13:57)
--- NOTE | 2025-03-29 15:02 | MHC.CM.PN ---
Addendum entered by Cheyenne Payan RN 03/29/25 15:04: IMM delivered. Original Note: [facility] [place] offering a bed. Patient accepted. Per [facility], no auth required. Medically cleared for dc. BLS transport scheduled for 4pm. DHARMESH WILSON, patient and daughter aware. IMM delivered.
--- NOTE | 2025-03-29 15:05 | P.DS_ITS ---
DS: Providers Provider Date of Service: 03/29/25 Date of admission: 03/26/25 15:09 Date of discharge: 03/29/25 Primary care physician: None Physician Consults: 03/26/25 15:14 Consult to Vascular Surgery Routine Consulting Provider: [facility] Reason for consultation: dry gangrene left foot 03/26/25 17:05 Consult to Nephrology Routine Consulting Provider: [facility] Reason for consultation: uncontrolled blood pressure DS: Diagnosis Discharge Diagnosis (1) PAD (peripheral artery disease): Status: Acute DS: Summary Hospital Course Hospital Course: From admission HPI: Date of Service: 03/26/25 Chief Complaint: Foot wound 79-year-old [place]raini-speaking male presenting to the ER with complaints of worsening left foot ulcer. Patient has a history of peripheral vascular disease with recent bypass to left lower extremity about 1 month ago in [place]. Patient has had a wound to the left foot where it has been debrided and cleaned up but now appears to be gangrenous, dry most injury to small toe to left foot. Patient denies pain, fever, nausea, vomiting, diarrhea. His daughter brought him from [place] because she did not agree with the health care in [place]. Patient lives alone in [place] also an reports that he is independent. Foot x-ray in the ER showing erosion involving the lateral aspect of the head of the 5th metatarsal with demineralization of the proximal phalanx of the 5th toe, osteomyelitis not excluded., creatinine 1.42, glucose 2 for 7 and daughter also reports that his blood sugar and blood pressure are extremely out of control. Daughter reports that his systolic blood pressures can run in the 200s. He was started on cefepime in the ER was given 1 L of IV fluid. Plan will be to admit patient for further management and treatment of dry gangrene to left lower extremity. Hospital course Pt was admitted to the hospital for right 5th toe dry gangrene with concerns for possible osteomyelitis. Pt was started on empiric vancomycin. Was seen and evaluated by vascular surgery who thought gangrene looked stable in not acutely infected. Recommended against antibiotics and close follow-up with vascular surgery outpatient for angiogram and elective amputation. Pt was seen and evaluated by Physical therapy who recommended STR for strength and conditioning. Expected length of stay less than 30 days. Pt will be discharged to short-term rehab on his home medications which he should continue. Spoke to family at bedside who report pt previously lived with family members who watched his diabetes closely. However, pt moved to [place] 10 months ago where he did not monitor his POCs or diet. Pt has subsequently had a decrease in kidney function likely secondary to uncontrolled diabetes. Pt should follow up with Nephrology for close monitoring of kidney function. Additional details of hospital stay included an problem list below. Question of HUSSAIN on CKD Initial presenting creatinine 1.42 with subsequent 1.58; creatinine today 1.37 Losartan initially held and placed on amlodipine Likely now back to new baseline in the setting of uncontrolled diabetes Follow up with Nephrology outpatient Uncontrolled insulin-dependent diabetes type 2 Place on sliding scale, diabetic diet A1c 9.1 Treat with Lantus 20 units at bedtime Peripheral vascular disease ? Recent bypass graft to left lower extremity in [place] Continue aspirin, statin and Xarelto History of prostate cancer Continue Eligard Prostate cancer Continue abiraterone and prednisone Time Attestation Discharge Coordination Time (in mins): 37 Quality: Safe Use of Opioids Does Pt have an Active Cancer Diagnosis on the Problem List?: No Quality: Stroke Does the patient have a stroke diagnosis?: No Physical Exam 2 Exam: Exam: General: Awake and alert, no acute distress Resp: CTA bilaterally CVS: S1, S2, RRR GI: +BS, NT, no distention Skin: Warm, dry Neuro: Cranial nerves II-XII grossly intact bilaterally. Motor grossly intact bilaterally Extremities: No edema. Left foot and 5th toe as pictured below Psych: Appropriate affect Vital Signs: Vital Signs: Last Vital Signs Temp 98.6 F 03/29/25 07:09 Pulse 55 03/29/25 07:09 Resp 14 03/29/25 07:09 BP 157/73 H 03/29/25 07:09 Pulse Ox 91 L 03/29/25 07:09 O2 Del Method Room Air 03/29/25 07:09 BMI result Body Mass Index 24.3 DS: Data Data Completed and Pending Labs on day of discharge: Laboratory Results - last 24 hr 03/28/25 03/28/25 03/28/25 16:22 17:25 20:16 WBC RBC Hgb Hct MCV MCH MCHC RDW Plt Count MPV Absolute Nucleated RBC Nucleated RBC % (auto) Sodium Potassium Chloride Carbon Dioxide Anion Gap BUN Creatinine Estim Creat Clear Calc Estimated GFR POC Glucose 172 H 118 H Random Glucose Calcium Urine Color Yellow Urine Appearance Clear Urine pH 5.5 Ur Specific [place] 1.020 Urine Protein 100 (2+) H Urine Glucose (UA) Negative Urine Ketones Negative Urine Blood Negative Urine Nitrite Negative Ur Leukocyte Esterase Negative Urine RBC 0-2 Urine WBC 0-5 Ur Squamous Epith Cells 0-2 Urine Bacteria None Seen Hyaline Casts 3-5 U Random Total Protein 69 H Urine Creatinine 121.50 Protein/Creatinin Ratio 0.57 H 03/29/25 03/29/25 03/29/25 07:12 11:13 12:05 WBC 6.4 RBC 3.49 L Hgb 9.2 L Hct 28.5 L MCV 81.7 MCH 26.4 L MCHC 32.3 RDW 15.8 Plt Count 212 MPV 10.0 Absolute Nucleated RBC 0.000 Nucleated RBC % (auto) 0.0 Sodium 138 Potassium 4.1 Chloride 102 Carbon Dioxide 28 Anion Gap 12 BUN 33 H Creatinine 1.37 Estim Creat Clear Calc 40.9 Estimated GFR 50 POC Glucose 104 216 H Random Glucose 219 H Calcium 8.8 Urine Color Urine Appearance Urine pH Ur Specific [place] Urine Protein Urine Glucose (UA) Urine Ketones Urine Blood Urine Nitrite Ur Leukocyte Esterase Urine RBC Urine WBC Ur Squamous Epith Cells Urine Bacteria Hyaline Casts U Random Total Protein Urine Creatinine Protein/Creatinin Ratio Preliminary micro results at discharge 03/26/25 15:02 Blood Culture - Preliminary Blood - Venous No growth after 48 hours. 03/26/25 15:02 Blood Culture - Preliminary Blood - Venous No growth after 48 hours. Discharge Plan Discharge Anticipated Discharge Date/Time: 03/29/25 14:55 Patient Disposition: er [facility] Discharge Diagnosis: Dry gangrene of left 5th toe Referrals: Myriam Sweeney [place] [Outside] - 1 Day Referral Note: short term rehab Physician,None [Primary Care Provider, Medical] - 1 Week Discharge Medications: Continued metoprolol tartrate 100 mg tablet 1 tab PO BID tamsulosin 0.4 mg capsule 1 cap PO DAILY gabapentin 300 mg capsule 300 mg PO TID (DME) pen needle, diabetic [Sure Comfort Pen Needle] 31 gauge x 3/16 needle MISCELLANEOUS insulin aspart U-100 [Novolog FlexPen U-100 Insulin] 100 unit/mL (3 mL) insulin pen 6 unit subcut TIDAC rivaroxaban [Xarelto] 2.5 mg tablet 2.5 mg PO BID hydralazine 50 mg tablet 100 mg PO BID insulin glargine [Lantus U-100 Insulin] 100 unit/mL solution 14 unit SUBCUT BEDTIME atorvastatin 40 mg tablet 80 mg PO BEDTIME aspirin 81 mg Tablet,Chewable 81 mg PO BEDTIME doxazosin 8 mg Tablet 8 mg PO BID losartan 25 mg tablet 25 mg PO DAILY sertraline 25 mg tablet 25 mg PO DAILY furosemide [Lasix] 20 mg Tablet 20 mg PO Q48H prednisone 5 mg tablet 5 mg PO DAILY Rx Instructions: take with chemo med Abiraterone 250 mg 2 hours after breakfast abiraterone 250 mg tablet 1,000 mg PO DAILY Rx Instructions: take with prednisone 5 mg Eligard (6 month) 45 mg Syringe 45 mg SUBCUT [id number] Discharge Orders: Discharge Order (Routine); Ordered 03/29/25 Ordered By: Melissa Soto Activity on Discharge: As tolerated Stand Alone Forms: Patient Portal Discharge page Print Language: Kiswahili Care Plan Goals: See below Health Concerns: Dry gangrene of toe Plan of Treatment: You were admitted to the hospital for dry gangrene of left foot with concerns for possible osteomyelitis. You were started on IV antibiotics. You were seen and evaluated by vascular surgery who felt your dry gangrene was stable and not acutely infected. Recommendation was against antibiotics, though to follow closely with Dr. Harrison in vascular surgery for outpatient angiogram and subsequent elective outpatient amputation of 5th digit. Your kidney function was also noted to be worsening from baseline, likely due to poorly controlled diabetes. You were seen and evaluated by physical therapy who recommended discharge to short-term rehab for strength and conditioning. -- Follow up with Dr. Escudero in vascular surgery for outpatient angiogram and subsequent elective amputation -- No indication for antibiotics at this time has dry gangrene appears stable and not acutely infected -- closely monitor blood glucose and continue insulin dosing. Adhere to a diabetic diet and diabetic snacking -- follow up with Nephrology for monitor kidney function -- resume all of your other home medications Assessment: See discharge summary
[2025-03-29 15:49] VITALS: BP 128/60; PULSE 63; RESP 16; TEMP 37; O2SAT 97
--- NOTE | 2025-03-29 16:02 | P.PNVS_ITS ---
Subjective Subjective Date of Service: 03/29/25 Patient reports: no new complaints Interval history: Patient seen and examined. No significant events overnight. Appears to be doing relatively the same. Awaiting placement for short-term rehab. Physical Exam Vital Signs: Vital Signs: Last Vital Signs Temp 98.6 F 03/29/25 15:49 Pulse 63 03/29/25 15:49 Resp 16 03/29/25 15:49 BP 128/60 03/29/25 15:49 Pulse Ox 97 03/29/25 15:49 O2 Del Method Room Air 03/29/25 15:49 BMI result Body Mass Index 24.3 Const: General: cooperative, healthy appearing and comfortable Orientation/consciousness: oriented to person, oriented to place and oriented to time HEENT: Head: Yes normal to inspection Neck: Neck: Yes normal visual inspection Carotids: no bruits Chest: Chest palpation & inspection: normal inspection of the chest Resp: Effort & Inspection: normal respiratory effort and able to speak in complete sentences Auscultation: clear to auscultation bilaterally, no crackles, no rales, no rhonchi and no wheezes Cardio: Other: Bilateral DP signals Rate: regular rate Rhythm: regular rhythm Heart sounds: S1 normal heart sound present and S2 normal heart sound present Bruits: no carotid bruits Peripheral pulses: Peripheral pulses 2+ throughout GI: Inspection: Yes normal to inspection Skin: Other: Left lateral toe dry gangrene. This is on the 5th toe. No evidence of erythema or infection. Wounds: wounds noted Hair: normal Neuro: General: oriented to person, oriented to place and oriented to time Cranial nerves: Yes CN's II-XII intact bilaterally and Yes Normal hearing present Cognition (Neuro): normal cognition Motor exam (neuro): 5/5 motor strength present throughout Extrem: Other: venous exam: No significant superficial varicosities or spider telangiectasias, minimal edema General: No clubbing, No cyanosis and No edema Psych: Appearance: grossly normal Mental Status: mental status grossly normal Speech and movement: Normal speech and movement present Progress Note: A&P Assessment and plan (1) PAD (peripheral artery disease): Status: Acute Assessment and Plan: In short patient has evidence of PA D. I did review his noninvasive testing and he will require endovascular intervention which can be scheduled as an outpatient. Most likely he will lose that left 5th toe. He is going to short- term rehab. He can follow up in our office and we will schedule him as soon as possible. Thank you for allowing us to assist in his care. If there are any questions or concerns please do not hesitate to contact us. Time Spent With Patient Time: Total time managing care of this patient today ____ minutes. Procedures Date of Service Date of Service: 03/29/25 Quality Stroke Does the patient have a stroke diagnosis?: No VTE Prior VTE?: No VTE Risk Level:: Medical - moderate - high VTE Device Contraindication: N/A - Device Ordered VTE Drug Contraindication: Treatment Not Indicated
[2025-03-29 16:33] LABS: Glucose, Whole Blood 231 mg/dL (60-115)
== END 2025-03-29 16:52 | disposition skilled nursing facility (03) | DRG 300 ==
LOC: HO.ED 14:43 → HO.EDOVER 15:13 → HO.S3 19:42
PROVIDERS: Nurse Practitioner Acute Care; Nurse Practitioner Family; Physician Assistant Medical; Admitting Provider Student in an Organized Health Care Education/Training Program; Emergency Provider Emergency Medicine; Visit Provider Student in an Organized Health Care Education/Training Program
DX: E11.52 Type 2 diabetes mellitus with diabetic peripheral angiopathy with gangrene (principal); I70.262 Atherosclerosis of native arteries of extremities with gangrene, left leg; M86.172 Other acute osteomyelitis, left ankle and foot; M86.672 Other chronic osteomyelitis, left ankle and foot; L97.829 Non-pressure chronic ulcer of other part of left lower leg with unspecified severity; C61 Malignant neoplasm of prostate; E11.69 Type 2 diabetes mellitus with other specified complication; I12.9 Hypertensive chronic kidney disease with stage 1 through stage 4 chronic kidney disease, or unspecified chronic kidney disease; N18.30 Chronic kidney disease, stage 3 unspecified; Z79.4 Long term (current) use of insulin; Z79.01 Long term (current) use of anticoagulants; Z79.52 Long term (current) use of systemic steroids; Z79.82 Long term (current) use of aspirin; Z79.899 Other long term (current) drug therapy
CPT/HCPCS: 36415; 73630; 80048; 80053; 81001; 82570; 82947; 83036; 83540; 83605; 84156; 85025; 85027; 85652; 86140; 87040; 93923; 93925; 97110; 97162; 99285; J0360; J0692; J3374

== ENCOUNTER → 2025-03-26 13:32 | Outpatient (BNV) | payer OTHER, SELFPAY | PROVIDERS: Emergency Provider Emergency Medicine; Visit Provider Radiology Diagnostic Radiology | DX: M85.872 Other specified disorders of bone density and structure, left ankle and foot (principal) | CPT/HCPCS: 73630 ==

== ENCOUNTER 2025-03-26 15:09 | Outpatient (BNV) | payer MEDICARE, MEDICAID, SELFPAY | END 2025-03-27 13:14 | PROVIDERS: Admitting Provider Student in an Organized Health Care Education/Training Program; Emergency Provider Emergency Medicine; Visit Provider Student in an Organized Health Care Education/Training Program | DX: L97.529 Non-pressure chronic ulcer of other part of left foot with unspecified severity (principal) | CPT/HCPCS: 93923; 93925 ==

== ENCOUNTER → 2025-03-26 15:09 | Outpatient (BNV) | payer MEDICARE, MEDICAID, SELFPAY | PROVIDERS: Admitting Provider Student in an Organized Health Care Education/Training Program; Emergency Provider Emergency Medicine; Visit Provider Surgery Vascular Surgery | DX: I73.9 Peripheral vascular disease, unspecified (principal) | CPT/HCPCS: 99222; 99232 ==

== ENCOUNTER → 2025-03-26 15:09 | Outpatient (BNV) | payer OTHER, SELFPAY | PROVIDERS: Admitting Provider Student in an Organized Health Care Education/Training Program; Emergency Provider Emergency Medicine; Visit Provider Nurse Practitioner Acute Care | DX: I96 Gangrene, not elsewhere classified (principal) | CPT/HCPCS: 99223; 99232 ==

== ENCOUNTER 2025-06-13 11:38 | Outpatient (REF) | payer MEDICAID, MEDICARE, SELFPAY ==
--- NOTE | ~2025-06-13 | XR_ITS ---
EXAMINATION: XR CHEST CLINICAL INFORMATION: orthopnea and history of cardiomegaly COMPARISON: February 1722 TECHNIQUE: 2 views of the chest were obtained. FINDINGS: No significant abnormality is noted involving the heart, lungs, mediastinum, bony thorax or soft tissues. XR/XR chest 2V IMPRESSION: No acute disease. Cardiac silhouette width is within normal limits. Electronically signed by: Trung Doherty MD 06/13/2025 12:34 PM [facility]
--- OUTSIDE RECORDS SUMMARY | 2025-06-13 10:30 | XMS_ITS | Encounter Summary ---
Author Organization [employer] Address [address] [place] [address] 7 [place] [address] Care Team Providers Care Program Control Analyst Name Role Phone NameRenny MD Primary Care Provider [phone] Reason for Referral * Consultation (Routine) - Authorized Specialty Diagnoses / Procedures Referred By Contac t Referred To Contact Cardiology Diagnoses Peripheral vascular disease (CMS/HCC) Orthopnea NameRenny MD [address] [place] [address] Phone: tel: fax: [address] [address] Phone: tel: fax: Referral ID Status Reason Start Date Expiration Date Visits Requested Visits Authorized [id number] Authorized Specialty Services Required 06/13/2026 1 1 * Imaging (Routine) - Pending Review Specialty Diagnoses / Procedures Referred By Contac t Referred To Contact Cardiology Diagnoses Orthopnea Procedures Transthoracic Echo (TTE) Complete Renny Johnston MD [address] [place] [address] Phone: tel: fax: [address] [address] Phone: tel: fax: Referral ID Status Reason Start Date Expiration Date Visits Requested Visits Authorized [id number] Pending Review Perform Procedure 06/13/2026 1 1 * Consultation (Routine) - Authorized Specialty Diagnoses / Procedures [facility] To [facility] Pharmacy Diagnoses Type 2 diabetes mellitus with other specified complication, with long-term current use of insulin (HCC) Peripheral vascular disease (CMS/HCC) Renny Johnston MD [address] [place] [address] Phone: tel: fax: Referral ID Status Reason Start Date Expiration Date Visits Requested Visits Authorized [id number] Authorized Continuity of Care 06/13/2025 06/13/2026 6 6 * Consultation (Routine) - Authorized Specialty Diagnoses / Procedures [facility] Referred To Contact Pharmacy Diagnoses Type 2 diabetes mellitus with other specified complication, with long-term current use of insulin (HCC) Peripheral vascular disease ([facility]/HCC) Renny Johnston MD [address] [place] [address] Phone: tel: fax: Referral ID Status Reason Start Date Expiration Date Visits Requested Visits Authorized [id number] Authorized Consult and Treat 06/13/2025 06/13/2026 6 6 * Medications - Closed Specialty Diagnoses / Procedures Referred By [facility] t Referred To Contact Diagnoses Type 2 diabetes mellitus with other specified complication, with long-term current use of insulin (HCC) Renny Johnston MD [address] [place] [address] Phone: tel: fax: Referral ID Status Reason Start Date Expiration Date Visits Re quested Visits Authorized [id number] Closed 1 1 * Medications - Closed Specialty Diagnoses / Procedures Referred By [facility] t Referred To Contact Diagnoses Type 2 diabetes mellitus with other specified complication, with long-term current use of insulin (HCC) Renny Johnston MD [address] [place] [address] Phone: tel: fax: Referral ID Status Reason Start Date Expiration Date Visits Re quested Visits Authorized [id number] Closed 1 1 Reason for Visit * Reason Comments Follow up Encounter Details Date Type Department Care Team (Late st Contact Info) Description 06/13/2025 10:30 AM EST Office Visit [facility] MED[facility]INE [address] [place] [address] [place] [address] Type 2 diabetes mellitus with other specified complication, with long-term current use of insulin (HCC) (Primary Dx); Peripheral vascular disease (CMS/HCC); Amputated toe, unspecified laterality; 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 I have antonia herman 06/13/[address] you li ve. Do you have problems with any of the following? None of the above 06/13/2025 Food Insecurity Answer Date Recorded Within the past 12 months, y ou worried that your food would run out before you got money to buy more: Never True 06/13/2025 Within the past 12 months,th e food you bought just didn't last and you didn't have enough money to get more: Never True Transportation Answer Date Recorded In the past 12 months, has l ack of transportation kept you from medical appts, meetings, work or from getting things needed for daily living? No 06/13/2025 Utilities Answer Date Recorded In the past 12 months, has t he electric, gas, oil or water company threatened to shut off services in your home? No 06/13/2025 Depression Answer Date Recorded Patient Health Questionnaire-2 Score 4 06/13/2025 Internet Access Answer Date Recorded Internet Access Q1 Yes 06/13/2025 Internet Access Q2 Not on file 06/13/2025 Sex and Gender Information Value Date Recorded Sex Assigned at Male 05/18/2022 10:40 AM EDT Legal Sex Male 10:40 AM EDT Gender Identity Male 05/18/2022 10:40 AM EDT Sexual Orientation Straight 12/09/2022 1: 52 PM EDT documented as of this encounter Last Filed Vital Signs Vital Sign Reading Time Taken Comments Blood Pressure 150/80 06/13/2025 10:01 AM EST Pulse 64 06/13/2025 10:01 AM EST Temperature 36.3 C (97.4 F) 06/13/2025 10:01 AM EST Respiratory Rate 16 06/13/2025 10:01 AM EST Oxygen Saturation - - Inhaled Oxygen Concentration - - Weight 70.9 kg (156 lb 3.2 oz) 06/13/2025 10:01 AM EST Height 172.7 cm (5' 8 ) 06/13/2025 10:01 AM EST Body Mass Index 23.75 06/13/2025 10:01 AM EST documented in this encounter Functional Status * Over the past 2 weeks, how often have you been bothered by any of the following problems? Question Answer Date of Assessment Author Patient Health Questionnaire -2 Score 4 06/13/2025 10:10 AM EST Edilma Ceballos MA * Little interest or pleasure in doing things Answer Date of Assessment Author Nearly every day 06/13/2025 10:10 AM EST Edilma Ceballos MA * Feeling down, depressed, or hopeless Answer Date of Assessment Author Several days 06/13/2025 10:10 AM EST Edilma Ceballos MA * Trouble falling or staying asleep, or sleeping too much Answer Date of Assessment Author Nearly every day 06/13/2025 10:10 AM Edilma Diane MA * Feeling tired or having little energy Answer Date of Assessment Author Several days 06/13/2025 10:10 AM Edilma Diane MA * Poor appetite or overeating Answer Date of Assessment Author Not at all 06/13/2025 10:10 AM Edilma Diane MA * Feeling bad about yourself - or that you are a failure or have let yourself or your family down Answer Date of Assessment Author Not at all 06/13/2025 10:10 AM Edilma Diane MA * Trouble concentrating on things, such as reading the newspaper or watching television Answer Date of Assessment Author Not at all 06/13/2025 10:10 AM Edilma Diane MA * Moving or speaking so slowly that other people could have noticed? Or the opposite - being so fidgety or restless that you have been moving around a lot more than usual. Answer Date of Assessment Author Not at all 06/13/2025 10:10 AM Edilma Diane MA * Thoughts that you would be better off or hurting yourself in some way Answer Date of Assessment Author Not at all 06/13/2025 10:10 AM Edilma Diane MA * Patient Health Questionnaire-9 Score Answer Date of Assessment Author 8 06/13/2025 10:10 AM Edilma Diane MA * Over the last 2 weeks, how often have you been bothered by any of the following problems? Question Answer Date of Assessment Author Feeling nervous, anxious, or on edge 0 06/13/2025 10:10 AM Edilma Diane MA Not being able to stop or co ntrol worrying 0 06/13/2025 10:10 AM Edilma Diane MA Worrying too much about diff erent things 0 06/13/2025 10:10 AM Edilma Diane MA Trouble relaxing 1 06/13/2025 10:10 AM Edilma Diane MA Being so restless that it is hard to sit still 0 06/13/2025 10:10 AM Edilma Diane MA Becoming easily annoyed or irritable 1 06/13/2025 10:10 AM Edilma Diane MA Feeling afraid as if somethi ng awful might happen 0 06/13/2025 10:10 AM Edilma Diane MA OVIDIO-7 Total Score 2 06/13/2025 10:10 AM Edilma Diane MA * How difficult have these problems made it for you to do your work, take care of things at home, or get along with other people? Answer Date of Assessment Author Somewhat difficult 06/13/2025 10:10 AM Edilma Coronado MA documented as of this encounter Progress Notes * Renny Johnston MD - 06/13/2025 10:30 AM EST Subjective Patient ID: Shaquille Caicedo is a 79 y.o. male who presents for Follow up. Patient comes to reestablish medical care. The last visit to this clinic was in April of last year. Patient has longstanding uncontrolled type 2 diabetes with multiple complications including peripheral vascular disease (previous toe amputations 2R, 1L), CKD, retinopathy, diabetic neuropathy. He arrived from [place] back in March with a L foot infection. The patient required amputation of the left fifth toe and part of the left lateral foot in April of this year for treatment of tissue necrosis and osteomyelitis. He also had arterial stenting of the left lower extremity prior to the amputation surgery. The patient has been living with one of her daughters. The patient has significant difficulties walking due to his recent amputation and chronic diabetic neuropathy. His family has requested a walkerwith wheels/hand brakes/seat because the patient difficulties ambulating, shower chair, physical therapy at home, diabetic shoes and wrist splints (he also has symptoms of neuropathy in his hands) they would like the patient to have a PROFESSIONAL SKATER because he requires assistance dressing/bathing. The patient has also noted symptoms of shortness of breath when he lays down flat on his back. He denies any chest pains, no lower extremity edema, no cough or wheezing. He explains to me that he wastold he had an enlarged heart during his recent stay in [place]. Summary of the recent hospitalization is written below: HPI From admitting provider H&P: 79 y.o. Japanese-speaking male past medical history significant for hypertension, hyperlipidemia, diabetes with neuropathy, prostate cancer on Zytiga and prednisone, peripheral artery disease on Xarelto and further history below presented to ED evaluation of gangrene of the left fifth toe and lateral foot ulceration. Patient reports that he developed a wound to his left lateral side of foot in February 2025 he had surgery back in [place]. He came from [place] early March 2025. He was seen at [facility] and he was told that he needs a surgical intervention/amputation but prior to that he needs revascularization of left lower extremities. Patient underwent left lower extremity angiogram with stent placement to tibial artery done by Dr. Ballesteros on 04/23/2025. 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 Patient was seen by podiatry Dr. Haque on 05/04 for surgical debridement of left foot wound however patient was sent to ED by Dr. Karyn west for IV antibiotics and surgical intervention. At the time of my interview, patient denies fever, chills, focal numbness or weakness, chest pain, palpitations, nausea, vomiting, changes in bowel movement or urination. Arrival to ED, blood pressure 123/65, heart rate 63, respiratory 16, sat 99% room air, afebrile. Labs revealed no leukocytosis 7.2, CRP 0.58, anemia H&H 9.2/29.3, platelets 197, electrolytes WNL, creatinine elevated 1.37, LFTs WNL except low albumin 3.1. Blood culture obtained-pending. Artery ultrasound of lower extremities showed extensive bilateral calcified plaquing of left lower extremity arterial system. Occlusion in the right posterior tibial artery. MRI of left foot showed cellulitis of left foot. Osteomyelitis of the distal fifth metatarsal and the fifth proximal, middle and distal phalanges. Patient is admitted hospital for further workup and treatment. Hospital Course Shaquille Caicedo is a 79 y.o. male who has history of HTN, DM with neuropathy, prostate cancer, PAD, hyperlipidemia who was sent in from senior mortgage loan processor office due to diabetic foot infection. 1. Left foot osteomyelitis/left foot gangrene Patient was not septic. Vascular surgeon was consulted. MRI of foot showed cellulitis of left foot with osteomyelitis of distal fifth metatarsal and fifth proximal and middle and distal phalanges. Angiography was done followed by left 5th toe amputation on 05/09. He was treated with empiric Vancomycin and Cefepime. Pathology showed gangrene, acute osteomyelitis and clean margins. Patient cleared for discharge by vascular surgeon and will follow up as outpatient. 2. PAD Continue aspirin and statin. Xarelto resumed at appropriate dose of 2.5 mg twice daily. 3. HTN Patient's BP was uncontrolled. Hydralazine dose increased to 100 mg 3 times daily and losartan was resumed after surgery. BP improved prior to discharge. 4. Anemia Likely anemia of chronic illness, stable Hb of 8.7. No indication for transfusion. Review of Systems Constitutional: Negative for chills, fatigue and fever. HENT: Negative for sore throat. Respiratory: Negative for cough, chest tightness and shortness of breath. Cardiovascular: Negative for chest pain, palpitations and leg swelling. See HPI Gastrointestinal: Negative for abdominal pain and blood in stool. Objective Vitals: 06/13/25 1001 BP: (!) 150/80 BP Location: Left arm Patient Position: Sitting BP Cuff Size: Adult Pulse: 64 Resp: 16 Temp: 97.4 ??F (36.3 ??C) TempSrc: Oral Weight: 156 lb 3.2 oz (70.9 kg) Height: 5' 8 (1.727 m) Physical Exam Constitutional: Appearance: Normal appearance. Cardiovascular: Rate and Rhythm: Normal rate and regular rhythm. Pulses: Dorsalis pedis pulses are 1+ on the right side and 1+ on the left side. Posterior tibial pulses are 1+ on the right side and 1+ on the left side. Heart sounds: Murmur heard. Pulmonary: Effort: Pulmonary effort is normal. No respiratory distress. Breath sounds: No rhonchi or rales. Abdominal: Palpations: Abdomen is soft. Tenderness: There is no abdominal tenderness. Musculoskeletal: Right lower leg: No edema. Left lower leg: No edema. Feet: Right foot: Protective Sensation: 5 sites tested. 1 site sensed. Skin integrity: Skin integrity normal. No ulcer or erythema. Toenail Condition: Right toenails are normal. Left foot: Protective Sensation: 5 sites tested. 1 site sensed. Skin integrity: Skin integrity normal. No ulcer or erythema. Toenail Condition: Left toenails are normal. Comments: Toe amputations: 2nd toe on the Right foot 1st and 5 toes on the lefts Neurological: Mental Status: He is alert. Lab Results Component Value Date HGBA1C 7.1 (A) 03/30/2024 HGBA1C 7.1 (A) 12/29/2023 HGBA1C 8.8 (H) 09/21/2023 HGBA1C 8.3 (A) 05/17/2023 HGBA1C 8.6 (H) 03/17/2023 HGBA1C 10.2 (A) 10/13/2022 tains abnormal data Hepatic Function Panel - STAT Order: [id number] Component Ref Range & Units 1 mo ago Total Protein 6.0 - 8.0 g/dL 5.7 Low Albumin 3.2 - 5.0 g/dL 2.5 Low Total Bilirubin 0.0 - 1.4 mg/dL 0.4 Bilirubin, Direct 0.0 - 0.3 mg/dL 0.2 Bilirubin, Indirect 0.0 - 1.1 mg/dL 0.2 ALT (SGPT) 10 - 60 unit/L 14 AST (SGOT) 10 - 42 unit/L 11 Alkaline Phosphatase 42 - 121 unit/L 68 Resulting Agency [facility] Basic metabolic panel Order: [id number] Component Ref Range & Units 1 mo ago Sodium 133 - 145 mmol/L 138 Potassium 3.5 - 5.5 mmol/L 4.1 Chloride 96 - 110 mmol/L 104 CO2 21 - 32 mmol/L 26 Anion Gap 3 - 11 8 Glucose 70 - 100 mg/dL 90 BUN 5 - 25 mg/dL 15 Creatinine 0.70 - 1.30 mg/dL 1.19 eGFR >=60 mL/min/1.73m2 61 Comment: Calculation based on the Chronic Kidney Disease Epidemiology Collaboration (CKD-EPI) equation refit without adjustment for race. BUN/Creatinine Ratio 12.6 Calcium 8.5 - 10.5 mg/dL 9.0 Complete blood count Order: [id number] Component Ref Range & Units 1 mo ago WBC 4.8 - 10.8 K/mcL 7.2 RBC 4.50 - 5.50 M/mcL 3.30 Low Hemoglobin 13.5 - 17.5 g/dL 8.7 Low Hematocrit 42.0 - 54.0 % 27.7 Low MCV 79.0 - 98.0 FL 84.5 MCH 27.0 - 32.0 pcg 26.5 Low MCHC 32.0 - 37.0 g/dL 31.4 Low RDW 11.0 - 15.0 % 15.1 High Platelets 130 - 400 K/mcL 185 MPV 7.0 - 11.0 FL 11.3 High NRBC <1.0 % 0.0 NRBC Absolute <0.10 K/mcL 0.00 Resulting Agency [facility] Assessment/Plan Diagnoses and all orders for this visit: Type 2 diabetes mellitus with other specified complication, with long-term current use of insulin (HCC) Comments: Continue current dose of insulin Avoid sweets and soda Check testing listed below I will prescribe a CGM Referral to CDTM program to start treatment with OmniPod insulin pump Referral to med box program Orders: - POCT Glucose - POCT Hemoglobin - Comprehensive Metabolic Panel; Future - Lipid Panel, Standard; Future - Albumin, Random Urine W/Creatinine; Future - Continuous Glucose Claims Clerk (FreeStyle Grace 3 Ponce) device; 1 each Once per day. Use as directed for CGM - Continuous Glucose Sensor (FreeStyle Grace 3 Plus Sensor) misc; 1 each every 15 days. Apply 1 every 15 days as directed for CGM - Referral to Pharmacy CDTM - Referral to Pharmacy MTM - Diclofenac Sodium 1 % gel; APPLY 2 GRAMS TOPICALLY TO AFFECTED AREA(S) TWICE DAILY Peripheral vascular disease (CMS/HCC) Comments: Continue Xarelto and aspirin Continue following with vascular Check fasting blood work listed below Referral to home PT Will try to get him the following DME's because of his difficulty ambulating: Walker with wheels and seat/shower chair/diabetic shoes Referred to home PT Referral to PT program Orders: - Comprehensive Metabolic Panel; Future - Lipid Panel, Standard; Future - Albumin, Random Urine W/Creatinine; Future - Referral to Pharmacy CDTM - Referral to Pharmacy MTM - Referral to Cardiology; Future Amputated toe, unspecified laterality - Comprehensive Metabolic Panel; Future - Lipid Panel, Standard; Future - Albumin, Random Urine W/Creatinine; Future 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 This used to helping for the pain in the past. I will try to get him the wrist plan as he requested for the hand pain related to diabetic neuropathy Neuropathic pain of hand Orthopnea Comments: Evaluation with chest x-ray, echocardiogram, referral to cardiology Orders: - Transthoracic Echo (TTE) Complete; Future - Referral to Cardiology; Future - XR Chest 2 Views; Future - ECG 12 lead Anemia, unspecified type Comments: Check blood work listed below Orders: - CBC auto differential; Future - Iron And Total Iron Binding Capacity; Future - Ferritin; Future - Vitamin B12 (Cobalamin) and Folate Panel, Serum; Future Other orders - doxazosin (Cardura) 8 MG tablet; Take 1 tablet (8 mg) by mouth at bedtime. - furosemide (Lasix) 20 MG tablet; Take 1 tablet (20 mg) by mouth every other day. - hydrALAZINE (Apresoline) 100 MG tablet; Take 1 tablet (100 mg) by mouth 3 times daily. - gabapentin (Neurontin) 300 MG capsule; TAKE 1 CAPSULE BY MOUTH 3 times a day - glucose blood (FreeStyle [place] Test) test strip; Use to test blood sugar 3 times daily incase of CGM failure or extremes of BG - Alcohol Swabs (Alcohol Prep) 70 % pads; USE FOUR TIMES DAILY DIRECTED - Pentips Generic Pen Lovilia 32G X 4 MM misc; Use as instructed - zolpidem (Ambien) 10 MG tablet; Take 1 tablet (10 mg) by mouth if needed at bedtime for sleep. - cyanocobalamin (Vitamin B-12) 1000 MCG tablet; Take 1 tablet (1,000 mcg) by mouth Once per day. - polyethylene glycol, PEG, 3350 (MiraLax) 17 GM/SCOOP powder; Take 17 g by mouth Once per day. Future Appointments Date Time Provider Department Center 07/27/2025 10:30 AM Jory Christina PharmD MEDICINE [facility] 09/14/2025 10:00 AM Renny Johnston MD MEDICINE [facility] documented in this encounter Plan of Treatment Upcoming Encounters Date Type Department Care Team (Late st Contact Info) Description 07/27/2025 10:30 AM EST Medication Management [facility] [address] [place] [address] Jory Christina PharmD [address] [place] [address] 09/14/2025 10:00 AM EST Office Visit [facility] [address] [place] [address] Name, MD Renny [address] [place] [address] Scheduled Orders Name Type Priority Associated Diagnoses Orde r Schedule Comprehensive Metabolic Panel Lab Routine Type 2 diabetes mellitus with other specified complication, with long-term current use of insulin (HCC) Peripheral vascular disease (CMS/HCC) Amputated toe, unspecified laterality Expected: 06/13/2025 (Approximate), Expires: 06/13/2026 Lipid Panel, Standard Lab Routine Type 2 diabetes mellitus with other specified complication, with long-term current use of insulin (HCC) Peripheral vascular disease (CMS/HCC) Amputated toe, unspecified laterality Expected: 06/13/2025 (Approximate), Expires: 06/13/2026 Albumin, Random Urine W/Creatinine Lab Routine Type 2 diabetes mellitus with other specified complication, with long-term current use of insulin (HCC) Peripheral vascular disease (CMS/HCC) Amputated toe, unspecified laterality Expected: 06/13/2025 (Approximate), Expires: 06/13/2026 CBC auto differential Lab Routine Anemia, unspecified type Expected: 06/13/2025 (Approximate), Expires: 06/13/2026 Iron And Total Iron Binding Capacity Lab Routine Anemia, unspecified type Expected: 06/13/2025, Expires: 06/13/2026 Ferritin Lab Routine Anemia, unspecified type Expected: 06/13/2025, Expires: 06/13/2026 Vitamin B12 (Cobalamin) and Folate Panel, Serum Lab Routine Anemia, unspecified type Expected: 06/13/2025 (Approximate), Expires: 06/13/2026 Transthoracic Echo (TTE) Complete Echocardiography Routine Orthopnea Expected: 06/13/2025 (Approximate), Expires: 06/13/2027 Scheduled Referrals Name Type Priority Associated Diagnoses Order Schedule Referral to Pharmacy CDTM Outpatient Referral Routine Type 2 diabetes mellitus with other specified complication, with long-term current use of insulin (HCC) Peripheral vascular disease (CMS/HCC) Ordered: 06/13/2025 Referral to Pharmacy MTM Outpatient Referral Routine Type 2 diabetes mellitus with other specified complication, with long-term current use of insulin (HCC) Peripheral vascular disease (CMS/HCC) Ordered: 06/13/2025 Referral to Cardiology Outpatient Referral Routine Peripheral vascular disease ([facility]) Orthopnea Expected: 06/13/2025 (Approximate), Expires: 06/13/2026 documented as of this encounter Goals Goal Patient Goal Type Associated Problems Recent Progress Patient-Stated? Author Record your blood pressure once per day Blood Pressure No Jory Christina PharmD Blood Pressure < 140/90 Blood Pressure 150/80(2024 10:01 AM EST) No Jory Christina PharmLamar Hemoglobin A1c < 7.5 Result Component 7.1( 1:49 PM EDT) No Jory Christina PharmD Record your blood sugar as directed Result Component No Jory Christina PharmD Help patients manage their type 2 diabetes Care Plan Help patients manage their type 2 diabetes No Edilma Ceballos MA Weekly blood pressure task Care Plan Weekly blood pressure task No Edilma Ceballos MA Help patients manage their type 2 diabetes Care Plan Help patients manage their type 2 diabetes No Edilma Ceballos MA Patient has diabetic eye disease Care Plan Patient has diabetic eye disease No Edilma Ceballos MA Help patients manage their type 2 diabetes Care Plan Help patients manage their type 2 diabetes No Edilma Ceballos MA Patient has chronic kidney disease Care Plan Patient has chronic kidney disease No Edilma Ceballos MA Help patients manage their type 2 diabetes Care Plan Help patients manage their type 2 diabetes No Edilma Ceballos MA Patient has diabetic neuropathy Care Plan Patient has diabetic neuropathy No Edilma Ceballos MA Weekly blood pressure task Care Plan Weekly blood pressure task No Edilma Ceballos MA Weekly blood pressure task Care Plan Weekly blood pressure task No Edilma Ceballos MA Weekly blood pressure task Care Plan Weekly blood pressure task No Edilma Ceballos MA Patient has diabetic eye disease Care Plan Patient has diabetic eye disease No Edilma Ceballos MA Patient has diabetic eye disease Care Plan Patient has diabetic eye disease No Edilma Ceballos [place] Patient has diabetic eye disease Care Plan Patient has diabetic eye disease No Edilma Ceballos [place] Patient has chronic kidney disease Care Plan Patient has chronic kidney disease [place] Patient has chronic kidney disease Care Plan Patient has chronic kidney disease No [place] Patient has chronic kidney disease Care Plan Patient has chronic kidney disease No [place] Patient has diabetic neuropathy Care Plan Patient has diabetic neuropathy No [place] Patient has diabetic neuropathy Care Plan Patient has diabetic neuropathy No [place], [place] Patient has diabetic neuropathy Care Plan Patient has diabetic neuropathy No [place], [place] Weekly blood pressure task Care Plan Weekly blood pressure task No Tasia Sibley RN Weekly blood pressure task Care Plan Weekly blood pressure task No Tasia Sibley RN Weekly blood pressure task Care Plan Weekly blood pressure task No Tasia Sibley RN Weekly blood pressure task Care Plan Weekly blood pressure task No Tasia Sibley RN Patient has diabetic eye disease Care Plan Patient has diabetic eye disease No Tasia Sibley RN Patient has diabetic eye disease Care Plan Patient has diabetic eye disease No Tasia Sibley RN Patient has diabetic eye disease Care Plan Patient has diabetic eye disease No Tasia Sibley RN Patient has diabetic eye disease Care Plan Patient has diabetic eye disease No Tasia Sibley RN Patient has chronic kidney disease Care Plan Patient has chronic kidney disease Tasia Dietrich RN Patient has chronic kidney disease Care Plan Patient has chronic kidney disease No Tasia Sibley RN Patient has chronic kidney disease Care Plan Patient has chronic kidney disease Tasia Dietrich RN Patient has chronic kidney disease Care Plan Patient has chronic kidney disease Tasia Dietrich RN Patient has diabetic neuropathy Care Plan Patient has diabetic neuropathy No Tasia Sibley RN Patient has diabetic neuropathy Care Plan Patient has diabetic neuropathy No Tasia Sibley RN Patient has diabetic neuropathy Care Plan Patient has diabetic neuropathy No Tasia Sibley RN Patient has diabetic neuropathy Care Plan Patient has diabetic neuropathy No Tasia Sibley RN Weekly blood pressure task Care Plan Weekly blood pressure task No Raya Read Weekly blood pressure task Care Plan Weekly blood pressure task No Raya Read Weekly blood pressure task Care Plan Weekly blood pressure task No Raya Read Weekly blood pressure task Care Plan Weekly blood pressure task No Raya Read Patient has diabetic eye disease Care Plan Patient has diabetic eye disease No Raya Read Patient has diabetic eye disease Care Plan Patient has diabetic eye disease No Raya Read Patient has diabetic eye disease Care Plan Patient has diabetic eye disease No Raya Read Patient has diabetic eye disease Care Plan Patient has diabetic eye disease No Raya Read Patient has chronic kidney disease Care Plan Patient has chronic kidney disease No Raya Read Patient has chronic kidney disease Care Plan Patient has chronic kidney disease No Raya Read Patient has chronic kidney disease Care Plan Patient has chronic kidney disease No Raya Read Patient has chronic kidney disease Care Plan Patient has chronic kidney disease No Raya Read Patient has diabetic neuropathy Care Plan Patient has diabetic neuropathy No Raya Read Patient has diabetic neuropathy Care Plan Patient has diabetic neuropathy No Raya Read Patient has diabetic neuropathy Care Plan Patient has diabetic neuropathy No Raya Read Patient has diabetic neuropathy Care Plan Patient has diabetic neuropathy No Raya Read documented as of this encounter Procedures Procedure Name Priority Date/Time Associated Diagnosis Comments ECG 12-LEAD Routine 06/13/2025 12:38 PM EST Orthopnea XR CHEST 2 VIEWS Routine 06/13/2025 12:1 6 PM EST Orthopnea POCT GLUCOSE Routine 06/13/2025 10:08 AM EST Type 2 diabetes mellitus with other specified complication, with long-term current use of insulin (HCC) POCT HEMOGLOBIN Routine 06/13/2025 10:08 AM EST Type 2 diabetes mellitus with other specified complication, with long-term current use of insulin (HCC) documented in this encounter Results * ECG 12 lead (06/13/2025 12:38 PM EST) Narrative Name, MD Renny - 06/13/2025 12:38 PM EST Normal sinus rhythm. Heart rate of 56. No ST segment elevation or depression. Q wave in lead III. Renny Johnston MD ECG ORDERABLES Final Result * XR Chest 2 Views (06/13/2025 12:16 PM EST) Anatomical Region Laterality Modality Chest Radiographic She ging 06/13/2025 12:1 6 PM EST Narrative 06/13/2025 12:36 PM EST [address] [address] XRay Report Signed Patient: Shaquille Escobedo MR#: [id number] : 1945 Acct:[id number] Age/Sex: 79 / M ADM Date: 06/13/25 Loc: CX Attending Dr: Renny Johnston MD Ordering Physician: Renny Johnston MD Date of Service: 06/13/25 Procedure(s): XR chest 2V Accession Number(s): [id number] cc: Renny Johnston MD Reason for Exam: orthopnea and history of cardiomegaly EXAMINATION: XR CHEST CLINICAL INFORMATION: orthopnea and history of cardiomegaly COMPARISON: February 1722 TECHNIQUE: 2 views of the chest were obtained. FINDINGS: No significant abnormality is noted involving the heart, lungs, mediastinum, bony thorax or soft tissues. XR/XR chest 2V IMPRESSION: No acute disease. Cardiac silhouette width is within normal limits. Electronically signed by: Trung Doherty MD 06/13/2025 12:34 PM EST RP Dictated By: Trung Doherty MD Signed By: <Electronically signed by Trung Doherty MD in [place]> 06/13/25 1234 DD/ 1216 TD/TT: 06/13/25 1218 [employer] Drum: Procedure Note Donotuseinterpreter, Image - 06/13/[address] [address] XRay Report Signed Patient: Shaquille EscobedoMR#: [id number] : 1945cct:[id number] Age/Sex: 79 / MADM Date: 06/13/25 Loc: CX Attending Dr: Renny Johnston MD Ordering Physician: Renny Johnston MD Date of Service: 06/13/25 Procedure(s): XR chest 2V Accession Number(s): [id number] cc: Renny Johnston MD Reason for Exam: orthopnea and history of cardiomegaly EXAMINATION: XR CHEST CLINICAL INFORMATION: orthopnea and history of cardiomegaly COMPARISON: February 1722 TECHNIQUE: 2 views of the chest were obtained. FINDINGS: No significant abnormality is noted involving the heart, lungs, mediastinum, bony thorax or soft tissues. XR/XR chest 2V IMPRESSION: No acute disease. Cardiac silhouette width is within normal limits. Electronically signed by: Trung Doherty MD 06/13/2025 12:34 PM EST RP Dictated By: Trung Doherty MD Signed By: <Electronically signed by Trung Doherty MD in [place]> 06/13/25 1234 DD/ 1216 TD/TT: 06/13/25 1218 [employer] Drum: us Renny Johnston MD IMG XR PROCEDURES Final Result * (ABNORMAL) POCT Hemoglobin (06/13/2025 10:08 AM EST) Hemoglobin 8.1(A) 13.0 - 17.0 QC Media Lot # [id number] Lot# Expiration Date [id number] Blood 06/13/2025 10:0 8 AM EST Result Shantel Johnston MD POINT OF CARE TEST ENTER/EDIT OR DERABLES Final Result * (ABNORMAL) POCT Glucose (06/13/2025 10:08 AM EST) Glucose Blood, POC 286(A) 60 - 200 mg/dL QC Media Lot # [id number] Lot# Expiration Date [id number] Blood Capillary blood specimen / Unknown 06/13/2025 10:08 AM EST Result Shantel Johnston MD POINT OF CARE TEST ENTER/EDIT OR DERABLES Final Result documented in this encounter Visit Diagnoses Diagnosis Type 2 diabetes mellitus with other specified complication, with long-term current use of insulin (HCC)- Primary Peripheral vascular disease (CMS/HCC) Unspecified peripheral vascular disease Amputated toe, unspecified laterality 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) Neuropathic pain of hand Orthopnea Anemia, unspecified type documented in this encounter Additional Health Concerns Active Problems Noted Date Diagnosed Date Help patients manage their type 2 diabetes 06/13 Weekly blood pressure task 06/13/2025 Help patients manage their type 2 diabetes 06/13 Patient has diabetic eye disease 06/13/2025 Help patients manage their type 2 diabetes 06/13 Patient has chronic kidney disease 06/13/2025 Help patients manage their type 2 diabetes 06/13 Patient has diabetic neuropathy 06/13/2025 Weekly blood pressure task 06/13/2025 Weekly blood pressure task 06/13/2025 Weekly blood pressure task 06/13/2025 Patient has diabetic eye disease 06/13/2025 Patient has diabetic eye disease 06/13/2025 Patient has diabetic eye disease 06/13/2025 Patient has chronic kidney disease 06/13/2025 Patient has chronic kidney disease 06/13/2025 Patient has chronic kidney disease 06/13/2025 Patient has diabetic neuropathy 06/13/2025 Patient has diabetic neuropathy 06/13/2025 Patient has diabetic neuropathy 06/13/2025 Weekly blood pressure task 06/13/2025 Weekly blood pressure task 06/13/2025 Weekly blood pressure task 06/13/2025 Weekly blood pressure task 06/13/2025 Patient has diabetic eye disease 06/13/2025 Patient has diabetic eye disease 06/13/2025 Patient has diabetic eye disease 06/13/2025 Patient has diabetic eye disease 06/13/2025 Patient has chronic kidney disease 06/13/2025 Patient has chronic kidney disease 06/13/2025 Patient has chronic kidney disease 06/13/2025 Patient has chronic kidney disease 06/13/2025 Patient has diabetic neuropathy 06/13/2025 Patient has diabetic neuropathy 06/13/2025 Patient has diabetic neuropathy 06/13/2025 Patient has diabetic neuropathy 06/13/2025 Weekly blood pressure task 06/13/2025 Weekly blood pressure task 06/13/2025 Weekly blood pressure task 06/13/2025 Weekly blood pressure task 06/13/2025 Patient has diabetic eye disease 06/13/2025 Patient has diabetic eye disease 06/13/2025 Patient has diabetic eye disease 06/13/2025 Patient has diabetic eye disease 06/13/2025 Patient has chronic kidney disease 06/13/2025 Patient has chronic kidney disease 06/13/2025 Patient has chronic kidney disease 06/13/2025 Patient has chronic kidney disease 06/13/2025 Patient has diabetic neuropathy 06/13/2025 Patient has diabetic neuropathy 06/13/2025 Patient has diabetic neuropathy 06/13/2025 Patient has diabetic neuropathy 06/13/2025 Assessment Noted Time PHQ-9 Depression Total Score: 8 06/13/20 10:10 AM EST documented as of this encounter Care Teams Program Control Analyst Relationship Specialty Start Date End Date Name, MD [address] [place] [address] PCP - General Family Medicine 03/10/22 [facility] 05/12/25 documented as of this encounter
--- OUTSIDE RECORDS SUMMARY | 2025-06-13 14:47 | XMS_ITS | Clinical Summary ---
Author Organization [facility] Address [address] [place] [address] Phone Care Team Providers Care Project Product Manager Name Role Phone Name, Renny SWAN Primary Care Provider [phone] Allergies No known active allergies Medications aspirin 81 mg EC tablet Take 1 tablet (81 mg total) by mouth at bedtime. at bedtime. 5 Active atorvastatin (LIPITOR) 80 mg tablet Take 1 tablet (80 mg total) by mouth at bedtime. 5 Active abiraterone (ZYTIGA) 500 mg Take 2 tablets (1,000 mg total) by mouth 1 (one) time each day 5 Active gabapentin (NEURONTIN) 300 mg capsule Take 1 capsule (300 mg total) by mouth 2 (two) times a day. 5 Active NovoLOG Flexpen U-100 Insulin 100 unit/mL (3 mL) injection pen Inject 6 Units under the skin 3 (three) times a day before meals. 5 Active metFORMIN (GLUCOPHAGE) 1,000 mg tablet Take 1 tablet (1,000 mg total) by mouth 2 (two) times a day with meals. 5 Active metoprolol tartrate (LOPRESSOR) 100 mg tablet Take 1 tablet (100 mg total) by mouth 2 (two) times a day. 5 Active omeprazole (PriLOSEC) [address] capsule Take 1 capsule (20 mg total) by mouth 1 (one) time each day. 5 Active predniSONE (DELTASONE) 5 mg tablet Take 1 tablet (5 mg total) by mouth 1 (one) time each day. 4 Active sertraline (ZOLOFT) 25 mg tablet Take 1 tablet (25 mg total) by mouth 1 (one) time each day. 5 Active tamsulosin (FLOMAX) 0.4 mg 24 hr capsule Take 2 capsules (0.8 mg total) by mouth 1 (one) time each day in the morning. 5 Active zolpidem (AMBIEN) 10 mg tablet Take 1 tablet (10 mg total) by mouth at bedtime as needed. at bedtime for sleep 5 Active doxazosin XL (CARDURA XL) 8 mg 24 hr tablet Take 1 tablet (8 mg total) by mouth 2 (two) times a day. Do not crush, chew, or split. Active losartan (COZAAR) 25 mg tablet Take 1 tablet (25 mg total) by mouth 1 (one) time each day. Active furosemide (LASIX) 20 mg tabletIndicatio ns:edema Take 1 tablet (20 mg total) by mouth every other day. Active insulin glargine (LANTUS) 100 unit/mL injection Inject 14 Units under the skin at bedtime. Active hydrALAZINE (APRESOLINE) 100 mg tablet Take 1 tablet (100 mg total) by mouth 3 (three) times a day. 90 each 2 5 08/09/19 26 Active rivaroxaban (XARELTO) 2.5 mg tablet Take 1 tablet (2.5 mg total) by mouth 2 (two) times a day with meals. 60 tablet 2 5 08/09/19 26 Active oxyCODONE (OXY-IR) 5 mg immediate release capsule Take 1 capsule (5 mg total) by mouth every 6 (six) hours if needed for severe pain. Max Daily Amount: 20 mg 15 capsule 5 Active acetaminophen (TYLENOL) 500 mg tablet Take 2 tablets (1,000 mg total) by mouth every 6 (six) hours if needed for mild pain for up to 10 days. 30 tablet 5 05/21/20 25 Active Problems Problem Noted Date Diagnosed Date Dry gangrene ([facility] V24, [facility] V28) 05/07/20 25 Gangrene of left foot ([facility] V24, [facility] V28) 05/07/2025 Acute osteomyelitis ([facility] V24, [facility] V28) 1 PAD (peripheral artery disease) ([facility] V24) Encounters Date Type Department Care Team Description 06/05/2025 8:30 AM EST Office Visit Vascular Surgery - [address] [phone] Radha Card PA Amputation of fifth toe of left foot ([facility] V24) (Primary Dx); Acute osteomyelitis ([facility] V24, [facility] V28); PAD (peripheral artery disease) ([facility] V24) 05/16/2025 Telephone Vascular Surgery [address] [phone] John Gayle MD 05/09/2025 4:25 PM EDT - 05/09/2025 5:25 PM EDT Surgery [facility] Main OR [address] [place] [phone] Jonh Gayle MD LEFT 5TH TOE AMPUTATION 05/09/2025 4:20 PM EDT Anesthesia Event [facility] OR [address] [place] [phone] Mathieu Dooley DO Claudio, Raymund, BRIANA 05/08/2025 1:00 PM EDT - 05/08/2025 3:00 PM EDT Surgery [facility] Cardiac [employer] [address] [place] [phone] John Gayle MD Angiography lower ext left 05/07/2025 1:59 PM EDT - 05/11/2025 6:44 PM EDT Hospital Encounter [facility] Urology Unit [address] [place] [phone] Nanci Kellogg MD Jones, Christopher, MD [place], Alistair A, MD PAD (peripheral artery disease) ([facility] V24) (Primary Dx); Gangrene of left foot ([facility] V24, [facility] V28); Acute osteomyelitis ([facility] V24, [facility] V28); Dry gangrene ([facility] V24, [facility] V28) Discharge Disposition: Home-Health Care [facility] from Last 3 Months Medical History Medical History Date Comments Diabetes mellitus ([facility] V24, [facility] V28) Renal disorder Hypertension Social History Tobacco Use Types Packs/Day Years Used Date Smoking Tobacco: Never Tobacco Cessation:Counseling Given: Not Answered Alcohol Use Standard Drinks/Week Comments Never 0 (1 standard drink = 0.6 oz pur e alcohol) Housing Instability Answer Date Recorde d Are you worried that in the next 2 months you may not have stable housing? No 05/08/2025 Food Access & Nutrition Answer Date Rec orded Do you have access to a vari ety of food including fruits and vegetables? No 05/08/2025 Health Literacy Answer Date Recorded How often do you need to hav e someone help you when you read instructions, pamphlets, or other written material from your doctor or pharmacy? Never 05/08/2025 Caregiver: How often do you need to have someone help you when you read instructions, pamphlets, or other written material from your doctor or pharmacy? Not on file 05/08/2025 Financial Risk Answer Date Recorded How hard is it for you to pa y for the very basics like food, housing, medical care, and air conditioning / heating? Patient declined 05/08/2025 Transportation Answer Date Recorded Has the lack of transportati on kept you from meetings, work, or from getting things needed for daily living? No Has the lack of transportati on kept you from medical appointments or from getting medications? No 05/08/2025 Social Isolation Answer Date Recorded How often do you feel lonely or isolated from th ose around you? Never 05/08/2025 Food Risk Answer Date Recorded Within the past 12 months we worried whether our food would run out before we got money to buy more. Never true 05/08/2025 Within the past 12 months th e food we bought just didn't last and we didn't have money to get more. Never true 05/08/2025 Dependent Care Answer Date Recorded Do you need help finding or paying for care for your loved ones. For example, summer child caregiver or elderly care for an older adult? Patient declined 05/08/2025 Education Answer Date Recorded Do you think completing more education or training, like finishing a GED, going to college, or learning a trade, would be helpful for you? Patient declined 05/08/2025 Employment and Income Answer Date Recor ded During the last four weeks, have you been actively looking for work? Patient declined 05/08/2025 Living Situation Answer Date Recorded What is your living situation? Unrecognized valu e 05/08/2025 Interpersonal Safety Answer Date Record ed Physical Abuse Unrecognized value 05/08/2025 Verbal Abuse Unrecognized value 05/08/2025 Sex and Gender Information Value Date Recorded Sex Assigned at Not on file Legal Sex Male 10:19 AM EDT Gender Identity Not on file Sexual Orientation Not on file Obstetrics History Last Filed Vital Signs Vital Sign Reading Time Taken Comments Blood Pressure 132/80 06/05/2025 8:19 AM EST Pulse 57 06/05/2025 8:19 AM EST Temperature 37 C (98.6 F) 05/11/2025 1:53 PM EDT Respiratory Rate 16 05/11/2025 1:53 PM EDT Oxygen Saturation 96% 05/11/2025 1:53 PM EDT Inhaled Oxygen Concentration - - Weight 69.8 kg (153 lb 12.8 oz) 06/05/2025 8:19 AM EST Height 172.7 cm (5' 8 ) 06/05/2025 8:19 AM EST Body Mass Index 23.39 06/05/2025 8:19 AM EST Plan of Treatment Health Maintenance Due Date Last Done Comments Diabetes: Annual Foot Exam 1955 Diabetes: Annual Retina Eye Exam 1955 Depression Screening 07/19/2024 COVID-19 Vaccine ( season) 2025 03/18/2022, 07/30/2021, 10/24/2020, Additional history exists Influenza Vaccine (#1) 2025 , 04/23/2023, 04/15/2022 Medicare Annual Wellness Visit 05/04/2025 Diabetes: Annual Urine Albumin-Creatinine Ratio (uACR) 05/08/2025 Diabetes: Blood Sugar Control Test (HGBA1C) 05/08/2025 03/30/2024 Social Influencers of Health Screening 05/08/2026 05/08/2025 Diabetes: Annual GFR (Glomerular Filtration Rate) 05/10/2026 05/10/2025, 05/09/2025, 05/08/2025, Additional history exists Hypertension/CHF/CAD Annual BMP Blood Test 05/10/2026 05/10/2025, 05/09/2025, 05/08/2025, Additional history exists Falls Risk Assessment 05/11/2026 05/11/2025 Cholesterol Screening (Lipid Panel) 03/15/2029 03/15/2024 DTaP,Tdap,and Td Vaccines (2 - Td or Tdap) 09/28/2032 09/28/2022 Pneumococcal Vaccine: 50+ Years Completed 04/29/2022 Zoster Vaccines Completed 12/15/2022, 10/13/2022 RSV Immunization Adult Patients Completed 12/29/2023 HIB Vaccines Aged Out No [...] on patient's age to complete this topic MMR Vaccines Aged Out No longer eligi ble based on patient's age to complete this topic Meningococcal ACWY Vaccine Aged Out N o longer eligible based on patient's age to complete this topic Meningococcal B Vaccine Aged Out No l onger eligible based on patient's age to complete this topic RSV Immunization Patients Under 20 months Aged Out No longer eligible based on patient's age to complete this topic Varicella Vaccines Aged Out No longer eligible based on patient's age to complete this topic Goals Goal Patient Goal Type Associated Problems Recent Progress Patient-Stated? Author Autogenerat ed Goal Care Plan Autogenerated Problem No Jaz Velasquez PA Procedures Procedure Name Priority Date/Time Associated Diagnosis Comments POCT GLUCOSE BLOOD Routine 05/11/2025 4: 28 PM EDT POCT GLUCOSE BLOOD Routine 05/11/2025 11 :20 AM EDT HEPATIC FUNCTION PANEL STAT Add-on 05/11/2025 9:35 AM EDT ACTIVATED PARTIAL THROMBOPLASTIN TIME STAT 05/11/2025 9:35 AM EDT PROTHROMBIN TIME WITH INR STAT 05/11/2025 9:35 AM EDT LAVENDER - EDTA Routine 05/11/2025 9:31 AM EDT EXTRA TUBES Routine 05/11/2025 9:31 AM EDT POCT GLUCOSE BLOOD Routine 05/11/2025 8: 14 AM EDT POCT GLUCOSE BLOOD Routine 05/10/2025 8: 09 PM EDT POCT GLUCOSE BLOOD Routine 05/10/2025 4: 16 PM EDT POCT GLUCOSE BLOOD Routine 05/10/2025 11 :41 AM EDT POCT GLUCOSE BLOOD Routine 05/10/2025 8: 03 AM EDT COMPLETE BLOOD COUNT Routine 05/10/2025 5:56 AM EDT BASIC METABOLIC PANEL Routine 05/10/2025 5:56 AM EDT POCT GLUCOSE BLOOD Routine 05/09/2025 8: 10 PM EDT POCT GLUCOSE BLOOD Routine 05/09/2025 5: 55 PM EDT TISSUE EXAM Routine 05/09/2025 4:39 PM EDT Gangrene of left foot (CMS/HCC V24, CMS/HCC V28) Acute osteomyelitis (CMS/HCC V24, CMS/HCC V28) AMPUTATION TOE 05/09/2025 4:20 PM EDT Gangrene of left foot (CMS/HCC V24, CMS/HCC V28) Acute osteomyelitis ([facility] V24, [facility] V28) ECG 12-LEAD STAT 05/09/2025 2:57 PM EDT POCT GLUCOSE BLOOD Routine 05/09/2025 11 :47 AM EDT POCT GLUCOSE BLOOD Routine 05/09/2025 8: 16 AM EDT BASIC METABOLIC PANEL Routine 05/09/2025 5:22 AM EDT COMPLETE BLOOD COUNT Routine 05/09/2025 5:22 AM EDT POCT GLUCOSE BLOOD Routine 05/09/2025 12 :11 AM EDT POCT GLUCOSE BLOOD Routine 05/08/2025 8: 08 PM EDT POCT GLUCOSE BLOOD Routine 05/08/2025 3: 59 PM EDT POCT GLUCOSE BLOOD Routine 05/08/2025 11 :48 AM EDT POCT ACTIVATED CLOTTING TIME, KAOLIN Routine 05/08/2025 10:48 AM EDT POCT ACTIVATED CLOTTING TIME, KAOLIN Routine 05/08/2025 10:30 AM EDT ANGIOGRAPHY LOWER EXT LEFT Routine 05/08/2025 10:15 AM EDT PAD (peripheral artery disease) ([facility] V24) Gangrene of left foot ([facility] V24, [facility] V28) Acute osteomyelitis ([facility] V24, [facility] V28) POCT GLUCOSE BLOOD Routine 05/08/2025 8: 05 AM EDT CBC WITH AUTO DIFFERENTIAL Routine 05/08/2025 6:04 AM EDT TYPE AND SCREEN Routine 05/08/2025 6:04 AM EDT CBC AND DIFFERENTIAL Routine 05/08/2025 6:04 AM EDT BASIC METABOLIC PANEL Routine 05/08/2025 6:04 AM EDT POCT GLUCOSE BLOOD Routine 05/07/2025 11 :18 PM EDT MR FOOT WO AND W CONTRAST LEFT STAT 05/07/2025 8:51 PM EDT VAS US DUPLEX LOWER EXT ARTERIES BILAT W DOPPLER Routine 05/07/2025 6:00 PM EDT PAD (peripheral artery disease) ([facility] V24) C-REACTIVE PROTEIN Add-On 05/07/2025 1: 34 PM EDT CBC WITH AUTO DIFFERENTIAL STAT 05/07/2025 1:34 PM EDT LACTATE, WITH REFLEX STAT 05/07/2025 1:34 PM EDT COMPREHENSIVE METABOLIC PANEL STAT 05/07/2025 1:34 PM EDT CBC AND DIFFERENTIAL STAT 05/07/2025 1:34 PM EDT CULTURE BLOOD STAT 05/07/2025 1:34 PM EDT CULTURE BLOOD STAT 05/07/2025 1:34 PM EDT from Last 3 Months Results * (ABNORMAL) POCT Glucose, blood (05/11/2025 4:28 PM EDT) Only the most recent of17 resultswithin the time period is included. [facility] Signature Glucose POCT 196(H) 70 - 100 mg/dL 05/11/2025 4:31 PM EDT [facility] Blood Capillary blood specimen / Unknown 05/11/2025 4:28 PM EDT 05/11/2025 4:32 PM EDT us Slade Zuluaga MD LAB POINT OF CARE TE ST DOCKED DEVICE UNSOLICITED RESULTS Final Result Performing Organization Address City/[facility]/ZIP Co de Phone Number [facility] [address] [place] [address], [place] [phone] * Activated Partial Thromboplastin Time - STAT (05/11/2025 9:35 AM EDT) aPTT 31.9 24.1 - 39.3 sec LAB COAGULATION METHOD 05/11/2025 9:56 AM EDT [facility] Blood Venous blood specimen / Unknown Venipuncture / Unknown 05/11/2025 9:35 AM EDT 05/11/2025 9:41 AM EDT us Radha WILSON LAB BLOOD ORDERABLES Final Re sult Performing Organization Address [facility]/ZIP Co de Phone Number [facility] [address] [place] [address], [place] [phone] * Prothrombin Time with INR - STAT (05/11/2025 9:35 AM EDT) [facility] Protime 11.9 10.6 - 13.9 sec LAB COAGULATION METHOD 05/11/2025 9:56 AM EDT [facility] INR 1.0 LAB COAGULATION METHOD 05/11/2025 9:56 AM EDT [facility] Blood Venous blood specimen / Unknown Venipuncture / Unknown 05/11/2025 9:35 AM EDT 05/11/2025 9:41 AM EDT us Radha WILSON LAB BLOOD ORDERABLES Final Re sult Performing Organization Address [facility]/ZIP Co de Phone Number [facility] [address] [place] [address], [place] [phone] * (ABNORMAL) Hepatic Function Panel - STAT (05/11/2025 9:35 AM EDT) [facility] Total Protein 5.7(L) 6.0 - 8.0 g/dL LAB CHEMISTRY METHOD 05/11/2025 10:10 AM [facility] Albumin 2.5(L) 3.2 - 5.0 g/dL LAB CHEMISTRY METHOD 05/11/2025 10:10 AM [facility] Total Bilirubin 0.4 0.0 - 1.4 mg/dL LAB CHEMISTRY METHOD 05/11/2025 10:10 AM [facility] Bilirubin, Direct 0.2 0.0 - 0.3 mg/dL LAB CHEMISTRY METHOD 05/11/2025 10:10 AM [facility] Bilirubin, Indirect 0.2 0.0 - 1.1 mg/dL LAB CHEMISTRY METHOD 05/11/2025 10:10 AM [facility] ALT (SGPT) 14 10 - 60 unit/L LAB CHEMISTRY METHOD 05/11/2025 10:10 AM [facility] AST (SGOT) 11 10 - 42 unit/L LAB CHEMISTRY METHOD 05/11/2025 10:10 AM [facility] Alkaline Phosphatase 68 42 - 121 unit/L LAB CHEMISTRY METHOD 05/11/2025 10:10 AM [facility] Blood Venous blood specimen / Unknown Venipuncture / Unknown 05/11/2025 9:35 AM EDT 05/11/2025 9:41 AM EDT us Radha WILSON LAB BLOOD ORDERABLES Final Re sult [facility] [address] [place] [address], * Lavender tube (05/11/2025 9:31 AM EDT) [facility] Extra Tube Hold for add-ons. 05/11/2025 11:01 AM EDT [facility] Comment:Auto resulted. Blood Venous blood specimen / Unknown 05/11/2025 9:31 AM EDT 05/11/2025 9:42 AM EDT us Slade Zuluaga MD LAB BLOOD ORDERABLES Final Re sult [facility] [address] [place] [address], * (ABNORMAL) Complete blood count (05/10/2025 5:56 AM EDT) Only the most recent of2 resultswithin the time period is included. WBC 7.2 4.8 - 10.8 K/mcL LAB HEMETOLOGY METHOD 05/10/2025 7:13 AM [facility] RBC 3.30(L) 4.50 - 5.50 M/[facility] LAB HEMETOLOGY METHOD 05/10/2025 7:13 AM [facility] Hemoglobin 8.7(L) 13.5 - 17.5 g/dL LAB HEMETOLOGY METHOD 05/10/2025 7:13 AM [facility] Hematocrit 27.7(L) 42.0 - 54.0 % LAB HEMETOLOGY METHOD 05/10/2025 7:13 AM [facility] MCV 84.5 79.0 - 98.0 FL LAB HEMETOLOGY METHOD 05/10/2025 7:13 AM [facility] MCH 26.5(L) 27.0 - 32.0 pcg LAB HEMETOLOGY METHOD 05/10/2025 7:13 AM [facility] MCHC 31.4(L) 32.0 - 37.0 g/dL LAB HEMETOLOGY METHOD 05/10/2025 7:13 AM [facility] RDW 15.1(H) 11.0 - 15.0 % LAB HEMETOLOGY METHOD 05/10/2025 7:13 AM EDT [facility] Platelets 185 130 - 400 K/mcL LAB HEMETOLOGY METHOD 05/10/2025 7:13 AM EDT [facility] MPV 11.3(H) 7.0 - 11.0 FL LAB HEMETOLOGY METHOD 05/10/2025 7:13 AM EDT [facility] NRBC 0.0 <1.0 % LAB HEMETOLOGY METHOD 05/10/2025 7:13 AM EDT [facility] NRBC Absolute 0.00 <0.10 K/mcL LAB HEMETOLOGY METHOD [facility] Blood Venous blood specimen / Unknown Venipuncture / Unknown 05/10/2025 5:56 AM EDT 05/10/2025 6:50 AM EDT us Radha WILSON LAB BLOOD ORDERABLES Final Re sult [facility] [address] [place] [address], * Basic metabolic panel (05/10/2025 5:56 AM EDT) Only the most recent of3 resultswithin the time period is included. Sodium 138 133 - 145 mmol/L LAB CHEMISTRY METHOD 05/10/2025 8:12 AM T [facility] Potassium 4.1 3.5 - 5.5 mmol/L LAB CHEMISTRY METHOD 05/10/2025 8:12 AM EDT [facility] Chloride 104 96 - 110 mmol/L LAB CHEMISTRY METHOD 05/10/2025 8:12 AM EDT [facility] CO2 26 21 - 32 mmol/L LAB CHEMISTRY METHOD 05/10/2025 8:12 AM T [facility] Anion Gap 8 3 - 11 LAB CHEMISTRY METHOD 05/10/2025 8:12 AM EDT [facility] Glucose 90 70 - 100 mg/dL LAB CHEMISTRY METHOD 05/10/2025 8:12 AM EDT [facility] BUN 15 5 - 25 mg/dL LAB CHEMISTRY METHOD 05/10/2025 8:12 AM EDT [facility] Creatinine 1.19 0.70 - 1.30 mg/dL LAB CHEMISTRY METHOD 05/10/2025 8:12 AM EDT [facility] eGFR 61 >=60 mL/min/1. 73m2 LAB CHEMISTRY METHOD 05/10/2025 8:12 AM EDT [facility] Comment:Calculation based on the Chronic Kidney Disease Epidemiology Collaboration (CKD-EPI) equation refit without adjustment for race. BUN/Creatinine Ratio 12.6 LAB CHEMISTRY METHOD 05/10/2025 8:12 AM T [facility] Calcium 9.0 8.5 - 10.5 mg/dL LAB CHEMISTRY METHOD 05/10/2025 8:12 AM [facility] Blood Venous blood specimen / Unknown Venipuncture / Unknown 05/10/2025 5:56 AM EDT 05/10/2025 6:50 AM EDT us Radha WILSON LAB BLOOD ORDERABLES Final Re sult [facility] [address] [place] [address], * Tissue exam (05/09/2025 4:39 PM EDT) Final Diagnosis Toe, Left, left 5th toe amputation: -GANGRENE AND ACUTE OSTEOMYELITIS -Margin negative 05/11/2025 11:43 AM EDT [facility] at 1143 EDT Gross Description A. Toe, Left, left 5th toe amputation: Labeled left 5th, toe L . Received in formalin is a 6.6 x 2.8 x 1.8 cm lower extremity digit with attached chau-white soft tissue. Centrally located on the soft tissue is a 5.1 cm gangrenous brown-black ulcer that measures 0.4 cm to the soft tissue margin and 2.1 cm to the bony margin. The margin is inked blue. The specimen is cut longitudinally to reveal hard cut surfaces. Staff Developer longitudinal sections are submitted in two cassettes, 1-one piece and 2-two pieces (red ink representing bony margin), following decalcification. KR 05/11/2025 11:43 AM EDT [facility] Disclaimer Unless otherwise specified, all tissue is 10% NB formalin fixed and paraffin embedded. 05/11/2025 11:43 AM EDT [facility] Tissue Structure of toe of left foot / Unknown 05/09/2025 4:39 PM EDT 05/10/2025 7:23 AM EDT John Gayle MD LAB PATHOLOGY ORDERABLES Final Result [facility] [address] [place] [address], * ECG 12 lead (05/09/2025 2:57 PM EDT) Ventricular Rate ECG 61 BPM GEMUSE Atrial Rate 61 BPM GEMUSE P-R Interval 186 ms GEMUSE QRS Duration 78 ms GEMUSE Q-T Interval 452 ms GEMUSE QTc 455 ms GEMUSE P Wave Warrior 64 degrees GEMUSE R Warrior 5 degrees GEMUSE T Warrior 26 degrees GEMUSE ECG Interpretation Normal sinus rhythm Normal ECG No previous ECGs available Confirmed by Jud SCHAFER JOHN ([id number]) on 05/09/2025 7:35:12 PM GEMUSE 05/09/2025 2:57 PM EDT 05/09/2025 7:35 PM EDT Slade Zuluaga MD ECG ORDERABLES Final Result Performing Organization Address City/[facility]/ZIP Co de Phone Number GEMUSE * (ABNORMAL) POCT activated clotting time,kaolin (05/08/2025 10:48 AM EDT) Only the most recent of2 resultswithin the time period is included. Activated Clotting Time Kaolin 187(H) 74 - 137 sec 05/08/2025 11:07 AM EDT [facility] Blood Arterial blood specimen / Unknown 05/08/2025 10:48 AM EDT 05/08/2025 11:09 AM EDT Slade Zuluaga MD LAB POINT OF CARE TE ST DOCKED DEVICE UNSOLICITED RESULTS Final Result Performing Organization Address [facility] Co de Phone Number [facility] [address] [place] [address], * ANGIOGRAPHY LOWER EXT LEFT (05/08/2025 10:15 AM EDT) Anatomical Region Laterality Modality X-Ray Angiograph y Narrative 05/10/2025 8:15 AM EDT Per op note Study Details Patient has gangrene of his left fifth toe with osteomyelitis. He has monophasic waveforms in the left tibial vessels. He warrants further evaluation and possible intervention. Clinical Background Per consult Procedure Details Per op note Jaz WILSON CV INVASIVE VASCULAR PROCEDURE S Final Result * (ABNORMAL) CBC auto differential (05/08/2025 6:04 AM EDT) Only the most recent of2 resultswithin the time period is included. WBC 6.0 4.8 - 10.8 [facility] HEMETOLOGY METHOD 05/08/2025 6:41 AM EDT [facility] RBC 3.20(L) 4.50 - 5.50 [facility] HEMETOLOGY METHOD 05/08/2025 6:41 AM EDT [facility] Hemoglobin 8.6(L) 13.5 - 17.5 g/dL LAB HEMETOLOGY METHOD 05/08/2025 6:41 AM [facility] Hematocrit 26.8(L) 42.0 - 54.0 % LAB HEMETOLOGY METHOD 05/08/2025 6:41 AM [facility] MCV 83.2 79.0 - 98.0 FL LAB HEMETOLOGY METHOD 05/08/2025 6:41 AM [facility] MCH 26.7(L) 27.0 - 32.0 pcg LAB HEMETOLOGY METHOD 05/08/2025 6:41 AM [facility] MCHC 32.1 32.0 - 37.0 g/dL LAB HEMETOLOGY METHOD 05/08/2025 6:41 AM [facility] RDW 15.4(H) 11.0 - 15.0 % LAB HEMETOLOGY METHOD 05/08/2025 6:41 AM [facility] Platelets 188 130 - 400 K/mcL LAB HEMETOLOGY METHOD 05/08/2025 6:41 AM [facility] MPV 10.7 7.0 - 11.0 FL LAB HEMETOLOGY METHOD 05/08/2025 6:41 AM [facility] NRBC 0.0 <1.0 % LAB HEMETOLOGY METHOD 05/08/2025 6:41 AM [facility] NRBC Absolute 0.00 <0.10 K/mcL LAB HEMETOLOGY METHOD 05/08/2025 6:41 AM [facility] Neutrophils Relative 58.8 % LAB HEMETOLOGY METHOD 05/08/2025 6:41 AM [facility] Lymphocytes Relative 20.6 % LAB HEMETOLOGY METHOD 05/08/2025 6:41 AM [facility] Monocytes Relative 10.3 % LAB HEMETOLOGY METHOD 05/08/2025 6:41 AM EDT [facility] Eosinophils Relative 9.6 % LAB HEMETOLOGY METHOD 05/08/2025 6:41 AM T [facility] Basophils Relative 0.5 % LAB HEMETOLOGY METHOD 05/08/2025 6:41 AM EDT [facility] Immature Granulocytes Relative 0.2 % LAB HEMETOLOGY METHOD 05/08/2025 6:41 AM EDT [facility] Neutrophils Absolute 3.54 1.50 - 7.00 K/mcL LAB HEMETOLOGY METHOD 05/08/2025 6:41 AM EDT [facility] Lymphocytes Absolute 1.24 1.00 - 5.00 K/mcL LAB HEMETOLOGY METHOD 05/08/2025 6:41 AM EDT [facility] Monocytes Absolute 0.62 0.20 - 1.00 K/mcL LAB HEMETOLOGY METHOD 05/08/2025 6:41 AM EDT [facility] Eosinophils Absolute 0.58(H) 0.00 - 0.50 K/mcL LAB HEMETOLOGY METHOD 05/08/2025 6:41 AM T [facility] Basophils Absolute 0.03 0.00 - 0.20 K/mcL LAB HEMETOLOGY METHOD 05/08/2025 6:41 AM T [facility] Immature Granulocytes Absolute 0.01 0.00 - 0.03 K/mcL LAB HEMETOLOGY METHOD 05/08/2025 6:41 AM T [facility] Blood Venous blood specimen / Unknown Venipuncture / Unknown 05/08/2025 6:04 AM EDT 05/08/2025 6:22 AM EDT us Paul Trimble MD LAB BLOOD ORDERABLES Final Result [facility] [address] [place] [address], [place] [phone] * Type and screen (05/08/2025 6:04 AM EDT) ABO Group A 05/08/2025 8:01 AM EDT [facility] Rh Type Positive 05/08/2025 8:01 AM EDT [facility] Antibody Screen Negative 05/08/2025 8:01 AM EDT [facility] Blood Venous blood specimen / Unknown Venipuncture / Unknown 05/08/2025 6:04 AM EDT 05/08/2025 6:22 AM EDT Anthony WILSON LAB BLOOD BANK TEST ORDERABLES Final Result [facility] [address] [place] [address], [place] [phone] * MR Foot wo and w Contrast Left (05/07/2025 8:51 PM EDT) Anatomical Region Laterality Modality Lower Extremities, Foot Left Magnetic Resonance 05/07/2025 10:0 6 PM EDT Impressions 05/07/2025 10:06 PM EDT Impression: 1. Cellulitis of the left foot. Osteomyelitis of the distal 5th metatarsal and the 5th proximal, middle and distal phalanges. This document has been electronically signed by: Neda Hoffmann MD on 05/07/2025 22:06:35 Narrative 05/07/2025 10:06 PM EDT INDICATION: pain Exam: MRI of the left foot with and without contrast . Procedure: 13 mL of Dotarem was administered. Comparison: None Clinical history: Pain. Osteomyelitis of 5th toe. Findings: Exam limited by motion. 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 Edema in the subcutaneous fat of the lateral left foot consistent with nonspecific cellulitis. Soft tissue thinning involving the left 5th toe. Abnormal bone marrow edema and erosions of the 5th proximal phalanx and distal 5th metatarsal consistent with osteomyelitis and septic 5th MTP joint. Erosion and abnormal signal at the left 5th middle phalanx consistent with osteomyelitis and septic PIP joint. 5th distal phalanx is not identified and likely eroded with osteomyelitis. Procedure Note Neda Hoffmann MD - 05/07/2025 INDICATION: pain Exam: MRI of the left foot with and without contrast . Procedure: 13 mL of Dotarem was administered. Comparison: None Clinical history: Pain. Osteomyelitis of 5th toe. Findings: Exam limited by motion. 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 Edema in the subcutaneous fat of the lateral left foot consistent with nonspecific cellulitis. Soft tissue thinning involving the left 5th toe. Abnormal bone marrow edema and erosions of the 5th proximal phalanx and distal 5th metatarsal consistent with osteomyelitis and septic 5th MTP joint. Erosion and abnormal signal at the left 5th middle phalanx consistent with osteomyelitis and septic PIP joint. 5th distal phalanxis not identified and likely eroded with osteomyelitis. IMPRESSION: Impression: 1. Cellulitis of the left foot. Osteomyelitis of the distal 5thmetatarsal and the 5th proximal, middle and distal phalanges. This document has been electronically signed by: Neda Hoffmann MD on 05/07/2025 22:06:35 us Joseph WILSON IMJared MRI PROCEDURES Final Re sult * Vascular US duplex lower extremity arteries bilateral with complete Doppler (05/07/2025 6:00 PM EDT) Anatomical Region Laterality Modality Vascular, Abdomen Ultrasound 05/07/2025 6:52 PM EDT Impressions 05/07/2025 6:52 PM EDT 1. Extensive bilateral calcified plaquing of the lower extremity arterial system. 2. Monophasic flow with extensive arterial calcified plaque in the right leg trifurcation vessels and segments of occlusion in the right posterior tibial artery. 3. Biphasic or monophasic flow throughout the left leg suggesting there may be some element of inflow disease. 4. Monophasic flow with elevated velocities in the left anterior tibial artery suggesting severe atherosclerotic disease. This document has been electronically signed by: Fortino Holman MD on 05/07/2025 18:52:19 Narrative 05/07/2025 6:52 PM EDT INDICATION: peripheral vascular disease Arterial duplex ultrasound bilateral lower extremity Comparison: None provided Findings: Right leg: Common femoral artery demonstrates moderate plaquing, normal velocity and triphasic waveform. Superficial femoral artery demonstrates moderately extensive calcified plaquing, triphasic waveform and normal velocities Popliteal artery demonstrates biphasic waveform and normal velocities with areas of calcified plaquing. Elevated velocities in the anterior tibial artery with calcified plaquing and monophasic flow. Posterior tibial artery demonstrates extensive plaquing, monophasic flow. There are segments of occlusion within the posterior tibial artery identified. Left leg: Left common femoral artery with mild calcified plaquing, biphasic flow and normal velocity. Left superficial femoral artery with extensive calcified plaquing, biphasic flow and normal velocities. Popliteal artery with normal velocity and extensive calcified plaquing. Markedly elevated velocities in the anterior tibial artery with extensive calcified plaquing and monophasic flow. Posterior tibial artery with calcified plaquing and monophasic flow. Left dorsalis pedis artery not visualized due to bandage. There are bilateral popliteal fossa cysts present. Procedure Note Fortino Holman MD - 05/07/2025 INDICATION: peripheral vascular disease Arterial duplex ultrasound bilateral lower extremity Comparison: None provided Findings: Right leg: Common femoral artery demonstrates moderate plaquing, normal velocityand triphasic waveform. Superficial femoral artery demonstrates moderately extensive calcified plaquing, triphasic waveform and normal velocities Popliteal artery demonstrates biphasic waveform and normal velocitieswith areas of calcified plaquing. Elevated velocities in the anterior tibial artery with calcifiedplaquing and monophasic flow. Posterior tibial artery demonstrates extensive plaquing, monophasic flow. There are segments of occlusion within the posterior tibial artery identified. Left leg: Left common femoral artery with mild calcified plaquing, biphasic flowand normal velocity. Left superficial femoral artery with extensive calcified plaquing, biphasic flow and normal velocities. Popliteal artery with normal velocity and extensive calcified plaquing. Markedly elevated velocities in the anterior tibial artery withextensive calcified plaquing and monophasic flow. Posterior tibial artery with calcified plaquing and monophasic flow. Left dorsalis pedis artery not visualized due to bandage. There are bilateral popliteal fossa cysts present. IMPRESSION: 1. Extensive bilateral calcified plaquing of the lower extremityarterial system. 2. Monophasic flow with extensive arterial calcified plaque in the right leg trifurcation vessels and segments of occlusion in the rightposterior tibial artery. 3. Biphasic or monophasic flow throughout the left leg suggesting there may be some element of inflow disease. 4. Monophasic flow with elevated velocities in the left anterior tibial artery suggesting severe atherosclerotic disease. This document has been electronically signed by: Fortino Holman MD on 05/07/2025 18:52:19 Jaz WILSON CV VASCULAR PROCEDURES Final R esult * Lactate, with reflex (05/07/2025 1:34 PM EDT) [facility] LACTIC ACID 1.2 0.4 - 2.0 mmol/L LAB CHEMISTRY METHOD 05/07/2025 2:32 PM EDT [facility] Blood Venous blood specimen / Unknown Venipuncture / Unknown 05/07/2025 1:34 PM EDT 05/07/2025 1:50 PM EDT us Muna Valadez MD LAB BLOOD ORDERABLES Final Resul t Performing Organization Address City/[facility]/ZIP Co de Phone Number [facility] [address] [place] [address], [place] [phone] * Blood culture (05/07/2025 1:34 PM EDT) Only the most recent of2 resultswithin the time period is included. Pathologist [facility] Culture, Blood No growth at 5 days 05/12/2025 3:01 PM EDT [facility] Blood Venous blood specimen / Unknown Venipuncture / Unknown 05/07/2025 1:34 PM EDT 05/07/2025 2:17 PM EDT us Muna Valadez MD LAB MICROBIOLOGY - GENERAL ORDER EVETTE Final Result Performing Organization Address City/[facility]/ZIP Co de Phone Number [facility] [address] [place] [address], [place] [phone] * (ABNORMAL) C-reactive protein (05/07/2025 1:34 PM EDT) [facility] C-Reactive Protein 0.58(H) <=0.50 mg/dL LAB CHEMISTRY METHOD 05/08/2025 12:10 AM EDT [facility] Blood Venous blood specimen / Unknown Venipuncture / Unknown 05/07/2025 1:34 PM EDT 05/07/2025 1:52 PM EDT us Paul Trimble MD LAB BLOOD ORDERABLES Final Result [facility] [address] [place] [address], [place] [phone] * (ABNORMAL) Comprehensive metabolic panel (05/07/2025 1:34 PM EDT) [facility] Sodium 136 133 - 145 mmol/L LAB CHEMISTRY METHOD 05/07/2025 2:46 PM EDT [facility] Potassium 4.3 3.5 - 5.5 mmol/L LAB CHEMISTRY METHOD 05/07/2025 2:46 PM [facility] Chloride 102 96 - 110 mmol/L LAB CHEMISTRY METHOD 05/07/2025 2:46 PM [facility] CO2 30 21 - 32 mmol/L LAB CHEMISTRY METHOD 05/07/2025 2:46 PM EDT [facility] Anion Gap 4 3 - 11 LAB CHEMISTRY METHOD 05/07/2025 2:46 PM [facility] Glucose 176(H) 70 - 100 mg/dL LAB CHEMISTRY METHOD 05/07/2025 2:46 PM T [facility] BUN 23 5 - 25 mg/dL LAB CHEMISTRY METHOD 05/07/2025 2:46 PM [facility] Creatinine 1.37(H) 0.70 - 1.30 mg/dL LAB CHEMISTRY METHOD 05/07/2025 2:46 PM T [facility] eGFR 52(L) >=60 mL/min/1. 73m2 LAB CHEMISTRY METHOD 05/07/2025 2:46 PM T [facility] Comment:Calculation based on the Chronic Kidney Disease Epidemiology Collaboration (CKD-EPI) equation refit without adjustment for race. BUN/Creatinine Ratio 16.8 LAB CHEMISTRY METHOD 05/07/2025 2:46 PM EDT [facility] Calcium 8.9 8.5 - 10.5 mg/dL LAB CHEMISTRY METHOD 05/07/2025 2:46 PM [facility] AST (SGOT) 15 10 - 42 unit/L LAB CHEMISTRY METHOD 05/07/2025 2:46 PM [facility] ALT (SGPT) 21 10 - 60 unit/L LAB CHEMISTRY METHOD 05/07/2025 2:46 PM [facility] Alkaline Phosphatase 78 42 - 121 unit/L LAB CHEMISTRY METHOD 05/07/2025 2:46 PM T [facility] Total Protein 6.5 6.0 - 8.0 g/dL LAB CHEMISTRY METHOD 05/07/2025 2:46 PM [facility] Albumin 3.1(L) 3.2 - 5.0 g/dL LAB CHEMISTRY METHOD 05/07/2025 2:46 PM T [facility] Total Bilirubin 0.3 0.0 - 1.4 mg/dL LAB CHEMISTRY METHOD 05/07/2025 2:46 PM [facility] Blood Venous blood specimen / Unknown Venipuncture / Unknown 05/07/2025 1:34 PM EDT 05/07/2025 1:52 PM EDT us Muna Valadez MD LAB BLOOD ORDERABLES Final Resul t [facility] [address] [place] [address], from Last 3 Months Additional Health Concerns Active Problems Noted Date Diagnosed Date Autogenerated Problem 05/08/2025 Insurance [facility] MEDICARE Member Subscriber Plan / Payer (Ef fective 2025-Present) Name:Shaquille Rhodes Jr Relation to Subscriber:Self Name:Shaquille Escobedo Payer ID:[id number] Group ID:[id number] Type:Not on file Address: [place] [address] [place] [phone] Advance Directives * Full Code - Default (Latest Code Status on File) Date Activated Date Inactivated Comments 05/07/2025 11:37 PM 05/11/2025 8:49 PM This is o rder is used when code status has not been discussed with the patient, or code status is otherwise unknown/unconfirmed To update the patient's code status, place a code status order. Do not modify or discontinue any currently active code status orders. Care Teams Project Product Manager Relationship Specialty Start Date End Date Name, MD Renny [address] [place] [id number] PCP - General Internal Medicine 05/04/25
--- OUTSIDE RECORDS SUMMARY | 2025-06-13 14:47 | XMS_ITS | Clinical Summary ---
Author Organization [facility] Address [address] [facility] [address] [place] [address] Phone Care Team Providers Care Staffing Assistant Name Role Phone Name, Renny SWAN Primary Care Provider [phone] Allergies No known active allergies Medications zolpidem (AMBIEN) 5 MG tablet Take 5 mg by mouth at night if needed 09/14/19 23 Active tamsulosin (FLOMAX) 0.4 MG 24 hr capsule TAKE 1 CAPSULE BY MOUTH EVERY MORNING 30 MINUTES AFTER BREAKFAST 08/13/19 23 Active predniSONE 5 MG tablet Take 5 mg by mouth 1 (one) time each day 08/17/19 23 Active omeprazole (PriLOSEC) [address] capsule TAKE 1 CAPSULE BY MOUTH EVERY MORNING 30 MINUTES BEFORE A MEAL 09/11/19 23 Active metoprolol tartrate (LOPRESSOR) 100 MG tablet TAKE 1 TABLET BY MOUTH TWICE DAILY IN THE MORNING AND IN THE EVENING WITH MEALS 08/13/19 23 Active metFORMIN (GLUCOPHAGE) 1000 MG tablet TAKE 1 TABLET BY MOUTH TWICE DAILY IN THE MORNING AND IN THE EVENING WITH MEALS 08/13/19 23 Active TRUEplus Lancets 33G misc TEST BLOOD SUGAR THREE TIMES DAILY 09/11/19 23 Active Lantus SoloStar 100 UNIT/ML injection 18 Units 08/13/19 23 Active gabapentin (NEURONTIN) 300 MG capsule TAKE 1 CAPSULE BY MOUTH THREE TIMES DAILY IN THE MORNING, AT NOON, AND AT BEDTIME 09/11/19 23 Active atorvastatin (LIPITOR) 40 MG tablet Take 40 mg by mouth at bed time 08/13/19 23 Active abiraterone (ZYTIGA) 250 MG chemo tablet 08/19/19 23 Active Trulicity 0.75 MG/0.5ML solution pen-injector INJECT ONE PEN (=0.75MG) SUBCUTANEOUSLY ONCE A WEEK DIRECTED 10/14/19 23 Active hydrALAZINE 25 MG tablet TAKE 2 TABLETS BY MOUTH TWICE DAILY IN THE MORNING AND EVENING 120 tablet 4 01/24/20 23 Active Rivaroxaban (Xarelto) 2.5 MG tablet Take by mouth Active sertraline (ZOLOFT) 25 MG tablet Take 25 mg by mouth in the morning. 07/17/20 24 Active doxycycline (ADOXA) 100 MG tablet Take 100 mg by mouth in the morning and 100 mg in the evening. Take with a full glass of water and do not lie down for at least 30 minutes after. Active doxazosin (CARDURA) 8 MG tablet Take 8 mg by mouth every night Active traMADol (ULTRAM) 50 MG tablet Take 50 mg by mouth in the morning and 50 mg at noon and 50 mg in the evening and 50 mg before bedtime. Active Lactobacillus (ACIDOPHILUS PO) Take 1 tablet by mouth Active insulin NPH, Isophane, (HumuLIN,NovoLI N) 100 UNIT/ML injection Inject 6 Units under the skin 1 (one) time each day Active docusate sodium (COLACE) 100 MG capsule Take 100 mg by mouth 1 (one) time each day Active aspirin (ST RUBIA) 81 MG EC tablet Take 81 mg by mouth 1 (one) time each day Active furosemide (LASIX) 20 MG tablet Take 20 mg by mouth in the morning and 20 mg in the evening. Active folic acid (FOLVITE) 1 MG tablet Take 1 mg by mouth 1 (one) time each day Active acetaminophen (TYLENOL) 325 MG suppository Insert 325 mg into the rectum every 4 (four) hours if needed for mild pain Active Naloxone HCl (Narcan) 4 MG/0.1ML liquid Administer into affected nostril(s) Active leuprolide (LUPRON) 45 MG injection Inject 45 mg under the skin every 6 (six) months Active HYDROcodone-narinder taminophen (NORCO) 5-325 MG per tablet Take 1 tablet by mouth every 6 (six) hours if needed for moderate pain Active losartan (COZAAR) 50 MG tablet Take 50 mg by mouth 1 (one) time each day Active Active Problems Problem Noted Date Diagnosed [...] Encounters Date Type Department Care Team Description 04/20/2025 10:30 AM EDT Office Visit [facility] [address] [facility] [address] [place] [address] Prabhjot Aguila MD Stage 3a chronic kidney disease (HCC) (Primary Dx); Type 2 diabetes mellitus with diabetic chronic kidney disease, 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); Persistent proteinuria; Peripheral vascular disease (HCC) from Last 3 Months Immunizations Immunization Administration Dates Next Due Influenza, Unspecified 04/23/2023,04/15/2022 Pneumococcal Conjugate Pcv 20 04/29/2022 Shingrix 12/15/2022,10/13/2022 Tdap 09/28/2022 Family History Relation Status Comments Father Mother Social History Tobacco Use Types Packs/Day Years [...] Sign Reading Time Taken Comments Blood Pressure 109/44 04/20/2025 10:53 AM EDT Pulse 59 04/20/2025 10:53 AM EDT Temperature - - Respiratory Rate - - Oxygen Saturation 97% 04/20/2025 10:53 AM EDT Inhaled Oxygen Concentration - - Weight 67.4 kg (148 lb 9.6 oz) 04/20/2025 10:53 AM EDT Height 172.7 cm (5' 8 ) 09/17/2022 1:52 PM EST Body Mass Index 22.59 09/17/2022 1:52 PM EST Plan of Treatment Upcoming Encounters Date Type Department Care Team (Late st Contact Info) Description 10/22/2025 1:45 PM EDT Office Visit [facility] [address] [place] [address] Prabhjot Aguila MD [address] [facility] [address] [place] [address] Health Maintenance Due Date Last Done Comments Diabetes: Ophthalmology Exam 09/17/2022 Diabetes: Pedal Pulse Checked 09/17/2022 Diabetes: Sensory Foot Exam 09/17/2022 Diabetes: Visual Foot Exam 09/17/2022 Diabetes: Hemoglobin A1C 06/29/2024 024, 12/29/2023, 03/17/2023, Additional history exists Influenza Vaccine (#1) 2025 4, 04/23/2023, 04/15/2022 Pneumococcal Vaccine: 50+ Years Completed 04/29/2022 Hepatitis B Vaccine Aged Out No longe r eligible based on patient's age to complete this topic Procedures Procedure Name Priority Date/Time Associated Diagnosis Comments ALT EXT LABS Routine 03/29/2025 from Last 3 Months Results * (ABNORMAL) ALT EXT LABS (03/29/2025) WBC 6.4 3.3 - 10.0 10*3/ML Red Blood Cell Count 3.49 Hemoglobin 9.2(A) 13.5 - 17.5 Hematocrit 28.5(A) 41.0 - 53.0 Platelets 212 150 - 399 10*3/UL MCV 81.7(A) 82.0 - 108.0 BUN 33(A) 4 - 21 mg/dL Creatinine 1.37(A) 0.60 - 1.30 mg/dL Calcium 8.8 8.7 - 10.7 mg/dL Sodium 138 137 - 147 Potassium 4.1 3.4 - 5.5 Chloride 102.0 99.0 - 108.0 eGFR Non-Afr South [place] 50 03/29/2025 us Historical Provider LAB BLOOD ORDERABLES Maribell l Result from Last 3 Months Insurance Medicaid [place] [facility] ([id number]) [place] [id number] [facility] ([id number]) [facility] Care Teams Staffing Assistant Relationship Specialty Start Date End Date Name, MD Renny [address] [place] [id number] PCP - General Internal Medicine 05/18/24
--- OUTSIDE RECORDS SUMMARY | 2025-06-13 14:47 | XMS_ITS | Encounter Summary ---
Author Organization [employer] Address [address] [facility] 7t [place] [address] Care Team Providers Care Seed Tester Name Role Phone Name, Renny SWAN Primary Care Provider [phone] Encounter Details Date Type Department Care Team ([facility] st Contact Info) Description 06/13/[address] [facility] MEDICINE [address] [place], [place] [phone] Name, MD Renny [address] [place] [address] Social History Tobacco Use Types Packs/Day Years [...] PM EDT documented as of this encounter Functional Status * Over the past 2 weeks, how often have you been bothered by any of the following problems? Question Answer Date of Assessment Author Patient Health Questionnaire -2 Score 4 06/13/2025 10:10 AM Edilma Diane MA * Little interest or pleasure in doing things Answer Date of Assessment Author Nearly every day 06/13/2025 10:10 AM Edilma Diane MA * Feeling down, depressed, or hopeless Answer Date of Assessment Author Several days 06/13/2025 10:10 AM Edilma Diane MA * Trouble falling or staying asleep, [...] Not at all 06/13/2025 10:10 AM Edilma Dinae MA * Moving or speaking so slowly [...] [place] documented as of this encounter Miscellaneous Notes * Telephone Encounter - Alex Thurman - 06/13/2025 2:18 PM EST Tc from Daughter returning call regarding message prior. * Telephone Encounter - Tasia Sibley RN - 06/13/2025 1:51 PM EST For [employer] services, pt must request an evaluation from [employer] company preferred by insurance. T/C to pt's daughter to advise to contact [facility] to determine preferred [employer] company. No answer, v/m left to return call to [facility] team nurses. * Telephone Encounter - Tasia Sibley RN - 06/13/2025 1:46 PM EST ----- Message from Renny Johnston MD sent at 06/13/2025 12:44 PM EST ----- Hi. This patient recently arrived from [place], he required 2 amputation. He has difficulty with ambulation related to the amputation and diabetic neuropathy. Can we please refer him to [facility] for home PT. family has requested a [employer] program since he needs assistance with ADLs documented in this encounter Plan of Treatment Upcoming Encounters Date Type Department Care Team (Late st Contact Info) Description 07/27/2025 10:30 AM EST Medication Management [facility] MEDICINE [address] [place] [address] Jory Christina, PharmD [address] [place] [address] 09/14/2025 10:00 AM EST Office Visit [facility] MEDICINE [address] [place] [address] Renny Johnston MD [address] [place] [address] documented as of this encounter Goals Goal Patient Goal Type Associated Problems Recent Progress Patient-Stated? Author Record your blood pressure once per day Blood Pressure No Jory Christina PharmD Blood Pressure < 140/90 Blood Pressure 150/80(2024 10:01 AM EST) No Jory Christina PharmD Hemoglobin A1c < 7.5 Result Component 7.1( 1:49 PM EDT) No Jory Christina PharmD Record your blood sugar as directed Result Component No Jroy Christina PharmD Help patients manage their type [...] chronic kidney disease No Edilma Ceballos MA Patient has chronic kidney disease Care Plan Patient has chronic kidney disease No Edilma Ceballos [place] Patient has chronic kidney disease Care Plan Patient has chronic kidney disease No Edilma Ceballos [place] Patient has diabetic neuropathy Care Plan Patient has diabetic neuropathy No Edilma Ceballos [place] Patient has diabetic neuropathy Care Plan Patient has diabetic neuropathy No Edilma Ceballos [place] Patient has diabetic [...] Plan Patient has diabetic neuropathy No Raya [employer]Rad Patient has diabetic neuropathy Care Plan Patient has diabetic neuropathy No Raya Read documented as of this encounter Visit Diagnoses Not on filedocumented in this encounter Additional Health Concerns Active [...] documented as of this encounter Care Teams Seed Tester Relationship Specialty Start Date End Date Name, MD Renny [address] [place] [phone] PCP - General Family Medicine 03/10/22 [facility] 05/12/25 documented as of this encounter
--- OUTSIDE RECORDS SUMMARY | 2025-06-13 14:47 | XMS_ITS | Encounter Summary ---
Author Organization [employer] Address [address] [facility] 7 [place] [address] Care Team Providers Care Curtain Stretcher Assembler Name Role Phone Name, Renny SWAN Primary Care Provider [phone] Reason for Visit * Reason Onset Date Comments Hospital Follow-up 05/14/2025 Encounter Details Date Type Department Care Team ([facility] st Contact Info) Description 05/14/2025 Telephone [facility] MEDICINE [address] [place], [place] [phone] Name, MD Renny [address] [place] [address] Hospital Follow-up Social History Tobacco Use Types Packs/Day Years [...] encounter Miscellaneous Notes * Telephone Encounter - Dana Edward - 05/14/2025 12:57 PM EDT Tc from pt requesting a HDF appt. Hospital: [facility] Date of admission: 05/07 Discharge date: 05/11 Diagnosed: Gangrene of left foot *Send message to [facility] Clinical Care Coordinators documented in this encounter Plan of Treatment Upcoming Encounters Date Type Department Care Team (Late st Contact Info) Description 07/27/2025 10:30 AM EST Medication Management [facility] MEDICINE [address] [place] [phone] Jory Christina, Joe [address] [place] [address] 09/14/2025 10:00 AM EST Office Visit [facility] MEDICINE [address] [place] [address] Name, MD Renny [address] [place] [address] [place] [address] documented as of this encounter Goals Goal Patient Goal Type Associated Problems Recent Progress Patient-Stated? Author Record your blood pressure once per day Blood Pressure No Puia, Jory, PharmD Blood Pressure < 140/90 Blood Pressure 150/80(2024 10:01 AM EST) No Puia, Jory, PharmD Hemoglobin A1c < 7.5 Result Component 7.1( 1:49 PM EDT) No Puia, Jory, PharmD Record your blood sugar as directed Result Component No Puia, Jory, PharmD documented as of this encounter Visit Diagnoses Not on filedocumented in this encounter Additional Health Concerns Assessment Noted Time PHQ-9 Depression Total Score: 19 02/07/ 024 1:07 PM EDT documented as of this encounter Care Teams Curtain Stretcher Assembler Relationship Specialty Start Date End Date Name, MD Renny [address] [place] [address] PCP - General Family Medicine 03/10/22 [facility] 05/12/25 documented as of this encounter
--- OUTSIDE RECORDS SUMMARY | 2025-06-13 14:47 | XMS_ITS | Encounter Summary ---
Author Organization [employer] Address [address] [facility] 7t [place] [address] Care Team Providers Care Nuclear Technologist Name Role Phone Name, Renny SWAN Primary Care Provider [phone] Encounter Details Date Type Department Care Team (Latest Contact Info) Description 06/13/2025 Travel Social History Tobacco Use Types Packs/Day Years [...] [place] documented as of this encounter Plan of Treatment Upcoming Encounters Date Type Department Care Team (Late st Contact Info) Description 07/27/2025 10:30 AM EST Medication Management [facility] MEDICINE [address] [place] [address] PuiaJory, PharmD [address] [place] [address] 09/14/2025 10:00 AM EST Office Visit [facility] MEDICINE [address] [place] [address] Name, MD Renny [address] [place] [address] documented as of this encounter Goals Goal Patient Goal Type Associated Problems Recent Progress Patient-Stated? Author Record your blood pressure once per day Blood Pressure No MaliaRafaelJory, PharmD Blood Pressure < 140/90 Blood Pressure 150/80(2024 10:01 AM EST) No Jory Christina, PharmD Hemoglobin A1c < 7.5 Result Component 7.1( 1:49 PM EDT) No Jory Christina, PharmD Record your blood sugar as directed Result Component No Jory Christina, PharmD Help patients manage their type 2 [...] Plan Patient has diabetic eye disease No [place] Patient has diabetic eye disease Care Plan Patient has diabetic eye disease No [place] Patient has chronic kidney disease Care Plan Patient has chronic kidney disease No [place] Patient has chronic kidney disease Care Plan Patient has chronic kidney disease No [place] Patient has chronic kidney disease Care Plan Patient has chronic kidney disease No [place] Patient has diabetic neuropathy Care Plan Patient has diabetic neuropathy No [place] Patient has diabetic neuropathy Care Plan Patient has diabetic neuropathy No [place] Patient has diabetic neuropathy Care Plan Patient has diabetic neuropathy No Hall, [place] Weekly blood pressure task Care Plan [...] Time PHQ-9 Depression Total Score: 8 06/13/20 25 10:10 AM EST documented as of this encounter Care Teams Nuclear Technologist Relationship Specialty Start Date End Date Name, MD Renny [address] [place] [address] PCP - General Family Medicine 03/10/22 [facility] 05/12/25 documented as of this encounter
--- OUTSIDE RECORDS SUMMARY | 2025-06-13 14:47 | XMS_ITS | Encounter Summary ---
Author Organization [employer] Address [address] [facility] 7t [place] [address] Care Team Providers Care Voucher Examiner Name Role Phone Name, Renny SWAN Primary Care Provider [phone] Encounter Details Date Type Department Care Team ([facility] st Contact Info) Description 08/11/2023 Abstract [facility] MEDICINE [address] [place], [place] [phone] Name, MD Renny [address] [place] [address] Social History Tobacco Use Types Packs/Day Years [...] 07/27/2025 10:30 AM EST Medication Management [facility] MEDICINE [address] [place] [phone] Jory Christina, PharmD [address] [place] [address] 09/14/2025 10:00 AM EST Office Visit [facility] MEDICINE [address] [place] [phone] Name, MD Renny [address] [place] [address] documented as of this encounter Visit Diagnoses Not on filedocumented in this encounter Additional Health Concerns Assessment Noted Time PHQ-9 Depression Total Score: 0 12/17/19 23 4:13 PM EDT documented as of this encounter Care Teams Voucher Examiner Relationship Specialty Start Date End Date NameRenny MD [address] [place] [address] PCP - General Family Medicine 03/10/22 [facility] 05/12/25 documented as of this encounter
--- OUTSIDE RECORDS SUMMARY | 2025-06-13 14:47 | XMS_ITS | Encounter Summary ---
Author Organization [employer] Address [address] [facility] 7 [place] [address] Care Team Providers Care Staff Pharmacist Hospital Name Role Phone Name, Renny SWAN Primary Care Provider [phone] Reason for Visit * Reason Onset Date Comments Pre-op Exam 01/27/2024 Encounter Details Date Type Department Care Team ([facility] st Contact Info) Description 01/27/2024 Telephone [facility] MEDICINE [address] [place], [place] [phone] Name, MD Renny [address] [place] [address] Pre-op Exam Social History Tobacco Use Types [...] PM EDT Incoming TC from [place] at [facility] requesting status update on pre-op paperwork, [...] Surgeon's name: Dr. Malina Weir Facility name: [facility] Surgeon's office number: [phone] Surgeon's office fax number: [phone] Contact name (person you spoke with): Oksana Last office note from surgeon requested: Will be Faxed * Telephone Encounter - Brando Read - 01/27/2024 12:15 PM EDT Date of Surgery: 01/30 Surgical procedure being done: Carpel & cubical tunnel release Type of anesthesia: General Lab needed: yes EKG: yes Surgeon's name: Dr. Malina Weir Facility name: [facility] Surgeon's office number: [phone] Surgeon's office fax number: [phone] Contact name (person you spoke with): Oksana Last office note from surgeon requested: Will be Faxed documented in this encounter Plan of Treatment Upcoming Encounters Date Type Department Care Team (Late st Contact Info) Description 07/27/2025 10:30 AM EST Medication Management [address] [address] Puia, Jory, PharmD [address] [place] [address] 09/14/2025 10:00 AM EST Office Visit [address] [address] Name, MD Renny [address] [place] [address] documented as of this encounter Goals Goal [...] documented as of this encounter Care Teams Staff Pharmacist Hospital Relationship Specialty Start Date End Date NameRenny MD [address] [place] [address] PCP - General Family Medicine 03/10/22 [facility] 05/12/25 documented as of this encounter
--- OUTSIDE RECORDS SUMMARY | 2025-06-13 14:47 | XMS_ITS | Encounter Summary ---
Author Organization [employer] [facility] Address [address] [place] [address] [place] [address] Care Team Providers Care Developing Machine Operator Name Role Phone Name, Renny SWAN Primary Care Provider [phone] Reason for Visit * Reason Comments Med Refill Encounter Details Date Type Department Care Team (Late st Contact Info) Description 02/09/2023 Refill [facility] MEDICINE [address] [place], [place] [phone] Name, MD Renny [address] [place] [address] Insomnia, unspecified type Social History Tobacco Use [...] Encounters Date Type Department Care Team (Late Contact Info) Description 07/27/2025 10:30 AM EST Medication Management [facility]INE [address] [place], [place] [phone] PuiaJory, PharmD [address] [place], [place] [phone] 09/14/2025 10:00 AM EST Office Visit [facility]INE [address] [place] [address] Name, MD Renny [address] [place] [address] documented as of this encounter Visit Diagnoses Diagnosis Insomnia, unspecified type documented in this encounter Additional Health Concerns Assessment Noted Time PHQ-9 Depression Total Score: 0 12/17/19 23 4:13 PM EDT documented as of this encounter Care Teams Developing Machine Operator Relationship Specialty Start Date End Date Name, MD Renny [address] [place] [address] PCP - General Family Medicine 03/10/22 [facility] 05/12/25 documented as of this encounter
--- OUTSIDE RECORDS SUMMARY | 2025-06-13 14:47 | XMS_ITS | Encounter Summary ---
Author Organization [employer] Address [address] [facility] 7 [place] [address] Care Team Providers Care Social Problems Specialist Name Role Phone Name, Renny SWAN Primary Care Provider [phone] Reason for Visit * Reason Onset Date Comments Durable Medical Equipment 05/24/2025 Encounter Details Date Type Department Care Team ([facility] st Contact Info) Description 05/24/2025 Telephone [facility] MEDICINE [address] [place], [place] [phone] Name, MD Renny [address] [place] [address] Durable Medical Equipment Social History Tobacco Use [...] encounter Miscellaneous Notes * Telephone Encounter - Daniella Woodall - 05/25/2025 2:36 PM EST Pt not seen since 04/2024. Requesting electric wheelchair and hospital bed. Scheduled for follow upon 06/13/25. Please advise if wish to evaluate at upcoming appointment or if auth advertising copy writer to generate Rx? Please note, insurance will require documentation supporting the need and benefit of the dme requested. Thank you * Telephone Encounter - Dana Edward - 05/24/2025 10:33 AM EST Tc from pt requesting an new scrip for DME - Wheelchair electric - Hospital bed Please contact daughter at [phone] documented in this encounter Plan of Treatment Upcoming Encounters Date Type Department Care Team ([facility] st Contact Info) Description 07/27/2025 10:30 AM EST Medication Management [facility] MEDICINE [address] [place] [address] Puia, Jory, PharmD [address] [place] [address] 09/14/2025 10:00 AM EST Office Visit [facility] [address] [place] [address] Name, MD Renny [address] [place] [address] documented as of this encounter Goals Goal [...] documented as of this encounter Care Teams Social Problems Specialist Relationship Specialty Start Date End Date Renny Johnston MD [address] [place] [address] PCP - General Family Medicine 03/10/22 [facility] 05/12/25 documented as of this encounter
--- OUTSIDE RECORDS SUMMARY | 2025-06-13 14:47 | XMS_ITS | Clinical Summary ---
Author Organization [employer] Address [address] [facility] 7 [place] [address] Care Team Providers Care Home Teaching Grades 9 Thru 12 Teacher Name Role Phone Name, Renny SWAN Primary Care Provider [phone] Allergies No known active allergies Medications predniSONE (Deltasone) 5 MG tablet Take 1 tablet by mouth 1 (one) time each day. 06/29/20 22 Active omeprazole (PriLOSEC) [address] capsule Take 1 capsule by mouth before breakfast. 06/18/20 22 Active abiraterone (Zytiga) 250 MG chemo tablet Take 4 tablets by mouth 1 (one) time each day. Dose as per oncology 06/26/20 22 Active leuprolide, 1-month, (Eligard) 7.5 MG injection Administered by urology once every 6 months. Dose not specified in consult. Active Xarelto 2.5 MG tablet TAKE 1 TABLET BY MOUTH TWICE DAILY IN THE MORNING AND IN THE EVENING 04/13/20 23 Active glucagon (Baqsimi One Pack) 3 MG/DOSE nasal powderIndicati ons:Hypoglycem ia Administer 3 mg into affected nostril(s) 1 (one) time if needed for low blood sugar. 1 each 1 05/17/20 23 Active triamcinolone (Kenalog) 0.1 % cream Apply topically at bedtime. Mix with CeraVe cream as directed and use after bath or shower. 80 g 2 06/07/20 23 Active TRUEplus Lancets 33G miscIndication s:Insomnia, unspecified type TEST BLOOD SUGAR THREE TIMES DAILY 100 each 11 10/27/19 24 Active sildenafil (Viagra) 50 MG tablet Take 1 tablet (50 mg) by mouth if needed each day for erectile dysfunction. 10 tablet 11/02/19 24 Active glucose blood (FreeStyle Precision Bay Test) test stripIndicatio ns:Type 2 diabetes mellitus with other specified complication, with long-term current use of insulin ([facility]) Use to test blood sugar up to 4 times daily, as directed 100 each 11 03/30/20 24 Active insulin aspart (NovoLOG FLEXPEN) 100 UNIT/ML penIndications :Type 2 diabetes mellitus with other specified complication, with long-term current use of insulin ([facility]) Inject 6 Units under the skin before breakfast, before lunch, and before evening meal. 15 mL 2 03/30/20 24 Active insulin glargine (Lantus SoloStar) 100 UNIT/ML penIndications :Type 2 diabetes mellitus with other specified complication, with long-term current use of insulin ([facility]) Inject 14 Units under the skin Once per day. 15 mL 5 03/30/20 24 Active metoprolol tartrate (Lopressor) 100 MG tablet TAKE 1 TABLET BY MOUTH TWICE DAILY IN THE MORNING AND IN THE EVENING WITH MEALS 180 tablet 04/17/20 24 Active metFORMIN (Glucophage) 1000 MG tablet TAKE 1 TABLET BY MOUTH TWICE DAILY IN THE MORNING AND IN THE EVENING WITH MEALS 180 tablet 3 04/17/20 24 Active atorvastatin (Lipitor) 80 MG tablet TAKE 1 TABLET BY MOUTH EVERY EVENING 30 tablet 11 04/21/20 24 Active losartan (Cozaar) 25 MG tablet TAKE 1 TABLET BY MOUTH EVERY MORNING 30 tablet 11 04/21/20 24 Active sertraline (Zoloft) 25 MG tablet TAKE 1 TABLET BY MOUTH EVERY DAY 30 tablet 2 07/17/20 24 Active doxazosin (Cardura) 8 MG tablet Take 1 tablet (8 mg) by mouth at bedtime. 30 tablet 1:42 PM EST 06/13/202025 Active furosemide (Lasix) 20 MG tablet Take 1 tablet (20 mg) by mouth every other day. 15 tablet 5 1:42 PM EST 06/13/202025 Active hydrALAZINE (Apresoline) 100 MG tablet Take 1 tablet (100 mg) by mouth 3 times daily. 90 tablet 06/13/202025 Active gabapentin (Neurontin) 300 MG capsule TAKE 1 CAPSULE BY MOUTH 3 times a day 60 capsule 5 5 1:42 PM EST 06/13/20 Active Continuous Glucose Quarry Boss (FreeStyle Grace 3 Oxford) deviceIndicati ons:Type 2 diabetes mellitus with other specified complication, with long-term current use of insulin (HCC) 1 each Once per day. Use as directed for CGM 1 each 06/13/20 Active Continuous Glucose Sensor (FreeStyle Grace 3 Plus Sensor) miscIndication s:Type 2 diabetes mellitus with other specified complication, with long-term current use of insulin (HCC) 1 each every 15 days. Apply 1 every 15 days as directed for CGM 2 each 06/13/20 Active glucose blood (FreeStyle Precision Bay Test) test strip Use to test blood sugar 3 times daily in case of CGM failure or extremes of BG 100 each 06/13/20 25 2025 Active Diclofenac Sodium 1 % gelIndications :Type 2 diabetes mellitus with other specified complication, with long-term current use of insulin (HCC) APPLY 2 GRAMS TOPICALLY TO AFFECTED AREA(S) TWICE DAILY 100 g 1:42 PM EST 06/13/20 Active Alcohol Swabs (Alcohol Prep) 70 % pads USE FOUR TIMES DAILY DIRECTED 100 each 11 5 1:42 PM EST 06/13/20 Active Pentips Generic Pen Amelia 32G X 4 MM misc Use as instructed 100 each 5 5 1:42 PM EST 06/13/20 Active zolpidem (Ambien) 10 MG tablet Take 1 tablet (10 mg) by mouth if needed at bedtime for sleep. 30 tablet 1:42 PM EST 06/13/20 Active cyanocobalamin (Vitamin B-12) 1000 MCG tablet Take 1 tablet (1,000 mcg) by mouth Once per day. 30 tablet 1:42 PM EST 06/13/20 25 2025 Active polyethylene glycol, PEG, 3350 (MiraLax) 17 GM/SCOOP powder Take 17 g by mouth Once per day. 527 g 2 1:42 PM EST 06/13/20 25 2025 Active Continuous Blood Gluc Quarry Boss (FreeStyle Grace 2 Oxford) device Use as directed 1 each 04/23/20 23 2024 Discontinued Diclofenac Sodium 1 % gelIndications :Type 2 diabetes mellitus with other specified complication, with long-term current use of insulin (HCC) APPLY 2 GRAMS TOPICALLY TO AFFECTED AREA(S) TWICE DAILY 100 g 3 10/19/19 24 2024 Discontinued(R eorder (will not trigger notification to Pharmacy)) Continuous Glucose Sensor (FreeStyle Grace 2 Sensor) miscIndication s:Type 2 diabetes mellitus with other specified complication, with long-term current use of insulin ([facility]) Apply 1 sensor as directed every 14 days for CGM. 2 each 11 11/05/19 24 2024 Discontinued hydrALAZINE (Apresoline) 100 MG tablet Take 1 tablet (100 mg) by mouth 2 times daily. 60 tablet 11 02/08/20 24 2024 Discontinued(R eorder (will not trigger notification to Pharmacy)) gabapentin (Neurontin) 300 MG capsule TAKE 1 CAPSULE BY MOUTH TWICE DAILY IN THE MORNING AND AT BEDTIME 60 capsule 5 05/22/20 24 2024 Discontinued(R eorder (will not trigger notification to Pharmacy)) Alcohol Swabs (Alcohol Prep) 70 % pads USE FOUR TIMES DAILY DIRECTED 100 each 11 05/30/20 24 2024 Discontinued(R eorder (will not trigger notification to Pharmacy)) tamsulosin (Flomax) 0.4 MG 24 hr capsule TAKE 2 CAPSULES BY MOUTH ONCE DAILY IN THE MORNING 60 capsule 3 06/21/20 24 2024 Discontinued(T herapy completed) Pentips Generic Pen Amelia 32G X 4 MM misc USE DIRECTED FOUR TIMES DAILY 100 each 5 07/11/20 24 2024 Discontinued(R eorder (will not trigger notification to Pharmacy)) zolpidem (Ambien) 10 MG tablet TAKE 1 TABLET BY MOUTH AT BEDTIME NEEDED FOR SLEEP 30 tablet 09/12/19 25 2024 Discontinued(R eorder (will not trigger notification to Pharmacy)) Diclofenac Sodium 1 % gelIndications :Type 2 diabetes mellitus with other specified complication, with long-term current use of insulin (HCC) APPLY 2 GRAMS TOPICALLY TO AFFECTED AREA(S) TWICE DAILY 100 g 05/24/20 25 2024 Discontinued(R eorder (will not trigger notification to Pharmacy)) Active Problems Problem Noted Date Diagnosed Date PDR (proliferative diabetic retinopathy) 024 Missing teeth, acquired 10/08/2023 Dental plaque 10/08/2023 Generalized gingival recession 10/08/2023 Stage 3 chronic kidney disease (CMS/HCC) 023 Essential (primary) hypertension 09/17/2022 Type 2 diabetes mellitus wit h diabetic chronic kidney disease 09/17/2022 Polyneuropathy due to type 2 diabetes mellitus 1 09/07/2021 Peripheral vascular disease 07/07/2022 Malignant tumor of prostate (CMS/HCC) 02/27/2022 History of amputation of left great toe 02/28/20 Acquired trigger finger of both ring fingers 06/2022 Resolved Problems Problem Noted Date Diagnosed Date Resolved Date Cancer (CMS/HCC) 09/17/2022 02/11/2024 Chronic kidney disease 09/17/202202/10 Type 2 diabetes mellitus without complication 09/18/1902/11/[address] scan, colon 07/07/202201/17 Imaging of gastrointestinal tract abnormal 07/07/2022 02/11/2024 Type 2 diabetes mellitus 02/27/2022 Essential hypertension 02/27/202202/10 Malignant neoplasm of prostate (CMS/HCC) 02/27/2022 02/11/2024 Encounters Date Type Department Care Team Description 06/13/2025 10:30 AM EST Office Visit [facility] [address] [place] [phone] Name, MD Renny Type 2 diabetes mellitus with other specified complication, with long-term current use of insulin (HCC) (Primary Dx); Peripheral vascular disease (CMS/HCC); Amputated toe, unspecified laterality; 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); Neuropathic pain of hand; Orthopnea; Anemia, unspecified type 06/13/2025 Telephone [facility] [address] [place] [address] NameRenny MD 06/13/2025 Travel 05/24/2025 Refill [facility] [place] [address] Renny Johnston MD Type 2 diabetes mellitus with other specified complication, with long-term current use of insulin (HCC) 05/24/2025 Telephone [facility] [place] [address] Renny Johnston MD Durable Medical Equipment 05/16/[address] [address] Renny Johnston MD form 05/14/[address] [address] Renny Johnston MD Medication Question 05/14/2025 Patient Outreach [address] [address] Renny Johnston MD Transition Of Care (Tcm) (HDF- unscheduled ) 05/14/[address] [address] Renny Johnston MD Hospital Follow-up 05/10/[address] [address] Renny Johnston MD Referral 04/02/[address] [address] Renny Johnston MD Appointment Request (Called daughter to ask about insurance for upcoming appointment as well as to figure out what was the status on the insurance process due to patient coming back from [place]. She has talked to insurance enrollment and is waiting on [facility] to continue the process.) 04/02/2025 [facility] [place] [address] Renny Johnston MD Appointment Request (PT needs hospital follow up , hospitalized for 1 week .) from Last 3 Months Immunizations Immunization Administration Dates Next Due Influenza [...] 16 06/13/2025 10:01 AM EST Oxygen Saturation 98% 05/16/2024 11:14 AM EDT Inhaled Oxygen Concentration - - Weight 70.9 kg (156 lb 3.2 oz) 06/13/2025 10:01 AM EST Height 172.7 cm (5' 8 ) 06/13/2025 10:01 AM EST Body Mass Index 23.75 06/13/2025 10:01 AM EST Plan of Treatment Upcoming Encounters Date Type Department Care Team (Late st Contact Info) Description 07/27/2025 10:30 AM EST Medication Management [facility] [address] [place] [address] [phone] Jory Christina, PharmD [address] [place], [place] [phone] 09/14/2025 10:00 AM EST Office Visit [facility] [address] [place] [address] Name, MD Renny [address] [place], [place] [phone] Health Maintenance Due Date Last Done Comments Dental Prophylaxis 04/10/2024 10/08/2023, 12/15/2022 Diabetes: Hemoglobin A1C 06/29/2024 024, 12/29/2023, 09/21/2023, Additional history exists Dental Oral Exam 09/07/2024 03/06/2024, 05/25/2023 Eye Exam 12/06/2024 12/07/2023 Dental X-Ray: Bitewings 03/07/2025 03/06/2024, 12/09 Lipid Panel 03/15/2025 03/15/2024, 01/16, 03/11/2022 COVID-19 Vaccine ( season) 2025 03/18/2022, 07/30/2021, 10/24/2020, Additional history exists Influenza Vaccine (#1) 2025 4, 04/23/2023, 04/15/2022 Dental X-Ray: Full Mouth 12/10/2025 12/09/2022 Alcohol/Substance Use Screening 06/13/2026 06/13/2025 Depression Screening 06/13/2026 06/13/2025, 06/13/20 Diabetes: Foot Exam 06/13/2026 06/13/2025, 06/13/2025, 06/13/2025, Additional history exists SDOH Screening 06/13/2026 06/13/2025 Tobacco Screening 06/13/2026 06/13/2025 DTaP/Tdap/Td Vaccines (2 - Td or Tdap) [...] once per day Blood Pressure No Jory Christina, PharmD Blood Pressure < 140/90 Blood Pressure 150/80(2024 10:01 AM EST) No Jory Christina, PharmD Hemoglobin A1c < 7.5 Result Component 7.1( 1:49 PM EDT) No Carri Jory, PharmD Record your blood sugar as [...] Patient has diabetic neuropathy No Raya Read Procedures Procedure Name Priority Date/Time Associated Diagnosis Comments ECG 12-LEAD Routine 06/13/2025 12:38 PM EST Orthopnea XR CHEST 2 VIEWS Routine 06/13/2025 12:1 6 PM EST Orthopnea POCT HEMOGLOBIN Routine 06/13/2025 10:08 AM EST Type 2 diabetes mellitus with other specified complication, with long-term current use of insulin ([facility]) POCT GLUCOSE Routine 06/13/2025 10:08 AM EST Type 2 diabetes mellitus with other specified complication, with long-term current use of insulin ([facility]) POCT GLYCATED HEMOGLOBIN, TOTAL Routine 03/30/2024 1:49 PM EDT Type 2 diabetes mellitus with other specified complication, with long-term current use of insulin ([facility]) LIPID PANEL, STANDARD Routine 03/15/2024 9:08 AM [...] Recently Relevant to Health Maintenance Results * ECG 12 lead (06/13/2025 12:38 [...] PM EST Narrative 06/13/2025 12:36 PM EST [address] [address] XRay Report Signed Patient: Shaquille Escobedo MR#: [id number] : 1945 Acct:[id number] Age/Sex: 79 / M ADM Date: 06/13/25 Loc: [facility] Attending Dr: Renny Johnston MD Ordering Physician: Renny Johnston MD Date of Service: 06/13/25 Procedure(s): XR chest 2V Accession Number(s): [id number] cc: Renny Johnston MD Reason for Exam: [...] Trung Doherty MD 06/13/2025 12:34 PM EST Dictated By: Trung Doherty MD Signed By: <Electronically signed by Trung Doherty MD in OV> 06/13/25 1234 DD/ 1216 TD/TT: 06/13/25 1218 Hat Presser: Procedure Note Donotuseinterpreter, Image - 06/13/[address] [address] XRay Report Signed Patient: Shaquille EscobedoMR#: [id number] : 1945cct:[id number] Age/Sex: 79 / MADM Date: 06/13/25 Loc: [facility] Attending Dr: Renny Johnston MD Ordering Physician: Renny Johnston MD Date of Service: 06/13/25 Procedure(s): XR chest 2V Accession Number(s): [id number] cc: Renny Johnston MD Reason for Exam: [...] 06/13/25 1234 DD/ 1216 TD/TT: 06/13/25 1218 Hat Presser: us Renny Johnston MD IMG XR PROCEDURES Final Result * (ABNORMAL) POCT Glucose (06/13/2025 10:08 AM EST) Glucose Blood, POC 286(A) 60 - 200 mg/dL QC Media Lot # [id number] Lot# Expiration Date [id number] Blood Capillary blood specimen / Unknown 06/13/2025 10:08 AM EST us Renny Johnston MD POINT OF CARE TEST ENTER/EDIT OR DERABLES Final Result * (ABNORMAL) POCT Hemoglobin (06/13/2025 10:08 AM EST) Hemoglobin 8.1(A) 13.0 - 17.0 QC Media Lot # [id number] Lot# Expiration Date [id number] Blood 06/13/2025 10:0 8 AM EST us Renny Johnston MD POINT OF CARE TEST ENTER/EDIT OR DERABLES Final Result * (ABNORMAL) POCT HGB A1C (03/30/2024 1:49 PM EDT) Hemoglobin A1C 7.1(A) 4.0 - 6.0 % QC Media Lot # [id number] Blood 03/30/2024 1:49 PM EDT us Renny Johnston MD POINT OF CARE TEST ENTER/EDIT OR DERABLES Final Result * (ABNORMAL) Lipid Panel, Standard (03/15/2024 9:08 AM EDT) Triglycerides 139 <150 mg/dL [facility] Comment:Desirable Triglyceri de: less than 150 mg/dLBorderline High Triglyceride 150-199 mg/dLHigh Triglyceride: 200-499 mg/dLVery High Triglyceride: greater than or equal to 5OO mg/dL Cholesterol 126 <200 mg/dL [facility] Comment:Desirable Cholestero l: less than 200 mg/dLBorderline High Cholesterol: 200-239 mg/dLHigh Cholesterol: greater than 239 mg/dL LDL Cholesterol Calculated 63 <100 mg/dL [facility] Comment:Desirable LDL: less than 100 mg/dLNear Optimal/Above Optimal LDL: 110- 129 mg/dLBorderline High LDL: 130-159 mg/dLHigh LDL: 160-189 mg/dLVery High LDL: greater than or equal to 190 mg/dL HDL Cholesterol 36(L) >40 mg/dL [facility] Comment:Desirable HDL: great er than 40 mg/dL Note: This HDL assay may give artificially low results in patients with liver disease. 03/15/2024 9:08 AM EDT 03/15/2024 11:13 AM EDT us Renny Johnston MD LAB BLOOD ORDERABLES Final Resul t [facility] [address] [place] [address] [phone] * Hm Diabetes Eye Exam (12/07/2023) Eye Exam Normal Normal us Renny Johnston MD HEALTH MAINTENANCE Final Result from Last 3 Months or Most Recently Relevant to Health Maintenance Additional Health Concerns Active Problems Noted Date [...] neuropathy 06/13/2025 Patient has diabetic neuropathy 06/13/2025 Insurance [facility] [employer] (O D-SNP) [facility] Care Teams Home Teaching Grades 9 Thru 12 Teacher Relationship Specialty Start Date End Date Name, MD Renny [address] [place] [address] PCP - General Family Medicine 03/10/22 [facility] 05/12/25
--- OUTSIDE RECORDS SUMMARY | 2025-06-13 14:47 | XMS_ITS | Encounter Summary ---
Author Organization [employer] Address [address] [facility] 7 [place] [address] Care Team Providers Care Manager Creative Services Name Role Phone Name, Renny SWAN Primary Care Provider [phone] Reason for Visit * Reason Comments Med Refill Encounter Details Date Type Department Care Team ([facility] st Contact Info) Description 10/18/2024 Refill [facility] [address] [place], [place] [phone] Name, MD Renny [address] [place] [address] Social History Tobacco Use Types Packs/Day Years [...] 07/27/2025 10:30 AM EST Medication Management [facility] [address] [place] [address] PuiaRafaelJory, PharmD [address] [place] [phone] 09/14/2025 10:00 AM EST Office Visit [facility] [address] [place] [address] Name, MD Renny [address] [place] [phone] documented as of this encounter Goals Goal [...] documented as of this encounter Care Teams Manager Creative Services Relationship Specialty Start Date End Date Name, MD Renny [address] [place] [address] PCP - General Family Medicine 03/10/22 [facility] 05/12/25 documented as of this encounter
--- OUTSIDE RECORDS SUMMARY | 2025-06-13 14:47 | XMS_ITS | Encounter Summary ---
Author Organization [employer] Address [address] [facility] 7 [place] [address] Care Team Providers Care Mechanical Lead Name Role Phone Name, Renny SWAN Primary Care Provider Reason for Visit * Reason Onset Date Comments Results 05/04/2023 Encounter Details Date Type Department Care Team ([facility] st Contact Info) Description 05/04/2023 Telephone [facility] [address] [place], [place] [phone] Name, MD Renny [address] [place] [address] Results Social History Tobacco Use Types Packs/Day [...] on regards results on labs done on [facility] in 04/23/2023, 04/26/2023 & 04/29/2023. Sinhala Speaker. documented in this encounter Plan of Treatment Upcoming Encounters Date Type Department Care Team (Late st Contact Info) Description 07/27/2025 10:30 AM EST Medication Management [facility]INE [address] [place] [phone] Jory Christina, PharmD [address] [place] [phone] 09/14/2025 10:00 AM EST Office Visit [facility]INE [address] [place] [address] Name, MD Renny [address] [place] [phone] documented as of this encounter Visit Diagnoses Not on filedocumented in this encounter Additional Health Concerns Assessment Noted Time PHQ-9 Depression Total Score: 0 12/17/19 23 4:13 PM EDT documented as of this encounter Care Teams Mechanical Lead Relationship Specialty Start Date End Date Name, MD Renny [address] [place] [address] PCP - General Family Medicine 03/10/22 [facility] 05/12/25 documented as of this encounter
--- OUTSIDE RECORDS SUMMARY | 2025-06-13 14:47 | XMS_ITS | Encounter Summary ---
Author Organization [employer] Address [address] [place] [address] [address] [place] [address] Care Team Providers Care Clinical Support Nurse Name Role Phone Name, Renny SWAN Primary Care Provider [phone] Reason for Visit * Reason Onset Date Comments Durable Medical Equipment 11/19/2022 Encounter Details Date Type Department Care Team ([facility] st Contact Info) Description 11/19/2022 Telephone [facility] [address] [place], [place] [phone] Name, MD Renny [address] [place] [address] Durable Medical Equipment Social History Tobacco Use [...] regarding message below. Please contact daughter at [phone] * Telephone Encounter - Kelli Rhodes - 11/30/2022 2:36 PM EDT Script for diabetic socks generated for signature * Telephone Encounter - Raya Bird - 11/23/2022 8:28 AM EDT Tc from Myrna at & requesting a new script for diabetic socks. * Telephone Encounter - Kelli Rhodes - 11/20/2022 9:37 AM EDT Script for toe filler generated for providers signature * Telephone Encounter - Lisa Presley - 11/19/2022 3:54 PM EDT Tc from rashid from & requesting a toe filler . documented in this encounter Plan of Treatment Upcoming Encounters Date Type Department Care Team (Late st Contact Info) Description 07/27/2025 10:30 AM EST Medication Management [address] [address] Jory Christina, PharmD [address] [place] [address] 09/14/2025 10:00 AM EST Office Visit [facility] [address] [place] [address] Name, MD Renny [address] [place] [address] documented as of this encounter Visit Diagnoses Not on filedocumented in this encounter Care Teams Clinical Support Nurse Relationship Specialty Start Date End Date NameRenny MD [address] [place] [phone] PCP - General Family Medicine 03/10/22 [facility] 05/12/25 documented as of this encounter
--- OUTSIDE RECORDS SUMMARY | 2025-06-13 14:47 | XMS_ITS | Encounter Summary ---
Author Organization [employer] Address 75 [facility] 7 [place] [address] Care Team Providers Care Photo Technologist Name Role Phone Name, Renny SWAN Primary Care Provider [phone] Reason for Visit * Reason Comments Med Refill Encounter Details Date Type Department Care Team ([facility] st Contact Info) Description 10/17/2024 Refill [facility] MEDICINE [address] [place], [place] [phone] Name, MD Renny [address] [place] [address] Type 2 diabetes mellitus with other specified complication, with long-term current use of insulin ([facility]) Social History Tobacco Use Types [...] the past 12 months, has t he [employer], gas, oil or water [employer] threatened to shut off services in your [...] Description 07/27/2025 10:30 AM EST Medication Management [address] [address] Jory Christina, PharmD [address] [place] [address] 09/14/2025 10:00 AM EST Office Visit [facility] MEDICINE [address] [place] [address] Name, MD Renny [address] [place] [address] documented as of this encounter Goals Goal Patient Goal Type Associated Problems Recent Progress Patient-Stated? Author Record your blood pressure once per day Blood Pressure No Renata Christinasa, PharmD Blood Pressure < 140/90 Blood Pressure 150/80(2024 10:01 AM EST) No Puia Jory, PharmD Hemoglobin A1c < 7.5 Result Component 7.1( 4 1:49 PM EDT) No Puia, Jory, PharmD Record your blood sugar as directed Result Component No Puia, Jory, PharmD documented as of this encounter Visit Diagnoses Diagnosis Type 2 diabetes mellitus with other specified complication, with long-term current use of insulin (HCC) documented in this encounter Additional Health Concerns Assessment Noted Time PHQ-9 Depression Total Score: 19 024 1:07 PM EDT documented as of this encounter Care Teams Photo Technologist Relationship Specialty Start Date End Date Name, MD Renny [address] [place] [address] PCP - General Family Medicine [facility]10[facility] 05/12/25 documented as of this encounter
--- OUTSIDE RECORDS SUMMARY | 2025-06-13 14:47 | XMS_ITS | Encounter Summary ---
Author Organization [employer] Address 75 [facility] 7 [place] [address] Care Team Providers Care Tubing Machine Tender Name Role Phone Name, Renny SWAN Primary Care Provider [phone] Reason for Visit * Reason Onset Date Comments form 05/16/2025 Encounter Details Date Type Department Care Team ([facility] st Contact Info) Description 05/16/2025 Telephone [facility] MEDICINE [address] [place], [place] [phone] Name, MD Renny [address] [place] [address] form Social History Tobacco Use Types Packs/Day Years [...] encounter Miscellaneous Notes * Telephone Encounter - Germain Henson - 05/16/2025 10:11 AM EDT Tc from Kajal at [facility] requesting a update on plan of care form Contact Kajal at [phone] documented in this encounter Plan of Treatment Upcoming Encounters Date Type Department Care Team (Late st Contact Info) Description 07/27/2025 10:30 AM EST Medication Management [facility] MEDICINE [address] [place] [address] Jory Christina, PharmD [address] [place] [address] 09/14/2025 10:00 AM EST Office Visit [facility] MEDICINE [address] [place] [address] Name, MD Renny [address] [place] [address] documented as of this encounter Goals Goal [...] documented as of this encounter Care Teams Tubing Machine Tender Relationship Specialty Start Date End Date Name, MD Renny [address] [place] [address] PCP - General Family Medicine 03/10/22 [facility] 05/12/25 documented as of this encounter
--- OUTSIDE RECORDS SUMMARY | 2025-06-13 14:47 | XMS_ITS | Encounter Summary ---
Author Organization [employer] Address 75 [facility] 7 [place] [address] Care Team Providers Care Claims Support Specialist Name Role Phone Name, Renny SWAN Primary Care Provider [phone] Reason for Visit * Reason Comments Med Refill Encounter Details Date Type Department Care Team ([facility] st Contact Info) Description 10/16/2024 Refill [facility] MEDICINE 230 [place], [place] [phone] Name, MD Renny 230 [place] [address] Type 2 diabetes mellitus with other specified complication, with long-term current use of insulin ([facility]) Social History Tobacco Use Types [...] the past 12 months, has t he [employer], gas, oil or water [employer] threatened to shut off services in [...] Description 07/27/2025 10:30 AM EST Medication Management [address] [address] Jory Christina, PharmD [address] [place] [address] 09/14/2025 10:00 AM EST Office Visit [facility] MEDICINE [address] [place] [address] Name, MD Renny [address] [place] [address] documented as of this encounter Goals Goal [...] documented as of this encounter Care Teams Claims Support Specialist Relationship Specialty Start Date End Date Name, MD Renny [address] [place] [address] PCP - General Family Medicine 03/10/22 [facility] 05/12/25 documented as of this encounter
== END 2025-06-13 11:39 | disposition home or self-care (01) ==
LOC: HO.HHCX 11:38
PROVIDERS: PCP Internal Medicine Geriatric Medicine; Visit Provider Internal Medicine Geriatric Medicine
DX: R06.01 Orthopnea (principal); Z86.79 Personal history of other diseases of the circulatory system
CPT/HCPCS: 71046

== ENCOUNTER → 2025-06-13 11:56 | Outpatient (BNV) | payer MEDICARE, MEDICAID, SELFPAY | PROVIDERS: PCP Internal Medicine Geriatric Medicine; Visit Provider Radiology Diagnostic Radiology | DX: R06.01 Orthopnea (principal); Z86.79 Personal history of other diseases of the circulatory system | CPT/HCPCS: 71046 ==

== ENCOUNTER 2025-06-19 09:13 | Outpatient (REF) | payer OTHER, SELFPAY ==
--- OUTSIDE RECORDS SUMMARY | 2025-06-19 09:44 | XMS_ITS | Encounter Summary ---
Author Organization [employer] [facility] Address [address] [place] [address] [place] [address] Care Team Providers Care Accounts Receivable Assistant Name Role Phone Name, Renny SWAN Primary Care Provider [phone] Reason for Visit * Reason Comments Med Refill Encounter Details Date Type Department Care Team (Late st Contact Info) Description 02/09/2023 Refill [facility] MEDICINE [address] [place] [address] [phone] Name, MD Renny [address] [place] [address] Insomnia, unspecified type Social History Tobacco Use [...] Department Care Team (Late Contact Info) Description 06/26/2025 10:30 AM EST Medication Management [facility] MEDICINE [address] [place] [address] [phone] Eve Woo, PharmD 230 [place] [address] 07/27/2025 10:30 AM EST Medication Management [address] [address] Jory Christina, NiyaD [address] [place] [address] 09/14/2025 10:00 AM EST Office Visit [address] [address] NameRenny MD [address] [place] [address] documented as of this encounter Visit Diagnoses Diagnosis Insomnia, unspecified type documented in this encounter Additional Health Concerns Assessment Noted Time PHQ-9 Depression Total Score: 0 12/17/19 23 4:13 PM EDT documented as of this encounter Care Teams Accounts Receivable Assistant Relationship Specialty Start Date End Date NameRenny MD [address] [place] [address] PCP - General Family Medicine 03/10/22 [facility] 05/12/25 documented as of this encounter
--- OUTSIDE RECORDS SUMMARY | 2025-06-19 09:44 | XMS_ITS | Encounter Summary ---
Author Organization [employer] Address [address] [place] [address] 7 [place] [address] Care Team Providers Care Coal Bagger Name Role Phone Name, Renny SWAN Primary Care Provider [phone] Reason for Visit * Reason Onset Date Comments Durable Medical Equipment 11/19/2022 Encounter Details Date Type Department Care Team ([facility] st Contact Info) Description 11/19/2022 Telephone [facility] MEDICINE 230 [place], [place] [phone] Name, MD Renny [address] [place] [address] Durable Medical Equipment Social History Tobacco Use [...] regarding message below. Please contact daughter at [phone] * Telephone Encounter - Kelli Rhodes - [...] Care Team (Late st Contact Info) Description 06/26/2025 10:30 AM EST Medication Management [address] [address] Eve Woo PharmD [address] [place] [address] 07/27/2025 10:30 AM EST Medication Management [address] [address] Jory Christina, PharmD [address] [place] [address] 09/14/2025 10:00 AM EST Office Visit [address] [address] NameRenny MD [address] [place] [address] documented as of this encounter Visit Diagnoses Not on filedocumented in this encounter Care Teams Coal Bagger Relationship Specialty Start Date End Date NameRenny MD 230 [place] [address] PCP - General Family Medicine 03/10/22 [facility] 05/12/25 documented as of this encounter
--- OUTSIDE RECORDS SUMMARY | 2025-06-19 09:44 | XMS_ITS | Encounter Summary ---
Author Organization [employer] Address 75 [facility] 7 [place] [address] Care Team Providers Care Lining Sewer Name Role Phone Name, Renny SWAN Primary Care Provider [phone] Reason for Visit * Reason Onset Date Comments Results 05/04/2023 Encounter Details Date Type Department Care Team ([facility] st Contact Info) Description 05/04/2023 Telephone [facility] MEDICINE 230 [place], [place] [phone] Name, MD Renny [address] [place] [address] Results Social History Tobacco Use Types Packs/Day [...] on regards results on labs done on [facility] in 04/23/2023, 04/26/2023 & 04/29/2023. 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 Plan of Treatment Upcoming Encounters Date Type Department Care Team (Late st Contact Info) Description 06/26/2025 10:30 AM EST Medication Management [facility] MEDICINE 230 [place] [address] Eve Woo PharmD [address] [place] [address] 07/27/2025 10:30 AM EST Medication Management [facility] MEDICINE [address] [place] [address] Jory Christina PharmD 230 [place] [address] 09/14/2025 10:00 AM EST Office Visit [facility] MEDICINE [address] [place] [address] Name, [place] [address] documented as of this encounter Visit Diagnoses Not on filedocumented in this encounter Additional Health Concerns Assessment Noted Time PHQ-9 Depression Total Score: 0 12/17/19 23 4:13 PM EDT documented as of this encounter Care Teams Lining Sewer Relationship Specialty Start Date End Date Name, [place] [address] PCP - General Family Medicine 03/10/22 [facility] 05/12/25 documented as of this encounter
--- OUTSIDE RECORDS SUMMARY | 2025-06-19 09:44 | XMS_ITS | Encounter Summary ---
Author Organization [employer] Address 75 [facility] 7t [place] [address] Care Team Providers Care Pool Hand Name Role Phone Name, Renny SWAN Primary Care Provider [phone] Encounter Details Date Type Department Care Team ([facility] st Contact Info) Description 08/11/2023 Abstract [facility] MEDICINE [address] [place], [place] [phone] Name, MD Renny [address] [place] [address] Social History Tobacco Use Types Packs/Day Years [...] Description 06/26/2025 10:30 AM EST Medication Management [address] [address] vEe Woo PharmD [address] [place] [address] 07/27/2025 10:30 AM EST Medication Management [address] [address] Jory Christina, PharmD [address] [place] [address] 09/14/2025 10:00 AM EST Office Visit [address] [address] Name, MD Renny [address] [place] [address] documented as of this encounter Visit Diagnoses Not on filedocumented in this encounter Additional Health Concerns Assessment Noted Time PHQ-9 Depression Total Score: 0 12/17/19 23 4:13 PM EDT documented as of this encounter Care Teams Pool Hand Relationship Specialty Start Date End Date Name, MD Renny [address] [place] [address] PCP - General Family Medicine 03/10/22 [facility] 05/12/25 documented as of this encounter
--- OUTSIDE RECORDS SUMMARY | 2025-06-19 09:44 | XMS_ITS | Encounter Summary ---
Author Organization [employer] Address 75 [facility] 7 [place] [address] Care Team Providers Care Airconditioning Engineer Name Role Phone Name, Renny SWAN Primary Care Provider [phone] Reason for Visit * Reason Onset Date Comments Durable Medical Equipment 05/24/2025 Encounter Details Date Type Department Care Team ([facility] st Contact Info) Description 05/24/2025 Telephone [facility] MEDICINE [address] [place], [place] [phone] Name, MD Renny [address] [place] [address] Durable Medical Equipment Social History Tobacco Use [...] evaluate at upcoming appointment or if auth automatic typewriter inspector to generate Rx? Please note, insurance will require documentation supporting the need and benefit of the dme requested. Thank you * Telephone Encounter - Dana Edward - 05/24/2025 10:33 AM EST Tc from pt requesting an new scrip for DME - Wheelchair electric - Hospital bed Please contact daughter at [phone] documented in this encounter Plan of Treatment Upcoming Encounters Date Type Department Care Team ([facility] st Contact Info) Description 06/26/2025 10:30 AM EST Medication Management [address] [address] Eve Woo PharmD [address] [place] [address] 07/27/2025 10:30 AM EST Medication Management [address] [address] Puia, Jory, PharmD [address] [place] [address] 09/14/2025 10:00 AM EST Office Visit [address] [address] NameRenny MD [address] [place] [address] documented as of this encounter Goals Goal [...] documented as of this encounter Care Teams Airconditioning Engineer Relationship Specialty Start Date End Date Name, MD Renny [address] [place] [address] PCP - General Family Medicine 03/10/22 [facility] 05/12/25 documented as of this encounter
--- OUTSIDE RECORDS SUMMARY | 2025-06-19 09:44 | XMS_ITS | Encounter Summary ---
Author Organization [employer] Address 75 [facility] 7 [place] [address] Care Team Providers Care Medicinal Plant Picker Name Role Phone Name, Renny SWAN Primary Care Provider [phone] Reason for Visit * Reason Onset Date Comments Pre-op Exam 01/27/2024 Encounter Details Date Type Department Care Team ([facility] st Contact Info) Description 01/27/2024 Telephone [facility] MEDICINE 230 [place], [place] [phone] Name, MD Renny [address] [place] [address] Pre-op Exam Social History Tobacco Use Types [...] PM EDT Incoming TC from [place] at [facility] requesting status update on pre-op paperwork, [...] Surgeon's name: Dr. Malina Weir Facility name: [facility]geon's office number: [phone] Surgeon's office fax number: [phone] Contact name (person you spoke with): Oksana Last office note from surgeon requested: Will be Faxed * Telephone Encounter - Brando Read - 01/27/2024 12:15 PM EDT Date of Surgery: 01/30 Surgical procedure being done: Carpel & cubical tunnel release Type of anesthesia: General Lab needed: yes EKG: yes Surgeon's name: Dr. Malina Weir Facility name: [facility]geon's office number: [phone] Surgeon's office fax number: [phone] Contact name (person you spoke with): Oksana Last office note from surgeon requested: Will be Faxed documented in this encounter Plan of Treatment Upcoming Encounters Date Type Department Care Team (Late st Contact Info) Description 06/26/2025 10:30 AM EST Medication Management [address] [address] Eve Woo, PharmD [address] [place] [address] 07/27/2025 10:30 AM EST Medication Management [address] [address] Puia, Jory, PharmD [address] [place] [address] 09/14/2025 10:00 AM EST Office Visit [address] [address] Name, MD Renny [address] [place] [address] [phone] documented as of this encounter Goals Goal [...] documented as of this encounter Care Teams Medicinal Plant Picker Relationship Specialty Start Date End Date Name, MD Renny [address] [place] [address] PCP - General Family Medicine 03/10/22 [facility] 05/12/25 documented as of this encounter
--- OUTSIDE RECORDS SUMMARY | 2025-06-19 09:45 | XMS_ITS | Encounter Summary ---
Author Organization [employer] Address 75 [facility] 7 [place] [address] Care Team Providers Care Unit Secy Name Role Phone Name, Renny SWAN Primary Care Provider [phone] Reason for Visit * Reason Comments Med Refill Encounter Details Date Type Department Care Team ([facility] st Contact Info) Description 10/18/2024 Refill [facility] MEDICINE 230 [place], [place] [phone] Name, MD Renny [address] [place] [address] Social History Tobacco Use Types Packs/Day Years [...] Description 06/26/2025 10:30 AM EST Medication Management [address] [address] Eve Woo, PharmD [address] [place] [address] 07/27/2025 10:30 AM EST Medication Management [address] [address] Jory Christina PharmD [address] [place] [address] 09/14/2025 10:00 AM EST Office Visit [address] [address] Name, MD Renny [address] [place] [address] documented as of this encounter Goals Goal Patient Goal Type Associated Problems Recent Progress Patient-Stated? Author Record your blood pressure once per day Blood Pressure No Carri Jory, PharmD Blood Pressure < 140/90 Blood [...] documented as of this encounter Care Teams Unit Secy Relationship Specialty Start Date End Date Name, MD Renny [address] [place] [address] PCP - General Family Medicine 03/10/22 [facility] 05/12/25 documented as of this encounter
--- OUTSIDE RECORDS SUMMARY | 2025-06-19 09:45 | XMS_ITS | Clinical Summary ---
Author Organization [facility] Address [address] [facility] [address] [place] [address] Phone Care Team Providers Care Facility Maintenance Technician Name Role Phone Name, Renny SWAN Primary Care Provider [phone] Allergies No known active allergies Medications zolpidem [...] Office Visit [facility] [address] [facility] [address] [place] [address] Prabhjot Aguila MD Stage 3a [...] Visit [facility] [address] [place], [place] [address] Prabhjot Aguila MD [address] [facility] [address] [place] [address] Health Maintenance Due Date Last [...] Chloride 102.0 99.0 - 108.0 eGFR Non-Afr [place] Islander 50 03/29/2025 us Historical Provider LAB BLOOD ORDERABLES Maribell l Result from Last 3 Months Insurance Medicaid [place] [facility] ([id number]) KATIE FISHER [id number] [facility] ([id number]) [facility] Care Teams Facility Maintenance Technician Relationship Specialty Start Date End Date Name, MD Renny [address] [place] [address] PCP - General Internal Medicine 05/18/24
--- OUTSIDE RECORDS SUMMARY | 2025-06-19 09:45 | XMS_ITS | Clinical Summary ---
Author Organization [employer] Address [address] [facility] 7 [place] [address] Care Team Providers Care Refinery Operator Polymerization Plant Name Role Phone Name, Renny SWAN Primary Care Provider [phone] Allergies No known active allergies Medications predniSONE [...] complication, with long-term current use of insulin ([facility]) Use to test blood sugar up to 4 times daily, as directed 100 each 11 03/30/20 24 Active insulin aspart (NovoLOG FLEXPEN) 100 UNIT/ML penIndications :Type 2 diabetes mellitus with other specified complication, with long-term current use of insulin ([facility]) Inject 6 Units under the skin before breakfast, before lunch, and before evening meal. 15 mL 2 03/30/20 24 Active insulin glargine (Lantus SoloStar) 100 UNIT/ML penIndications :Type 2 diabetes mellitus with other specified complication, with long-term current use of insulin ([facility]) Inject 14 Units under the skin Once [...] 1:42 PM EST 06/13/20 Active Continuous Glucose Currency Exchange Specialist (FreeStyle Grace 3 [place]) deviceIndicati ons:Type 2 diabetes mellitus with other [...] PM EST 06/13/20 Active Pentips Generic Pen [place] 32G X 4 MM misc Use as [...] 06/13/20 25 2025 Active Continuous Blood Gluc Currency Exchange Specialist (FreeStyle Grace 2 [place]) device Use as directed 1 each 04/23/20 [...] complication, with long-term current use of insulin ([facility]) Apply 1 sensor as directed every 14 [...] 2024 Discontinued(T herapy completed) Pentips Generic Pen [place] 32G X 4 MM misc USE DIRECTED [...] complication, with long-term current use of insulin ([facility]) APPLY 2 GRAMS TOPICALLY TO AFFECTED AREA(S) TWICE DAILY 100 g 05/24/20 25 2024 Discontinued(R eorder (will not trigger notification to Pharmacy)) Active Problems Problem Noted Date Diagnosed Date PDR (proliferative diabetic retinopathy) 024 Missing teeth, acquired 10/08/2023 Dental plaque 10/08/2023 Generalized gingival recession 10/08/2023 Stage 3 chronic kidney disease ([facility]) 023 Essential (primary) hypertension 09/17/2022 Type 2 diabetes mellitus wit h diabetic chronic kidney disease 09/17/2022 Polyneuropathy due to type 2 diabetes mellitus 1 09/07/2021 Peripheral vascular disease 07/07/2022 Malignant tumor of prostate ([facility]) 02/27/2022 History of amputation of left great toe 02/28/20 Acquired trigger finger of both ring fingers 06/2022 Resolved Problems Problem Noted Date Diagnosed Date Resolved Date Cancer ([facility]) 09/17/2022 02/11/2024 Chronic kidney disease 09/17/202202/10 Type 2 diabetes mellitus without complication 09/18/19 23 02/11/[address] scan, colon 07/07/202201/17 Imaging of gastrointestinal tract abnormal 07/07/2022 02/11/2024 Type 2 diabetes mellitus 02/27/2022 Essential hypertension 02/27/202202/10 Malignant neoplasm of prostate ([facility]) 02/27/2022 02/11/2024 Encounters Date Type Department Care Team Description 06/19/[address] [address] Renny Johnston MD Prior Auth Prescription (Tc from pt requesting an new scrip for DME/ /- Wheelchair electric/- Hospital bed /Pt daughter walked in with [facility] information to fax [phone] DME/ // ///) 06/18/[address] [phone] Renny Johnston MD 06/13/2025 10:30 AM EST Office Visit [address] [address] Renny Johnston MD Type 2 diabetes mellitus with other specified complication, with long-term current use of insulin (HCC) (Primary Dx); Peripheral vascular disease (CMS/HCC); Amputated toe, unspecified laterality; 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); Neuropathic pain of hand; Orthopnea; Anemia, unspecified type 06/13/[address] [address] Renny Johnston MD 06/13/2025 Travel 05/24/[address] [address] Renny Johnston MD Type 2 diabetes mellitus with other specified complication, with long-term current use of insulin (HCC) 05/24/[address] [address] Renny Johnston MD Durable Medical Equipment 05/16/[address] [address] Renny Johnston MD form 05/14/[address] [address] Renny Johnston MD Medication Question 05/14/2025 Patient Outreach [address] [address] Renny Johnston MD Transition Of Care (Tcm) (HDF- unscheduled ) 05/14/[address] [address] Renny Johnston MD Hospital Follow-up 05/10/[address] [address] Renny Johnston MD Referral 04/02/[address] [address] Renny Johnston MD Appointment Request (Called daughter to ask about insurance for upcoming appointment as well as to figure out what was the status on the insurance process due to patient coming back from [place]. She has talked to insurance enrollment and is waiting on [facility] to continue the process.) 04/02/[address] [address] Name, MD Renny Appointment Request (PT needs hospital follow up [...] Description 06/26/2025 10:30 AM EST Medication Management [address] [address] Eve Woo, PharmD [address] [place] [address] 07/27/2025 10:30 AM EST Medication Management [address] [address] Jory Christina, PharmD [address] [place] [address] 09/14/2025 10:00 AM EST Office Visit [address] [address] Name, MD Renny [address] [place] [address] Health Maintenance Due Date Last Done Comments Dental Prophylaxis 04/10/2024 10/08/2023, 12/15/2022 Diabetes: Hemoglobin A1C 06/29/2024 024, 12/29/2023, 09/21/2023, Additional history exists Dental Oral Exam 09/07/2024 03/06/2024, 05/25/2023 Eye Exam 12/06/2024 12/07/2023 Dental X-Ray: Bitewings 03/07/2025 03/06/2024, 12/09 Lipid Panel 03/15/2025 03/15/2024, 0708/2023, 03/11/2022 COVID-19 Vaccine ( season) 2025 03/18/2022, 07/30/2021, 10/24/2020, Additional history exists Influenza Vaccine (#1) 2025 , 04/23/2023, 04/15/2022 Dental X-Ray: Full Mouth 12/10/2025 [...] Plan Patient has chronic kidney disease No [place], [place] Patient has chronic kidney disease Care Plan Patient has chronic kidney disease No [place], [place] Patient has chronic kidney disease Care Plan Patient has chronic kidney disease No [place] Patient has diabetic neuropathy Care Plan Patient has diabetic neuropathy No [place], [place] Patient has diabetic neuropathy Care Plan Patient has diabetic neuropathy No Tucker, [place], [place] Patient has diabetic neuropathy Care Plan Patient has diabetic neuropathy No Tuckre, [place], [place] Weekly blood pressure task Care Plan [...] Plan Patient has diabetic eye disease No Jacek, Raya Patient has diabetic eye disease Care Plan Patient has diabetic eye disease No Jacek, Raya Patient has diabetic eye disease Care Plan Patient has diabetic eye disease No Jacek, Raya Patient has diabetic eye disease Care Plan Patient has diabetic eye disease No Jacek, Raya Patient has chronic kidney disease Care Plan Patient has chronic kidney disease No Jacek, Raya Patient has chronic kidney disease Care Plan Patient has chronic kidney disease No Jacek Raya Patient has chronic kidney disease Care Plan Patient has chronic kidney disease No Jacek Raya Patient has chronic kidney disease Care Plan Patient has chronic kidney disease No Jacek, Raya Patient has diabetic neuropathy Care Plan Patient has diabetic neuropathy No Jacek, Raya Patient has diabetic neuropathy Care Plan Patient has diabetic neuropathy No Jacek Raya Patient has diabetic neuropathy Care Plan Patient has diabetic neuropathy No Jacek Raya Patient has diabetic neuropathy Care Plan Patient has diabetic neuropathy No Nicholas Readra Weekly blood pressure task Care Plan Weekly [...] Care Plan Weekly blood pressure task No Muna Thurman Weekly blood pressure task Care Plan Weekly blood pressure task No Muna Thurman Weekly blood pressure task Care Plan Weekly blood pressure task No Muna Thurman Weekly blood pressure task Care Plan Weekly blood pressure task No Muna Thurman Patient has diabetic eye disease Care Plan Patient has diabetic eye disease No Muna Thurman Patient has diabetic eye disease Care Plan Patient has diabetic eye disease No Muna Thurman Patient has diabetic eye disease Care Plan Patient has diabetic eye disease No Muna Thurman Patient has diabetic eye disease Care Plan Patient has diabetic eye disease No Muna Thurman Patient has chronic kidney disease Care Plan Patient has chronic kidney disease No Muna Thurman Patient has chronic kidney disease Care Plan Patient has chronic kidney disease No Muna Thurman Patient has chronic kidney disease Care Plan Patient has chronic kidney disease No Muna Thurman Patient has chronic kidney disease Care Plan Patient has chronic kidney disease No Muna Thurman Patient has diabetic neuropathy Care Plan Patient has diabetic neuropathy No Muna Thurman Patient has diabetic neuropathy Care Plan Patient has diabetic neuropathy No Muna Thurman Patient has diabetic neuropathy Care Plan Patient has diabetic neuropathy No Muna Thurman Patient has diabetic neuropathy Care Plan Patient has diabetic neuropathy No Muna Thurman Procedures Procedure Name Priority Date/Time Associated Diagnosis Comments ECG 12-LEAD Routine 06/13/2025 12:38 PM EST Orthopnea XR CHEST 2 VIEWS Routine 06/13/2025 12:1 6 PM EST Orthopnea POCT HEMOGLOBIN Routine 06/13/2025 10:08 AM EST Type 2 diabetes mellitus with other specified complication, with long-term current use of insulin ([facility]) POCT GLUCOSE Routine 06/13/2025 10:08 AM EST Type 2 diabetes mellitus with other specified complication, with long-term current use of insulin ([facility]) POCT GLYCATED HEMOGLOBIN, TOTAL Routine 03/30/2024 1:49 PM EDT Type 2 diabetes mellitus with other specified complication, with long-term current use of insulin ([facility]) LIPID PANEL, STANDARD Routine 03/15/2024 9:08 AM [...] PM EST Narrative 06/13/2025 12:36 PM EST [address] [address] XRay Report Signed Patient: Shaquille Escobedo MR#: [id number] : 1945 Acct:[id number] Age/Sex: 79 / M ADM Date: 06/13/25 Loc: [facility] Attending Dr: Renny Johnston MD Ordering Physician: Renny Johnston MD Date of Service: 06/13/25 Procedure(s): XR chest 2V Accession Number(s): [id number] cc: Renny Johnston MD Reason for Exam: [...] 06/13/25 1234 DD/ 1216 TD/TT: 06/13/25 1218 Consumer Loan Specialist: Procedure Note Donotuseinterpreter, Image - 06/13/[address] [address] XRay Report Signed Patient: Shaquille EscobedoMR#: [id number] : 3Acct:[id number] Age/Sex: 79 / MADM Date: 06/13/25 [facility] Att[facility] Dr: Renny Johnston MD Ordering Physician: Renny Johnston MD Date of Service: 06/13/25 Procedure(s): XR chest 2V Accession Number(s): [id number] cc: Renny Johnston MD Reason for Exam: [...] 06/13/25 1234 DD/ 1216 TD/TT: 06/13/25 1218 Consumer Loan Specialist: Renny Johnston MD IM XR PROCEDURES Final Result * (ABNORMAL) POCT Glucose (06/13/2025 10:08 AM EST) Glucose Blood, POC 286(A) 60 - 200 mg/dL QC Media Lot # [id number] Lot# Expiration Date Blood Capillary blood specimen / Unknown 06/13/2025 10:08 AM EST Renny Johnston MD POINT OF CARE TEST ENTER/EDIT OR DERABLES Final Result * (ABNORMAL) POCT Hemoglobin (06/13/2025 10:08 AM EST) Hemoglobin 8.1(A) 13.0 - 17.0 QC Media Lot # [id number] Lot# Expiration Date Blood 06/13/2025 10:0 8 AM EST Renny Johnston MD POINT OF CARE TEST ENTER/EDIT OR DERABLES Final Result * (ABNORMAL) POCT HGB A1C (03/30/2024 1:49 PM EDT) Hemoglobin A1C 7.1(A) 4.0 - 6.0 % QC Media Lot # [id number] Blood 03/30/2024 1:49 PM EDT Renny Johnston MD POINT OF CARE TEST ENTER/EDIT OR DERABLES Final Result * (ABNORMAL) Lipid Panel, Standard (03/15/2024 9:08 AM EDT) Triglycerides 139 <150 mg/dL [facility] Comment:Desirable Triglyceri de: less than 150 mg/dLBorderline High Triglyceride 150-199 mg/dLHigh Triglyceride: 200-499 mg/dLVery High Triglyceride: greater than or equal to 5OO mg/dL Cholesterol 126 <200 mg/dL [facility] Comment:Desirable Cholestero l: less than 200 mg/dLBorderline High Cholesterol: 200-239 mg/dLHigh Cholesterol: greater than 239 mg/dL LDL Cholesterol Calculated 63 <100 mg/dL [facility] Comment:Desirable LDL: less than 100 mg/dLNear Optimal/Above Optimal LDL: 110- 129 mg/dLBorderline High LDL: 130-159 mg/dLHigh LDL: 160-189 mg/dLVery High LDL: greater than or equal to 190 mg/dL HDL Cholesterol 36(L) >40 mg/dL [facility] Comment:Desirable HDL: great er than 40 mg/dL Note: This HDL assay may give artificially low results in patients with liver disease. 03/15/2024 9:08 AM EDT 03/15/2024 11:13 AM EDT us Renny Johnston MD LAB BLOOD ORDERABLES Final Resul t [facility] [address] [place] [phone] * Diabetes Eye Exam (12/07/2023) Eye Exam Normal [...] diabetic neuropathy 06/13/2025 Weekly blood pressure task 06/18/2025 Weekly blood pressure task 06/18/2025 Weekly blood pressure task 06/18/2025 Weekly blood pressure task 06/18/2025 Patient has diabetic eye disease 06/18/2025 Patient has diabetic eye disease 06/18/2025 Patient has diabetic eye disease 06/18/2025 Patient has diabetic eye disease 06/18/2025 Patient has chronic kidney disease 06/18/2025 Patient has chronic kidney disease 06/18/2025 Patient has chronic kidney disease 06/18/2025 Patient has chronic kidney disease 06/18/2025 Patient has diabetic neuropathy 06/18/2025 Patient has diabetic neuropathy 06/18/2025 Patient has diabetic neuropathy 06/18/2025 Patient has diabetic neuropathy 06/18/2025 Weekly blood pressure task 06/19/2025 Weekly blood pressure task 06/19/2025 Weekly blood pressure task 06/19/2025 Weekly blood pressure task 06/19/2025 Patient has diabetic eye disease 06/19/2025 Patient has diabetic eye disease 06/19/2025 Patient has diabetic eye disease 06/19/2025 Patient has diabetic eye disease 06/19/2025 Patient has chronic kidney disease 06/19/2025 Patient has chronic kidney disease 06/19/2025 Patient has chronic kidney disease 06/19/2025 Patient has chronic kidney disease 06/19/2025 Patient has diabetic neuropathy 06/19/2025 Patient has diabetic neuropathy 06/19/2025 Patient has diabetic neuropathy 06/19/2025 Patient has diabetic neuropathy 06/19/2025 Insurance [facility] (O D-SNP) [facility] Care Teams Refinery Operator Polymerization [employer] Relationship Specialty Start Date End Date Name, MD Renny [address] [place] [phone] PCP - General Family Medicine 03/10/22 [facility] 05/12/25
--- OUTSIDE RECORDS SUMMARY | 2025-06-19 09:45 | XMS_ITS | Encounter Summary ---
Author Organization [employer] Address 75 [facility] 7 [place] [address] Care Team Providers Care Adjustment Examiner Name Role Phone Name, Renny SWAN Primary Care Provider [phone] Reason for Visit * Reason Comments Med Refill Encounter Details Date Type Department Care Team ([facility] st Contact Info) Description 10/17/2024 Refill [facility] [address] [place], [place] [phone] Name, MD Renny [address] [place] [address] Type 2 diabetes mellitus with other specified complication, with long-term current use of insulin ([facility]) Social History Tobacco Use Types Packs/Day [...] the past 12 months, has t he [employer], gas, oil or water [employer] threatened to shut off services in your [...] Description 06/26/2025 10:30 AM EST Medication Management [address] [address] Eve Woo, PharmD [address] [place] [address] 07/27/2025 10:30 AM EST Medication Management [address] [address] Jory Christina, PharmD [address] [place] [address] 09/14/2025 10:00 AM EST Office Visit [address] [address] Name, MD Renny [address] [place] [address] documented as of this encounter Goals Goal Patient Goal Type Associated Problems Recent Progress Patient-Stated? Author Record your blood pressure once per day Blood Pressure No Jory Christina PharmLamar Blood Pressure < 140/90 Blood Pressure 150/80(2024 10:01 AM EST) No Jory Christina PharmD Hemoglobin A1c < 7.5 Result Component 7.1( 1:49 PM EDT) No Jory Christina PharmD Record your blood sugar as directed Result Component No Jory Christina PharmD documented as of this encounter Visit Diagnoses Diagnosis Type 2 diabetes mellitus with other specified complication, with long-term current use of insulin (HCC) documented in this encounter Additional Health Concerns Assessment Noted Time PHQ-9 Depression Total Score: 19 024 1:07 PM EDT documented as of this encounter Care Teams Adjustment Examiner Relationship Specialty Start Date End Date Name, MD Renny [address] [place] [address] PCP - General Family Medicine 03/10/22 [facility] 05/12/25 documented as of this encounter
--- OUTSIDE RECORDS SUMMARY | 2025-06-19 09:45 | XMS_ITS | Encounter Summary ---
Author Organization [employer] Address 75 [facility] 7 [place] [address] Care Team Providers Care Steel Sash Erector Name Role Phone Name, Renny SWAN Primary Care Provider [phone] Reason for Visit * Reason Comments Med Refill Encounter Details Date Type Department Care Team ([facility] st Contact Info) Description 10/16/2024 Refill [facility] [address] [place], [place] [phone] Name, MD Renyn [address] [place] [address] Type 2 diabetes mellitus with other specified complication, with long-term current use of insulin ([facility]) Social History Tobacco Use Types [...] the past 12 months, has t he [employer], gas, oil or water [employer] threatened to shut off services in your [...] Description 06/26/2025 10:30 AM EST Medication Management [address] [address] Eve Woo, PharmD [address] [place] [phone] 07/27/2025 10:30 AM EST Medication Management [address] [address] Jory Christina, PharmD [address] [place] [phone] 09/14/2025 10:00 AM EST Office Visit [address] [address] Name, MD Renny [address] [place] [phone] documented as of this encounter Goals Goal [...] documented as of this encounter Care Teams Steel Sash Erector Relationship Specialty Start Date End Date Name, MD Renny [address] [place] [address] PCP - General Family Medicine 03/10/22 [facility] 05/12/25 documented as of this encounter
--- OUTSIDE RECORDS SUMMARY | 2025-06-19 09:46 | XMS_ITS | Encounter Summary ---
Author Organization [email or web address] Address 75 [facility] 7t [place] [address] Care Team Providers Care Cooperative Manager Name Role Phone Name, Renny SWAN Primary Care Provider [phone] Encounter Details Date Type Department Care Team ([facility] st Contact Info) Description 06/18/2025 Telephone [facility] [address] [place], [place] [phone] Name, MD Renny [address] [place] [address] Social History Tobacco Use Types Packs/Day Years [...] encounter Miscellaneous Notes * Telephone Encounter - Tasia Sibley RN - 06/18/2025 3:55 PM EST Referral for VNA and home PT given to S liaison Evangelina Ramirez with supporting documentation. * Telephone Encounter - Tasia Sibley RN - 06/18/2025 3:55 PM EST ----- Message from Renny Johnston MD sent at 06/13/2025 12:44 PM EST ----- Hi. This patient recently arrived from [place], he required 2 amputation. He has difficulty with ambulation related to the amputation and diabetic neuropathy. Can we please refer him to VNA for home PT. family has requested a [facility] program since he needs assistance with ADLs documented in this encounter Plan of Treatment Upcoming Encounters Date Type Department Care Team (Late st Contact Info) Description 06/26/2025 10:30 AM EST Medication Management [facility] [address] [place] [address] Eve Woo PharmD [address] [place] [phone] 07/27/2025 10:30 AM EST Medication Management [address] [address] Jory Christina, PharmD [address] [place] [phone] 09/14/2025 10:00 AM EST Office Visit [address] [address] Name, MD Renny [address] [place] [phone] documented as of this encounter Goals Goal Patient Goal Type Associated Problems Recent Progress Patient-Stated? Author Record your blood pressure once per day Blood Pressure No Jory Christina PharmD Blood Pressure < 140/90 Blood Pressure 150/80(2024 10:01 AM EST) No Renata Christinasa, PharmD Hemoglobin A1c < 7.5 Result Component 7.1( 1:49 PM EDT) No Jory Christina, PharmD Record your blood sugar as directed Result Component No Rafael Christinayssa, PharmD Help patients manage their type 2 [...] Patient has diabetic eye disease No Edilma eCballos [place] Help patients manage their type 2 [...] Care Plan Weekly blood pressure task No [place], [place] Weekly blood pressure task Care Plan Weekly blood pressure task No [place] Weekly blood pressure task Care Plan Weekly blood pressure task No [place] Patient has diabetic eye disease Care Plan Patient has diabetic eye disease No [place] Patient has diabetic eye disease Care Plan Patient has diabetic eye disease No [place] Patient has diabetic eye disease Care Plan Patient has diabetic eye disease No [place] Patient has chronic kidney disease Care Plan Patient has chronic kidney disease No [place] Patient has chronic kidney disease Care Plan Patient has chronic kidney disease No [place] Patient has chronic kidney disease Care Plan Patient has chronic kidney disease No [place] Patient has diabetic neuropathy Care Plan Patient has diabetic neuropathy No [place] Patient has diabetic neuropathy Care Plan Patient has diabetic neuropathy No [place] Patient has diabetic neuropathy Care Plan Patient has diabetic neuropathy No [place] Weekly blood pressure task Care Plan [...] Care Plan Weekly blood pressure task No Jacek, Raya Weekly blood pressure task Care Plan Weekly blood pressure task No Jacek, Raya Weekly blood pressure task Care Plan Weekly blood pressure task No Jacek, Raya Weekly blood pressure task Care Plan Weekly blood pressure task No Jacek, Raya Patient has diabetic eye [...] Patient has diabetic neuropathy No Jacek, Raya Weekly blood pressure task Care Plan Weekly [...] has diabetic neuropathy No Tasia Sibley RN documented as of this encounter Visit Diagnoses [...] neuropathy 06/18/2025 Patient has diabetic neuropathy 06/18/2025 Assessment Noted Time PHQ-9 Depression Total Score: 8 06/13/20 25 10:10 AM EST documented as of this encounter Care Teams Cooperative Manager Relationship Specialty Start Date End Date Name, MD Renny [address] [place] [phone] PCP - General Family Medicine 03/10/22 [facility] 05/12/25 documented as of this encounter
--- OUTSIDE RECORDS SUMMARY | 2025-06-19 09:46 | XMS_ITS | Encounter Summary ---
Author Organization [employer] Address [address] [facility] 7 [place] [address] Care Team Providers Care Privacy Manager Name Role Phone Name, Renny SWAN Primary Care Provider [phone] Reason for Visit * Reason Onset Date Comments Prior Auth Prescription 06/19/2025 Tc from pt requesting an new scrip for DME - Wheelchair electric- Hospital bed Pt daughter walked in with [facility] information to fax [phone] DME Encounter Details Date Type Department Care Team (Late st Contact Info) Description 06/19/2025 Telephone [facility] [address] [place] [address] [phone] Name, MD Renny [address] [place], [place] [phone] Prior Auth Prescription (Tc from pt requesting an new scrip for DME/ /- Wheelchair electric/- Hospital bed /Pt daughter walked in with [facility] information to fax [phone] DME/ // ///) Social History Tobacco Use Types Packs/Day Years [...] encounter Miscellaneous Notes * Telephone Encounter - Muna Thurman - 06/19/2025 9:41 AM EST Tc from pt requesting an new scrip for DME - Wheelchair electric - Hospital bed Pt daughter walked in with [facility] information to fax [phone] DME documented in this encounter Plan of Treatment Upcoming Encounters Date Type Department Care Team (Late st Contact Info) Description 06/26/2025 10:30 AM EST Medication Management [facility] [address] [place] [address] Eve Woo, PharmD [address] [place], [place] [phone] 07/27/2025 10:30 AM EST Medication Management [address] [address] Jory Christina PharmD [address] [place] [phone] 09/14/2025 10:00 AM EST Office Visit [facility] [address] [place] [address] [phone] Name, MD Renny [address] [place] [address] documented as of this encounter Goals Goal [...] as directed Result Component No Jory Christina PharmLamar Help patients manage their type 2 diabetes [...] Care Plan Weekly blood pressure task No [place], [place] Patient has diabetic eye disease Care Plan Patient has diabetic eye disease No [place], [place] Patient has diabetic eye disease Care Plan Patient has diabetic eye disease No [place], [place] Patient has diabetic eye disease Care Plan Patient has diabetic eye disease No [place] Patient has chronic kidney disease Care Plan Patient has chronic kidney disease No [place], [place] Patient has chronic kidney disease Care Plan Patient has chronic kidney disease No [place] Patient has chronic kidney disease Care Plan Patient has chronic kidney disease No [place] Patient has diabetic neuropathy Care Plan Patient has diabetic neuropathy No [place], [place] Patient has diabetic neuropathy Care Plan Patient has diabetic neuropathy No [place], [place] Patient has diabetic neuropathy Care Plan Patient has diabetic neuropathy No [place] Weekly blood pressure task Care Plan [...] Care Plan Weekly blood pressure task No Nicholas Readra Weekly blood pressure task Care Plan Weekly blood pressure task No Nicholas Readra Weekly blood pressure task Care Plan Weekly blood pressure task No Jacek Raya Patient has diabetic eye disease Care Plan Patient has diabetic eye disease No Melisa Readandra Patient has diabetic eye disease Care Plan Patient has diabetic eye disease No Jacek Raya Patient has diabetic eye disease Care Plan Patient has diabetic eye disease No Jacek Raya Patient has diabetic eye disease Care Plan Patient has diabetic eye disease No Jacek Raya Patient has chronic kidney disease Care Plan Patient has chronic kidney disease No Jacek Raya Patient has chronic kidney disease Care Plan Patient has chronic kidney disease No Jacek Raya Patient has chronic kidney disease Care Plan Patient has chronic kidney disease No Melisa Readandra Patient has chronic kidney disease Care Plan Patient has chronic kidney disease No Melisa Readandra Patient has diabetic neuropathy Care Plan Patient has diabetic neuropathy No Nicholas Readra Patient has diabetic neuropathy Care Plan Patient has diabetic neuropathy No Nicholas Readra Patient has diabetic neuropathy Care Plan Patient has diabetic neuropathy No Raya Read Patient has diabetic neuropathy Care Plan Patient has diabetic neuropathy No Raya Read Weekly blood pressure task [...] Patient has diabetic neuropathy No Muna Thurman documented as of this encounter Visit Diagnoses [...] neuropathy 06/19/2025 Patient has diabetic neuropathy 06/19/2025 Assessment Noted Time PHQ-9 Depression Total Score: 8 06/13/20 25 10:10 AM EST documented as of this encounter Care Teams Privacy Manager Relationship Specialty Start Date End Date Name, MD Renny [address] [place] [address] PCP - General Family Medicine 03/10/22 [facility] 05/12/25 documented as of this encounter
--- OUTSIDE RECORDS SUMMARY | 2025-06-19 09:46 | XMS_ITS | Encounter Summary ---
Author Organization [employer] Address [address] [facility] 7 [place] [address] Care Team Providers Care Director Dental Services Name Role Phone Name, Renny SWAN Primary Care Provider [phone] Reason for Visit * Reason Onset Date Comments form 05/16/2025 Encounter Details Date Type Department Care Team ([facility] st Contact Info) Description 05/16/2025 Telephone [facility] [address] [place], [place] [phone] Name, MD Renny [address] [place] [address] form Social History Tobacco Use Types Packs/Day [...] 10:11 AM EDT Tc from Kajal at [facility] requesting a update on plan of care form Contact Kajal at [phone] documented in this encounter Plan of Treatment Upcoming Encounters Date Type Department Care Team ([facility] st Contact Info) Description 06/26/2025 10:30 AM EST Medication Management [facility] [address] [place] [phone] Eve Woo PharmD [address] [place] [address] 07/27/2025 10:30 AM EST Medication Management [facility] [address] [place] [address] Jory Christina, PharmD [address] [place] [address] 09/14/2025 10:00 AM EST Office Visit [facility] [address] [facility] [place] [address] Name, MD Renny [address] [facility] [place] [address] documented as of this encounter Goals Goal [...] documented as of this encounter Care Teams Director Dental Services Relationship Specialty Start Date End Date Name, MD Renny [facility] [place] [address] PCP - General Family Medicine 03/10/22 [facility] 05/12/25 documented as of this encounter
--- OUTSIDE RECORDS SUMMARY | 2025-06-19 09:46 | XMS_ITS | Encounter Summary ---
Author Organization [employer] Address [address] [facility] 7 [place] [address] Care Team Providers Care Cutting Machine Tender Helper Name Role Phone Name, Renny SWAN Primary Care Provider [phone] Reason for Visit * Reason Onset Date Comments Hospital Follow-up 05/14/2025 Encounter Details Date Type Department Care Team ([facility] st Contact Info) Description 05/14/2025 Telephone [facility] [address] [place] [phone] [phone] Name, MD Renny [address] [place] [address] Hospital Follow-up Social History Tobacco Use Types [...] from pt requesting a HDF appt. Hospital: [facility] Date of admission: 05/07 Discharge date: 05/11 Diagnosed: Gangrene of left foot *Send message to [place] Clinical Care Coordinators documented in this encounter Plan of Treatment Upcoming Encounters Date Type Department Care Team (Late st Contact Info) Description 06/26/2025 10:30 AM EST Medication Management [facility] [address] [place] [phone] Eve Woo PharmD [address] [place] [address] 07/27/2025 10:30 AM EST Medication Management [facility] [address] [place] [address] Puia, Jory, PharmD [address] [place] [address] 09/14/2025 10:00 AM EST Office Visit [facility] [address] [place] [address] Name, MD Renny [address] [place] [address] documented as of this encounter Goals Goal [...] documented as of this encounter Care Teams Cutting Machine Tender Helper Relationship Specialty Start Date End [place] [address] PCP - General Family Medicine 03/10/22 [facility] 05/12/25 documented as of this encounter
--- OUTSIDE RECORDS SUMMARY | 2025-06-19 09:46 | XMS_ITS | Clinical Summary ---
Author Organization [facility] Address [address] [place] [address] Phone Care Team Providers Care Rn Nursery Name Role Phone Name, Renny SWAN Primary Care Provider [phone] Allergies No known active allergies Medications aspirin [...] Problem Noted Date Diagnosed Date Dry gangrene ([facility] V24, [facility] V28) 05/07/20 25 Gangrene of left foot ([facility] V24, [facility] V28) 05/07/2025 Acute osteomyelitis ([facility] V24, [facility] V28) 1 PAD (peripheral artery disease) ([facility] V24) Encounters Date Type Department Care Team Description 06/05/2025 8:30 AM EST Office Visit Vascular Surgery - [address] [phone] Radha Card PA Amputation of fifth toe of left foot ([facility] V24) (Primary Dx); Acute osteomyelitis ([facility] V24, [facility] V28); PAD (peripheral artery disease) ([facility] V24) 05/16/2025 Telephone Vascular Surgery [address] [phone] John Gayle MD 05/09/2025 4:25 PM EDT - 05/09/2025 5:25 PM EDT Surgery [facility] Main OR [address] [place] [phone] John Gayle MD LEFT 5TH TOE AMPUTATION 05/09/2025 4:20 PM EDT Anesthesia Event [facility] OR [address] [place] [phone] Mathieu Dooley DO Claudio, Raymund, BRIANA 05/08/2025 1:00 PM EDT - 05/08/2025 3:00 PM EDT Surgery [facility] Cardiac Ct Technician [address] [place] [phone] John Gayle MD Angiography lower ext left 05/07/2025 1:59 PM EDT - 05/11/2025 6:44 PM EDT Hospital Encounter [facility] Urology Unit [address] [place] [phone] Nanci Kellogg MD Jones, Christopher, MD Bell, Alistair A, MD PAD (peripheral artery disease) ([facility] V24) (Primary Dx); Gangrene of left foot ([facility] V24, [facility] V28); Acute osteomyelitis ([facility] V24, [facility] V28); Dry gangrene ([facility] V24, [facility] V28) Discharge Disposition: Home-Health Care [facility] from Last 3 Months Medical History Medical History Date Comments Diabetes mellitus ([facility] V24, [facility] V28) Renal disorder Hypertension Social History Tobacco [...] care for your loved ones. For example, child care coordinator or elderly care for an older adult? [...] foot (CMS/HCC V24, CMS/HCC V28) Acute osteomyelitis (CMS/[facility] V24, [facility] V28) ECG 12-LEAD STAT 05/09/2025 2:57 PM [...] 10:15 AM EDT PAD (peripheral artery disease) ([facility] V24) Gangrene of left foot ([facility] V24, [facility] V28) Acute osteomyelitis ([facility] V24, [facility] V28) POCT GLUCOSE BLOOD Routine 05/08/2025 8: [...] 6:00 PM EDT PAD (peripheral artery disease) ([facility] V24) C-REACTIVE PROTEIN Add-On 05/07/2025 1: 34 [...] of17 resultswithin the time period is included. [facility] Signature Glucose POCT 196(H) 70 - 100 mg/dL 05/11/2025 4:31 PM EDT [facility] Blood Capillary blood specimen / Unknown 05/11/2025 4:28 PM EDT 05/11/2025 4:32 PM EDT us Slade Zuluaga MD LAB POINT OF CARE TE ST DOCKED DEVICE UNSOLICITED RESULTS Final Result Performing Organization Address City/[facility]/ZIP Co de Phone Number [facility] [address] [place] [address], [place] [phone] * Activated Partial Thromboplastin Time - STAT (05/11/2025 9:35 AM EDT) aPTT 31.9 24.1 - 39.3 sec LAB COAGULATION METHOD 05/11/2025 9:56 AM EDT [facility] Blood Venous blood specimen / Unknown Venipuncture / Unknown 05/11/2025 9:35 AM EDT 05/11/2025 9:41 AM EDT us Radha WILSON LAB BLOOD ORDERABLES Final Re sult Performing Organization Address [facility]/ZIP Co de Phone Number [facility] [address] [place] [address], [place] [phone] * Prothrombin Time with INR - STAT (05/11/2025 9:35 AM EDT) [facility] Protime 11.9 10.6 - 13.9 sec LAB COAGULATION METHOD 05/11/2025 9:56 AM EDT [facility] INR 1.0 LAB COAGULATION METHOD 05/11/2025 9:56 AM EDT [facility] Blood Venous blood specimen / Unknown Venipuncture / Unknown 05/11/2025 9:35 AM EDT 05/11/2025 9:41 AM EDT us Radha WILSON LAB BLOOD ORDERABLES Final Re sult Performing Organization Address [facility]/ZIP Co de Phone Number [facility] [address] [place] [address], [place] [phone] * (ABNORMAL) Hepatic Function Panel - STAT (05/11/2025 9:35 AM EDT) [facility] Total Protein 5.7(L) 6.0 - 8.0 g/dL LAB CHEMISTRY METHOD 05/11/2025 10:10 AM [facility] Albumin 2.5(L) 3.2 - 5.0 g/dL LAB CHEMISTRY METHOD 05/11/2025 10:10 AM [facility] Total Bilirubin 0.4 0.0 - 1.4 mg/dL LAB CHEMISTRY METHOD 05/11/2025 10:10 AM [facility] Bilirubin, Direct 0.2 0.0 - 0.3 mg/dL LAB CHEMISTRY METHOD 05/11/2025 10:10 AM [facility] Bilirubin, Indirect 0.2 0.0 - 1.1 mg/dL LAB CHEMISTRY METHOD 05/11/2025 10:10 AM [facility] ALT (SGPT) 14 10 - 60 unit/L LAB CHEMISTRY METHOD 05/11/2025 10:10 AM [facility] AST (SGOT) 11 10 - 42 unit/L LAB CHEMISTRY METHOD 05/11/2025 10:10 AM [facility] Alkaline Phosphatase 68 42 - 121 unit/L LAB CHEMISTRY METHOD 05/11/2025 10:10 AM [facility] Blood Venous blood specimen / Unknown Venipuncture / Unknown 05/11/2025 9:35 AM EDT 05/11/2025 9:41 AM EDT us Radha WILSON LAB BLOOD ORDERABLES Final Re sult [facility] [address] [place] [address], * Lavender tube (05/11/2025 9:31 AM EDT) [facility] Extra Tube Hold for add-ons. 05/11/2025 11:01 AM EDT [facility] Comment:Auto resulted. Blood Venous blood specimen / Unknown 05/11/2025 9:31 AM EDT 05/11/2025 9:42 AM EDT us Slade Zuluaga MD LAB BLOOD ORDERABLES Final Re sult [facility] [address] [place] [address], * (ABNORMAL) Complete blood count (05/10/2025 5:56 AM EDT) Only the most recent of2 resultswithin the time period is included. WBC 7.2 4.8 - 10.8 K/mcL LAB HEMETOLOGY METHOD 05/10/2025 7:13 AM [facility] RBC 3.30(L) 4.50 - 5.50 [facility] HEMETOLOGY METHOD 05/10/2025 7:13 AM [facility] Hemoglobin 8.7(L) 13.5 - 17.5 g/dL LAB HEMETOLOGY METHOD 05/10/2025 7:13 AM [facility] Hematocrit 27.7(L) 42.0 - 54.0 % LAB HEMETOLOGY METHOD 05/10/2025 7:13 AM [facility] MCV 84.5 79.0 - 98.0 FL LAB HEMETOLOGY METHOD 05/10/2025 7:13 AM [facility] MCH 26.5(L) 27.0 - 32.0 pcg LAB HEMETOLOGY METHOD 05/10/2025 7:13 AM [facility] MCHC 31.4(L) 32.0 - 37.0 g/dL LAB HEMETOLOGY METHOD 05/10/2025 7:13 AM [facility] RDW 15.1(H) 11.0 - 15.0 % LAB HEMETOLOGY METHOD 05/10/2025 7:13 AM EDT [facility] Platelets 185 130 - 400 K/mcL LAB HEMETOLOGY METHOD 05/10/2025 7:13 AM EDT [facility] MPV 11.3(H) 7.0 - 11.0 FL LAB HEMETOLOGY METHOD 05/10/2025 7:13 AM EDT [facility] NRBC 0.0 <1.0 % LAB HEMETOLOGY METHOD 05/10/2025 7:13 AM EDT [facility] NRBC Absolute 0.00 <0.10 K/mcL LAB HEMETOLOGY METHOD 05/10/2025 7:13 [facility] Blood Venous blood specimen / Unknown Venipuncture / Unknown 05/10/2025 5:56 AM EDT 05/10/2025 6:50 AM EDT us Radha WILSON LAB BLOOD ORDERABLES Final Re sult [facility] [address] [place] [address], * Basic metabolic panel (05/10/2025 5:56 AM EDT) Only the most recent of3 resultswithin the time period is included. Sodium 138 133 - 145 mmol/L LAB CHEMISTRY METHOD 05/10/2025 8:12 AM T [facility] Potassium 4.1 3.5 - 5.5 mmol/L LAB CHEMISTRY METHOD 05/10/2025 8:12 AM EDT [facility] Chloride 104 96 - 110 mmol/L LAB CHEMISTRY METHOD 05/10/2025 8:12 AM EDT [facility] CO2 26 21 - 32 mmol/L LAB CHEMISTRY METHOD 05/10/2025 8:12 AM T [facility] Anion Gap 8 3 - 11 LAB CHEMISTRY METHOD 05/10/2025 8:12 AM EDT [facility] Glucose 90 70 - 100 mg/dL LAB CHEMISTRY METHOD 05/10/2025 8:12 AM EDT [facility] BUN 15 5 - 25 mg/dL LAB CHEMISTRY METHOD 05/10/2025 8:12 AM EDT [facility] Creatinine 1.19 0.70 - 1.30 mg/dL LAB CHEMISTRY METHOD 05/10/2025 8:12 AM EDT [facility] eGFR 61 >=60 mL/min/1. 73m2 LAB CHEMISTRY METHOD 05/10/2025 8:12 AM EDT [facility] Comment:Calculation based on the Chronic Kidney Disease Epidemiology Collaboration (CKD-EPI) equation refit without adjustment for race. BUN/Creatinine Ratio 12.6 LAB CHEMISTRY METHOD 05/10/2025 8:12 AM T [facility] Calcium 9.0 8.5 - 10.5 mg/dL LAB CHEMISTRY METHOD 05/10/2025 8:12 AM [facility] Blood Venous blood specimen / Unknown Venipuncture / Unknown 05/10/2025 5:56 AM EDT 05/10/2025 6:50 AM EDT us Radha WILSON LAB BLOOD ORDERABLES Final Re sult [facility] [address] [place] [address], * Tissue exam (05/09/2025 4:39 PM EDT) Final Diagnosis Toe, Left, left 5th toe amputation: -GANGRENE AND ACUTE OSTEOMYELITIS -Margin negative 05/11/2025 11:43 AM EDT [facility] at 1143 EDT Gross Description [...] cut longitudinally to reveal hard cut surfaces. Test Driver longitudinal sections are submitted in two cassettes, 1-one piece and 2-two pieces (red ink representing bony margin), following decalcification. KR 05/11/2025 11:43 AM EDT [facility] Disclaimer Unless otherwise specified, all tissue is 10% NB formalin fixed and paraffin embedded. 05/11/2025 11:43 AM EDT [facility] Tissue Structure of toe of left foot / Unknown 05/09/2025 4:39 PM EDT 05/10/2025 7:23 AM EDT John Gayle MD LAB PATHOLOGY ORDERABLES Final Result [facility] [address] [place] [address], * ECG 12 lead (05/09/2025 2:57 PM EDT) Ventricular Rate ECG 61 BPM GEMUSE Atrial Rate 61 BPM GEMUSE P-R Interval 186 ms GEMUSE QRS Duration 78 ms GEMUSE Q-T Interval 452 ms GEMUSE QTc 455 ms GEMUSE P Wave Murray 64 degrees GEMUSE R Murray 5 degrees GEMUSE T Murray 26 degrees GEMUSE ECG Interpretation Normal sinus rhythm Normal ECG No previous ECGs available Confirmed by Jud SCHAFER JOHN ([id number]) on 05/09/2025 7:35:12 PM GEMUSE 05/09/2025 2:57 PM EDT 05/09/2025 7:35 PM EDT Slade Zuluaga MD ECG ORDERABLES Final Result Performing Organization Address City/[facility]/ZIP Co de Phone Number GEMUSE * (ABNORMAL) POCT activated clotting time,kaolin (05/08/2025 10:48 AM EDT) Only the most recent of2 resultswithin the time period is included. Activated Clotting Time Kaolin 187(H) 74 - 137 sec 05/08/2025 11:07 AM EDT [facility] Blood Arterial blood specimen / Unknown 05/08/2025 10:48 AM EDT 05/08/2025 11:09 AM EDT Slade Zuluaga MD LAB POINT OF CARE TE ST DOCKED DEVICE UNSOLICITED RESULTS Final Result Performing Organization Address [facility] Co de Phone Number [facility] [address] [place] [address], * ANGIOGRAPHY LOWER EXT LEFT (05/08/2025 10:15 [...] is included. WBC 6.0 4.8 - 10.8 [facility] HEMETOLOGY METHOD 05/08/2025 6:41 AM EDT [facility] RBC 3.20(L) 4.50 - 5.50 [facility] HEMETOLOGY METHOD 05/08/2025 6:41 AM EDT [facility] Hemoglobin 8.6(L) 13.5 - 17.5 g/dL LAB HEMETOLOGY METHOD 05/08/2025 6:41 AM [facility] Hematocrit 26.8(L) 42.0 - 54.0 % LAB HEMETOLOGY METHOD 05/08/2025 6:41 AM [facility] MCV 83.2 79.0 - 98.0 FL LAB HEMETOLOGY METHOD 05/08/2025 6:41 AM [facility] MCH 26.7(L) 27.0 - 32.0 pcg LAB HEMETOLOGY METHOD 05/08/2025 6:41 AM [facility] MCHC 32.1 32.0 - 37.0 g/dL LAB HEMETOLOGY METHOD 05/08/2025 6:41 AM [facility] RDW 15.4(H) 11.0 - 15.0 % LAB HEMETOLOGY METHOD 05/08/2025 6:41 AM [facility] Platelets 188 130 - 400 K/mcL LAB HEMETOLOGY METHOD 05/08/2025 6:41 AM [facility] MPV 10.7 7.0 - 11.0 FL LAB HEMETOLOGY METHOD 05/08/2025 6:41 AM [facility] NRBC 0.0 <1.0 % LAB HEMETOLOGY METHOD 05/08/2025 6:41 AM [facility] NRBC Absolute 0.00 <0.10 K/mcL LAB HEMETOLOGY METHOD 05/08/2025 6:41 AM [facility] Neutrophils Relative 58.8 % LAB HEMETOLOGY METHOD 05/08/2025 6:41 AM [facility] Lymphocytes Relative 20.6 % LAB HEMETOLOGY METHOD 05/08/2025 6:41 AM [facility] Monocytes Relative 10.3 % LAB HEMETOLOGY METHOD 05/08/2025 6:41 AM EDT [facility] Eosinophils Relative 9.6 % LAB HEMETOLOGY METHOD 05/08/2025 6:41 AM T [facility] Basophils Relative 0.5 % LAB HEMETOLOGY METHOD 05/08/2025 6:41 AM EDT [facility] Immature Granulocytes Relative 0.2 % LAB HEMETOLOGY METHOD 05/08/2025 6:41 AM EDT [facility] Neutrophils Absolute 3.54 1.50 - 7.00 K/mcL LAB HEMETOLOGY METHOD 05/08/2025 6:41 AM EDT [facility] Lymphocytes Absolute 1.24 1.00 - 5.00 K/mcL LAB HEMETOLOGY METHOD 05/08/2025 6:41 AM EDT [facility] Monocytes Absolute 0.62 0.20 - 1.00 K/mcL LAB HEMETOLOGY METHOD 05/08/2025 6:41 AM EDT [facility] Eosinophils Absolute 0.58(H) 0.00 - 0.50 K/mcL LAB HEMETOLOGY METHOD 05/08/2025 6:41 AM T [facility] Basophils Absolute 0.03 0.00 - 0.20 K/mcL LAB HEMETOLOGY METHOD 05/08/2025 6:41 AM T [facility] Immature Granulocytes Absolute 0.01 0.00 - 0.03 K/mcL LAB HEMETOLOGY METHOD 05/08/2025 6:41 AM T [facility] Blood Venous blood specimen / Unknown Venipuncture / Unknown 05/08/2025 6:04 AM EDT 05/08/2025 6:22 AM EDT us Paul Trimble MD LAB BLOOD ORDERABLES Final Result [facility] [address] [place] [address], [place] [phone] * Type and screen (05/08/2025 6:04 AM EDT) ABO Group A 05/08/2025 8:01 AM EDT [facility] Rh Type Positive 05/08/2025 8:01 AM EDT [facility] Antibody Screen Negative 05/08/2025 8:01 AM EDT [facility] Blood Venous blood specimen / Unknown Venipuncture / Unknown 05/08/2025 6:04 AM EDT 05/08/2025 6:22 AM EDT Anthony WILSON LAB BLOOD BANK TEST ORDERABLES Final Result [facility] [address] [place] [address], [place] [phone] * MR Foot wo and w Contrast [...] Lactate, with reflex (05/07/2025 1:34 PM EDT) [facility] LACTIC ACID 1.2 0.4 - 2.0 mmol/L LAB CHEMISTRY METHOD 05/07/2025 2:32 PM EDT [facility] Blood Venous blood specimen / Unknown Venipuncture / Unknown 05/07/2025 1:34 PM EDT 05/07/2025 1:50 PM EDT us Muna Valadez MD LAB BLOOD ORDERABLES Final Resul t Performing Organization Address City/[facility]/ZIP Co de Phone Number [facility] [address] [place] [address], [place] [phone] * Blood culture (05/07/2025 1:34 PM EDT) Only the most recent of2 resultswithin the time period is included. Pathologist [facility] Culture, Blood No growth at 5 days 05/12/2025 3:01 PM EDT [facility] Blood Venous blood specimen / Unknown Venipuncture / Unknown 05/07/2025 1:34 PM EDT 05/07/2025 2:17 PM EDT us Muna Valadez MD LAB MICROBIOLOGY - GENERAL ORDER EVETTE Final Result Performing Organization Address City/[facility]/ZIP Co de Phone Number [facility] [address] [place] [address], [place] [phone] * (ABNORMAL) C-reactive protein (05/07/2025 1:34 PM EDT) [facility] C-Reactive Protein 0.58(H) <=0.50 mg/dL LAB CHEMISTRY METHOD 05/08/2025 12:10 AM EDT [facility] Blood Venous blood specimen / Unknown Venipuncture / Unknown 05/07/2025 1:34 PM EDT 05/07/2025 1:52 PM EDT us Paul Trimble MD LAB BLOOD ORDERABLES Final Result [facility] [address] [place] [address], [place] [phone] * (ABNORMAL) Comprehensive metabolic panel (05/07/2025 1:34 PM EDT) [facility] Sodium 136 133 - 145 mmol/L LAB CHEMISTRY METHOD 05/07/2025 2:46 PM EDT [facility] Potassium 4.3 3.5 - 5.5 mmol/L LAB CHEMISTRY METHOD 05/07/2025 2:46 PM [facility] Chloride 102 96 - 110 mmol/L LAB CHEMISTRY METHOD 05/07/2025 2:46 PM [facility] CO2 30 21 - 32 mmol/L LAB CHEMISTRY METHOD 05/07/2025 2:46 PM EDT [facility] Anion Gap 4 3 - 11 LAB CHEMISTRY METHOD 05/07/2025 2:46 PM [facility] Glucose 176(H) 70 - 100 mg/dL LAB CHEMISTRY METHOD 05/07/2025 2:46 PM T [facility] BUN 23 5 - 25 mg/dL LAB CHEMISTRY METHOD 05/07/2025 2:46 PM [facility] Creatinine 1.37(H) 0.70 - 1.30 mg/dL LAB CHEMISTRY METHOD 05/07/2025 2:46 PM T [facility] eGFR 52(L) >=60 mL/min/1. 73m2 LAB CHEMISTRY METHOD 05/07/2025 2:46 PM T [facility] Comment:Calculation based on the Chronic Kidney Disease Epidemiology Collaboration (CKD-EPI) equation refit without adjustment for race. BUN/Creatinine Ratio 16.8 LAB CHEMISTRY METHOD 05/07/2025 2:46 PM EDT [facility] Calcium 8.9 8.5 - 10.5 mg/dL LAB CHEMISTRY METHOD 05/07/2025 2:46 PM [facility] AST (SGOT) 15 10 - 42 unit/L LAB CHEMISTRY METHOD 05/07/2025 2:46 PM [facility] ALT (SGPT) 21 10 - 60 unit/L LAB CHEMISTRY METHOD 05/07/2025 2:46 PM [facility] Alkaline Phosphatase 78 42 - 121 unit/L LAB CHEMISTRY METHOD 05/07/2025 2:46 PM T [facility] Total Protein 6.5 6.0 - 8.0 g/dL LAB CHEMISTRY METHOD 05/07/2025 2:46 PM [facility] Albumin 3.1(L) 3.2 - 5.0 g/dL LAB CHEMISTRY METHOD 05/07/2025 2:46 PM T [facility] Total Bilirubin 0.3 0.0 - 1.4 mg/dL LAB CHEMISTRY METHOD 05/07/2025 2:46 PM [facility] Blood Venous blood specimen / Unknown Venipuncture / Unknown 05/07/2025 1:34 PM EDT 05/07/2025 1:52 PM EDT us Muna Valadez MD LAB BLOOD ORDERABLES Final Resul t [facility] [address] [place] [address], from Last 3 Months Additional Health Concerns Active Problems Noted Date Diagnosed Date Autogenerated Problem 05/08/2025 Insurance [facility]IC[facility] Member Subscriber Plan / Payer (Ef fective 2025-Present) Name:Shaquille Rhodes Jr Relation to Subscriber:Self Name:Shaquille Escobedo Payer ID:[id number] Group ID:[id number] Type:Not on file Address: [place] [address] [address] [id number] Advance Directives * Full Code - Default [...] currently active code status orders. Care Teams Rn Nursery Relationship Specialty Start Date End Date Name, MD Renny [address] [place] [phone] PCP - General Internal Medicine 05/04/25
[2025-06-19 11:29] LABS: MANUAL DIFF FLAG NO
[2025-06-19 11:32] LABS: Hematocrit 31.6 % (42.0-52.0); Hemoglobin 9.9 g/dl (14.0-18.0); Imm Gran Abs Auto 0.01 X10*3/uL (0.00-0.03); Imm Gran Pct Auto 0.2 % (0.0-0.4); Lymphocytes Absolute Auto 1.5 X10*3/uL (1.2-4.9); Mean Corpuscular HGB Conc 31.3 g/dl (31.0-36.0); Mean Corpuscular Hemoglobin 26.8 pg (27.0-33.0); Mean Corpuscular Volume 85.6 fL (80.0-98.0); NRBC Abs Auto 0.000 X10*3/uL (0.0-0.012); NRBC Pct Auto 0.0 /100WBC (0.0-0.2); Platelet Count 196 X10*3/uL (160-400); Red Blood Count 3.69 X10*6/uL (4.60-5.80); White Blood Count 5.8 X10*3/uL (4.8-10.8)
[2025-06-19 11:54] LABS: Alanine Aminotransferase 13 U/L (0-40); Albumin Level 4.0 g/dL (3.5-5.0); Alkaline Phosphatase 56 U/L (39-117); Anion Gap 12 (12-20); Aspartate Amino Transferase 20 U/L (5-37); Blood Urea Nitrogen 36 mg/dL (9-16); Calcium 9.3 mg/dL (8.4-10.2); Carbon Dioxide 28 mmol/L (22-29); Chloride 106 mmol/L (96-108); Cholesterol 145 mg/dL (<200); Estimated Glomerular Filt Rate 44; HDL Cholesterol 38 mg/dL (>40); Iron 89 mcg/dL (45-160); Percent Iron Saturation 32 % (15-50); Potassium 4.2 mmol/L (3.3-5.1); Sodium 142 mmol/L (135-145); Total Iron Binding Capacity 281 mcg/dL (228-428); Total Protein 6.8 g/dL (6.5-8.0); Triglycerides 112 mg/dL (<150); Unsaturated Iron Binding 192 ug/dL
[2025-06-19 12:10] LABS: Ferritin 36 ng/mL (20-250)
[2025-06-19 12:19] LABS: Folate 7.8 ng/mL (> or = 4.0); Vitamin B12 568 pg/mL (200-900)
== END 2025-06-19 09:14 | disposition home or self-care (01) ==
LOC: HO.HHCL 09:13
PROVIDERS: PCP Internal Medicine Geriatric Medicine; Visit Provider Internal Medicine Geriatric Medicine
DX: E11.69 Type 2 diabetes mellitus with other specified complication (principal); E11.51 Type 2 diabetes mellitus with diabetic peripheral angiopathy without gangrene; S98.139A Complete traumatic amputation of one unspecified lesser toe, initial encounter; D64.9 Anemia, unspecified; Z79.4 Long term (current) use of insulin
CPT/HCPCS: 36415; 80053; 80061; 82607; 82728; 82746; 83540; 85025

== ENCOUNTER 2025-06-20 09:02 | Outpatient (REF) | payer OTHER, SELFPAY ==
[2025-06-20 12:01] LABS: Microalbum/Creatinine Ratio Ur 241.8 ug/mg cr (<30)
== END 2025-06-20 09:03 | disposition home or self-care (01) ==
LOC: HO.HHCL 09:02
PROVIDERS: PCP Internal Medicine Geriatric Medicine; Visit Provider Internal Medicine Geriatric Medicine
DX: S98.139A Complete traumatic amputation of one unspecified lesser toe, initial encounter (principal); E11.69 Type 2 diabetes mellitus with other specified complication; Z79.4 Long term (current) use of insulin; I73.9 Peripheral vascular disease, unspecified
CPT/HCPCS: 82043; 82570

== ENCOUNTER 2025-07-04 00:19 | Inpatient (IN) | payer OTHER, SELFPAY ==
[2025-07-04] VITALS (12 sets, daily range): BP systolic 101–190; BP diastolic 49–90; PULSE 62–95; RESP 16–22; TEMP 36.7–38.6; O2SAT 94–100; BMI 25.6
--- NOTE | ~2025-07-04 | XR_ITS ---
CLINICAL HISTORY: cough, fever CHEST X-RAY FRONTAL VIEW COMPARISON: CT chest 03/02/2024. FINDINGS: A single frontal view of the chest was performed. Lordotic technique is noted. Cardiac size is enlarged. There is calcification in the thoracic aortic arch. There is mild elevation of the right hemidiaphragm. A shallow inspiration causes accentuation of the interstitial markings. This limits assessment. A small area of atelectasis versus infiltrate is noted within the lateral aspect of the left lower lung, partially obscured by the heart shadow. No pleural effusion. No pneumothorax. IMPRESSION: 1. Limited exam due to shallow inspiration. Small area of atelectasis versus infiltrate in the lateral aspect of the left lower lung. 2. Cardiomegaly. This document has been electronically signed by: Raffi Granados M.D. on 07/04/2025 03:10:20
--- NOTE | 2025-07-04 00:41 | ECG_ITS ---
Test Reason : TOXIC INGESTION Blood Pressure : */* mmHG Vent. Rate : 94 BPM Atrial Rate : 94 BPM P-R Int : 170 ms QRS Dur : 82 ms QT Int : 370 ms P-R-T Axes : 72 14 26 degrees QTcB Int : 462 ms Sinus rhythm with Premature atrial complexes Nonspecific T wave abnormality Prolonged QT Abnormal ECG When compared with ECG of 29-Apr-2023 09:50, Criteria for Inferior infarct are no longer Present Referred By: Fabiola Covington Electronically Signed By: Phoenix Lucas
--- OUTSIDE RECORDS SUMMARY | 2025-07-04 00:59 | XMS_ITS | Encounter Summary ---
Author Organization [employer] Address [address] [place] [address] [address] [place] [address] Care Team Providers Care Ekg/Ecg Technician Name Role Phone Name, Renny SWAN Primary Care Provider [phone] Reason for Visit * Reason Onset Date Comments Durable Medical Equipment 11/19/2022 Encounter Details Date Type Department Care Team ([facility] st Contact Info) Description 11/19/2022 Telephone [facility] [address], [place] [phone] Name, MD Renny [address] [place] [address] Durable Medical Equipment Social History Tobacco Use [...] regarding message below. Please contact daughter at [phone] * Telephone Encounter - Kelli Rhodes - [...] 3:54 PM EDT Tc from rashid from [facility] requesting a toe filler . documented in this encounter Plan of Treatment Upcoming Encounters Date Type Department Care Team (Late st Contact Info) Description 07/27/2025 10:30 AM EST Medication Management [facility] [address] [place] [phone] Jory Christina, PharmD [address] [place] [phone] 09/14/2025 10:00 AM EST Office Visit [facility] [address] [place] [phone] Name, MD Renny [address] [place] [phone] 10/12/2025 12:45 PM EDT Office Visit [facility] [address] [place] [phone] Elis Antonio documented as of this encounter Visit Diagnoses Not on filedocumented in this encounter Care Teams Ekg/Ecg Technician Relationship Specialty Start Date End Date Name, MD Renny [address] [place] [phone] PCP - General Family Medicine 8/23/22 [facility] 05/12/25 [employer] Physical Therapist 06/22/25 documented as of this encounter
--- OUTSIDE RECORDS SUMMARY | 2025-07-04 00:59 | XMS_ITS | Encounter Summary ---
Author Organization [employer] Address [address] [facility] [address] [place] [address] Care Team Providers Care Sifter And Miller Name Role Phone Name, Renny SWAN Primary Care Provider [phone] Encounter Details Date Type Department Care Team ([facility] st Contact Info) Description 08/11/2023 Abstract [facility] [address] [place], [place] [phone] Name, MD Renny [address] [place] [address] Social History Tobacco Use Types Packs/Day Years [...] Description 07/27/2025 10:30 AM EST Medication Management [facility] [address] [place] [phone] Jory Christina, NiyaD [address] [place] [phone] 09/14/2025 10:00 AM EST Office Visit [facility] [address] [place] [phone] Name, MD Renny [address] [place] [phone] 10/12/2025 12:45 PM EDT Office Visit [facility] [address] [place] [phone] Elis Antonio documented as of this encounter Visit Diagnoses Not on filedocumented in this encounter Additional Health Concerns Assessment Noted Time PHQ-9 Depression Total Score: 0 12/17/19 23 4:13 PM EDT documented as of this encounter Care Teams Sifter And Miller Relationship Specialty Start Date End Date Renny Johnston MD [address] [place] [phone] PCP - General Family Medicine 03/10/22 [facility] 05/12/25 [employer] Physical Therapist 06/22/25 documented as of this encounter
--- OUTSIDE RECORDS SUMMARY | 2025-07-04 00:59 | XMS_ITS | Encounter Summary ---
Author Organization [employer] Address [address] [facility] 7 [place] [address] Care Team Providers Care Client Server Programmer Name Role Phone Name, Renny SWAN Primary Care Provider [phone] Reason for Visit * Reason Onset Date Comments Durable Medical Equipment 06/26/2025 Encounter Details Date Type Department Care Team ([facility] st Contact Info) Description 06/26/2025 Telephone [facility] [address], [place] [id number] Name, MD Renny [address] [place] [address] Durable Medical Equipment Social History Tobacco Use [...] * Telephone Encounter - Daniella Woodall - 07/02/2025 4:10 PM EST DME for hospital bed in progress with [facility]. Rx for foldable walker w/wheels generated and sent to pcp for signature via [employer]. Once signed, [facility] * Telephone Encounter - Renny Rose - 06/26/2025 8:56 AM EST Tc [facility] reporting that pts blood pressure was elevated.180/86 but was a symptomatic. Lina is also requesting DME. A script for an electric hospital bed and a folding walker with 5 Inch wheels documented in this encounter Plan of Treatment Upcoming Encounters Date Type Department Care Team (Late st Contact Info) Description 07/27/2025 10:30 AM EST Medication Management [facility] [address] [place] [id number] MaliaJory, PharmD [address] [place] [address] 09/14/2025 10:00 AM EST Office Visit [facility] [address] [place] [id number] Name, MD Renny [address] [place], [place] [id number] 10/12/2025 12:45 PM EDT Office Visit [facility] [address] [place] [id number] Elis Antonio documented as of this encounter Goals Goal Patient Goal Type Associated Problems Recent Progress Patient-Stated? Author Record your blood pressure once per day Blood Pressure No Jory Christina, PharmD Blood Pressure < 140/90 Blood Pressure 150/80(06/13 10:01 AM EST) No Renata Christinasa, PharmD Hemoglobin A1c < 7.5 Result Component 7.1(03/30/20 24 1:49 PM EDT) No Rafael Christinayssa, PharmD Record your blood sugar as directed [...] Care Plan Weekly blood pressure task No [place] Patient has diabetic eye disease Care Plan Patient has diabetic eye disease No [place] Patient has diabetic eye disease Care Plan Patient has diabetic eye disease No [place] Patient has diabetic eye disease Care Plan Patient has diabetic eye disease No [place] Patient has chronic kidney disease Care Plan Patient has chronic kidney disease No [place] Patient has chronic kidney disease Care Plan Patient has chronic kidney disease No [place] Patient has chronic kidney disease Care Plan Patient has chronic kidney disease No [place] Patient has diabetic neuropathy Care Plan Patient has diabetic neuropathy No [place] Patient has diabetic neuropathy Care Plan Patient has diabetic neuropathy No [place] Patient has diabetic neuropathy Care Plan Patient has diabetic neuropathy No [place] Weekly blood pressure task Care Plan Weekly blood pressure task No Tasai Sibley RN Weekly blood pressure task Care [...] Weekly blood pressure task No Jacek Raya Weekly blood pressure task Care Plan [...] kidney disease No Jacek Raya Patient has diabetic neuropathy [...] Care Plan Weekly blood pressure task No aTsia Sibley RN Weekly blood pressure task Care [...] Plan Patient has diabetic neuropathy No Tasia Sibley, RN Patient has diabetic neuropathy Care Plan [...] Care Plan Weekly blood pressure task No Kristal Thurmanana Weekly blood pressure task Care Plan Weekly blood pressure task No Olman Muna Weekly blood pressure task Care Plan Weekly blood pressure task No Olman Muna Patient has diabetic eye disease Care Plan Patient has diabetic eye disease No Kristal Thurmanana Patient has diabetic eye disease Care Plan Patient has diabetic eye disease No Kristal Thurmanana Patient has diabetic eye disease Care Plan Patient has diabetic eye disease No Muna Thurman Patient has diabetic eye disease Care Plan Patient has diabetic eye disease No Muna Thurman Patient has chronic kidney disease Care Plan Patient has chronic kidney disease No Muna Thurman Patient has chronic kidney disease Care Plan Patient has chronic kidney disease No Olman Muna Patient has chronic kidney disease Care Plan Patient has chronic kidney disease No Olman Muna Patient has chronic kidney disease Care Plan Patient has chronic kidney disease No Olman Muna Patient has diabetic neuropathy Care Plan Patient has diabetic neuropathy No Olman Muna Patient has diabetic neuropathy Care Plan Patient has diabetic neuropathy No Olman Muna Patient has diabetic neuropathy Care Plan Patient has diabetic neuropathy No Muna Thurman Patient has diabetic neuropathy Care Plan Patient has diabetic neuropathy No Muna Thurman Weekly blood pressure task Care Plan Weekly blood pressure task No Miranda Woodalla Weekly blood pressure task Care Plan Weekly blood pressure task No Miranda Woodalla Weekly blood pressure task Care Plan Weekly blood pressure task No Paresh Woodalllanda Weekly blood pressure task Care Plan Weekly blood pressure task No Woodall, Daniella Patient has diabetic eye disease Care Plan Patient has diabetic eye disease No Woodall Daniella Patient has diabetic eye disease Care Plan Patient has diabetic eye disease No Jose C Daniella Patient has diabetic eye disease Care Plan Patient has diabetic eye disease No WoodallMiranda wilsona Patient has diabetic eye disease Care Plan Patient has diabetic eye disease No Miranda Woodalla Patient has chronic kidney disease Care Plan Patient has chronic kidney disease No Woodall, Daniella Patient has chronic kidney disease Care Plan Patient has chronic kidney disease No Woodall, Daniella Patient has chronic kidney disease Care Plan Patient has chronic kidney disease No Woodall, Daniella Patient has chronic kidney disease Care Plan Patient has chronic kidney disease No Woodall, Daniella Patient has diabetic neuropathy Care Plan Patient has diabetic neuropathy No Woodall, Daniella Patient has diabetic neuropathy Care Plan Patient has diabetic neuropathy No Woodall, Daniella Patient has diabetic neuropathy Care Plan Patient has diabetic neuropathy No Woodall, Daniella Patient has diabetic neuropathy Care Plan Patient has diabetic neuropathy No Miranda Woodalla Weekly blood pressure task Care Plan Weekly [...] Plan Patient has diabetic neuropathy No Tasia Sibely RN Patient has diabetic neuropathy Care Plan Patient has diabetic neuropathy No Tasia Sibley RN Patient has diabetic neuropathy Care Plan Patient has diabetic neuropathy No Tasia Sibley RN Patient has diabetic neuropathy Care Plan Patient has diabetic neuropathy No Tasia Sibley RN Weekly blood pressure task Care Plan Weekly blood pressure task No Josephine Middleton RN Weekly blood pressure task Care Plan Weekly blood pressure task No Josephine Middleton RN Weekly blood pressure task Care Plan Weekly blood pressure task No Josephine Middleton RN Weekly blood pressure task Care Plan Weekly blood pressure task No Josephine Middleton RN Patient has diabetic eye disease Care Plan Patient has diabetic eye disease No Josephine Middleton RN Patient has diabetic eye disease Care Plan Patient has diabetic eye disease No Josephine Middleton RN Patient has diabetic eye disease Care Plan Patient has diabetic eye disease No Josephine Middleton RN Patient has diabetic eye disease Care Plan Patient has diabetic eye disease No Josephine Middleton RN Patient has chronic kidney disease Care Plan Patient has chronic kidney disease No Josephine Middleton RN Patient has chronic kidney disease Care Plan Patient has chronic kidney disease No Josephine Middleton RN Patient has chronic kidney disease Care Plan Patient has chronic kidney disease No Josephine Middleton RN Patient has chronic kidney disease Care Plan Patient has chronic kidney disease No Josephine Middleton RN Patient has diabetic neuropathy Care Plan Patient has diabetic neuropathy No Josephine Middleton RN Patient has diabetic neuropathy Care Plan Patient has diabetic neuropathy No Josephine Middleton RN Patient has diabetic neuropathy Care Plan Patient has diabetic neuropathy No Josephine Middleton RN Patient has diabetic neuropathy Care Plan Patient has diabetic neuropathy No Josephine Middleton RN Weekly blood pressure task Care Plan Weekly blood pressure task No Leslee Thurman Weekly blood pressure task Care Plan Weekly blood pressure task No Leslee Thurman Weekly blood pressure task Care Plan Weekly blood pressure task No Leslee Thurman Weekly blood pressure task Care Plan Weekly blood pressure task No Leslee Thurman Patient has diabetic eye disease Care Plan Patient has diabetic eye disease No Leslee Thurman Patient has diabetic eye disease Care Plan Patient has diabetic eye disease No Leslee Thurman Patient has diabetic eye disease Care Plan Patient has diabetic eye disease No Leslee Thurman Patient has diabetic eye disease Care Plan Patient has diabetic eye disease No Leslee Thurman Patient has chronic kidney disease Care Plan Patient has chronic kidney disease No Leslee Thurman Patient has chronic kidney disease Care Plan Patient has chronic kidney disease No Leslee Thurman Patient has chronic kidney disease Care Plan Patient has chronic kidney disease No Leslee Thurman Patient has chronic kidney disease Care Plan Patient has chronic kidney disease No Leslee Thurman Patient has diabetic neuropathy Care Plan Patient has diabetic neuropathy No Leslee Thurman Patient has diabetic neuropathy Care Plan Patient has diabetic neuropathy No Leslee Thurman Patient has diabetic neuropathy Care Plan Patient has diabetic neuropathy No Leslee Thurman Patient has diabetic neuropathy Care Plan Patient has diabetic neuropathy No Leslee Thurman Weekly blood pressure task Care Plan Weekly blood pressure task No Leslee Thurman Weekly blood pressure task Care Plan Weekly blood pressure task No Leslee Thurman Weekly blood pressure task Care Plan Weekly blood pressure task No Leslee Thurman Weekly blood pressure task Care Plan Weekly blood pressure task No Leslee Thurman Patient has diabetic eye disease Care Plan Patient has diabetic eye disease No Leslee Thurman Patient has diabetic eye disease Care Plan Patient has diabetic eye disease No Leslee Thurman Patient has diabetic eye disease Care Plan Patient has diabetic eye disease No Leslee Thurman Patient has diabetic eye disease Care Plan Patient has diabetic eye disease No Leslee Thurman Patient has chronic kidney disease Care Plan Patient has chronic kidney disease No Leslee Thurman Patient has chronic kidney disease Care Plan Patient has chronic kidney disease No Leslee Thurman Patient has chronic kidney disease Care Plan Patient has chronic kidney disease No Leslee Thurman Patient has chronic kidney disease Care Plan Patient has chronic kidney disease No Leslee Thurman Patient has diabetic neuropathy Care Plan Patient has diabetic neuropathy No Leslee Thurman Patient has diabetic neuropathy Care Plan Patient has diabetic neuropathy No Leslee Thurman Patient has diabetic neuropathy Care Plan Patient has diabetic neuropathy No Leslee Thurman Patient has diabetic neuropathy Care Plan Patient has diabetic neuropathy No Leslee Thurman Weekly blood pressure task Care Plan Weekly blood pressure task No Renny Rose Weekly blood pressure task Care Plan Weekly blood pressure task No Renny Rose Weekly blood pressure task Care Plan Weekly blood pressure task No Renny Rose Weekly blood pressure task Care Plan Weekly blood pressure task No Renny Rose Patient has diabetic eye disease Care Plan Patient has diabetic eye disease No Renny Rose Patient has diabetic eye disease Care Plan Patient has diabetic eye disease No Renny Rose Patient has diabetic eye disease Care Plan Patient has diabetic eye disease No Renny Rose Patient has diabetic eye disease Care Plan Patient has diabetic eye disease No Renny Rose Patient has chronic kidney disease Care Plan Patient has chronic kidney disease No Renny Rose Patient has chronic kidney disease Care Plan Patient has chronic kidney disease No Renny Rose Patient has chronic kidney disease Care Plan Patient has chronic kidney disease No Renny Rose Patient has chronic kidney disease Care Plan Patient has chronic kidney disease No Renny Rose Patient has diabetic neuropathy Care Plan Patient has diabetic neuropathy No [place] Renny Patient has diabetic neuropathy Care Plan Patient has diabetic neuropathy No [place] Renny Patient has diabetic neuropathy Care Plan Patient has diabetic neuropathy No [place] Renny Patient has diabetic neuropathy Care Plan Patient has diabetic neuropathy No [place] Renny Weekly blood pressure task Care Plan Weekly blood pressure task No Piers-Mora, Eve, PharmD Weekly blood pressure task Care Plan Weekly blood pressure task No Piers-Mora, Eve, PharmD Weekly blood pressure task Care Plan Weekly blood pressure task No Piers-Mora, Eve, PharmD Weekly blood pressure task Care Plan Weekly blood pressure task No Piers-Mora, Eve, PharmD Patient has diabetic eye disease Care Plan Patient has diabetic eye disease No Piers-Mora, Eve, PharmD Patient has diabetic eye disease Care Plan Patient has diabetic eye disease No Piers-Mora, Eve, PharmD Patient has diabetic eye disease Care Plan Patient has diabetic eye disease No Piers-Mora, Eve, PharmD Patient has diabetic eye disease Care Plan Patient has diabetic eye disease No Piers-Mora, Eve, PharmD Patient has chronic kidney disease Care Plan Patient has chronic kidney disease No Piers-Mora, Eve, PharmD Patient has chronic kidney disease Care Plan Patient has chronic kidney disease No Piers-Mora, Eve, PharmD Patient has chronic kidney disease Care Plan Patient has chronic kidney disease No Piers-Mora, Eve, PharmD Patient has chronic kidney disease Care Plan Patient has chronic kidney disease No Piers-Mora, Eve, PharmD Patient has diabetic neuropathy Care Plan Patient has diabetic neuropathy No Piers-Mora, Eve, PharmD Patient has diabetic neuropathy Care Plan Patient has diabetic neuropathy No Piers-Mora, Eve, PharmD Patient has diabetic neuropathy Care Plan Patient has diabetic neuropathy No Piers-Mora, Eve, PharmD Patient has diabetic neuropathy Care Plan Patient has diabetic neuropathy No Piers-Mora, Eve, PharmD Weekly blood pressure task Care Plan Weekly blood pressure task No Roxanne Ovalle Weekly blood pressure task Care Plan Weekly blood pressure task No Roxanne Ovalle Weekly blood pressure task Care Plan Weekly blood pressure task No Roxanne Ovalle Weekly blood pressure task Care Plan Weekly blood pressure task No Ovalle, Jaysha Patient has diabetic eye disease Care Plan Patient has diabetic eye disease No Ovalle Jaysha Patient has diabetic eye disease Care Plan Patient has diabetic eye disease No Ovalle Jaysha Patient has diabetic eye disease Care Plan Patient has diabetic eye disease No Ovalle, Jaysha Patient has diabetic eye disease Care Plan Patient has diabetic eye disease No Ovalle Jaysha Patient has chronic kidney disease Care Plan Patient has chronic kidney disease No Ovalle Jaysha Patient has chronic kidney disease Care Plan Patient has chronic kidney disease No Ovalle Jaysha Patient has chronic kidney disease Care Plan Patient has chronic kidney disease No Ovalle, Jaysha Patient has chronic kidney disease Care Plan Patient has chronic kidney disease No Ovalle Jaysha Patient has diabetic neuropathy Care Plan Patient has diabetic neuropathy No Ovalle Jaysha Patient has diabetic neuropathy Care Plan Patient has diabetic neuropathy No OvalleZanderysha Patient has diabetic neuropathy Care Plan Patient has diabetic neuropathy No Zander Ovalleysha Patient has diabetic neuropathy Care Plan Patient has diabetic neuropathy No Kenney Ovalleha Weekly blood pressure task Care Plan Weekly blood pressure task No LyndonFeFay, PHOTOFLASH POWDER MIXER Weekly blood pressure task Care Plan Weekly blood pressure task No LyndonFeFay, PHOTOFLASH POWDER MIXER Weekly blood pressure task Care Plan Weekly blood pressure task No LyndonFeFay, PHOTOFLASH POWDER MIXER Weekly blood pressure task Care Plan Weekly blood pressure task No LyndonFeFay, PHOTOFLASH POWDER MIXER Patient has diabetic eye disease Care Plan Patient has diabetic eye disease No LyndonFeFay, PHOTOFLASH POWDER MIXER Patient has diabetic eye disease Care Plan Patient has diabetic eye disease No LyndonFeFay, PHOTOFLASH POWDER MIXER Patient has diabetic eye disease Care Plan Patient has diabetic eye disease No LyndonFeFay, PHOTOFLASH POWDER MIXER Patient has diabetic eye disease Care Plan Patient has diabetic eye disease No LyndonFeFay, PHOTOFLASH POWDER MIXER Patient has chronic kidney disease Care Plan Patient has chronic kidney disease No LyndonFeFay, PHOTOFLASH POWDER MIXER Patient has chronic kidney disease Care Plan Patient has chronic kidney disease No Lyndon, Fay, PHOTOFLASH POWDER MIXER Patient has chronic kidney disease Care Plan Patient has chronic kidney disease No Lyndon, Fay, PHOTOFLASH POWDER MIXER Patient has chronic kidney disease Care Plan Patient has chronic kidney disease No LyndonFeFay, PHOTOFLASH POWDER MIXER Patient has diabetic neuropathy Care Plan Patient has diabetic neuropathy No Lyndon, Fay, PHOTOFLASH POWDER MIXER Patient has diabetic neuropathy Care Plan Patient has diabetic neuropathy No Lyndon, Fay, PHOTOFLASH POWDER MIXER Patient has diabetic neuropathy Care Plan Patient has diabetic neuropathy No Lyndon, Fay, PHOTOFLASH POWDER MIXER Patient has diabetic neuropathy Care Plan Patient has diabetic neuropathy No Lyndon, Fay, PHOTOFLASH POWDER MIXER Weekly blood pressure task Care Plan Weekly blood pressure task No LyndonFeFay, PHOTOFLASH POWDER MIXER Weekly blood pressure task Care Plan Weekly blood pressure task No LyndonFeFay, PHOTOFLASH POWDER MIXER Weekly blood pressure task Care Plan Weekly blood pressure task No Lyndon, Fay, PHOTOFLASH POWDER MIXER Weekly blood pressure task Care Plan Weekly blood pressure task No Lyndon, Fay, PHOTOFLASH POWDER MIXER Patient has diabetic eye disease Care Plan Patient has diabetic eye disease No Lyndon, Fay, PHOTOFLASH POWDER MIXER Patient has diabetic eye disease Care Plan Patient has diabetic eye disease No Lyndon, Fay, PHOTOFLASH POWDER MIXER Patient has diabetic eye disease Care Plan Patient has diabetic eye disease No Lyndon, Fay, PHOTOFLASH POWDER MIXER Patient has diabetic eye disease Care Plan Patient has diabetic eye disease No Lyndon, Fay, PHOTOFLASH POWDER MIXER Patient has chronic kidney disease Care Plan Patient has chronic kidney disease No Lyndon, Fay, PHOTOFLASH POWDER MIXER Patient has chronic kidney disease Care Plan Patient has chronic kidney disease No Lyndon, Fay, PHOTOFLASH POWDER MIXER Patient has chronic kidney disease Care Plan Patient has chronic kidney disease No Lyndon, Fay, PHOTOFLASH POWDER MIXER Patient has chronic kidney disease Care Plan Patient has chronic kidney disease No Lyndon, Fay, PHOTOFLASH POWDER MIXER Patient has diabetic neuropathy Care Plan Patient has diabetic neuropathy No Lyndon, Fay, PHOTOFLASH POWDER MIXER Patient has diabetic neuropathy Care Plan Patient has diabetic neuropathy No Lyndon, Fay, PHOTOFLASH POWDER MIXER Patient has diabetic neuropathy Care Plan Patient has diabetic neuropathy No Lyndon, Fay, PHOTOFLASH POWDER MIXER Patient has diabetic neuropathy Care Plan Patient has diabetic neuropathy No Lyndon, Fay, PHOTOFLASH POWDER MIXER Weekly blood pressure task Care Plan Weekly blood pressure task No CastroKim, PHOTOFLASH POWDER MIXER Weekly blood pressure task Care Plan Weekly blood pressure task No CastroKim, PHOTOFLASH POWDER MIXER Weekly blood pressure task Care Plan Weekly blood pressure task No CastroKim, PHOTOFLASH POWDER MIXER Weekly blood pressure task Care Plan Weekly blood pressure task No CastroKim, PHOTOFLASH POWDER MIXER Patient has diabetic eye disease Care Plan Patient has diabetic eye disease No Castro, Kim, PHOTOFLASH POWDER MIXER Patient has diabetic eye disease Care Plan Patient has diabetic eye disease No Castro, Kim, PHOTOFLASH POWDER MIXER Patient has diabetic eye disease Care Plan Patient has diabetic eye disease No Castro, Ikm, PHOTOFLASH POWDER MIXER Patient has diabetic eye disease Care Plan Patient has diabetic eye disease No Castro, Kim, PHOTOFLASH POWDER MIXER Patient has chronic kidney disease Care Plan Patient has chronic kidney disease No Castro, Kim, PHOTOFLASH POWDER MIXER Patient has chronic kidney disease Care Plan Patient has chronic kidney disease No Castro, Kim, PHOTOFLASH POWDER MIXER Patient has chronic kidney disease Care Plan Patient has chronic kidney disease No Castro, Kim, PHOTOFLASH POWDER MIXER Patient has chronic kidney disease Care Plan Patient has chronic kidney disease No Castro, Kim, PHOTOFLASH POWDER MIXER Patient has diabetic neuropathy Care Plan Patient has diabetic neuropathy No Castro, Kim, PHOTOFLASH POWDER MIXER Patient has diabetic neuropathy Care Plan Patient has diabetic neuropathy No Castro, Kim, PHOTOFLASH POWDER MIXER Patient has diabetic neuropathy Care Plan Patient has diabetic neuropathy No Castro, Kim, PHOTOFLASH POWDER MIXER Patient has diabetic neuropathy Care Plan Patient has diabetic neuropathy No Castro, Kim, PHOTOFLASH POWDER MIXER Weekly blood pressure task Care Plan Weekly blood pressure task [place] Johnston MD Weekly blood pressure task Care Plan Weekly blood pressure task [place] Johnston MD Weekly blood pressure task Care Plan Weekly blood pressure task [place] Johnston MD Weekly blood pressure task Care Plan Weekly blood pressure task [place] Johnston MD Patient has diabetic eye disease Care Plan Patient has diabetic eye disease [place] Johnston MD Patient has diabetic eye disease Care Plan Patient has diabetic eye disease [place] Johnston MD Patient has diabetic eye disease Care Plan Patient has diabetic eye disease [place] Johnston MD Patient has diabetic eye disease Care Plan Patient has diabetic eye disease [place] Johnston MD Patient has chronic kidney disease Care Plan Patient has chronic kidney disease [place] Johnston MD Patient has chronic kidney disease Care Plan Patient has chronic kidney disease [place] Johnston MD Patient has chronic kidney disease Care Plan Patient has chronic kidney disease [place] Johnston MD Patient has chronic kidney disease Care Plan Patient has chronic kidney disease [place] Johnston MD Patient has diabetic neuropathy Care Plan Patient has diabetic neuropathy [place] Johnston MD Patient has diabetic neuropathy Care Plan Patient has diabetic neuropathy [place] Johnston MD Patient has diabetic neuropathy Care Plan Patient has diabetic neuropathy [place] Johnston MD Patient has diabetic neuropathy Care Plan Patient has diabetic neuropathy [place], [place] Renny documented as of this encounter Visit Diagnoses [...] neuropathy 06/19/2025 Patient has diabetic neuropathy 06/19/2025 Weekly blood pressure task 06/19/2025 Weekly [...] neuropathy 06/19/2025 Patient has diabetic neuropathy 06/19/2025 Weekly blood pressure task 06/20/2025 Weekly blood pressure task 06/20/2025 Weekly blood pressure task 06/20/2025 Weekly blood pressure task 06/20/2025 Patient has diabetic eye disease 06/20/2025 Patient has diabetic eye disease 06/20/2025 Patient has diabetic eye disease 06/20/2025 Patient has diabetic eye disease 06/20/2025 Patient has chronic kidney disease 06/20/2025 Patient has chronic kidney disease 06/20/2025 Patient has chronic kidney disease 06/20/2025 Patient has chronic kidney disease 06/20/2025 Patient has diabetic neuropathy 06/20/2025 Patient has diabetic neuropathy 06/20/2025 Patient has diabetic neuropathy 06/20/2025 Patient has diabetic neuropathy 06/20/2025 Weekly blood pressure task 06/21/2025 Weekly blood pressure task 06/21/2025 Weekly blood pressure task 06/21/2025 Weekly blood pressure task 06/21/2025 Patient has diabetic eye disease 06/21/2025 Patient has diabetic eye disease 06/21/2025 Patient has diabetic eye disease 06/21/2025 Patient has diabetic eye disease 06/21/2025 Patient has chronic kidney disease 06/21/2025 Patient has chronic kidney disease 06/21/2025 Patient has chronic kidney disease 06/21/2025 Patient has chronic kidney disease 06/21/2025 Patient has diabetic neuropathy 06/21/2025 Patient has diabetic neuropathy 06/21/2025 Patient has diabetic neuropathy 06/21/2025 Patient has diabetic neuropathy 06/21/2025 Weekly blood pressure task 06/22/2025 Weekly blood pressure task 06/22/2025 Weekly blood pressure task 06/22/2025 Weekly blood pressure task 06/22/2025 Patient has diabetic eye disease 06/22/2025 Patient has diabetic eye disease 06/22/2025 Patient has diabetic eye disease 06/22/2025 Patient has diabetic eye disease 06/22/2025 Patient has chronic kidney disease 06/22/2025 Patient has chronic kidney disease 06/22/2025 Patient has chronic kidney disease 06/22/2025 Patient has chronic kidney disease 06/22/2025 Patient has diabetic neuropathy 06/22/2025 Patient has diabetic neuropathy 06/22/2025 Patient has diabetic neuropathy 06/22/2025 Patient has diabetic neuropathy 06/22/2025 Weekly blood pressure task 06/22/2025 Weekly blood pressure task 06/22/2025 Weekly blood pressure task 06/22/2025 Weekly blood pressure task 06/22/2025 Patient has diabetic eye disease 06/22/2025 Patient has diabetic eye disease 06/22/2025 Patient has diabetic eye disease 06/22/2025 Patient has diabetic eye disease 06/22/2025 Patient has chronic kidney disease 06/22/2025 Patient has chronic kidney disease 06/22/2025 Patient has chronic kidney disease 06/22/2025 Patient has chronic kidney disease 06/22/2025 Patient has diabetic neuropathy 06/22/2025 Patient has diabetic neuropathy 06/22/2025 Patient has diabetic neuropathy 06/22/2025 Patient has diabetic neuropathy 06/22/2025 Weekly blood pressure task 06/26/2025 Weekly blood pressure task 06/26/2025 Weekly blood pressure task 06/26/2025 Weekly blood pressure task 06/26/2025 Patient has diabetic eye disease 06/26/2025 Patient has diabetic eye disease 06/26/2025 Patient has diabetic eye disease 06/26/2025 Patient has diabetic eye disease 06/26/2025 Patient has chronic kidney disease 06/26/2025 Patient has chronic kidney disease 06/26/2025 Patient has chronic kidney disease 06/26/2025 Patient has chronic kidney disease 06/26/2025 Patient has diabetic neuropathy 06/26/2025 Patient has diabetic neuropathy 06/26/2025 Patient has diabetic neuropathy 06/26/2025 Patient has diabetic neuropathy 06/26/2025 Weekly blood pressure task 06/26/2025 Weekly blood pressure task 06/26/2025 Weekly blood pressure task 06/26/2025 Weekly blood pressure task 06/26/2025 Patient has diabetic eye disease 06/26/2025 Patient has diabetic eye disease 06/26/2025 Patient has diabetic eye disease 06/26/2025 Patient has diabetic eye disease 06/26/2025 Patient has chronic kidney disease 06/26/2025 Patient has chronic kidney disease 06/26/2025 Patient has chronic kidney disease 06/26/2025 Patient has chronic kidney disease 06/26/2025 Patient has diabetic neuropathy 06/26/2025 Patient has diabetic neuropathy 06/26/2025 Patient has diabetic neuropathy 06/26/2025 Patient has diabetic neuropathy 06/26/2025 Weekly blood pressure task 06/26/2025 Weekly blood pressure task 06/26/2025 Weekly blood pressure task 06/26/2025 Weekly blood pressure task 06/26/2025 Patient has diabetic eye disease 06/26/2025 Patient has diabetic eye disease 06/26/2025 Patient has diabetic eye disease 06/26/2025 Patient has diabetic eye disease 06/26/2025 Patient has chronic kidney disease 06/26/2025 Patient has chronic kidney disease 06/26/2025 Patient has chronic kidney disease 06/26/2025 Patient has chronic kidney disease 06/26/2025 Patient has diabetic neuropathy 06/26/2025 Patient has diabetic neuropathy 06/26/2025 Patient has diabetic neuropathy 06/26/2025 Patient has diabetic neuropathy 06/26/2025 Weekly blood pressure task 06/26/2025 Weekly blood pressure task 06/26/2025 Weekly blood pressure task 06/26/2025 Weekly blood pressure task 06/26/2025 Patient has diabetic eye disease 06/26/2025 Patient has diabetic eye disease 06/26/2025 Patient has diabetic eye disease 06/26/2025 Patient has diabetic eye disease 06/26/2025 Patient has chronic kidney disease 06/26/2025 Patient has chronic kidney disease 06/26/2025 Patient has chronic kidney disease 06/26/2025 Patient has chronic kidney disease 06/26/2025 Patient has diabetic neuropathy 06/26/2025 Patient has diabetic neuropathy 06/26/2025 Patient has diabetic neuropathy 06/26/2025 Patient has diabetic neuropathy 06/26/2025 Weekly blood pressure task 06/26/2025 Weekly blood pressure task 06/26/2025 Weekly blood pressure task 06/26/2025 Weekly blood pressure task 06/26/2025 Patient has diabetic eye disease 06/26/2025 Patient has diabetic eye disease 06/26/2025 Patient has diabetic eye disease 06/26/2025 Patient has diabetic eye disease 06/26/2025 Patient has chronic kidney disease 06/26/2025 Patient has chronic kidney disease 06/26/2025 Patient has chronic kidney disease 06/26/2025 Patient has chronic kidney disease 06/26/2025 Patient has diabetic neuropathy 06/26/2025 Patient has diabetic neuropathy 06/26/2025 Patient has diabetic neuropathy 06/26/2025 Patient has diabetic neuropathy 06/26/2025 Weekly blood pressure task 06/26/2025 Weekly blood pressure task 06/26/2025 Weekly blood pressure task 06/26/2025 Weekly blood pressure task 06/26/2025 Patient has diabetic eye disease 06/26/2025 Patient has diabetic eye disease 06/26/2025 Patient has diabetic eye disease 06/26/2025 Patient has diabetic eye disease 06/26/2025 Patient has chronic kidney disease 06/26/2025 Patient has chronic kidney disease 06/26/2025 Patient has chronic kidney disease 06/26/2025 Patient has chronic kidney disease 06/26/2025 Patient has diabetic neuropathy 06/26/2025 Patient has diabetic neuropathy 06/26/2025 Patient has diabetic neuropathy 06/26/2025 Patient has diabetic neuropathy 06/26/2025 Weekly blood pressure task 06/26/2025 Weekly blood pressure task 06/26/2025 Weekly blood pressure task 06/26/2025 Weekly blood pressure task 06/26/2025 Patient has diabetic eye disease 06/26/2025 Patient has diabetic eye disease 06/26/2025 Patient has diabetic eye disease 06/26/2025 Patient has diabetic eye disease 06/26/2025 Patient has chronic kidney disease 06/26/2025 Patient has chronic kidney disease 06/26/2025 Patient has chronic kidney disease 06/26/2025 Patient has chronic kidney disease 06/26/2025 Patient has diabetic neuropathy 06/26/2025 Patient has diabetic neuropathy 06/26/2025 Patient has diabetic neuropathy 06/26/2025 Patient has diabetic neuropathy 06/26/2025 Assessment Noted Time PHQ-9 Depression Total Score: 8 06/13/20 25 10:10 AM EST documented as of this encounter Care Teams Client Server Programmer Relationship Specialty Start Date End Date Name, Renny, MD [address] [place] [address] PCP - General Family Medicine 03/10/22 [employer] Physical Therapist 06/22/25 documented as of this encounter
--- OUTSIDE RECORDS SUMMARY | 2025-07-04 00:59 | XMS_ITS | Encounter Summary ---
Author Organization [employer] Address [address] [facility] 7 [place] [address] Care Team Providers Care Fast Food Shift Supervisor Name Role Phone Name, Renny SWAN Primary Care Provider [phone] Reason for Visit * Reason Onset Date Comments Durable Medical Equipment 05/24/2025 Encounter Details Date Type Department Care Team ([facility] st Contact Info) Description 05/24/2025 Telephone [facility] [address] [place], [place] [phone] Name, MD Renny [address] [place] [address] Durable Medical Equipment Social History Tobacco Use [...] evaluate at upcoming appointment or if auth journalists and other writers to generate Rx? Please note, insurance will require documentation supporting the need and benefit of the dme requested. Thank you * Telephone Encounter - Dana Edward - 05/24/2025 10:33 AM EST Tc from pt requesting an new scrip for DME - Wheelchair electric - Hospital bed Please contact daughter at [phone] documented in this encounter Plan of Treatment Upcoming Encounters Date Type Department Care Team ([facility] st Contact Info) Description 07/27/2025 10:30 AM EST Medication Management [facility] [address] [place] [address] Puia, Jory, PharmD [address] [place] [address] 09/14/2025 10:00 AM EST Office Visit [facility] [address] [place] [address] Renny Johnston MD [address] [place] [address] 10/12/2025 12:45 PM EDT Office Visit [facility] ADULT DENTAL [address] [place] [address] Elis Antonio documented as of this encounter [...] documented as of this encounter Care Teams Fast Food Shift Supervisor Relationship Specialty Start Date End Date Renny Johnston MD [address] [place] [address] PCP - General Family Medicine 03/10/22 [facility] 05/12/25 [employer] Physical Therapist 06/22/25 documented as of this encounter
--- OUTSIDE RECORDS SUMMARY | 2025-07-04 00:59 | XMS_ITS | Encounter Summary ---
Author Organization [facility] Address [address] [place] [address] [place] [address] Care Team Providers Care Customer Development Manager Name Role Phone Name, Renny SWAN Primary Care Provider [phone] Reason for Visit * Reason Comments Med Refill Encounter Details Date Type Department Care Team (Late st Contact Info) Description 02/09/2023 Refill [facility] [address] [place], [place] [phone] Name, MD Renny [address] [place] [address] Insomnia, unspecified type Social History Tobacco Use [...] 10:30 AM EST Medication Management [facility] [address] [place], [place] [phone] PuiaJory, PharmD [address] [place], [place] [phone] 09/14/2025 10:00 AM EST Office Visit [facility] [address] [place] [address] Name, MD Renny [address] [place] [address] 10/12/2025 12:45 PM EDT Office Visit [facility] ADULT DENTAL [address] [place] [address] Elis Antonio documented as of this encounter Visit Diagnoses Diagnosis Insomnia, unspecified type documented in this encounter Additional Health Concerns Assessment Noted Time PHQ-9 Depression Total Score: 0 12/17/19 23 4:13 PM EDT documented as of this encounter Care Teams Customer Development Manager Relationship Specialty Start Date End Date NameRenny MD [address] [place] [address] PCP - General Family Medicine 03/10/22 [facility] 05/12/25 [employer] Physical Therapist 06/22/25 documented as of this encounter
--- OUTSIDE RECORDS SUMMARY | 2025-07-04 00:59 | XMS_ITS | Encounter Summary ---
Author Organization [employer] Address [address] [facility] 7 [place] [address] Care Team Providers Care Clinical Dermatologist Name Role Phone Name, Renny SWAN Primary Care Provider [phone] Reason for Visit * Reason Onset Date Comments Results 05/04/2023 Encounter Details Date Type Department Care Team ([facility] st Contact Info) Description 05/04/2023 Telephone [facility] MED[facility]INE [address] [place], [place] [phone] Name, MD Renny [address] [place] [address] Results Social History Tobacco Use Types Packs/Day [...] on regards results on labs done on [facility] in 04/23/2023, 04/26/2023 & 04/29/2023. 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 documented in this encounter Plan of Treatment Upcoming Encounters Date Type Department Care Team (Late st Contact Info) Description 07/27/2025 10:30 AM EST Medication Management [facility] [address] [place] [address] Jory Christina, PharmD [address] [place] [address] 09/14/2025 10:00 AM EST Office Visit [facility] [address] [place] [address] Name, MD Renny [address] [place] [phone] 10/12/2025 12:45 PM EDT Office Visit [facility] ADULT DENTAL [address] [place] [address] Elis Antonio documented as of this encounter Visit Diagnoses Not on filedocumented in this encounter Additional Health Concerns Assessment Noted Time PHQ-9 Depression Total Score: 0 12/17/19 23 4:13 PM EDT documented as of this encounter Care Teams Clinical Dermatologist Relationship Specialty Start Date End Date Name, MD Renny [address] [place] [address] PCP - General Family Medicine 03/10/22 [facility] 05/12/25 [employer] Physical Therapist 06/22/25 documented as of this encounter
--- OUTSIDE RECORDS SUMMARY | 2025-07-04 00:59 | XMS_ITS | Encounter Summary ---
Author Organization [employer] Address [address] [facility] 7 [place] [address] Care Team Providers Care Building Associate Name Role Phone Name, Renny SWAN Primary Care Provider [phone] Reason for Visit * Reason Onset Date Comments Pre-op Exam 01/27/2024 Encounter Details Date Type Department Care Team ([facility] st Contact Info) Description 01/27/2024 Telephone [facility]INE [address] [place], [place] [phone] Name, MD Renny [address] [place] [address] Pre-op Exam Social History Tobacco Use Types [...] PM EDT Incoming TC from O[facility] at [facility] requesting status update on pre-op paperwork, [...] Surgeon's name: Dr. Malina Weir Facility name: [facility] Surgeon's office number: [phone] Surgeon's office fax number: [phone] Contact name (person you spoke with): Oksana Last office note from surgeon requested: Will be Faxed * Telephone Encounter - Brando Read - 01/27/2024 12:15 PM EDT Date of Surgery: 01/30 Surgical procedure being done: Carpel & cubical tunnel release Type of anesthesia: General Lab needed: yes EKG: yes Surgeon's name: Dr. Malina Weir Facility name: [facility] Surgeon's office number: [phone] Surgeon's office fax number: [phone] Contact name (person you spoke with): Oksana Last office note from surgeon requested: Will be Faxed documented in this encounter Plan of Treatment Upcoming Encounters Date Type Department Care Team (Late st Contact Info) Description 07/27/2025 10:30 AM EST Medication Management [facility] MED[facility]INE [address] [place] [phone] Puia, Jory, PharmD [address] [place] [address] 09/14/2025 10:00 AM EST Office Visit [facility] [address] [place] [phone] Name, MD Renny [address] [place] [address] 10/12/2025 12:45 PM EDT Office Visit [facility] ADULT DENTAL [address] [place] [phone] Elis Antonio documented as of this encounter [...] documented as of this encounter Care Teams Building Associate Relationship Specialty Start Date End Date Name, MD Renny [address] [place] [address] PCP - General Family Medicine 03/10/22 [facility] 05/12/25 [employer] Physical Therapist 06/22/25 documented as of this encounter
--- OUTSIDE RECORDS SUMMARY | 2025-07-04 00:59 | XMS_ITS | Encounter Summary ---
Author Organization [employer] Address [address] [facility] 7 [place] [address] Care Team Providers Care Railroad Car Cleaning Supervisor Name Role Phone Name, Renny SWAN Primary Care Provider [phone] Reason for Visit * Reason Comments Med Refill Encounter Details Date Type Department Care Team (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, with long-term current use of insulin ([facility]) Social History Tobacco Use Types Packs/Day [...] the past 12 months, has t he [employer], gas, oil or water [employer] threatened to shut off services in your [...] Description 07/27/2025 10:30 AM EST Medication Management [facility] [address] [place] [address] Jory Christina PharmD [address] [place] [address] 09/14/2025 10:00 AM EST Office Visit [facility] [address] [place] [address] Name, MD Renny [address] [place] [address] 10/12/2025 12:45 PM EDT Office Visit [facility] ADULT DENTAL [address] [place] [address] Elis Antonio documented as of this encounter Goals Goal Patient Goal Type Associated Problems Recent Progress Patient-Stated? Author Record your blood pressure once per day Blood Pressure No Jory Christina, PharmD Blood Pressure < 140/90 Blood Pressure 150/80(2024 10:01 AM EST) No PuiaJory, PharmD Hemoglobin A1c < 7.5 Result Component 7.1( 1:49 PM EDT) No Puia, Jory, PharmD Record your blood sugar as directed Result Component No Puia Jory, PharmD documented as of this encounter Visit Diagnoses Diagnosis Type 2 diabetes mellitus with other specified complication, with long-term current use of insulin (HCC) documented in this encounter Additional Health Concerns Assessment Noted Time PHQ-9 Depression Total Score: 19 024 1:07 PM EDT documented as of this encounter Care Teams Railroad Car Cleaning Supervisor Relationship Specialty Start Date End Date Name, MD Renny [address] [place] [address] PCP - General Family Medicine 03/10/22 [facility] 05/12/25 [employer] Physical Therapist 06/22/25 documented as of this encounter
--- OUTSIDE RECORDS SUMMARY | 2025-07-04 01:00 | XMS_ITS | Encounter Summary ---
Author Organization [employer] Address [address] [facility] 7 [place] [address] Care Team Providers Care Hall Clerk Name Role Phone Name, Renny SWAN Primary Care Provider [phone] Reason for Visit * Reason Comments Med Refill Encounter Details Date Type Department Care Team ([facility] st Contact Info) Description 10/18/2024 Refill [facility] [address] [place], [place] [phone] Name, MD Renny [address] [place] [address] Social History Tobacco Use Types Packs/Day Years [...] Description 07/27/2025 10:30 AM EST Medication Management [facility] [address] [place] [phone] Jory Christina PharmD [address] [place] [phone] 09/14/2025 10:00 AM EST Office Visit [facility] [address] [place] [address] Name, MD Renny [address] [place] [address] 10/12/2025 12:45 PM EDT Office Visit [facility] ADULT DENTAL [address] [place] [phone] Elis Antonio documented as of this encounter [...] documented as of this encounter Care Teams Hall Clerk Relationship Specialty Start Date End Date Name, MD Renny [address] [place] [address] PCP - General Family Medicine 03/10/22 [facility] 05/12/25 [employer] Physical Therapist 06/22/25 documented as of this encounter
--- OUTSIDE RECORDS SUMMARY | 2025-07-04 01:00 | XMS_ITS | Clinical Summary ---
Author Organization [employer] Address [address] [facility] 7 [place] [address] Care Team Providers Care Ticket Maker Name Role Phone Name, Renny SWAN Primary Care Provider [phone] Allergies No known active allergies Medications predniSONE [...] erectile dysfunction. 10 tablet 11/02/19 24 Active insulin aspart (NovoLOG FLEXPEN) 100 UNIT/ML penIndications :Type 2 diabetes mellitus with other specified complication, with long-term current use of insulin ([facility]) Inject 6 Units under the skin before breakfast, before lunch, and before evening meal. 15 mL 2 03/30/20 24 Active insulin glargine (Lantus SoloStar) 100 UNIT/ML penIndications :Type 2 diabetes mellitus with other specified complication, with long-term current use of insulin (HCC) Inject 14 Units under the skin Once per day. 15 mL 5 03/30/20 24 Active doxazosin (Cardura) 8 MG tablet Take 1 tablet (8 mg) by mouth at bedtime. 30 tablet 5 1:42 PM EST 06/13/202025 Active furosemide (Lasix) 20 MG tablet Take 1 tablet (20 mg) by mouth every other day. 15 tablet 11 1:42 PM EST 06/13/202025 Active hydrALAZINE (Apresoline) 100 MG tablet Take 1 tablet (100 mg) by mouth 3 times daily. 90 tablet 06/13/202025 Active Continuous Glucose Flame Cutter (FreeStyle Grace 3 Thomson) deviceIndicati ons:Type 2 diabetes mellitus with other specified complication, with long-term current use of insulin (HCC) 1 each Once per day. Use as directed for CGM 1 each 5 2:14 PM EST 06/13/20 Active Continuous Glucose Sensor (FreeStyle Grace 3 Plus Sensor) miscIndication s:Type 2 diabetes mellitus with other specified complication, with long-term current use of insulin (HCC) 1 each every 15 days. Apply 1 every 15 days as directed for CGM 2 each 5 2:14 PM EST 06/13/20 Active glucose blood (FreeStyle Precision [place] Test) test strip Use to test blood sugar 3 times daily in case of CGM failure or extremes of BG 100 each 5 2:14 PM EST 06/13/20 25 2025 Active Diclofenac Sodium 1 % gelIndications :Type 2 diabetes mellitus with other specified complication, with long-term current use of insulin (HCC) APPLY 2 GRAMS TOPICALLY TO AFFECTED AREA(S) TWICE DAILY 100 g 5 1:42 PM EST 06/13/20 Active Alcohol Swabs (Alcohol Prep) 70 % pads USE FOUR TIMES DAILY DIRECTED 100 each 11 5 1:42 PM EST 06/13/20 Active Pentips Generic Pen [place] 32G X 4 MM misc Use as instructed 100 each 5 5 1:42 PM EST 06/13/20 Active zolpidem (Ambien) 10 MG tablet Take 1 tablet (10 mg) by mouth if needed at bedtime for sleep. 30 tablet 1:42 PM EST 06/13/20 Active cyanocobalamin (Vitamin B-12) 1000 MCG tablet Take 1 tablet (1,000 mcg) by mouth Once per day. 30 tablet 11 1:42 PM EST 06/13/202025 Active polyethylene glycol, PEG, 3350 (MiraLax) 17 GM/SCOOP powder Take 17 g by mouth Once per day. 527 g 2 1:42 PM EST 06/13/202025 Active atorvastatin (Lipitor) 80 MG tablet Take 1 tablet (80 mg) by mouth at bedtime. 90 tablet 3 06/26/20 25 Active losartan (Cozaar) 25 MG tablet Take 1 tablet (25 mg) by mouth in the morning. 90 tablet 3 06/26/20 25 Active metoprolol tartrate (Lopressor) 100 MG tablet TAKE 1 TABLET BY MOUTH TWICE DAILY IN THE MORNING AND IN THE EVENING WITH MEALS 180 tablet 3 06/26/20 25 Active sertraline (Zoloft) 25 MG tablet Take 1 tablet (25 mg) by mouth Once per day. 30 tablet 2 06/26/20 25 Active aspirin 81 MG chewable tablet Chew 1 tablet (81 mg) Once per day. 30 tablet 11 5 2:14 PM EST 06/26/20 25 2025 Active gabapentin (Neurontin) 400 MG capsule Take 1 capsule (400 mg) by mouth 2 times daily. 60 capsule 11 5 2:14 PM EST 06/26/202025 Active Continuous Blood Gluc Flame Cutter (FreeStyle Grace 2 Thomson) device Use as directed 1 each 04/23/20 23 2024 Discontinued Continuous Glucose Sensor (FreeStyle Grace 2 Sensor) miscIndication s:Type 2 diabetes mellitus with other specified complication, with long-term current use of insulin (HCC) Apply 1 sensor as directed every 14 days for CGM. 2 each 11/05/19 24 2024 Discontinued hydrALAZINE (Apresoline) 100 MG tablet Take 1 tablet (100 mg) by mouth 2 times daily. 60 tablet 02/08/20 24 2024 Discontinued(R eorder (will not trigger notification to Pharmacy)) glucose blood (FreeStyle Precision [place] Test) test stripIndicatio ns:Type 2 diabetes mellitus with other specified complication, with long-term current use of insulin (HCC) Use to test blood sugar up to 4 times daily, as directed 100 each 03/30/20 24 2024 Discontinued(D uplicate order (will not trigger notification to Pharmacy)) metoprolol tartrate (Lopressor) 100 MG tablet TAKE 1 TABLET BY MOUTH TWICE DAILY IN THE MORNING AND IN THE EVENING WITH MEALS 180 tablet 3 04/17/20 24 2024 Discontinued(R eorder (will not trigger notification to Pharmacy)) metFORMIN (Glucophage) 1000 MG tablet TAKE 1 TABLET BY MOUTH TWICE DAILY IN THE MORNING AND IN THE EVENING WITH MEALS 180 tablet 3 04/17/20 24 2024 Discontinued(T herapy completed) atorvastatin (Lipitor) 80 MG tablet TAKE 1 TABLET BY MOUTH EVERY EVENING 30 tablet 04/21/20 24 2024 Discontinued(R eorder (will not trigger notification to Pharmacy)) losartan (Cozaar) 25 MG tablet TAKE 1 TABLET BY MOUTH EVERY MORNING 30 tablet 04/21/20 24 2024 Discontinued(R eorder (will not trigger [...] 2024 Discontinued(T herapy completed) Pentips Generic Pen [place] 32G X 4 MM misc USE DIRECTED FOUR TIMES DAILY 100 each 5 07/11/20 24 2024 Discontinued(R eorder (will not trigger notification to Pharmacy)) sertraline (Zoloft) 25 MG tablet TAKE 1 TABLET BY MOUTH EVERY DAY 30 tablet 2 07/17/20 24 2024 Discontinued(R eorder (will not trigger notification to Pharmacy)) zolpidem (Ambien) 10 MG tablet TAKE 1 TABLET BY MOUTH AT BEDTIME NEEDED FOR SLEEP 30 tablet 09/12/19 25 2024 Discontinued(R eorder (will not trigger notification to Pharmacy)) Diclofenac Sodium 1 % gelIndications :Type 2 diabetes mellitus with other specified complication, with long-term current use of insulin ([facility]) APPLY 2 GRAMS TOPICALLY TO AFFECTED AREA(S) TWICE DAILY 100 g 05/24/20 25 2024 Discontinued(R eorder (will not trigger notification to Pharmacy)) gabapentin (Neurontin) 300 MG capsule TAKE 1 CAPSULE BY MOUTH 3 times a day 60 capsule 5 5 1:42 PM EST 06/13/20 25 2024 Discontinued(D ose adjustment) Active Problems Problem Noted Date Diagnosed Date PDR (proliferative diabetic retinopathy) 024 Missing teeth, acquired 10/08/2023 Dental plaque 10/08/2023 Generalized gingival recession 10/08/2023 Stage 3 chronic kidney disease ([facility]) 023 Essential (primary) hypertension 09/17/2022 Type 2 diabetes mellitus wit h diabetic chronic kidney disease 09/17/2022 Polyneuropathy due to type 2 diabetes mellitus 1 09/07/2021 Peripheral vascular disease 07/07/2022 Malignant tumor of prostate ([facility]/HCC) 02/27/2022 History of amputation of left great toe 08/12/20 22 Acquired trigger finger of both ring fingers 06/2022 Resolved Problems Problem Noted Date Diagnosed Date Resolved Date Cancer ([facility]/HCC) 09/17/2022 02/11/2024 Chronic kidney disease 09/17/202202/10 Type 2 diabetes mellitus without complication 09/18/19 23 02/11/[address] scan, colon 07/07/2022 07/2 12/2023 Imaging of gastrointestinal tract abnormal 07/07/2022 02/11/2024 Type 2 diabetes mellitus 02/27/2022 Essential hypertension 02/27/202202/10 Malignant neoplasm of prostate ([facility]) 02/27/2022 02/11/2024 Encounters Date Type Department Care Team Description 06/26/2025 10:30 AM EST Telemedicine [address] [address] Eve Woo PharmD Peripheral vascular disease ([facility]) (Primary Dx); Type 2 diabetes mellitus with other specified complication, with long-term current use of insulin ([facility]) 06/26/2025 Orders Only [facility] [address] [place] [id number] Renny Johnston MD 06/26/2025 Refill [facility] [address] [place] [address] Renny Johnston MD 06/26/[address] [address] Renny Johnston MD Care Coordination (Utilization Review) 06/26/[address] [address] Renny Johnston MD Home Care Utilization 06/26/2025 Travel 06/26/[address] [address] Renny Johnston MD Durable Medical Equipment 06/22/[address] [address] Renny Johnston MD 06/22/[address] [address] Renny Johnston MD Prior Auth DME; Durable Medical Equipment 06/21/[address] [address] Josephine Middleton RN 06/20/[address] [address] Renny Johnston MD 06/19/[address] [address] Renny Johnston MD Durable Medical Equipment 06/19/[address] [phone] Renny Johnston MD Prior Auth Prescription (Tc from pt requesting an new scrip for DME/ /- Wheelchair electric/- Hospital bed /Pt daughter walked in with [facility] information to fax [phone] DME/ // ///) 06/18/[address] [address] Renny Johnston MD 06/13/2025 10:30 AM EST Office Visit [address] [address] NameRenny MD Type 2 diabetes mellitus with other specified complication, with long-term current use of insulin (HCC) (Primary Dx); Peripheral vascular disease (CMS/HCC); Amputated toe, unspecified laterality; 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); Neuropathic pain of hand; Orthopnea; Anemia, unspecified type 06/13/[address] [address] Renny Johnston MD 06/13/2025 Travel 05/24/[address] [address] Renny Johnston MD Type 2 diabetes mellitus with other specified complication, with long-term current use of insulin (HCC) 05/24/[address] [address] Renny Johnston MD Durable Medical Equipment 05/16/[address] [address] Renny Johnston MD form 05/14/[address] [place] [address] Renny Johnston MD Medication Question 05/14/2025 Patient Outreach [facility] [place] [address] Renny Johnston MD Transition Of Care (Tcm) (HDF- unscheduled ) 05/14/2025 Telephone [facility] [place] [address] Renny Johnston MD Hospital Follow-up 05/10/2025 Telephone [facility] [place] [address] Renny Johnston MD Referral from Last 3 Months Immunizations Immunization Administration [...] Description 07/27/2025 10:30 AM EST Medication Management [facility] [address] [place] [phone] Jory Christina, NiyaD [address] [place] [address] 09/14/2025 10:00 AM EST Office Visit [facility] [address] [place] [phone] Name, MD Renny [address] [place] [address] 10/12/2025 12:45 PM EDT Office Visit [facility] [address] [facility] [place] [address] Elis Antonio Health Maintenance Due Date Last Done Comments Dental Prophylaxis 04/10/2024 10/08/2023, 12/15/2022 Diabetes: Hemoglobin A1C 06/29/2024 024, 12/29/2023, 09/21/2023, Additional history exists Dental Oral Exam 09/07/2024 03/06/2024, 05/25/2023 Eye Exam 12/06/2024 12/07/2023 Dental X-Ray: Bitewings 03/07/2025 03/06/2024, 12/09 COVID-19 Vaccine ( season) 2025 03/18/2022, 07/30/2021, 10/24/2020, Additional history exists Influenza Vaccine (#1) 2025 , 04/23/2023, 04/15/2022 Dental X-Ray: Full Mouth 12/10/2025 12/09/2022 Alcohol/Substance Use Screening 06/13/2026 06/13/2025 Depression Screening 06/13/2026 06/13/2025, 06/13/20 Diabetes: Foot Exam 06/13/2026 06/13/2025, 06/13/2025, 06/13/2025, Additional history exists SDOH Screening 06/13/2026 06/13/2025 Tobacco Screening 06/13/2026 06/13/2025 Lipid Panel 06/19/2026 06/19/2025, 02/17, 01/28/2024, Additional history exists DTaP/Tdap/Td Vaccines (2 - Td or Tdap) [...] PharmLamar Blood Pressure < 140/90 Blood Pressure 150/80(06/13 10:01 AM EST) No Jory Christina PharmLamar Hemoglobin A1c < 7.5 Result Component 7.1(03/30/20 1:49 PM EDT) No Jory Christina PharmLamar Record your blood sugar as directed Result [...] Care Plan Weekly blood pressure task No [place], [place] Weekly blood pressure task Care Plan Weekly blood pressure task [place], [place] Patient has diabetic eye disease Care Plan Patient has diabetic eye disease No [place] Patient has diabetic eye disease Care Plan Patient has diabetic eye disease No [place] Patient has diabetic eye disease Care Plan Patient has diabetic eye disease [place] Patient has chronic kidney disease Care Plan Patient has chronic kidney disease No [place] Patient has chronic kidney disease Care Plan Patient has chronic kidney disease No [place] Patient has chronic kidney disease Care Plan Patient has chronic kidney disease [place] Patient has diabetic neuropathy Care Plan Patient has diabetic neuropathy No [place] Patient has diabetic neuropathy Care Plan Patient has diabetic neuropathy No [place] Patient has diabetic neuropathy Care Plan Patient has diabetic neuropathy No [place] Weekly blood pressure task Care Plan [...] Plan Patient has chronic kidney disease No Toñito, Tasia, RN Patient has chronic kidney disease Care [...] Plan Patient has diabetic eye disease No Olman Muna Patient has diabetic eye disease Care Plan Patient has diabetic eye disease No Olman Muna Patient has diabetic eye [...] Care Plan Patient has diabetic neuropathy No Kristal Thurmanana Weekly blood pressure task Care Plan Weekly blood pressure task No Woodall, Daniella Weekly blood pressure task Care Plan Weekly blood pressure task No Woodall, Daniella Weekly blood pressure task Care Plan Weekly blood pressure task No WoodallParesh wilsonDaniella Weekly blood pressure task Care Plan Weekly blood pressure task No Woodall, Daniella Patient has diabetic eye disease Care Plan Patient has diabetic eye disease No Woodall, Daniella Patient has diabetic eye disease Care Plan Patient has diabetic eye disease No Woodall, Daniella Patient has diabetic eye disease Care Plan Patient has diabetic eye disease No Woodall, Daniella Patient has diabetic eye disease Care Plan Patient has diabetic eye disease No Woodall Daniella Patient has chronic kidney disease Care [...] Care Plan Patient has diabetic neuropathy No Jose C Daniella Weekly blood pressure task Care Plan Weekly [...] Plan Patient has chronic kidney disease No Joesphine Middleton RN Patient has chronic kidney disease [...] Plan Patient has chronic kidney disease No Milton Renny Patient has diabetic neuropathy Care Plan Patient has diabetic neuropathy No Milton Renny Patient has diabetic neuropathy Care Plan Patient has diabetic neuropathy No Renny Rose Patient has diabetic neuropathy Care Plan Patient has diabetic neuropathy No Milton Renny Patient has diabetic neuropathy Care Plan Patient has diabetic neuropathy No Renny Rose Weekly blood pressure task [...] Care Plan Weekly blood pressure task No Zander Ovalleysha Patient has diabetic eye disease Care Plan Patient has diabetic eye disease No Ovalle Jaysha Patient has diabetic eye disease Care Plan Patient has diabetic eye disease No OvalleZanderysha Patient has diabetic eye disease Care Plan Patient has diabetic eye disease No Ovalle Jaysha Patient has diabetic eye disease Care Plan Patient has diabetic eye disease No Ovalle Jaysha Patient has chronic kidney disease Care Plan Patient has chronic kidney disease No OvalleZanderysha Patient has chronic kidney disease Care Plan Patient has chronic kidney disease No Ovalle Jaysha Patient has chronic kidney disease Care Plan Patient has chronic kidney disease No Ovalle Jaysha Patient has chronic kidney disease Care Plan Patient has chronic kidney disease No OvalleZanderysha Patient has diabetic neuropathy Care [...] Plan Weekly blood pressure task No LyndonFeFay, ASSEMBLY LINE MACHINE OPERATOR Weekly blood pressure task Care Plan Weekly blood pressure task No LyndonFay arteaga, ASSEMBLY LINE MACHINE OPERATOR Weekly blood pressure task Care Plan Weekly blood pressure task No LyndonFay, ASSEMBLY LINE MACHINE OPERATOR Weekly blood pressure task Care Plan Weekly blood pressure task No LyndonFeFay, ASSEMBLY LINE MACHINE OPERATOR Patient has diabetic eye disease Care Plan Patient has diabetic eye disease No LyndonFeFay, ASSEMBLY LINE MACHINE OPERATOR Patient has diabetic eye disease Care Plan Patient has diabetic eye disease No LyndonFeFay, ASSEMBLY LINE MACHINE OPERATOR Patient has diabetic eye disease Care Plan Patient has diabetic eye disease No LyndonFeFay, ASSEMBLY LINE MACHINE OPERATOR Patient has diabetic eye disease Care Plan Patient has diabetic eye disease No LyndonFeFay, ASSEMBLY LINE MACHINE OPERATOR Patient has chronic kidney disease Care Plan Patient has chronic kidney disease No LyndonFeFay, ASSEMBLY LINE MACHINE OPERATOR Patient has chronic kidney disease Care Plan Patient has chronic kidney disease No LyndonFeFay, ASSEMBLY LINE MACHINE OPERATOR Patient has chronic kidney disease Care Plan Patient has chronic kidney disease No LyndonFeFay, ASSEMBLY LINE MACHINE OPERATOR Patient has chronic kidney disease Care Plan Patient has chronic kidney disease No Lyndon, Fay, ASSEMBLY LINE MACHINE OPERATOR Patient has diabetic neuropathy Care Plan Patient has diabetic neuropathy No Lyndon, Fay, ASSEMBLY LINE MACHINE OPERATOR Patient has diabetic neuropathy Care Plan Patient has diabetic neuropathy No Lyndon, Fay, ASSEMBLY LINE MACHINE OPERATOR Patient has diabetic neuropathy Care Plan Patient has diabetic neuropathy No Lyndon, Fay, ASSEMBLY LINE MACHINE OPERATOR Patient has diabetic neuropathy Care Plan Patient has diabetic neuropathy No Lyndon, Fay, ASSEMBLY LINE MACHINE OPERATOR Weekly blood pressure task Care Plan Weekly blood pressure task No Lyndon, Fay, ASSEMBLY LINE MACHINE OPERATOR Weekly blood pressure task Care Plan Weekly blood pressure task No Lyndon, Fay, ASSEMBLY LINE MACHINE OPERATOR Weekly blood pressure task Care Plan Weekly blood pressure task No Lyndon, Fay, ASSEMBLY LINE MACHINE OPERATOR Weekly blood pressure task Care Plan Weekly blood pressure task No Lyndon, Fay, ASSEMBLY LINE MACHINE OPERATOR Patient has diabetic eye disease Care Plan Patient has diabetic eye disease No Lyndon, Fay, ASSEMBLY LINE MACHINE OPERATOR Patient has diabetic eye disease Care Plan Patient has diabetic eye disease No Lyndon, Fay, ASSEMBLY LINE MACHINE OPERATOR Patient has diabetic eye disease Care Plan Patient has diabetic eye disease No Lyndon, Fay, ASSEMBLY LINE MACHINE OPERATOR Patient has diabetic eye disease Care Plan Patient has diabetic eye disease No Lyndon, Fay, ASSEMBLY LINE MACHINE OPERATOR Patient has chronic kidney disease Care Plan Patient has chronic kidney disease No Lyndon, Fay, ASSEMBLY LINE MACHINE OPERATOR Patient has chronic kidney disease Care Plan Patient has chronic kidney disease No Lyndon, Fay, ASSEMBLY LINE MACHINE OPERATOR Patient has chronic kidney disease Care Plan Patient has chronic kidney disease No Lyndon, Fay, ASSEMBLY LINE MACHINE OPERATOR Patient has chronic kidney disease Care Plan Patient has chronic kidney disease No Lyndon, Fay, ASSEMBLY LINE MACHINE OPERATOR Patient has diabetic neuropathy Care Plan Patient has diabetic neuropathy No Lyndon, Fay, ASSEMBLY LINE MACHINE OPERATOR Patient has diabetic neuropathy Care Plan Patient has diabetic neuropathy No Lyndon, Fay, ASSEMBLY LINE MACHINE OPERATOR Patient has diabetic neuropathy Care Plan Patient has diabetic neuropathy No Lyndon, Fay, ASSEMBLY LINE MACHINE OPERATOR Patient has diabetic neuropathy Care Plan Patient has diabetic neuropathy No Lyndon, Fay, ASSEMBLY LINE MACHINE OPERATOR Weekly blood pressure task Care Plan Weekly blood pressure task No CastroKapilga, ASSEMBLY LINE MACHINE OPERATOR Weekly blood pressure task Care Plan Weekly blood pressure task No CastroKapilga, ASSEMBLY LINE MACHINE OPERATOR Weekly blood pressure task Care Plan Weekly blood pressure task No CastroKim, ASSEMBLY LINE MACHINE OPERATOR Weekly blood pressure task Care Plan Weekly blood pressure task No CastroKim, ASSEMBLY LINE MACHINE OPERATOR Patient has diabetic eye disease Care Plan Patient has diabetic eye disease No Castro, Kim, ASSEMBLY LINE MACHINE OPERATOR Patient has diabetic eye disease Care Plan Patient has diabetic eye disease No Castro, Kim, ASSEMBLY LINE MACHINE OPERATOR Patient has diabetic eye disease Care Plan Patient has diabetic eye disease No Castro, Kim, ASSEMBLY LINE MACHINE OPERATOR Patient has diabetic eye disease Care Plan Patient has diabetic eye disease No Castro, Kim, ASSEMBLY LINE MACHINE OPERATOR Patient has chronic kidney disease Care Plan Patient has chronic kidney disease No Castro, Kim, ASSEMBLY LINE MACHINE OPERATOR Patient has chronic kidney disease Care Plan Patient has chronic kidney disease No Castro, Kim, ASSEMBLY LINE MACHINE OPERATOR Patient has chronic kidney disease Care Plan Patient has chronic kidney disease No Castro, Kim, ASSEMBLY LINE MACHINE OPERATOR Patient has chronic kidney disease Care Plan Patient has chronic kidney disease No Castro, Kim, ASSEMBLY LINE MACHINE OPERATOR Patient has diabetic neuropathy Care Plan Patient has diabetic neuropathy No Castro, Kim, ASSEMBLY LINE MACHINE OPERATOR Patient has diabetic neuropathy Care Plan Patient has diabetic neuropathy No Castro, Kim, ASSEMBLY LINE MACHINE OPERATOR Patient has diabetic neuropathy Care Plan Patient has diabetic neuropathy No Castro, Kim, ASSEMBLY LINE MACHINE OPERATOR Patient has diabetic neuropathy Care Plan Patient has diabetic neuropathy No Castro, Kim, ASSEMBLY LINE MACHINE OPERATOR Weekly blood pressure task Care Plan Weekly blood pressure task DwaleRenny Johnston MD Weekly blood pressure task Care Plan Weekly blood pressure task DwaleRenny Johnston MD Weekly blood pressure task Care Plan Weekly blood pressure task DwaleRenny Johnston MD Weekly blood pressure task Care Plan Weekly blood pressure task DwaleRenny Johnston MD Patient has diabetic eye disease Care Plan Patient has diabetic eye disease DwaleRenny Johnston MD Patient has diabetic eye disease Care Plan Patient has diabetic eye disease DwaleRenny Johnston MD Patient has diabetic eye disease Care Plan Patient has diabetic eye disease DwaleRenny Johnston MD Patient has diabetic eye disease Care Plan Patient has diabetic eye disease DwaleRenny Johnston MD Patient has chronic kidney disease Care Plan Patient has chronic kidney disease DwaleRenny Johnston MD Patient has chronic kidney disease Care Plan Patient has chronic kidney disease DwaleRenny Johnston MD Patient has chronic kidney disease Care Plan Patient has chronic kidney disease DwaleRenny Johnston MD Patient has chronic kidney disease Care Plan Patient has chronic kidney disease DwaleRenny Johnston MD Patient has diabetic neuropathy Care Plan Patient has diabetic neuropathy DwaleRenny Johnston MD Patient has diabetic neuropathy Care Plan Patient has diabetic neuropathy DwaleRenny Johnston MD Patient has diabetic neuropathy Care Plan Patient has diabetic neuropathy Dwale, MD Renny Patient has diabetic neuropathy Care Plan Patient has diabetic neuropathy Dwale, MD Renny Procedures Procedure Name Priority Date/Time Associated Diagnosis Comments ALBUMIN, RANDOM URINE W/CREATININE Routine 06/20/2025 9:05 AM EST Type 2 diabetes mellitus with other specified complication, with long-term current use of insulin (HCC) Peripheral vascular disease (CMS/HCC) Amputated toe, unspecified laterality VITAMIN B12/FOLATE, SERUM PANEL Routine 06/19/2025 9:19 AM EST Anemia, unspecified type FERRITIN Routine 06/19/2025 9:19 AM EST Anemia, unspecified type IRON AND TOTAL IRON BINDING CAPACITY Routine 06/19/2025 9:19 AM EST Anemia, unspecified type CBC WITH AUTO DIFFERENTIAL Routine 06/19/2025 9:19 AM EST Anemia, unspecified type LIPID PANEL, STANDARD Routine 06/19/2025 9:19 AM EST Type 2 diabetes mellitus with other specified complication, with long-term current use of insulin (HCC) Peripheral vascular disease (CMS/HCC) Amputated toe, unspecified laterality COMPREHENSIVE METABOLIC PANEL Routine 06/19/2025 9:19 AM EST Type 2 diabetes mellitus with other specified complication, with long-term current use of insulin (HCC) Peripheral vascular disease (CMS/HCC) Amputated toe, unspecified laterality ECG 12-LEAD Routine 06/13/2025 12:38 PM EST Orthopnea XR CHEST 2 VIEWS Routine 06/13/2025 12:1 6 PM EST Orthopnea POCT HEMOGLOBIN Routine 06/13/2025 10:08 AM EST Type 2 diabetes mellitus with other specified complication, with long-term current use of insulin (HCC) POCT GLUCOSE Routine 06/13/2025 10:08 AM EST Type 2 diabetes mellitus with other specified complication, with long-term current use of insulin ([facility]) POCT GLYCATED HEMOGLOBIN, TOTAL Routine 03/30/2024 1:49 PM EDT Type 2 diabetes mellitus with other specified complication, with long-term current use of insulin ([facility]) BITEWING - SINGLE RADIOGRAPHIC IMAGE Routine 03/06/2024 [...] Relevant to Health Maintenance Results * (ABNORMAL) Albumin, Random Urine W/Creatinine (06/20/2025 9:05 AM EST) Creatinine, Urine 51.28 mg/dL [facility] Microalbumin Urine 124.0 mg/L [facility] Microalbum Creatinine Ratio Ur 241.8(H) <30 ug/mg cr [facility] Comment:Albumin/Creatinine R atio Reference Ranges: Normal: < 30 ug/mg creatinine Microalbuminuria: 30 - 300 ug/mg creatinineClinical Albuminuria: > 300 ug/mg creatinine Urine (Urine, Random) 06/20/2025 9:05 AM EST 06/20/2025 11:17 AM EST us Renny Johnston MD LAB URINE ORDERABLES Final Resul t [facility] [address] [place] [phone] * Vitamin B12 (Cobalamin) and Folate Panel, Serum (06/19/2025 9:19 AM EST) Vitamin B12 568 200 - 900 pg/mL [facility] Comment:NORMAL 200-900 PG/ML INDETERMINATE 160-199 PG/ML DEFICIENT < 160 PG/ML Folate 7.8 > or = 4.0 ng/mL [facility] Comment:Reference Values:> o r = 4.0 ng/mL< 4.0 ng/mL suggests folate deficiency Methotrexate, aminopterin and folinic acid(leucovorin) are chemotherapeutic agents whose molecularstructures are similar to folate; therefore, the Architectfolate assay cannot be used for patients using these drugs. Blood Venous blood specimen / Unknown 06/19/2025 9:19 AM EST 06/19/2025 11:26 AM EST us Renny Johnston MD LAB BLOOD ORDERABLES Final Resul t [facility] [address] [place] [phone] * (ABNORMAL) CBC auto differential (06/19/2025 9:19 AM EST) White Blood Count 5.8 4.8 - 10.8 X10*3/uL [facility] Red Blood Count 3.69(L) 4.60 - 5.80 X10*6/uL [facility] Hemoglobin 9.9(L) 14.0 - 18.0 g/dl [facility] Hematocrit 31.6(L) 42.0 - 52.0 % [facility] Mean Corpuscular Volume 85.6 80.0 - 98.0 fL [facility] Mean Corpuscular Hemoglobin 26.8(L) 27.0 - 33.0 pg [facility] Mean Corpuscular HGB Conc 31.3 31.0 - 36.0 g/dl [facility] Red Cell Distribution Width 15.8 11.0 - 16.0 % [facility] Platelet Count 196 160 - 400 X10*3/uL [facility] Mean Platelet Volume 12.9(H) 9.4 - 12.4 fL [facility] Neutrophils Percent Auto 55.4 45 - 73 % [facility] Imm Gran Pct Auto 0.2 0.0 - 0.4 % [facility] Lymphocytes Percent Auto 26.1 20 - 40 % [facility] Monocytes Percent Auto 10.7 2 - 11 % [facility] Eosinophils Percent Auto 6.7(H) 0 - 4 % [facility] Basophils Percent Auto 0.9 0 - 2 % [facility] NRBC Pct Auto 0.0 0.0 - 0.2 /100WBC [facility] Neutrophils Absolute Auto 3.2 2.0 - 8.3 x10*3/uL [facility] Imm Gran Abs Auto 0.01 0.00 - 0.03 X10*3/uL [facility] Lymphocytes Absolute Auto 1.5 1.2 - 4.9 X10*3/uL [facility] Monocytes Absolute Auto 0.6 0.1 - 1.2 X10*3/uL [facility] Eosinophils Absolute Auto 0.4 0.0 - 0.4 X10*3/uL [facility] Basophils Absolute Auto 0.1 0.0 - 0.2 X10*3/uL [facility] NRBC Abs Auto 0.000 0.0 - 0.012 X10*3/uL [facility] Blood Venous blood specimen / Unknown 06/19/2025 9:19 AM EST 06/19/2025 11:26 AM EST us Renny Name LAB BLOOD ORDERABLES Final Resul t [facility] [address] [place] [phone] * Iron And Total Iron Binding Capacity (06/19/2025 9:19 AM EST) Iron 89 45 - 160 mcg/dL [facility] Total Iron Binding Capacity 281 228 - 428 mcg/dL [facility] Percent Iron Saturation 32 15 - 50 % [facility] Unsaturated Iron Binding 192 ug/dL [facility] Blood Venous blood specimen / Unknown 06/19/2025 9:19 AM EST 06/19/2025 11:26 AM EST us Renny Johnston MD LAB BLOOD ORDERABLES Final Resul t Performing Organization Address City/[facility]/ZIP Co de Phone Number [facility] [address] [place] [phone] * Ferritin (06/19/2025 9:19 AM EST) Ferritin 36 20 - 250 ng/mL [facility] Blood Venous blood specimen / Unknown 06/19/2025 9:19 AM EST 06/19/2025 11:26 AM EST us Renny Johnston MD LAB BLOOD ORDERABLES Final Resul t Performing Organization Address [facility] de Phone Number [facility] [address] [place] [phone] * (ABNORMAL) Lipid Panel, Standard (06/19/2025 9:19 AM EST) Triglycerides 112 <150 mg/dL [facility] Comment:Desirable Triglyceri de: less than 150 mg/dLBorderline High Triglyceride 150-199 mg/dLHigh Triglyceride: 200-499 mg/dLVery High Triglyceride: greater than or equal to 5OO mg/dL Cholesterol 145 <200 mg/dL [facility] Comment:Desirable Cholestero l: less than 200 mg/dLBorderline High Cholesterol: 200-239 mg/dLHigh Cholesterol: greater than 239 mg/dL LDL Cholesterol Calculated 85 <100 mg/dL [facility] Comment:Desirable LDL: less than 100 mg/dLNear Optimal/Above Optimal LDL: 110- 129 mg/dLBorderline High LDL: 130-159 mg/dLHigh LDL: 160-189 mg/dLVery High LDL: greater than or equal to 190 mg/dL HDL Cholesterol 38(L) >40 mg/dL [facility] Comment:Desirable HDL: great er than 40 mg/dL Note: This HDL assay may give artificially low results in patients with liver disease. Blood Venous blood specimen / Unknown 06/19/2025 9:19 AM EST 06/19/2025 11:26 AM EST us Renny Johnston MD LAB BLOOD ORDERABLES Final Resul t Performing Organization Address City/[facility]/ZIP Co de Phone Number [facility] [address] [place] [phone] * (ABNORMAL) Comprehensive Metabolic Panel (06/19/2025 9:19 AM EST) Sodium 142 135 - 145 mmol/L [facility] Potassium 4.2 3.3 - 5.1 mmol/L [facility] Chloride 106 96 - 108 mmol/L [facility] Carbon Dioxide 28 22 - 29 mmol/L [facility] Anion Gap 12 12 - 20 [facility] Urea Nitrogen (BUN) 36(H) 9 - 16 mg/dL [facility] Creatinine, Serum 1.54(H) 0.5 - 1.4 mg/dL [facility] Estimated Glomerular Filt Rate 44 [facility] Comment:Chronic Kidney Disea se: Estimated GFR < 60 mL/min/1.38t6Hnisuu Kidney Disease: Estimated GFR < 15 mL/min/1.73m2 Glucose 109 60 - 115 mg/dL [facility] Calcium 9.3 8.4 - 10.2 mg/dL [facility] Bilirubin, Total 0.3 0.0 - 1.0 mg/dL [facility] Aspartate Amino Transferase 20 5 - 37 U/L [facility] Alanine Aminotransferase 13 0 - 40 U/L [facility] Total Protein 6.8 6.5 - 8.0 g/dL [facility] Albumin Level 4.0 3.5 - 5.0 g/dL [facility] Alkaline Phosphatase 56 39 - 117 U/L [facility] Blood Venous blood specimen / Unknown 06/19/2025 9:19 AM EST 06/19/2025 11:26 AM EST us Renny Johnston MD LAB BLOOD ORDERABLES Final Resul t [facility] [address] [place] [phone] * ECG 12 lead (06/13/2025 12:38 PM EST) Narrative NameRenny MD - 06/13/2025 12:38 PM EST Normal sinus rhythm. Heart rate of 56. No ST segment elevation or depression. Q wave in lead III. us Renny Johnston MD ECG ORDERABLES Final Result * XR Chest 2 Views (06/13/2025 12:16 PM EST) Anatomical Region Laterality Modality Chest Radiographic She ging 06/13/2025 12:1 6 PM EST Narrative 06/13/2025 12:36 PM EST [address] [address] XRay Report Signed Patient: Shaquille Escobedo MR#: [id number] : 1945 Acct:[id number] Age/Sex: 79 / M ADM Date: 06/13/25 Loc: .[facility] Attending Dr: Renny Johnston MD Ordering Physician: Renny Johnston MD Date of Service: 06/13/25 Procedure(s): XR chest 2V Accession Number(s): [id number] cc: Renny Johnston MD Reason for Exam: [...] 06/13/25 1234 DD/ 1216 TD/TT: 06/13/25 1218 Vein Pumper: Procedure Note Donotuseinterpreter, Image - 06/13/2025 [facility] [address] [place] [address] XRay Report Signed Patient: Shaquille EscobedoMR#: [id number] : 1945cct:[id number] Age/Sex: 79 / MADM Date: 06/13/25 [facility]: Renny Johnston MD Ordering Physician: Renny Johnston MD Date of Service: 06/13/25 Procedure(s): XR chest 2V Accession Number(s): [id number] cc: Renny Johnston MD Reason for Exam: [...] 06/13/25 1234 DD/ 1216 TD/TT: 06/13/25 1218 Vein Pumper: us Renny Johnston MD IMG XR PROCEDURES [...] Date Blood 06/13/2025 10:0 8 AM EST us Renny Johnston MD POINT OF CARE TEST ENTER/EDIT OR DERABLES Final Result * (ABNORMAL) POCT HGB A1C (03/30/2024 1:49 PM EDT) Hemoglobin A1C 7.1(A) 4.0 - 6.0 % QC Media Lot # [id number] Blood 03/30/2024 1:49 PM EDT Result Shantel Johnston MD POINT OF CARE TEST ENTER/EDIT OR DERABLES Final Result * Hm Diabetes Eye Exam (12/07/2023) Eye Exam Normal Normal Result Shantel Johnston MD HEALTH MAINTENANCE Final Result from [...] neuropathy 06/26/2025 Patient has diabetic neuropathy 06/26/2025 Insurance [facility] OPTIONS (O D-SNP) KATIE FISHER [id number] [facility] Care Teams Ticket Maker Relationship Specialty Start Date End Date Name, MD Renny [address] [place] [phone] PCP - General Family Medicine 03/10/22 [employer] Physical Therapist 06/22/25
--- OUTSIDE RECORDS SUMMARY | 2025-07-04 01:00 | XMS_ITS | Clinical Summary ---
Author Organization [facility] Address [address] [place] [address] Phone Care Team Providers Care Trains Dispatcher Supervisor Name Role Phone Name, Renny SWAN Primary Care Provider [phone] Allergies No known active allergies Medications aspirin 81 mg EC tablet Take 1 tablet (81 mg total) by mouth at bedtime. at bedtime. 08/22/2024 Active atorvastatin (LIPITOR) 80 mg tablet Take 1 tablet (80 mg total) by mouth at bedtime. 08/22/2024 Active abiraterone (ZYTIGA) 500 mg Take 2 tablets (1,000 mg total) by mouth 1 (one) time each day 09/06/2024 Active gabapentin (NEURONTIN) 300 mg capsule Take 1 capsule (300 mg total) by mouth 2 (two) times a day. 08/22/2024 Active NovoLOG Flexpen U-100 Insulin 100 unit/mL (3 mL) injection pen Inject 6 Units under the skin 3 (three) times a day before meals. 08/22/2024 Active metFORMIN (GLUCOPHAGE) 1,000 mg tablet Take 1 tablet (1,000 mg total) by mouth 2 (two) times a day with meals. 07/24/2024 Active metoprolol tartrate (LOPRESSOR) 100 mg tablet Take 1 tablet (100 mg total) by mouth 2 (two) times a day. 07/24/2024 Active omeprazole (PriLOSEC) [address] capsule Take 1 capsule (20 mg total) by mouth 1 (one) time each day. 08/22/2024 Active predniSONE (DELTASONE) 5 mg tablet Take 1 tablet (5 mg total) by mouth 1 (one) time each day. 07/17/2024 Active sertraline (ZOLOFT) 25 mg tablet Take 1 tablet (25 mg total) by mouth 1 (one) time each day. 08/22/2024 Active tamsulosin (FLOMAX) 0.4 mg 24 hr capsule Take 2 capsules (0.8 mg total) by mouth 1 (one) time each day in the morning. 08/22/2024 Active zolpidem (AMBIEN) 10 mg tablet Take 1 tablet (10 mg total) by mouth at bedtime as needed. at bedtime for sleep 09/12/2024 Active doxazosin XL (CARDURA XL) 8 mg [...] (three) times a day. 90 each 2 05/11/2025 08/09/19 Active rivaroxaban (XARELTO) 2.5 mg tablet Take 1 tablet (2.5 mg total) by mouth 2 (two) times a day with meals. 60 tablet 2 05/11/2025 08/09/19 Active oxyCODONE (OXY-IR) 5 mg immediate release capsule Take 1 capsule (5 mg total) by mouth every 6 (six) hours if needed for severe pain. Max Daily Amount: 20 mg 15 capsule 05/11/2025 Active Active Problems Problem Noted Date Diagnosed Date Dry gangrene 05/07/2025 Gangrene of left foot 05/07/2025 Acute osteomyelitis 05/07/2025 PAD (peripheral artery disease) 05/07/2025 Encounters Date Type Department Care Team Description 06/05/2025 8:30 AM EST Office Visit Vascular Surgery - [address] [place] [phone] Radha Card PA Amputation of fifth toe of left foot ([facility] V24) (Primary Dx); Acute osteomyelitis ([facility] V24, [facility] V28); PAD (peripheral artery disease) ([facility] V24) 05/16/2025 Telephone Vascular Surgery - [place] [address] [place] [phone] John Gayle MD 05/09/2025 4:25 PM EDT - 05/09/2025 5:25 PM EDT Surgery [facility] Main OR [address] [place] [phone] John Gayle MD LEFT 5TH TOE AMPUTATION 05/09/2025 4:20 PM EDT Anesthesia Event [facility] OR [address] [place] [phone] Mathieu Dooley DO Claudio, Raymund, CRNA 05/08/2025 1:00 PM EDT - 05/08/2025 3:00 PM EDT Surgery [facility] Cardiac [employer] [address] [place] [phone] John Gayle MD Angiography lower ext left 05/07/2025 1:59 PM EDT - 05/11/2025 6:44 PM EDT Hospital Encounter [facility] Urology Unit [address] [place] [phone] Nanci Kellogg MD Jones, Christopher, MD Bell, Alistair A, MD PAD (peripheral artery disease) ([facility] V24) (Primary Dx); Gangrene of left foot ([facility] V24, [facility] V28); Acute osteomyelitis ([facility] V24, [facility] V28); Dry gangrene ([facility] V24, [facility] V28) Discharge Disposition: Home-Health Care [facility] from Last 3 Months Medical History Medical History Date Comments Diabetes mellitus ([facility] V24, [facility] V28) Renal disorder Hypertension Social History Tobacco [...] care for your loved ones. For example, exceptional children's teacher or elderly care for an older adult? [...] Health Maintenance Due Date Last Done Comments Drug Screen 1945 Non-Opioid Controlled Substance Agreement 1945 Diabetes: Annual Foot Exam 1953 Diabetes: Annual Retina Eye Exam 1955 Depression Screening 07/19/2024 COVID-19 Vaccine ( season) 2025 03/18/2022, 07/30/2021, 10/24/2020, Additional history exists Influenza Vaccine (#1) 2025 , 04/23/2023, 04/15/2022 Medicare Annual Wellness Visit 05/04/2025 Diabetes: Annual Urine Albumin-Creatinine Ratio (uACR) 05/08/2025 Diabetes: Blood Sugar Control Test (HGBA1C) 05/08/2025 03/30/2024 Social Influencers of Health Screening 05/08/2026 05/08/2025 Falls Risk Assessment 05/11/2026 05/11/2025 Diabetes: Annual GFR (Glomerular Filtration Rate) 06/19/2026 06/19/2025, 05/10/2025, 05/09/2025, Additional history exists Hypertension/CHF/CAD Annual BMP Blood Test 06/19/2026 06/19/2025, 05/10/2025, 05/09/2025, Additional history exists Cholesterol Screening (Lipid Panel) 06/19/2030 06/19/2025, 03/15/2024 DTaP,Tdap,and Td Vaccines (2 - Td [...] V28) Acute osteomyelitis (CMS/HCC V24, CMS/HCC V28) ECG 12-LEAD STAT 05/09/2025 2:57 PM [...] 10:15 AM EDT PAD (peripheral artery disease) (CMS/HCC V24) Gangrene of left foot (CMS/HCC V24, CMS/HCC V28) Acute osteomyelitis (CMS/HCC V24, CMS/HCC V28) POCT GLUCOSE BLOOD Routine 05/08/2025 8: [...] 6:00 PM EDT PAD (peripheral artery disease) (CMS/HCC V24) C-REACTIVE PROTEIN Add-On 05/07/2025 1: 34 [...] of17 resultswithin the time period is included. [facility] Signature Glucose POCT 196(H) 70 - 100 mg/dL 05/11/2025 4:31 PM EDT [facility] Blood Capillary blood specimen / Unknown 05/11/2025 4:28 PM EDT 05/11/2025 4:32 PM EDT Slade Zuluaga MD LAB POINT OF CARE TE ST DOCKED DEVICE UNSOLICITED RESULTS Final Result [facility] [address] [place] [address], [place] [phone] * Activated Partial Thromboplastin Time - STAT (05/11/2025 9:35 AM EDT) Pathologist [facility] aPTT 31.9 24.1 - 39.3 sec LAB COAGULATION METHOD 05/11/2025 9:56 AM EDT [facility] Blood Venous blood specimen / Unknown Venipuncture / Unknown 05/11/2025 9:35 AM EDT 05/11/2025 9:41 AM EDT us Radha WILSON LAB BLOOD ORDERABLES Final Re sult [facility] [address] [place] [address], [place] [phone] * Prothrombin Time with INR - STAT (05/11/2025 9:35 AM EDT) [facility] Protime 11.9 10.6 - 13.9 sec LAB COAGULATION METHOD 05/11/2025 9:56 AM EDT [facility] INR 1.0 LAB COAGULATION METHOD 05/11/2025 9:56 AM EDT [facility] Blood Venous blood specimen / Unknown Venipuncture / Unknown 05/11/2025 9:35 AM EDT 05/11/2025 9:41 AM EDT us Radha WILSON LAB BLOOD ORDERABLES Final Re sult [facility] [address] [place] [address], [place] [phone] * (ABNORMAL) Hepatic Function Panel - STAT (05/11/2025 9:35 AM EDT) [facility] Total Protein 5.7(L) 6.0 - 8.0 g/dL LAB CHEMISTRY METHOD 05/11/2025 10:10 AM EDT [facility] Albumin 2.5(L) 3.2 - 5.0 g/dL LAB CHEMISTRY METHOD 05/11/2025 10:10 AM EDT [facility] Total Bilirubin 0.4 0.0 - 1.4 mg/dL LAB CHEMISTRY METHOD 05/11/2025 10:10 AM T [facility] Bilirubin, Direct 0.2 0.0 - 0.3 mg/dL LAB CHEMISTRY METHOD 05/11/2025 10:10 AM T [facility] Bilirubin, Indirect 0.2 0.0 - 1.1 mg/dL LAB CHEMISTRY METHOD 05/11/2025 10:10 AM T [facility] ALT (SGPT) 14 10 - 60 unit/L LAB CHEMISTRY METHOD 05/11/2025 10:10 AM [facility] AST (SGOT) 11 10 - 42 unit/L LAB CHEMISTRY METHOD 05/11/2025 10:10 AM [facility] Alkaline Phosphatase 68 42 - 121 unit/L LAB CHEMISTRY METHOD 05/11/2025 10:10 AM [facility] Blood Venous blood specimen / Unknown Venipuncture / Unknown 05/11/2025 9:35 AM EDT 05/11/2025 9:41 AM EDT us Radha WILSON LAB BLOOD ORDERABLES Final Re sult [facility] [address] [place] [address], * Lavender tube (05/11/2025 9:31 AM EDT) Extra Tube Hold for add-ons. 05/11/2025 11:01 AM EDT [facility] Comment:Auto resulted. Blood Venous blood specimen / Unknown 05/11/2025 9:31 AM EDT 05/11/2025 9:42 AM EDT Slade Zuluaga MD LAB BLOOD ORDERABLES Final Re sult [facility] [address] [place] [address], * (ABNORMAL) Complete blood count (05/10/2025 5:56 AM EDT) Only the most recent of2 resultswithin the time period is included. WBC 7.2 4.8 - 10.8 K/mcL LAB HEMETOLOGY METHOD 05/10/2025 7:13 AM EDT [facility] RBC 3.30(L) 4.50 - 5.50 M/mcL LAB HEMETOLOGY METHOD 05/10/2025 7:13 AM EDT [facility] Hemoglobin 8.7(L) 13.5 - 17.5 g/dL LAB HEMETOLOGY METHOD 05/10/2025 7[facility] Hematocrit 27.7(L) 42.0 - 54.0 % LAB HEMETOLOGY METHOD 05/10/2025 7:13 [facility] MCV 84.5 79.0 - 98.0 FL LAB HEMETOLOGY METHOD 05/10/2025 7:13 [facility] MCH 26.5(L) 27.0 - 32.0 pcg LAB HEMETOLOGY METHOD 05/10/2025 7:13 [facility] MCHC 31.4(L) 32.0 - 37.0 g/dL LAB HEMETOLOGY METHOD 05/10/2025 7:13 [facility] RDW 15.1(H) 11.0 - 15.0 % LAB HEMETOLOGY METHOD 05/10/2025 7:13 [facility] Platelets 185 130 - 400 K/mcL LAB HEMETOLOGY METHOD 05/10/2025 7:13 AM EDT [facility] MPV 11.3(H) 7.0 - 11.0 FL LAB HEMETOLOGY METHOD 05/10/2025 7:13 AM EDT [facility] NRBC 0.0 <1.0 % [facility] 05/10/2025 7:13 AM EDT [facility] NRBC Absolute 0.00 <0.10 K/mcL LAB HEMETOLOGY METHOD 05/10/2025 7:13 AM EDT [facility] Blood Venous blood specimen / Unknown Venipuncture / Unknown 05/10/2025 5:56 AM EDT 05/10/2025 6:50 AM EDT us Radha WILSON LAB BLOOD ORDERABLES Final Re sult [facility] [address] [place] [address], * Basic metabolic panel (05/10/2025 5:56 AM EDT) Only the most recent of3 resultswithin the time period is included. Sodium 138 133 - 145 mmol/L LAB CHEMISTRY METHOD 05/10/2025 8:12 AM [facility] Potassium 4.1 3.5 - 5.5 mmol/L LAB CHEMISTRY METHOD 05/10/2025 8:12 AM [facility] Chloride 104 96 - 110 mmol/L LAB CHEMISTRY METHOD 05/10/2025 8:12 AM [facility] CO2 26 21 - 32 mmol/L LAB CHEMISTRY METHOD 05/10/2025 8:12 AM [facility] Anion Gap 8 3 - 11 LAB CHEMISTRY METHOD 05/10/2025 8:12 AM [facility] Glucose 90 70 - 100 mg/dL LAB CHEMISTRY METHOD 05/10/2025 8:12 AM [facility] BUN 15 5 - 25 mg/dL LAB CHEMISTRY METHOD 05/10/2025 8:12 AM EDT [facility] Creatinine 1.19 0.70 - 1.30 mg/dL LAB CHEMISTRY METHOD 05/10/2025 8:12 AM EDT [facility] eGFR 61 >=60 mL/min/1. 73m2 LAB CHEMISTRY METHOD 05/10/2025 8:12 AM EDT [facility] Comment:Calculation based on the Chronic Kidney Disease Epidemiology Collaboration (CKD-EPI) equation refit without adjustment for race. BUN/Creatinine Ratio 12.6 LAB CHEMISTRY METHOD 05/10/2025 8:12 AM EDT [facility] Calcium 9.0 8.5 - 10.5 mg/dL LAB CHEMISTRY METHOD 05/10/2025 8:12 AM T [facility] Blood Venous blood specimen / Unknown Venipuncture / Unknown 05/10/2025 5:56 AM EDT 05/10/2025 6:50 AM EDT us Radha WILSON LAB BLOOD ORDERABLES Final Re sult [facility] [address] [place] [address], * Tissue exam (05/09/2025 4:39 PM EDT) Final Diagnosis Toe, Left, left 5th toe amputation: -GANGRENE AND ACUTE OSTEOMYELITIS -Margin negative 05/11/2025 11:43 AM EDT [facility] at 1143 EDT Gross Description [...] cut longitudinally to reveal hard cut surfaces. [employer] longitudinal sections are submitted in two cassettes, 1-one piece and 2-two pieces (red ink representing bony margin), following decalcification. KR 05/11/2025 11:43 AM EDT [facility] Disclaimer Unless otherwise specified, all tissue is 10% NB formalin fixed and paraffin embedded. 05/11/2025 11:43 AM EDT [facility] Tissue Structure of toe of left foot / Unknown 05/09/2025 4:39 PM EDT 05/10/2025 7:23 AM EDT John Gayle MD LAB PATHOLOGY ORDERABLES Final Result Performing Organization Address [facility] Co de Phone Number [facility] [address] [place] [address], * ECG 12 lead (05/09/2025 2:57 PM EDT) Ventricular Rate ECG 61 BPM GEMUSE Atrial Rate 61 BPM GEMUSE P-R Interval 186 ms GEMUSE QRS Duration 78 ms GEMUSE Q-T Interval 452 ms GEMUSE QTc 455 ms GEMUSE P Wave [place] 64 degrees GEMUSE R [place] 5 degrees GEMUSE T [place] 26 degrees GEMUSE ECG Interpretation Normal sinus rhythm Normal ECG No previous ECGs available Confirmed by Jud SCHAFER JOHN ([id number]) on 05/09/2025 7:35:12 PM GEMUSE 05/09/2025 2:57 PM EDT 05/09/2025 7:35 PM EDT Slade Zuluaga MD ECG ORDERABLES Final Result Performing Organization Address [facility] Co de Phone Number GEMUSE * (ABNORMAL) POCT activated clotting time,kaolin (05/08/2025 10:48 AM EDT) Only the most recent of2 resultswithin the time period is included. Activated Clotting Time Kaolin 187(H) 74 - 137 sec 05/08/2025 11:07 AM EDT [facility] Blood Arterial blood specimen / Unknown 05/08/2025 10:48 AM EDT 05/08/2025 11:09 AM EDT Slade Zuluaga MD LAB POINT OF CARE TE ST DOCKED DEVICE UNSOLICITED RESULTS Final Result [facility] [address] [place] [address], [place] [phone] * ANGIOGRAPHY LOWER EXT LEFT (05/08/2025 10:15 [...] of2 resultswithin the time period is included. [facility] WBC 6.0 4.8 - 10.8 K/mcL LAB HEMETOLOGY METHOD 05/08/2025 6:41 AM EDT [facility] RBC 3.20(L) 4.50 - 5.50 M/mcL LAB HEMETOLOGY METHOD 05/08/2025 6:41 AM EDT [facility] Hemoglobin 8.6(L) 13.5 - 17.5 g/dL LAB HEMETOLOGY METHOD 05/08/2025 6:41 AM EDT [facility] Hematocrit 26.8(L) 42.0 - 54.0 % LAB HEMETOLOGY METHOD 05/08/2025 6:41 AM [facility] MCV 83.2 79.0 - 98.0 FL LAB HEMETOLOGY METHOD 05/08/2025 6:41 AM [facility] MCH 26.7(L) 27.0 - 32.0 pcg LAB HEMETOLOGY METHOD 05/08/2025 6:41 AM [facility] MCHC 32.1 32.0 - 37.0 g/dL LAB HEMETOLOGY METHOD 05/08/2025 6:41 AM [facility] RDW 15.4(H) 11.0 - 15.0 % LAB HEMETOLOGY METHOD 05/08/2025 6:41 AM [facility] Platelets 188 130 - 400 K/mcL LAB HEMETOLOGY METHOD 05/08/2025 6:41 AM [facility] MPV 10.7 7.0 - 11.0 FL LAB HEMETOLOGY METHOD 05/08/2025 6:41 AM [facility] NRBC 0.0 <1.0 % LAB HEMETOLOGY METHOD 05/08/2025 6:41 AM [facility] NRBC Absolute 0.00 <0.10 K/mcL LAB HEMETOLOGY METHOD 05/08/2025 6:41 AM [facility] Neutrophils Relative 58.8 % LAB HEMETOLOGY METHOD 05/08/2025 6:41 AM [facility] Lymphocytes Relative 20.6 % LAB HEMETOLOGY METHOD 05/08/2025 6:41 AM [facility] Monocytes Relative 10.3 % LAB HEMETOLOGY METHOD 05/08/2025 6:41 AM [facility] Eosinophils Relative 9.6 % LAB HEMETOLOGY METHOD 05/08/2025 6:41 AM [facility] Basophils Relative 0.5 % LAB HEMETOLOGY METHOD 05/08/2025 6:41 AM EDT [facility] Immature Granulocytes Relative 0.2 % LAB HEMETOLOGY METHOD 05/08/2025 6:41 AM EDT [facility] Neutrophils Absolute 3.54 1.50 - 7.00 K/mcL LAB HEMETOLOGY METHOD 05/08/2025 6:41 AM EDT [facility] Lymphocytes Absolute 1.24 1.00 - 5.00 K/mcL LAB HEMETOLOGY METHOD 05/08/2025 6:41 AM EDT [facility] Monocytes Absolute 0.62 0.20 - 1.00 K/mcL LAB HEMETOLOGY METHOD 05/08/2025 6:41 AM EDT [facility] Eosinophils Absolute 0.58(H) 0.00 - 0.50 K/mcL LAB HEMETOLOGY METHOD 05/08/2025 6:41 AM EDT [facility] Basophils Absolute 0.03 0.00 - 0.20 K/mcL LAB HEMETOLOGY METHOD 05/08/2025 6:41 AM EDT [facility] Immature Granulocytes Absolute 0.01 0.00 - 0.03 K/mcL LAB HEMETOLOGY METHOD 05/08/2025 6:41 AM [facility] Blood Venous blood specimen / Unknown Venipuncture / Unknown 05/08/2025 6:04 AM EDT 05/08/2025 6:22 AM EDT us Paul Trimble MD LAB BLOOD ORDERABLES Final Result [facility] [address] [place] [address], * Type and screen (05/08/2025 6:04 AM EDT) ABO Group A 05/08/2025 8:01 AM EDT [facility] Rh Type Positive 05/08/2025 8:01 AM EDT [facility] Antibody Screen Negative 05/08/2025 8:01 AM EDT [facility] Blood Venous blood specimen / Unknown Venipuncture / Unknown 05/08/2025 6:04 AM EDT 05/08/2025 6:22 AM EDT Anthony WILSON LAB BLOOD BANK TEST ORDERABLES Final Result [facility] [address] [place] [address], * MR Foot wo and w Contrast [...] MD on 05/07/2025 22:06:35 us Joseph WILSON IMG MRI PROCEDURES Final Re sult * Vascular [...] Lactate, with reflex (05/07/2025 1:34 PM EDT) Pathologist [facility] LACTIC ACID 1.2 0.4 - 2.0 mmol/L LAB CHEMISTRY METHOD 05/07/2025 2:32 PM EDT [facility] Blood Venous blood specimen / Unknown Venipuncture / Unknown 05/07/2025 1:34 PM EDT 05/07/2025 1:50 PM EDT Muna Valadez MD LAB BLOOD ORDERABLES Final Resul t Performing Organization Address City/[facility]/ZIP Co de Phone Number [facility] [address] [place] [address], * Blood culture (05/07/2025 1:34 PM EDT) Only the most recent of2 resultswithin the time period is included. [facility] Culture, Blood No growth at 5 days 05/12/2025 3:01 PM EDT [facility] Blood Venous blood specimen / Unknown Venipuncture / Unknown 05/07/2025 1:34 PM EDT 05/07/2025 2:17 PM EDT Muna Valadez MD LAB MICROBIOLOGY - GENERAL ORDER EVETTE Final Result [facility] [address] [place] [address], * (ABNORMAL) C-reactive protein (05/07/2025 1:34 PM EDT) [facility] C-Reactive Protein 0.58(H) <=0.50 mg/dL LAB CHEMISTRY METHOD 05/08/2025 12:10 AM EDT [facility] Blood Venous blood specimen / Unknown Venipuncture / Unknown 05/07/2025 1:34 PM EDT 05/07/2025 1:52 PM EDT us Paul Trimble MD LAB BLOOD ORDERABLES Final Result [facility] [address] [place] [address], * (ABNORMAL) Comprehensive metabolic panel (05/07/2025 1:34 PM EDT) Sodium 136 133 - 145 mmol/L LAB CHEMISTRY METHOD 05/07/2025 2:46 PM [facility] Potassium 4.3 3.5 - 5.5 mmol/L LAB CHEMISTRY METHOD 05/07/2025 2:46 PM [facility] Chloride 102 96 - 110 mmol/L LAB CHEMISTRY METHOD 05/07/2025 2:46 PM [facility] CO2 30 21 - 32 mmol/L LAB CHEMISTRY METHOD 05/07/2025 2:46 PM [facility] Anion Gap 4 3 - 11 LAB CHEMISTRY METHOD 05/07/2025 2:46 PM [facility] Glucose 176(H) 70 - 100 mg/dL LAB CHEMISTRY METHOD 05/07/2025 2:46 PM [facility] BUN 23 5 - 25 mg/dL LAB CHEMISTRY METHOD 05/07/2025 2:46 PM [facility] Creatinine 1.37(H) 0.70 - 1.30 mg/dL LAB CHEMISTRY METHOD 05/07/2025 2:46 PM [facility] eGFR 52(L) >=60 mL/min/1. 73m2 LAB CHEMISTRY METHOD 05/07/2025 2:46 PM [facility] Comment:Calculation based on the Chronic Kidney Disease Epidemiology Collaboration (CKD-EPI) equation refit without adjustment for race. BUN/Creatinine Ratio 16.8 LAB CHEMISTRY METHOD 05/07/2025 2:46 PM EDT [facility] Calcium 8.9 8.5 - 10.5 mg/dL LAB CHEMISTRY METHOD 05/07/2025 2:46 PM T [facility] AST (SGOT) 15 10 - 42 unit/L LAB CHEMISTRY METHOD 05/07/2025 2:46 PM EDT [facility] ALT (SGPT) 21 10 - 60 unit/L LAB CHEMISTRY METHOD 05/07/2025 2:46 PM EDT [facility] Alkaline Phosphatase 78 42 - 121 unit/L LAB CHEMISTRY METHOD 05/07/2025 2:46 PM EDT [facility] Total Protein 6.5 6.0 - 8.0 g/dL LAB CHEMISTRY METHOD 05/07/2025 2:46 PM EDT [facility] Albumin 3.1(L) 3.2 - 5.0 g/dL LAB CHEMISTRY METHOD 05/07/2025 2:46 PM EDT [facility] Total Bilirubin 0.3 0.0 - 1.4 mg/dL LAB CHEMISTRY METHOD 05/07/2025 2:46 PM EDT [facility] Blood Venous blood specimen / Unknown Venipuncture / Unknown 05/07/2025 1:34 PM EDT 05/07/2025 1:52 PM EDT us Muna Valdaez MD LAB BLOOD ORDERABLES Final Resul t [facility] [address] [place] [address], from Last 3 Months Additional Health Concerns Active Problems Noted Date Diagnosed Date Autogenerated Problem 05/08/2025 Insurance [facility] MEDICARE Member Subscriber Plan / Payer (Ef fective 2025-Present) Name:Shaquille Rhodes Jr Relation to Subscriber:Self Name:Shaquille Escobedo Payer ID:[id number] Group ID:[id number] Type:Not on file Address: [place] [address] [address] [phone] Advance Directives * Full Code - Default [...] currently active code status orders. Care Teams Trains Dispatcher Supervisor Relationship Specialty Start Date End Date Name, MD Renny [address] [place] [id number] PCP - General Internal Medicine 05/04/25
--- OUTSIDE RECORDS SUMMARY | 2025-07-04 01:00 | XMS_ITS | Encounter Summary ---
Author Organization [employer] Address [address] [facility] 7 [place] [address] Care Team Providers Care Respiratory Manager Name Role Phone Name, Renny SWAN Primary Care Provider [phone] Reason for Visit * Reason Onset Date Comments Hospital Follow-up 05/14/2025 Encounter Details Date Type Department Care Team ([facility] st Contact Info) Description 05/14/2025 Telephone [facility] MEDICINE [address] [place] [address] [phone] Name, MD Renny [address] [place] [address] Hospital Follow-up Social History Tobacco Use Types [...] from pt requesting a HDF appt. Hospital: [facility] Date of admission: 05/07 Discharge date: 05/11 Diagnosed: Gangrene of left foot *Send message to [facility] Clinical Care Coordinators documented in this encounter Plan of Treatment Upcoming Encounters Date Type Department Care Team (Late st Contact Info) Description 07/27/2025 10:30 AM EST Medication Management [facility] MEDICINE [address] [place] [phone] Jory Christina, Joe [address] [place] [address] 09/14/2025 10:00 AM EST Office Visit [facility] MEDICINE [address] [place] [phone] Name, MD Renny [address] [place] [address] [place] [address] 10/12/2025 12:45 PM EDT Office Visit [facility] ADULT DENTAL [address] [place] [address] Elis Antonio documented as of this encounter [...] documented as of this encounter Care Teams Respiratory Manager Relationship Specialty Start Date End Date Name, MD Renny [address] [place] [address] PCP - General Family Medicine 03/10/22 [facility] 05/12/25 [facility] 06/22/25 documented as of this encounter
--- OUTSIDE RECORDS SUMMARY | 2025-07-04 01:00 | XMS_ITS | Encounter Summary ---
Author Organization [employer] Address [address] [facility] 7 [place] [address] Care Team Providers Care Clinical Research Nurse Name Role Phone Name, Renny SWAN Primary Care Provider [phone] Reason for Visit * Reason Comments Med Refill Encounter Details Date Type Department Care Team ([facility] st Contact Info) Description 10/17/2024 Refill [facility] [address] [place], [place] [phone] Name, MD Renny [address] [place] [address] Type 2 diabetes mellitus with other specified complication, with long-term current use of insulin ([facility]) Social History Tobacco Use Types [...] the past 12 months, has t he [employer], gas, oil or water [employer] threatened to shut off services in your [...] Description 07/27/2025 10:30 AM EST Medication Management [facility] [address] [place] [id number] Jory Christina PharmD [address] [place] [phone] 09/14/2025 10:00 AM EST Office Visit [facility] [address] [place] [phone] Name, MD Renny [address] [place] [phone] 10/12/2025 12:45 PM EDT Office Visit [facility] [address] [place] [phone] Elis Antonio documented as of this encounter [...] as of this encounter Care Teams Clinical Research Nurse Relationship Specialty Start Date End Date Name, MD Renny [address] [place] [address] PCP - General Family Medicine 03/10/22 [facility] 05/12/25 [employer] Physical Therapist 06/22/25 documented as of this encounter
--- NOTE | 2025-07-04 01:06 | ED.GENADULT ---
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 Fabiola Covington HPI narrative: 79-year-old male with a history of diabetes mellitus and hypertension who presents with two days of cough, shortness of breath, nausea, and several episodes of vomiting. EMS noted a fever en route, though the patient denies fever at home. He has not taken any antipyretics (denies Tylenol or Motrin at home). Cough is intermittent and at times productive of phlegm (yellow). He denies diarrhea. The patient reports a possible irregular heartbeat but is not on a blood thinner. He took his usual blood-pressure medication earlier today. He received his influenza vaccination approximately one week ago. Denies known medication allergies, chronic lung disease, or tobacco use. No sick contacts identified. Admits to using [employer] and has even eaten a small amount without relief of his cough. Related Data Home Medications ?Medication ?Instructions ?Recorded ?Confirmed gabapentin 300 mg capsule 300 mg PO TID Pain 03/04/22 04/27/25 metoprolol tartrate 100 mg tablet 1 tab PO BID 03/04/22 04/27/25 pen needle, diabetic 31 gauge x 03/04/22 04/27/25 3/16 (Sure Comfort Pen Needle) tamsulosin 0.4 mg capsule 1 cap PO DAILY 03/04/22 04/27/25 aspirin 81 mg chewable tablet 81 mg PO BEDTIME 04/29/23 04/27/25 atorvastatin 40 mg tablet 80 mg PO BEDTIME 04/29/23 04/27/25 insulin aspart U-100 100 unit/mL 6 unit subcut TIDAC 10/29/23 04/27/25 (3 mL) subcutaneous pen (Novolog FlexPen U-100 Insulin aspart) rivaroxaban 2.5 mg tablet (Xarelto) 2.5 mg PO BID 10/29/23 04/27/25 hydralazine 50 mg tablet 100 mg PO BID 02/23/24 04/27/25 insulin glargine 100 unit/mL 14 unit subcut BEDTIME 05/02/24 04/27/25 subcutaneous solution (Lantus U-100 Insulin) doxazosin 8 mg tablet 8 mg PO BID 03/26/25 04/27/25 furosemide 20 mg tablet (Lasix) 20 mg PO Q48H 03/26/25 04/27/25 leuprolide acetate (6 month) 45 mg 45 mg subcut [id number] 03/26/25 04/27/25 (6 month) subcutaneous syringe (Eligard) losartan 25 mg tablet 50 mg PO DAILY 03/26/25 04/27/25 sertraline 25 mg tablet 25 mg PO DAILY 03/26/25 04/27/25 Lactobacillus acidophilus PO 04/27/25 acetaminophen 325 mg capsule 325 mg PO DAILY 04/27/25 04/27/25 bisacodyl 10 mg rectal suppository mg NE 04/27/25 docusate sodium 100 mg capsule mg PO 04/27/25 (Colace) doxycycline hyclate 100 mg tablet mg 04/27/25 folic acid 1 mg tablet 04/27/25 hydrocodone 5 mg-acetaminophen 300 tab 04/27/25 mg tablet magnesium hydroxide 2,400 mg/10 mL PO 04/27/25 04/27/25 oral suspension (Milk Of Magnesia Concentrated) naloxone 0.4 mg/mL injection mg 04/27/25 solution omeprazole 20 mg tablet,delayed mg PO 04/27/25 release sodium phosphates 19 gram-7 ml NE 04/27/25 gram/118 mL enema (Fleet Enema) tramadol 50 mg tablet mg 04/27/25 Previous Rx's ?Medication ?Instructions ?Recorded cyanocobalamin (vitamin B-12) 1,000 mcg PO DAILY #90 tabs 04/27/25 1,000 mcg tablet (Vitamin B-12) abiraterone 250 mg tablet 1,000 mg (4 x 250 mg) PO DAILY 05/11/25 #120 tabs prednisone 5 mg tablet 5 mg PO DAILY #30 tabs 06/29/25 Allergies Allergy/AdvReac Type Severity Reaction Status Date / Time No Known Allergies Allergy Verified 07/04/25 00:36 Review of Systems Review of Systems: Yes Unobtainable due to mental status PMFSH Past Medical History Medical History PAD (peripheral artery disease) Dry gangrene History of atherosclerosis Chronic kidney disease Polyneuropathy Essential hypertension Diabetes mellitus, type II Prostate CA Surgical History S/P vascular bypass Hx of colonoscopy Hx of amputation History of amputation of lesser toe of left foot History of amputation of left great toe Family History Family History Father Alcoholic Social History Social History Household Members: None Housing: Other Housing Other:: [place] Do you presently have visiting nurse or other home services: No Unable to assess alcohol history related to: Unknown Alcohol intake: former Patient Tobacco Use Status: Former Tobacco user Smoked in Last 30 Days: No Second Hand Smoke Exposure: No Advance Directives: Yes Advance Directives on File: Yes Advance Directives Date on File: 04/29/23 Do you have a plan to hurt others: No Plan service: No Current occupational status: retired 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 SKIN: Normal skin color for ethnicity, warm, dry, no rashes noted. HEENT:? Normocephalic, atraumatic, no stridor, dry mucous membranes, dentition intact, EOMI. NECK: Soft, supple, full ROM, midline structures nontender, no step-offs, no deformities, no lymphadenopathy. CHEST: Heart regular tachycardia, no murmurs, symmetric chest rise and fall. PULMONARY: Clear to auscultation bilaterally, diminished at the bases, no labored breathing, no wheezes/rhales/rhonchi. ABDOMINAL: Soft, nondistended, nontender, positive bowel sounds in all quadrants. : Deferred. MUSCULOSKELETAL: Normal tone, full range of motion, no deformities, no peripheral edema. NEURO: Alert and oriented to person, CN II through XII intact, equal strength and sensation bilateral upper and lower extremities, no focal neurologic deficits.? PSYCHIATRIC: Flat affect, fluid speech, poor eye contact and appropriate demeanor. Vital Signs: Vital Signs - 24 hr 07/04/25 00:27 07/04/25 02:16 07/04/25 02:32 Temperature 99.8 F Pulse Rate 95 84 Respiratory Rate 20 22 H Blood Pressure 170/74 H 137/56 L Pulse Oximetry 95 Oxygen Delivery Method Room Air Oxygen Flow Rate 07/04/25 03:14 07/04/25 03:48 07/04/25 04:14 Temperature 101.4 F H 101.2 F H Pulse Rate 68 70 63 Respiratory Rate 21 H 16 19 Blood Pressure 110/50 L 101/49 L 113/50 L Pulse Oximetry 97 97 95 Oxygen Delivery Method Nasal Cannula Nasal Cannula Room Air Oxygen Flow Rate 2 2 BMI result Body Mass Index 25.6 Medications Administered Discontinued Medications Generic Name Dose Route Start Last Admin Trade Name Freq PRN Reason Stop Dose Admin Acetaminophen 1,000 mg in 100 mls @ 400 mls/hr 07/04/25 01:25 07/04/25 02:40 Ofirmev IV 07/04/25 01:39 Infused ONCE ONE Infusion Lactated Ringer's 1,000 mls @ 999 mls/hr 07/04/25 01:25 07/04/25 04:06 Lr IV 07/04/25 02:25 Infused .Q1H1M ONE Infusion Ceftriaxone Sodium 1 gm/ 50 mls @ 100 mls/hr 07/04/25 03:49 07/04/25 04:26 Sodium Chloride IV 07/04/25 04:18 Infused ONCE ONE Infusion Doxycycline Hyclate 100 mg/ 250 mls @ 166.67 mls/hr 07/04/25 03:49 07/04/25 06:38 Sodium Chloride IV 07/04/25 05:18 Infused ONCE ONE Infusion Lactated Ringer's 1,100 mls @ 999 mls/hr 07/04/25 03:53 07/04/25 06:39 Lr IV 07/04/25 04:59 Infused .Q1H7M ONE Infusion Ondansetron HCl 4 mg 07/04/25 01:25 07/04/25 02:02 Ondansetron Hcl 4 Mg/2 Ml Vial IVPUSH 07/04/25 01:26 4 mg ONCE ONE Administration Medical Decision Making Medical Decision Making MDM Narrative: Patient presents with complaints of fever. Differential diagnosis is incredibly broad but SBI, meningitis, sepsis, serious skin infection, or other emergent etiologies certianly considered.? Less emergent diagnoses such as viral infection also considered.? Patient has a cough that is productive. Chest x-ray is rather nondiagnostic as it is a very poor inspiratory effort however, given his cough, sputum production, high fever an overall clinical picture, we will treat as pneumonia. Covered with Rocephin and doxycycline. Patient given a dose of Tylenol IV. Also received a 30 cc/kg fluid bolus. He was originally hypertensive on arrival to the ED however his blood pressure did drop substantially as his fever improved. Lactic acid level is low. BNP is elevated. We will have to watch for volume overload. He has acute on chronic renal insufficiency. Admitted to the hospitalist for further care and evaluation. Differential Diagnosis Differential Diagnoses: The differential diagnosis associated with the presentation includes (As above) Admission/Observation Consideration of admission/observation: Escalation of care including admission/observation considered Consult Healthcare Provider Management of the patient was discussed with: Hospitalist Lab Data MDM Lab Attestation statement: I reviewed the patient's lab results. 07/04/25 01:28 07/04/25 01:29 Labs: Lab Results 07/04/25 07/04/25 07/04/25 Range/Units 01:28 01:29 01:37 WBC 10.9 H (4.8-10.8) X10*3/uL RBC 3.29 L (4.60-5.80) X10*6/uL Hgb 9.1 L (14.0-18.0) g/dl Hct 27.6 L (42.0-52.0) % MCV 83.9 (80.0-98.0) fL MCH 27.7 (27.0-33.0) pg MCHC 33.0 (31.0-36.0) g/dl RDW 15.3 (11.0-16.0) % Plt Count 131 L (160-400) X10*3/uL MPV 10.5 (9.4-12.4) fL Immature Gran % (Auto) 0.4 (0.0-0.4) % Neut % (Auto) 83.0 H (45-73) % Lymph % (Auto) 6.9 L (20-40) % [place] % (Auto) 8.1 (2-11) % Eos % (Auto) 1.3 (0-4) % Baso % (Auto) 0.3 (0-2) % Lymph # (Auto) 0.8 L (1.2-4.9) X10*3/uL [place]inn # (Auto) 0.9 (0.1-1.2) X10*3/uL Eos # (Auto) 0.1 (0.0-0.4) X10*3/uL Baso # (Auto) 0.0 (0.0-0.2) X10*3/uL Abs Immat Gran (auto) 0.04 H (0.00-0.03) X10*3/uL Absolute Neuts (auto) 9.1 H (2.0-8.3) x10*3/uL Absolute Nucleated RBC 0.000 (0.0-0.012) X10*3/uL Nucleated RBC % (auto) 0.0 (0.0-0.2) /100WBC VBG pH 7.48 H (7.32-7.43) VBG pCO2 39 mmHg VBG pO2 46 mmHg VBG HCO3 29 H (22-26) mmol/L VBG O2 Saturation Not Reportable VBG Base Excess 6.1 mmol/L Sodium 139 (135-145) mmol/L Potassium 3.7 (3.3-5.1) mmol/L Chloride 102 (96-108) mmol/L Carbon Dioxide 28 (22-29) mmol/L Anion Gap 13 (12-20) BUN 32 H (9-16) mg/dL Creatinine 1.44 H (0.5-1.4) mg/dL Estim Creat Clear Calc 34.9 Estimated GFR 47 Random Glucose 243 H (60-115) mg/dL Lactic Acid 1.9 (0.5-2.0) mmol/L Calcium 9.0 (8.4-10.2) mg/dL Magnesium 1.8 (1.6-2.6) mg/dL Total Bilirubin 0.3 (0.0-1.0) mg/dL AST 19 (5-37) U/L ALT 14 (0-40) U/L Alkaline Phosphatase 62 (39-117) U/L Troponin I High Sens 33.5 (<3.5-35.0) ng/L NT-Pro-B Natriuret Pep 2476.4 H (<300) pg/mL Total Protein 6.6 (6.5-8.0) g/dL Albumin 3.9 (3.5-5.0) g/dL Lipase 37 (8-78) U/L Urine Color Urine Appearance Urine pH (5.0-9.0) Ur Specific [place] (1.005-1.025) Urine Protein (Neg-Trace) mg/dL Urine Glucose (UA) (Negative) mg/dL Urine Ketones (Negative) mg/dL Urine Blood (Negative) Urine Nitrite (Negative) Ur Leukocyte Esterase (Negative) Urine RBC (0-2) /HPF Urine WBC (0-5) /HPF Ur Squamous Epith Cells (0-2) /HPF Urine Bacteria (None Seen) Hyaline Casts (0-2) /LPF Ethyl Alcohol < 10 mg/dL Influenza Type A (PCR) NEGATIVE (Negative) Influenza Type B (PCR) NEGATIVE (Negative) RSV RNA Qual (PCR) NEGATIVE (Negative) SARS-CoV-2 RNA (RT-PCR) NEGATIVE (Negative) 07/04/25 Range/Units 05:05 WBC (4.8-10.8) X10*3/uL RBC (4.60-5.80) X10*6/uL Hgb (14.0-18.0) g/dl Hct (42.0-52.0) % MCV (80.0-98.0) fL MCH (27.0-33.0) pg MCHC (31.0-36.0) g/dl RDW (11.0-16.0) % Plt Count (160-400) X10*3/uL MPV (9.4-12.4) fL Immature Gran % (Auto) (0.0-0.4) % Neut % (Auto) (45-73) % Lymph % (Auto) (20-40) % [place]inn % (Auto) (2-11) % Eos % (Auto) (0-4) % Baso % (Auto) (0-2) % Lymph # (Auto) (1.2-4.9) X10*3/uL Linn # (Auto) (0.1-1.2) X10*3/uL Eos # (Auto) (0.0-0.4) X10*3/uL Baso # (Auto) (0.0-0.2) X10*3/uL Abs Immat Gran (auto) (0.00-0.03) X10*3/uL Absolute Neuts (auto) (2.0-8.3) x10*3/uL Absolute Nucleated RBC (0.0-0.012) X10*3/uL Nucleated RBC % (auto) (0.0-0.2) /100WBC VBG pH (7.32-7.43) VBG pCO2 mmHg VBG pO2 mmHg VBG HCO3 (22-26) mmol/L VBG O2 Saturation VBG Base Excess mmol/L Sodium (135-145) mmol/L Potassium (3.3-5.1) mmol/L Chloride (96-108) mmol/L Carbon Dioxide (22-29) mmol/L Anion Gap (12-20) BUN (9-16) mg/dL Creatinine (0.5-1.4) mg/dL Estim Creat Clear Calc Estimated GFR Random Glucose (60-115) mg/dL Lactic Acid (0.5-2.0) mmol/L Calcium (8.4-10.2) mg/dL Magnesium (1.6-2.6) mg/dL Total Bilirubin (0.0-1.0) mg/dL AST (5-37) U/L ALT (0-40) U/L Alkaline Phosphatase (39-117) U/L Troponin I High Sens (<3.5-35.0) ng/L NT-Pro-B Natriuret Pep (<300) pg/mL Total Protein (6.5-8.0) g/dL Albumin (3.5-5.0) g/dL Lipase (8-78) U/L Urine Color Yellow Urine Appearance Clear Urine pH 6.5 (5.0-9.0) Ur Specific [place] 1.015 (1.005-1.025) Urine Protein 100 (2+) H (Neg-Trace) mg/dL Urine Glucose (UA) 250 H (Negative) mg/dL Urine Ketones Negative (Negative) mg/dL Urine Blood Negative (Negative) Urine Nitrite Negative (Negative) Ur Leukocyte Esterase Negative (Negative) Urine RBC 0-2 (0-2) /HPF Urine WBC 0-5 (0-5) /HPF Ur Squamous Epith Cells 0-2 (0-2) /HPF Urine Bacteria None Seen (None Seen) Hyaline Casts 0-2 (0-2) /LPF Ethyl Alcohol mg/dL Influenza Type A (PCR) (Negative) Influenza Type B (PCR) (Negative) RSV RNA Qual (PCR) (Negative) SARS-CoV-2 RNA (RT-PCR) (Negative) Independent Interpretation I performed an independent interpretation of an: EKG Interpretation: My independent interpretation of the ECG reveals atrial fibrillation with rate of 94, normal axis, normal intervals, no ST elevations or depressions to suggest ischemic changes, no previous for comparison Radiology Impression Discussion of test interpretation with radiology: I have reviewed the radiologist's reading. Independent Historian Clinical information obtained from an independent historian. History obtained from or confirmed by: EMS External Record Review External record reviewed: Inpatient record Prescription Management I considered prescription management with: Antibiotic Chronic Conditions Patient?s care impacted by: Diabetes, Hypertension and Other (Atrial fibrillation, CKD) Social Determinants Patient?s care significantly limited by Social Determinants of Health including: Other Social Determinant of Health Discharge Plan Discharge Clinical Impression: Acute hypoxemic respiratory failure, Community acquired pneumonia, Acute encephalopathy, Acute on chronic renal insufficiency Patient Disposition: Admitted As Inpatient Print Language: Portuguese
[2025-07-04 01:38] LABS: MANUAL DIFF FLAG NO
[2025-07-04 01:39] LABS: Hematocrit 27.6 % (42.0-52.0); Hemoglobin 9.1 g/dl (14.0-18.0); Imm Gran Abs Auto 0.04 X10*3/uL (0.00-0.03); Imm Gran Pct Auto 0.4 % (0.0-0.4); Lymphocytes Absolute Auto 0.8 X10*3/uL (1.2-4.9); Mean Corpuscular HGB Conc 33.0 g/dl (31.0-36.0); Mean Corpuscular Hemoglobin 27.7 pg (27.0-33.0); Mean Corpuscular Volume 83.9 fL (80.0-98.0); NRBC Abs Auto 0.000 X10*3/uL (0.0-0.012); NRBC Pct Auto 0.0 /100WBC (0.0-0.2); Platelet Count 131 X10*3/uL (160-400); Red Blood Count 3.29 X10*6/uL (4.60-5.80); White Blood Count 10.9 X10*3/uL (4.8-10.8)
[2025-07-04 01:40] LABS: Venous Blood Gas Refer to POC result
[2025-07-04 01:42] LABS: VBG HCO3 29 mmol/L (22-26)
[2025-07-04 02:00] LABS: Alanine Aminotransferase 14 U/L (0-40); Albumin Level 3.9 g/dL (3.5-5.0); Alkaline Phosphatase 62 U/L (39-117); Anion Gap 13 (12-20); Aspartate Amino Transferase 19 U/L (5-37); Blood Urea Nitrogen 32 mg/dL (9-16); Calcium 9.0 mg/dL (8.4-10.2); Carbon Dioxide 28 mmol/L (22-29); Chloride 102 mmol/L (96-108); Creatinine Clr Calc Pharmacy 34.9; Estimated Glomerular Filt Rate 47; Lipase 37 U/L (8-78); Magnesium 1.8 mg/dL (1.6-2.6); Potassium 3.7 mmol/L (3.3-5.1); Sodium 139 mmol/L (135-145); Total Protein 6.6 g/dL (6.5-8.0)
[2025-07-04] MEDS: Lactated Ringers 1,000 ML 999 ML IV (02:02)
[2025-07-04 02:14] LABS: Troponin-I High Sensitivity 33.5 ng/L (<3.5-35.0)
[2025-07-04 02:15] LABS: Resp Syncy Virus RNA Qual PCR NEGATIVE (Negative); SARS COV2 PCR INHOUSE NEGATIVE (Negative)
--- NOTE | 2025-07-04 02:40 | PC.NURSE ---
Assumed care of pt, presents from home with flu-like symptoms, nausea/vomiting, pt has been SOb x2 days, per EMS pt ate some [employer] vapor rub, and soon after started to vomit, aaox3, pt has a hx of prostates CA, which he is taking chemo drugs for,
[2025-07-04 05:16] LABS: Appearance Urine Clear; Glucose Urine UA 250 mg/dL (Negative); PH 6.5 (5.0-9.0); Specific Gravity - Urine 1.015 (1.005-1.025); UMIC TRIGGER UACC YES
--- NOTE | 2025-07-04 09:52 | PM.IMHP ---
History of Present Illness Date of Service: 07/04/25 Chief Complaint: ams, fever 79M PMH prostate cancer, diabetes, peripheral vascular disease, CKD III, hypertension presented with shortness breath and fever and altered mental status. Brought in by EMS. Complaining of 2 days cough, shortness breath, fevers, overall feeling unwell. In ED febrile to 101.4 with tachypnea 22, chest x-ray with questionable opacity, viral swab negative. Review of Systems Review of Systems: Yes all other systems are reviewed and are negative FORMERLY [facility], 1928–1983 Medical History PAD (peripheral artery disease) Dry gangrene History of atherosclerosis Chronic kidney disease Polyneuropathy Essential hypertension Diabetes mellitus, type II Prostate CA Family History Father Alcoholic Surgical History S/P vascular bypass Hx of colonoscopy Hx of amputation History of amputation of lesser toe of left foot History of amputation of left great toe Social History Household Members: None Housing: Other Housing Other:: just arrived from [place] Do you presently have visiting nurse or other home services: No Unable to assess alcohol history related to: Unknown Alcohol intake: former Patient Tobacco Use Status: Former Tobacco user Smoked in Last 30 Days: No Second Hand Smoke Exposure: No Advance Directives: Yes Advance Directives on File: Yes Advance Directives Date on File: 04/29/23 Do you have a plan to hurt others: No Plan service: No Current occupational status: retired 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 Ceftriaxone Sodium 1 gm/ (Sodium Chloride) 50 mls @ 100 mls/hr IV Q24H TRIP Insulin Human Lispro (Insulin Lispro 100 Unit/Ml 3 Ml Vial) 0 unit SUBCUT QIDACHS TRIP; Protocol Home Medications ?Medication ?Instructions ?Recorded ?Confirmed ?Last Taken ?Type metoprolol tartrate 100 mg tablet 1 tab PO BID 03/04/22 04/27/25 03/26/25 History pen needle, diabetic 31 gauge x 03/04/22 04/27/25 Unknown History 10/01 (Sure Comfort Pen Needle) tamsulosin 0.4 mg capsule 1 cap PO DAILY 03/04/22 04/27/25 03/26/25 History aspirin 81 mg chewable tablet 81 mg PO BEDTIME 04/29/23 04/27/25 03/25/25 History atorvastatin 40 mg tablet 80 mg PO BEDTIME 04/29/23 04/27/25 03/25/25 History insulin aspart U-100 100 unit/mL 6 unit subcut TIDAC 10/29/23 04/27/25 03/26/25 History (3 mL) subcutaneous pen (Novolog FlexPen U-100 Insulin aspart) rivaroxaban 2.5 mg tablet (Xarelto) 2.5 mg PO BID 10/29/23 04/27/25 03/26/25 History insulin glargine 100 unit/mL 14 unit subcut BEDTIME 05/02/24 04/27/25 03/25/25 History subcutaneous solution (Lantus U-100 Insulin) doxazosin 8 mg tablet 8 mg PO BEDTIME 03/26/25 04/27/25 03/26/25 History furosemide 20 mg tablet (Lasix) 20 mg PO Q48H 03/26/25 04/27/25 03/26/25 History leuprolide acetate (6 month) 45 mg 45 mg subcut [id number] 03/26/25 04/27/25 Unknown History (6 month) subcutaneous syringe (Eligard) losartan 25 mg tablet 50 mg PO DAILY 03/26/25 04/27/25 03/26/25 History sertraline 25 mg tablet 25 mg PO DAILY 03/26/25 04/27/25 03/26/25 History Lactobacillus acidophilus PO 04/27/25 Unknown History acetaminophen 325 mg capsule 325 mg PO DAILY 04/27/25 04/27/25 Unknown History bisacodyl 10 mg rectal suppository mg [place] 04/27/25 Unknown History docusate sodium 100 mg capsule mg PO 04/27/25 Unknown History (Colace) doxycycline hyclate 100 mg tablet mg 04/27/25 Unknown History folic acid 1 mg tablet 04/27/25 Unknown History hydrocodone 5 mg-acetaminophen 300 tab 04/27/25 Unknown History mg tablet magnesium hydroxide 2,400 mg/10 mL PO 04/27/25 04/27/25 Unknown History oral suspension (Milk Of Magnesia Concentrated) naloxone 0.4 mg/mL injection mg 04/27/25 Unknown History solution omeprazole 20 mg tablet,delayed mg PO 04/27/25 Unknown History release sodium phosphates 19 gram-7 ml [place] 04/27/25 Unknown History gram/118 mL enema (Fleet Enema) tramadol 50 mg tablet mg 04/27/25 Unknown History diclofenac sodium 1 % topical gel 2 g topical BID 07/04/25 Unknown History gabapentin 400 mg capsule 400 mg PO BID 07/04/25 Unknown History hydralazine 100 mg tablet 100 mg PO TID 07/04/25 Unknown History polyethylene glycol 3350 17 17 g PO DAILY 07/04/25 Unknown History gram/dose oral powder zolpidem 10 mg tablet 10 mg PO BEDTIME PRN insomnia 07/04/25 Unknown History Physical Exam Vital Signs and Narrative: Vital Signs: Last Vital Signs Temp 101.2 F H 07/04/25 03:48 Pulse 68 07/04/25 08:00 Resp 16 07/04/25 08:00 BP 131/57 L 07/04/25 08:00 Pulse Ox 100 07/04/25 08:00 O2 Del Method Room Air 07/04/25 08:00 O2 Flow Rate 2 07/04/25 03:48 BMI result Body Mass Index 25.6 General: AO X 3, ill-appearing Resp: Crackles lower bilateral, no accessory muscles used CVS: S1,S2,RRR GI: soft, non tender, non distended Neuro: motor grossly intact Multiple toe amputations, no rash or erythema Results Labs 07/04/25 01:28 07/04/25 01:29 Labs: Laboratory Results - last 24 hr 07/04/25 07/04/25 07/04/25 01:28 01:29 01:37 MCV 83.9 MCH 27.7 MCHC 33.0 RDW 15.3 Plt Count 131 L MPV 10.5 Immature Gran % (Auto) 0.4 Neut % (Auto) 83.0 H Lymph % (Auto) 6.9 L Carbon % (Auto) 8.1 Eos % (Auto) 1.3 Baso % (Auto) 0.3 Lymph # (Auto) 0.8 L Carbon # (Auto) 0.9 Eos # (Auto) 0.1 Baso # (Auto) 0.0 Abs Immat Gran (auto) 0.04 H Absolute Neuts (auto) 9.1 H Absolute Nucleated RBC 0.000 Nucleated RBC % (auto) 0.0 VBG pH 7.48 H VBG pCO2 39 VBG pO2 46 VBG HCO3 29 H VBG O2 Saturation Not Reportable VBG Base Excess 6.1 Anion Gap 13 Estim Creat Clear Calc 34.9 Estimated GFR 47 Random Glucose 243 H Lactic Acid 1.9 Calcium 9.0 Magnesium 1.8 Total Bilirubin 0.3 AST 19 ALT 14 Alkaline Phosphatase 62 Troponin I High Sens 33.5 NT-Pro-B Natriuret Pep 2476.4 H Total Protein 6.6 Albumin 3.9 Lipase 37 Urine Color Urine Appearance Urine pH Ur Specific [place] Urine Protein Urine Glucose (UA) Urine Ketones Urine Blood Urine Nitrite Ur Leukocyte Esterase Urine RBC Urine WBC Ur Squamous Epith Cells Urine Bacteria Hyaline Casts Ethyl Alcohol < 10 Influenza Type A (PCR) NEGATIVE Influenza Type B (PCR) NEGATIVE RSV RNA Qual (PCR) NEGATIVE SARS-CoV-2 RNA (RT-PCR) NEGATIVE 07/04/25 05:05 MCV MCH MCHC RDW Plt Count MPV Immature Gran % (Auto) Neut % (Auto) Lymph % (Auto) Carbon % (Auto) Eos % (Auto) Baso % (Auto) Lymph # (Auto) Carbon # (Auto) Eos # (Auto) Baso # (Auto) Abs Immat Gran (auto) Absolute Neuts (auto) Absolute Nucleated RBC Nucleated RBC % (auto) VBG pH VBG pCO2 VBG pO2 VBG HCO3 VBG O2 Saturation VBG Base Excess Anion Gap Estim Creat Clear Calc Estimated GFR Random Glucose Lactic Acid Calcium Magnesium Total Bilirubin AST ALT Alkaline Phosphatase Troponin I High Sens NT-Pro-B Natriuret Pep Total Protein Albumin Lipase Urine Color Yellow Urine Appearance Clear Urine pH 6.5 Ur Specific [place] 1.015 Urine Protein 100 (2+) H Urine Glucose (UA) 250 H Urine Ketones Negative Urine Blood Negative Urine Nitrite Negative Ur Leukocyte Esterase Negative Urine RBC 0-2 Urine WBC 0-5 Ur Squamous Epith Cells 0-2 Urine Bacteria None Seen Hyaline Casts 0-2 Ethyl Alcohol Influenza Type A (PCR) Influenza Type B (PCR) RSV RNA Qual (PCR) SARS-CoV-2 RNA (RT-PCR) Assessment and Plan (1) Encephalopathy: Status: Acute Plan 79M PMH prostate cancer, diabetes, peripheral vascular disease, CKD III, hypertension presented with shortness breath and fever and altered mental statu Sepsis (not severe, fever and tachypnea) due to pneumonia Ceftriaxone, azithromycin Follow up cultures Diabetes Insulin sliding scale CKD 3 Stable Peripheral vascular disease Xarelto, statin DVT prophylaxis-Xarelto Full code Given sepsis and need to follow up cultures, provide IV antibiotics and monitor for defervescence expected require at least 2 midnights inpatient Quality Stroke Does the patient have a stroke diagnosis?: No VTE Prior VTE?: No VTE Risk Level:: Medical - moderate - high VTE Device Contraindication: Treatment Not Indicated VTE Drug Contraindication: N/A - Med Ordered
[2025-07-04 11:38] LABS: Glucose, Whole Blood 135 mg/dL (60-115)
--- NOTE | 2025-07-04 12:29 | PHA.MEDREC ---
Addendum entered by Gabriel Pyle RPh 07/04/25 12:49: MED REC REVIEWED BY [facility]. Per Mikie, pt was staying in [place] for a long period of time so some of the meds were filled in [place] and not in the [facility]. Original Note: Pharmacy Consult ? Medication Reconciliation Pharmacy has completed the medication reconciliation. Spoke with pt and he was a poor historian and not able to confirm any medications. Spoke with pt daughter Nery ([phone]) and she was able to confirm pt medications. Pt taking Abiraterone 250mg tab x4 tabs (1000mg) daily along with Prednisone 5mg tabs; pt daughter states she can bring in medication, he is taking Eligard once every 6 months; daughter confirmed pt last got on 06/07, pt takes Novolog 6 units TIDAC and Lantus 14 units at bedtime and pt taking Furosemide 20mg tabs Q48H; daughter confirmed pt took that yesterday 07/03.
[2025-07-04 16:45] LABS: Glucose, Whole Blood 167 mg/dL (60-115)
[2025-07-04 20:27] LABS: Glucose, Whole Blood 199 mg/dL (60-115)
[2025-07-04] MEDS: Insulin Glargine,Hum.rec.anlog 100 UNIT/ML 10 ML VIAL 14 UNIT SUBCUT (21:26)
[2025-07-04] MEDS: 0.9 % Sodium Chloride Flush 3 ML SYRINGE IVFLUSH (21:27)
[2025-07-05 03:13] VITALS: BP 140/70; PULSE 67; RESP 18; TEMP 36.3; O2SAT 95
[2025-07-05 06:30] LABS: Hematocrit 24.6 % (42.0-52.0); Hemoglobin 7.8 g/dl (14.0-18.0); Mean Corpuscular HGB Conc 31.7 g/dl (31.0-36.0); Mean Corpuscular Hemoglobin 26.8 pg (27.0-33.0); Mean Corpuscular Volume 84.5 fL (80.0-98.0); NRBC Abs Auto 0.000 X10*3/uL (0.0-0.012); NRBC Pct Auto 0.0 /100WBC (0.0-0.2); Platelet Count 143 X10*3/uL (160-400); Red Blood Count 2.91 X10*6/uL (4.60-5.80); White Blood Count 7.0 X10*3/uL (4.8-10.8)
[2025-07-05 06:50] LABS: Anion Gap 10 (12-20); Blood Urea Nitrogen 29 mg/dL (9-16); Calcium 8.6 mg/dL (8.4-10.2); Carbon Dioxide 30 mmol/L (22-29); Chloride 105 mmol/L (96-108); Creatinine Clr Calc Pharmacy 41.3; Estimated Glomerular Filt Rate 57; Magnesium 2.0 mg/dL (1.6-2.6); Potassium 4.1 mmol/L (3.3-5.1); Sodium 141 mmol/L (135-145)
[2025-07-05 06:55] VITALS: BP 149/68; PULSE 60; RESP 16; TEMP 36.7; O2SAT 100
[2025-07-05 07:18] LABS: Glucose, Whole Blood 90 mg/dL (60-115)
[2025-07-05] MEDS: 0.9 % Sodium Chloride Flush 3 ML SYRINGE IVFLUSH ×3 (07:59→20:59)
[2025-07-05 09:26] VITALS: O2SAT 96
--- NOTE | 2025-07-05 10:35 | HO.PM.IMPN ---
Subjective Subjective Date of Service: 07/05/25 Interval History: cough Physical Exam Exam: Exam: General: AO X 3, no acute distress Resp: rhonchi bilateral, no accessory muscles used CVS: S1,S2,RRR GI: soft, non tender, non distended Neuro: motor grossly intact, alert Psych: appropriate affect, appropriate insight Vital Signs: Vital Signs: Last Vital Signs Temp 98.0 F 07/05/25 06:55 Pulse 60 07/05/25 06:55 Resp 16 07/05/25 06:55 BP 149/68 H 07/05/25 06:55 Pulse Ox 96 07/05/25 09:26 O2 Del Method Room Air 07/05/25 09:26 O2 Flow Rate 2 07/05/25 06:55 BMI result Body Mass Index 25.6 Objective Data Active Medications Acetaminophen (Acetaminophen 325 Mg Tablet) 650 mg PO Q6H PRN PRN Reason: Pain, Mild 1-3,fever,headache Aspirin (Aspirin 81 Mg Tab.Chew) 81 mg PO BEDTIME TRIP Last Admin: 07/04/25 21:24 Dose: 81 mg Documented By: WESTON Atorvastatin Calcium (Atorvastatin Calcium 80 Mg Tablet) 80 mg PO BEDTIME TRIP Last Admin: 07/04/25 21:25 Dose: 80 mg Documented By: WESTON Azithromycin (Azithromycin 500 Mg Tablet) 500 mg PO Q24H TRIP Last Admin: 07/05/25 09:23 Dose: 500 mg Documented By: DAPHNE Calcium Carbonate (Calcium Carbonate 750 Mg Tab.Chew) 750 mg PO Q4H PRN PRN Reason: Heartburn Cyanocobalamin (Cyanocobalamin (Vitamin B-12) 1,000 Mcg Tablet) 1,000 mcg PO DAILY TRIP Last Admin: 07/05/25 07:45 Dose: 1,000 mcg Documented By: DAPHNE Dextrose (Dextrose 50 % 25 Gm/50 Ml Syringe) 25 gm IVPUSH Q15M PRN; Protocol PRN Reason: per Hypoglycemia Standing Ord. Doxazosin Mesylate (Doxazosin Mesylate 2 Mg Tablet) 8 mg PO BEDTIME TRIP; Protocol Last Admin: 07/04/25 21:25 Dose: 8 mg Documented By: WESTON Furosemide (Furosemide 20 Mg Tablet) 20 mg PO Q48H TRIP; Protocol Last Admin: 07/05/25 07:45 Dose: 20 mg Documented By: DAPHNE Gabapentin (Gabapentin 400 Mg Capsule) 400 mg PO BID REPLACED BY [facility] Last Admin: 07/05/25 07:45 Dose: 400 mg Documented By: DAPHNE Glucose (Glucose Gel 15 Gm Gel..Gram.) 15 gm PO Q15M PRN; Protocol PRN Reason: per Hypoglycemia Standing Ord. Hydralazine HCl (Hydralazine Hcl 50 Mg Tablet) 100 mg PO TID REPLACED BY [facility]; Protocol Last Admin: 07/05/25 07:44 Dose: 100 mg Documented By: DAPHNE Ceftriaxone Sodium 1 gm/ (Sodium Chloride) 50 mls @ 100 mls/hr IV Q24H REPLACED BY [facility] Last Infusion: 07/05/25 08:58 Dose: Infused Documented By: DAPHNE Insulin Glargine (Insulin Glargine,Hum.Rec.Anlog 100 Unit/Ml 10 Ml Vial) 14 unit SUBCUT BEDTIME REPLACED BY [facility] Last Admin: 07/04/25 21:26 Dose: 14 unit Documented By: WESTON Insulin Human Lispro (Insulin Lispro 100 Unit/Ml 3 Ml Vial) 0 unit SUBCUT QIDACHS REPLACED BY [facility]; Protocol Last Admin: 07/05/25 07:59 Dose: Not Given Documented By: DAPHNE Non-Admin Reason: No Insulin Coverage Losartan Potassium (Losartan Potassium 25 Mg Tablet) 25 mg PO DAILY REPLACED BY [facility]; Protocol Last Admin: 07/05/25 07:45 Dose: 25 mg Documented By: DAPHNE Magnesium Hydroxide (Milk Of Magnesia 30 Ml Oral.Susp) 30 ml PO DAILY PRN PRN Reason: Constipation Melatonin (Melatonin 3 Mg Tablet) 6 mg PO BEDTIME PRN PRN Reason: Insomnia Last Admin: 07/04/25 21:29 Dose: 6 mg Documented By: WESTON Metoprolol Tartrate (Metoprolol Tartrate 100 Mg Tablet) 100 mg PO BID REPLACED BY [facility]; Protocol Last Admin: 07/05/25 07:45 Dose: 100 mg Documented By: DAPHNE Pt Own (Abiraterone (250 Mg Tablet)) 1,000 mg PO DAILY REPLACED BY [facility] Last Admin: 07/05/25 09:24 Dose: 1,000 mg Documented By: DAPHNE Polyethylene Glycol (Polyethylene Glycol 3350 17 Gm Powd.Pack) 17 gm PO DAILY REPLACED BY [facility] Last Admin: 07/05/25 07:45 Dose: 17 gm Documented By: DAPHNE Prednisone (Prednisone 5 Mg Tablet) 5 mg PO DAILY REPLACED BY [facility] Last Admin: 07/05/25 07:45 Dose: 5 mg Documented By: DAPHNE Rivaroxaban (Rivaroxaban 2.5 Mg Tablet) 2.5 mg PO BID REPLACED BY [facility] Last Admin: 07/05/25 07:45 Dose: 2.5 mg Documented By: DAPHNE Sertraline HCl (Sertraline Hcl 25 Mg Tablet) 25 mg PO DAILY REPLACED BY [facility] Last Admin: 07/05/25 07:45 Dose: 25 mg Documented By: DAPHNE Sodium Chloride (0.9 % Sodium Chloride Flush 3 Ml Syringe) 3 ml IVFLUSH QSHIFT REPLACED BY [facility] Last Admin: 07/05/25 07:59 Dose: 3 ml Documented By: DAPHNE Labs 07/05/25 05:55 07/05/25 05:55 Labs: Laboratory Results - last 24 hr 07/04/25 07/04/25 07/04/25 11:36 16:34 20:22 MCV MCH MCHC RDW Plt Count MPV Absolute Nucleated RBC Nucleated RBC % (auto) Anion Gap Estim Creat Clear Calc Estimated GFR POC Glucose 135 H 167 H 199 H Random Glucose Calcium Magnesium 07/05/25 07/05/25 05:55 07:02 MCV 84.5 MCH 26.8 L MCHC 31.7 RDW 15.6 Plt Count 143 L MPV 11.1 Absolute Nucleated RBC 0.000 Nucleated RBC % (auto) 0.0 Anion Gap 10 L Estim Creat Clear Calc 41.3 Estimated GFR 57 POC Glucose 90 Random Glucose 95 Calcium 8.6 Magnesium 2.0 Microbiology Microbiology Results: Microbiology 07/04/25 01:31 Blood Culture - Preliminary Blood - Venous No growth after 24 hours. 07/04/25 01:29 Blood Culture - Preliminary Blood - Venous No growth after 24 hours. Assessment and Plan (1) Prostate cancer: Status: Chronic Plan 79M PMH prostate cancer, diabetes, peripheral vascular disease, CKD III, hypertension presented with shortness breath and fever and altered mental statu Sepsis (not severe, fever and tachypnea) due to pneumonia Ceftriaxone, azithromycin Follow up cultures Diabetes Insulin sliding scale CKD 3 Stable Peripheral vascular disease Xarelto, statin DVT prophylaxis-Xarelto Full code reason for continued hospitalization:monitoring for fevers, cultures Quality Stroke Does the patient have a stroke diagnosis?: No VTE Prior VTE?: No VTE Risk Level:: Medical - moderate - high VTE Device Contraindication: Treatment Not Indicated VTE Drug Contraindication: N/A - Med Ordered
--- NOTE | 2025-07-05 10:51 | MHC.CM.PN ---
CM assessment completed w/ daughters Nery and Kasey via telephone at patient's request. Patient lives w/ Nery. Both daughters assist w/ care. Ambulates w/ a walker. Recently active w/ [facility] for PT. PCP Renny Name HCP on file and verified. DP: Return home w/ family support, ? services, daughter transport. CM will continue to follow.
[2025-07-05 11:19] LABS: Glucose, Whole Blood 156 mg/dL (60-115)
[2025-07-05] MEDS: guaiFENesin 200 MG/10 ML 10 ML LIQUID PO ×2 (12:05→16:20)
[2025-07-05 15:10] VITALS: BP 111/59; PULSE 65; RESP 18; TEMP 37.1; O2SAT 94
[2025-07-05 16:07] LABS: Glucose, Whole Blood 116 mg/dL (60-115)
--- NOTE | 2025-07-05 16:07 | PC.NURSE ---
Addendum entered by Monique Kwan RN 07/05/25 18:25: Pt was able to sit up in chair for dinner, 1A with walker. After meal requested to go back to bed. All safety measures in place, call schmitz in reach. Original Note: Pt was able to wean to room air on this shift, 95% on room air, LS dim in bases, productive cough noted, PRN Guaifenesin given with good effect. Incentive spirometer and mobilization encouraged, pt was able to sit in chair for breakfast and lunch with assistance and a walker. Pt was also able to ambulate from chair to doorway with 1A/walker. Pt participated in PT evaluation, see PT note for details.
[2025-07-05 18:42] VITALS: BP 137/63; PULSE 54; RESP 18; TEMP 36.4; O2SAT 94
[2025-07-05 20:13] VITALS: BP 166/74; PULSE 58; RESP 18; TEMP 36.5; O2SAT 94
[2025-07-05 20:37] LABS: Glucose, Whole Blood 127 mg/dL (60-115)
[2025-07-05] MEDS: Insulin Glargine,Hum.rec.anlog 100 UNIT/ML 10 ML VIAL 14 UNIT SUBCUT (20:59)
[2025-07-06 03:05] VITALS: BP 147/65; PULSE 56; RESP 16; TEMP 36.1; O2SAT 96
[2025-07-06 06:43] LABS: Hematocrit 25.4 % (42.0-52.0); Hemoglobin 8.2 g/dl (14.0-18.0); Mean Corpuscular HGB Conc 32.3 g/dl (31.0-36.0); Mean Corpuscular Hemoglobin 27.2 pg (27.0-33.0); Mean Corpuscular Volume 84.1 fL (80.0-98.0); NRBC Abs Auto 0.000 X10*3/uL (0.0-0.012); NRBC Pct Auto 0.0 /100WBC (0.0-0.2); Platelet Count 157 X10*3/uL (160-400); Red Blood Count 3.02 X10*6/uL (4.60-5.80); White Blood Count 6.0 X10*3/uL (4.8-10.8)
[2025-07-06 07:12] VITALS: BP 164/72; PULSE 59; RESP 18; TEMP 36.6; O2SAT 96
[2025-07-06 07:13] LABS: Anion Gap 11 (12-20); Blood Urea Nitrogen 28 mg/dL (9-16); Calcium 9.0 mg/dL (8.4-10.2); Carbon Dioxide 29 mmol/L (22-29); Chloride 104 mmol/L (96-108); Creatinine Clr Calc Pharmacy 39.9; Estimated Glomerular Filt Rate 55; Magnesium 2.2 mg/dL (1.6-2.6); Potassium 3.9 mmol/L (3.3-5.1); Sodium 140 mmol/L (135-145)
[2025-07-06 07:30] LABS: Glucose, Whole Blood 83 mg/dL (60-115)
[2025-07-06] MEDS: guaiFENesin 200 MG/10 ML 10 ML LIQUID PO (08:42)
[2025-07-06] MEDS: 0.9 % Sodium Chloride Flush 3 ML SYRINGE IVFLUSH ×3 (08:43→21:09)
--- NOTE | 2025-07-06 09:19 | P.DS_ITS ---
DS: Providers Provider Date of admission: 07/04/25 07:44 Date of discharge: 07/07/25 Primary care physician: Renny Johnston MD DS: Diagnosis Discharge Diagnosis (1) Prostate cancer: Status: Chronic DS: Summary Hospital Course Hospital Course: from initial hpi: 79M PMH prostate cancer, diabetes, peripheral vascular disease, CKD III, hypertension presented with shortness breath and fever and altered mental status. Brought in by EMS. Complaining of 2 days cough, shortness breath, fevers, overall feeling unwell. In ED febrile to 101.4 with tachypnea 22, chest x-ray with questionable opacity, viral swab negative. hospital course: Patient was admitted for sepsis due to pneumonia. Was treated ceftriaxone azithromycin and symptoms significantly improved. On discharge continue Ceftin and azithromycin and prednisone for 5 more days. For diabetes was continued on insulin sliding scale. For CKD 3 remained stable. For peripheral vascular disease was continued on Xarelto and statin. For deconditioning was seen by physical therapy recommended short-term rehab however patient declined, he will be discharged home with VNA. Time Attestation Discharge Coordination Time (in mins): 33 Quality: Safe Use of Opioids Does Pt have an Active Cancer Diagnosis on the Problem List?: No Quality: Stroke Does the patient have a stroke diagnosis?: No Physical Exam Exam: Exam: General: AO X 3, no acute distress Resp: CTA bilateral, no accessory muscles used CVS: S1,S2,RRR GI: soft, non tender, non distended Neuro: motor grossly intact, alert Psych: appropriate affect, appropriate insight Vital Signs: Vital Signs: Last Vital Signs Temp 97.8 F 07/06/25 07:12 Pulse 59 07/06/25 07:12 Resp 18 07/06/25 07:12 BP 164/72 H 07/06/25 07:12 Pulse Ox 96 07/06/25 07:12 O2 Del Method Room Air 07/06/25 07:12 O2 Flow Rate 2 07/05/25 06:55 BMI result Body Mass Index 25.6 DS: Data Data Completed and Pending Labs on day of discharge: Laboratory Results - last 24 hr 07/05/25 07/05/25 07/05/25 11:12 16:01 20:26 WBC RBC Hgb Hct MCV MCH MCHC RDW Plt Count MPV Absolute Nucleated RBC Nucleated RBC % (auto) Sodium Potassium Chloride Carbon Dioxide Anion Gap BUN Creatinine Estim Creat Clear Calc Estimated GFR POC Glucose 156 H 116 H 127 H Random Glucose Calcium Magnesium 07/06/25 07/06/25 06:07 07:26 WBC 6.0 RBC 3.02 L Hgb 8.2 L Hct 25.4 L MCV 84.1 MCH 27.2 MCHC 32.3 RDW 15.2 Plt Count 157 L MPV 11.6 Absolute Nucleated RBC 0.000 Nucleated RBC % (auto) 0.0 Sodium 140 Potassium 3.9 Chloride 104 Carbon Dioxide 29 Anion Gap 11 L BUN 28 H Creatinine 1.26 Estim Creat Clear Calc 39.9 Estimated GFR 55 POC Glucose 83 Random Glucose 78 Calcium 9.0 Magnesium 2.2 Preliminary micro results at discharge 07/04/25 01:29 Blood Culture - Preliminary Blood - Venous No growth after 48 hours. 07/04/25 01:31 Blood Culture - Preliminary Blood - Venous No growth after 48 hours. Discharge Plan Discharge Anticipated Discharge Date/Time: 07/06/25 09:16 Patient Disposition: Home Health Service Discharge Diagnosis: pna Referrals: Name,MD Renny [Primary Care Provider, Internal Medicine] - 1 Week Discharge Medications: New prednisone 20 mg tablet 40 mg PO DAILY Qty: 10 0RF cefuroxime axetil 500 mg tablet 500 mg PO BID Qty: 10 0RF azithromycin 500 mg tablet 500 mg PO DAILY 5 Days Qty: 5 0RF Continued metoprolol tartrate 100 mg tablet 1 tab PO BID (DME) pen needle, diabetic [Sure Comfort Pen Needle] 31 gauge x 3/16 needle MISCELLANEOUS insulin aspart U-100 [Novolog FlexPen U-100 Insulin] 100 unit/mL (3 mL) insulin pen 6 unit subcut TIDAC rivaroxaban [Xarelto] 2.5 mg tablet 2.5 mg PO BID insulin glargine [Lantus U-100 Insulin] 100 unit/mL solution 14 unit SUBCUT BEDTIME cyanocobalamin (vitamin B-12) [Vitamin B-12] 1,000 mcg Tablet 1,000 mcg PO DAILY Qty: 90 0RF abiraterone 250 mg tablet 1,000 mg PO DAILY Qty: 120 3RF Rx Instructions: take with prednisone 5 mg atorvastatin 40 mg tablet 80 mg PO BEDTIME aspirin 81 mg Tablet,Chewable 81 mg PO BEDTIME gabapentin 400 mg capsule 400 mg PO BID hydralazine 100 mg tablet 100 mg PO TID polyethylene glycol 3350 17 gram/dose powder 17 g PO DAILY zolpidem 10 mg tablet 10 mg PO BEDTIME PRN (Reason: insomnia) diclofenac sodium 1 % gel 2 g topical BID PRN (Reason: Pain) doxazosin 8 mg Tablet 8 mg PO BEDTIME losartan 25 mg tablet 25 mg PO DAILY sertraline 25 mg tablet 25 mg PO DAILY furosemide [Lasix] 20 mg Tablet 20 mg PO Q48H Eligard (6 month) 45 mg Syringe 45 mg SUBCUT [id number] Held prednisone 5 mg Tablet 5 mg PO DAILY Qty: 30 3RF Hold Instructions: Resume on 07/10/25. Rx Instructions: Taken with Abiraterone Discharge Orders: Discharge Order (Routine); Ordered 07/07/25 Ordered By: Reynaldo Gongora Diet: Advance to usual diet Activity on Discharge: As tolerated Stand Alone Forms: Patient Portal Discharge page Print Language: Japanese Care Plan Goals: recovery Health Concerns: pna Plan of Treatment: ceftin, azithro, prednisone 5 days Assessment: see above Patient Instructions: Community Acquired Pneumonia (DC)
--- NOTE | 2025-07-06 11:30 | MHC.CM.PN ---
Addendum entered by Ivelisse Vincent 07/07/25 09:38: AUTH FOR STR WAS RECEIVED BY [facility] CM CALLED PTS DAUGHTER, NA [phone], AND INFORMED HER SHE STATES THE PT DOES NOT WANT TO GO TO STR, WHICH HE HAS BEEN SAYING SINCE ADMISSION SHE SAYS SHE WILL HELP HER SISTER CARE FOR THE PT AND THEY HAVE FAMILY COMING IN FOR THE HOLIDAYS WHICH WILL MEAN EXTRA HELP SHE SAYS SHE THOUGHT HE SHOULD GO TO STR, BUT UNDERSTANDS HE DOES NOT WANT TO MISS THE HOLIDAYS PT WILL DC WITH [facility] WILL TRANSPORT Addendum entered by Ivelisse Vincent 07/06/25 16:23: AUTH PENDING FOR STR Addendum entered by Ivelisse Vincent 07/06/25 13:02: PT HAS BED OFFERS AT [facility], [facility] AND [facility] JUAN CALLED PTS HCP/DTR AN, WHO REPORTS [facility] IS PREFERRED [facility] NOTIFIED AND WILL SUBMIT FOR AUTH Original Note: JUAN RECEIVED A CALL FROM PTS DAUGHTER, AN, SHE SAYS HER SISTER IS ILL AND CANNOT CARE FOR PT SHE WAS INFORMED YESTERDAY AND TODAY THAT STR HAS BEEN RECOMMENDED SHE REPORTS THAT WOULD BE THE BEST PLAN BUT ASKS THAT HE NOT GO [facility] CM INFORMED HER REFERRALS WOULD BE MADE AND SHE WOULD BE CALLED BACK WITH BED OFFERS
--- NOTE | 2025-07-06 11:34 | P.PNIM_ITS ---
Subjective Subjective Date of Service: 07/06/25 Interval History: improved Physical Exam 2 Exam: Exam: General: AO X 3, no acute distress Resp: CTA bilateral, no accessory muscles used CVS: S1,S2,RRR GI: soft, non tender, non distended Neuro: motor grossly intact, alert Psych: appropriate affect, appropriate insight Vital Signs: Vital Signs: Last Vital Signs Temp 97.8 F 07/06/25 07:12 Pulse 59 07/06/25 07:12 Resp 18 07/06/25 07:12 BP 164/72 H 07/06/25 07:12 Pulse Ox 96 07/06/25 07:12 O2 Del Method Room Air 07/06/25 07:12 O2 Flow Rate 2 07/05/25 06:55 BMI result Body Mass Index 25.6 Objective Data Active Medications Acetaminophen (Acetaminophen 325 Mg Tablet) 650 mg PO Q6H PRN PRN Reason: Pain, Mild 1-3,fever,headache Last Admin: 07/06/25 08:42 Dose: 650 mg Documented By: DAPHNE Aspirin (Aspirin 81 Mg Tab.Chew) 81 mg PO BEDTIME TRIP Last Admin: 07/05/25 20:58 Dose: 81 mg Documented By: WESTON Atorvastatin Calcium (Atorvastatin Calcium 80 Mg Tablet) 80 mg PO BEDTIME TRIP Last Admin: 07/05/25 20:58 Dose: 80 mg Documented By: WESTON Azithromycin (Azithromycin 500 Mg Tablet) 500 mg PO Q24H TRIP Last Admin: 07/06/25 11:12 Dose: 500 mg Documented By: DAPHNE Calcium Carbonate (Calcium Carbonate 750 Mg Tab.Chew) 750 mg PO Q4H PRN PRN Reason: Heartburn Cyanocobalamin (Cyanocobalamin (Vitamin B-12) 1,000 Mcg Tablet) 1,000 mcg PO DAILY TRIP Last Admin: 07/06/25 08:42 Dose: 1,000 mcg Documented By: DAPHNE Dextrose (Dextrose 50 % 25 Gm/50 Ml Syringe) 25 gm IVPUSH Q15M PRN; Protocol PRN Reason: per Hypoglycemia Standing Ord. Doxazosin Mesylate (Doxazosin Mesylate 2 Mg Tablet) 8 mg PO BEDTIME TRIP; Protocol Last Admin: 07/05/25 20:58 Dose: 8 mg Documented By: WESTON Furosemide (Furosemide 20 Mg Tablet) 20 mg PO Q48H TRIP; Protocol Last Admin: 07/05/25 07:45 Dose: 20 mg Documented By: DAPHNE Gabapentin (Gabapentin 400 Mg Capsule) 400 mg PO BID TRIP Last Admin: 07/06/25 08:41 Dose: 400 mg Documented By: DAPHNE Glucose (Glucose Gel 15 Gm Gel..Gram.) 15 gm PO Q15M PRN; Protocol PRN Reason: per Hypoglycemia Standing Ord. Guaifenesin (Guaifenesin 200 Mg/10 Ml 10 Ml Liquid) 10 ml PO Q4H PRN PRN Reason: Cough Last Admin: 07/06/25 08:42 Dose: 10 ml Documented By: DAPHNE Hydralazine HCl (Hydralazine Hcl 50 Mg Tablet) 100 mg PO TID [facility]; Protocol Last Admin: 07/06/25 08:41 Dose: 100 mg Documented By: DAPHNE Ceftriaxone Sodium 1 gm/ (Sodium Chloride) 50 mls @ 100 mls/hr IV Q24H [facility] Last Infusion: 07/06/25 09:37 Dose: Infused Documented By: DAPHNE Insulin Glargine (Insulin Glargine,Hum.Rec.Anlog 100 Unit/Ml 10 Ml Vial) 14 unit SUBCUT BEDTIME TRIP Last Admin: 07/05/25 20:59 Dose: 14 unit Documented By: WESTON Insulin Human Lispro (Insulin Lispro 100 Unit/Ml 3 Ml Vial) 0 unit SUBCUT QIDACHS [facility]; Protocol Last Admin: 07/06/25 09:04 Dose: Not Given Documented By: DAPHNE Non-Admin Reason: No Insulin Coverage Losartan Potassium (Losartan Potassium 25 Mg Tablet) 25 mg PO DAILY [facility]; Protocol Last Admin: 07/06/25 08:41 Dose: 25 mg Documented By: DAPHNE Magnesium Hydroxide (Milk Of Magnesia 30 Ml Oral.Susp) 30 ml PO DAILY PRN PRN Reason: Constipation Melatonin (Melatonin 3 Mg Tablet) 6 mg PO BEDTIME PRN PRN Reason: Insomnia Last Admin: 07/05/25 20:58 Dose: 6 mg Documented By: WESTON Metoprolol Tartrate (Metoprolol Tartrate 100 Mg Tablet) 100 mg PO BID [facility]; Protocol Last Admin: 07/06/25 08:41 Dose: 100 mg Documented By: DAPHNE Pt Own (Abiraterone (250 Mg Tablet)) 1,000 mg PO DAILY [facility] Last Admin: 07/06/25 11:12 Dose: 1,000 mg Documented By: DAPHNE Ondansetron HCl (Ondansetron Hcl 4 Mg/2 Ml Vial) 4 mg IVPUSH Q6H PRN PRN Reason: Nausea Last Admin: 07/05/25 13:38 Dose: 4 mg Documented By: DABNadeen Polyethylene Glycol (Polyethylene Glycol 3350 17 Gm Powd.Pack) 17 gm PO DAILY [facility] Last Admin: 07/06/25 08:42 Dose: 17 gm Documented By: DAPHNE Prednisone (Prednisone 5 Mg Tablet) 5 mg PO DAILY [facility] Last Admin: 07/06/25 08:41 Dose: 5 mg Documented By: DAPHNE Rivaroxaban (Rivaroxaban 2.5 Mg Tablet) 2.5 mg PO BID [facility] Last Admin: 07/06/25 08:41 Dose: 2.5 mg Documented By: DAPHNE Sertraline HCl (Sertraline Hcl 25 Mg Tablet) 25 mg PO DAILY [facility] Last Admin: 07/06/25 08:41 Dose: 25 mg Documented By: DAPHNE Sodium Chloride (0.9 % Sodium Chloride Flush 3 Ml Syringe) 3 ml IVFLUSH QSHIFT [facility] Last Admin: 07/06/25 08:43 Dose: 3 ml Documented By: DAPHNE Labs 07/06/25 06:07 07/06/25 06:07 Labs: Laboratory Results - last 24 hr 07/05/25 07/05/25 07/06/25 16:01 20:26 06:07 MCV 84.1 MCH 27.2 MCHC 32.3 RDW 15.2 Plt Count 157 L MPV 11.6 Absolute Nucleated RBC 0.000 Nucleated RBC % (auto) 0.0 Anion Gap 11 L Estim Creat Clear Calc 39.9 Estimated GFR 55 POC Glucose 116 H 127 H Random Glucose 78 Calcium 9.0 Magnesium 2.2 07/06/25 07:26 MCV MCH MCHC RDW Plt Count MPV Absolute Nucleated RBC Nucleated RBC % (auto) Anion Gap Estim Creat Clear Calc Estimated GFR POC Glucose 83 Random Glucose Calcium Magnesium Microbiology Microbiology Results: Microbiology 07/04/25 01:29 Blood Culture - Preliminary Blood - Venous No growth after 48 hours. 07/04/25 01:31 Blood Culture - Preliminary Blood - Venous No growth after 48 hours. Assessment and Plan (1) Prostate cancer: Status: Chronic Plan 79M PMH prostate cancer, diabetes, peripheral vascular disease, CKD III, hypertension presented with shortness breath and fever and altered mental statu Sepsis (not severe, fever and tachypnea) due to pneumonia Ceftriaxone, azithromycin Follow up cultures Diabetes Insulin sliding scale CKD 3 Stable Peripheral vascular disease Xarelto, statin DVT prophylaxis-Xarelto Full code reason for continued hospitalization: dispo planning Quality Stroke Does the patient have a stroke diagnosis?: No VTE Prior VTE?: No VTE Risk Level:: Medical - moderate - high VTE Device Contraindication: Treatment Not Indicated VTE Drug Contraindication: N/A - Med Ordered
[2025-07-06 11:53] LABS: Glucose, Whole Blood 191 mg/dL (60-115)
[2025-07-06 15:36] VITALS: BP 143/70; PULSE 57; RESP 18; TEMP 36.6; O2SAT 96
[2025-07-06 16:05] LABS: Glucose, Whole Blood 188 mg/dL (60-115)
[2025-07-06 19:04] VITALS: BP 136/90; PULSE 70; RESP 18; TEMP 36.4; O2SAT 95
[2025-07-06 21:01] LABS: Glucose, Whole Blood 186 mg/dL (60-115)
[2025-07-06] MEDS: Insulin Glargine,Hum.rec.anlog 100 UNIT/ML 10 ML VIAL 14 UNIT SUBCUT (21:09)
[2025-07-07 04:00] VITALS: BP 123/71; PULSE 70; RESP 16; TEMP 36.7; O2SAT 94
[2025-07-07 07:29] VITALS: BP 163/71; PULSE 56; RESP 18; TEMP 36.3; O2SAT 93
[2025-07-07 07:50] LABS: Glucose, Whole Blood 121 mg/dL (60-115)
--- NOTE | 2025-07-07 09:25 | P.F2F_ITS ---
Service Date Service Date: 07/07/25 Encounter Date of encounter: 07/07/25 Reasons for Services Signs and symptoms assessed: Cough, shortness breath Reason for nursing home: medication management, medication treatment and teach disease management Reason for physical therapy: home safety and mobility and therapeutic exercises Homebound: Leaving the home is medically contraindicated at this time without the asist of a device and/or another person due th the listed conditions above and below. Reason homebound: unsteady gait / fall risk Certification: Based on the above findings, I certify that this patient is confined to the home and needs intermittent nursing home care, physical therapy and/or speech therapy, or continues to need occupational therapy. The patient is under my care, and I have initiated the establishment of the plan of care. The patient will be followed by a physician who will periodically review the plan of care. Time Spent With Patient Time: Total time managing care of this patient today ____ minutes.
== END 2025-07-07 10:32 | disposition home health service (06) | DRG 871 ==
LOC: HO.ED 07:33 → HO.EDOVER 07:46 → HO.S3 12:35
PROVIDERS: Admitting Provider Internal Medicine; Emergency Provider Emergency Medicine; PCP Internal Medicine Geriatric Medicine; Visit Provider Internal Medicine
DX: A41.9 Sepsis, unspecified organism (principal); J18.9 Pneumonia, unspecified organism; J96.01 Acute respiratory failure with hypoxia; E11.22 Type 2 diabetes mellitus with diabetic chronic kidney disease; E11.42 Type 2 diabetes mellitus with diabetic polyneuropathy; I12.9 Hypertensive chronic kidney disease with stage 1 through stage 4 chronic kidney disease, or unspecified chronic kidney disease; N18.30 Chronic kidney disease, stage 3 unspecified; E11.51 Type 2 diabetes mellitus with diabetic peripheral angiopathy without gangrene; Z20.822 Contact with and (suspected) exposure to COVID-19; Z87.891 Personal history of nicotine dependence; Z79.4 Long term (current) use of insulin; Z79.01 Long term (current) use of anticoagulants; Z79.82 Long term (current) use of aspirin; Z79.899 Other long term (current) drug therapy
CPT/HCPCS: 36415; 71045; 80048; 80053; 80307; 81001; 82803; 82947; 83605; 83690; 83735; 83880; 84484; 85025; 85027; 87040; 87637; 93005; 97162; 97530; 99285; J0131; J0696; J1271; J2405; J7120

== ENCOUNTER → 2025-07-04 00:41 | Outpatient (BNV) | payer OTHER, SELFPAY | PROVIDERS: Emergency Provider Emergency Medicine; Visit Provider Radiology Diagnostic Radiology | DX: I51.7 Cardiomegaly (principal) | CPT/HCPCS: 71045 ==

== ENCOUNTER → 2025-07-04 00:41 | Outpatient (BNV) | payer OTHER, SELFPAY | PROVIDERS: Admitting Provider Internal Medicine; Emergency Provider Emergency Medicine; Visit Provider Internal Medicine Cardiovascular Disease | DX: I49.1 Atrial premature depolarization (principal) | CPT/HCPCS: 93010 ==

== ENCOUNTER → 2025-07-04 07:44 | Outpatient (BNV) | payer OTHER, SELFPAY | PROVIDERS: Admitting Provider Internal Medicine; Emergency Provider Emergency Medicine; Visit Provider Internal Medicine | DX: C61 Malignant neoplasm of prostate (principal) | CPT/HCPCS: 99222; 99233 ==